=== PATIENT | male | born 1960 | race Caucasian/White ===

== ENCOUNTER 2019-08-21 16:31 | Inpatient (IN) | payer OTHER ==
--- NOTE | 2019-08-21 16:47 | Emergency Department Report ---
Blank Doc - Documentation Documentation: 59-year-old male that presents with abdominal pain with nausea vomiting and left foot swelling and redness. This initial assessment/diagnostic orders/clinical plan/treatment(s) is/are subject to change based on patient's health status, clinical progression and re- assessment by fellow clinical providers in the ED. Further treatment and workup at subsequent clinical providers discretion. Patient/guardians urged not to elope from the ED as their condition may be serious if not clinically assessed and managed. Initial orders include: 1- Patient sent to [facility] for further evaluation and treatment 2- labs 3- UA
[2019-08-21 17:41] LABS: Hematocrit 35.5 % (35.5-45.6); Hemoglobin 12.1 gm/dl (11.8-15.2); Mean Corpuscular HGB Conc 34 % (32-34); Mean Corpuscular Volume 85 fl (84-94); Platelet Count 245 K/mm3 (140-440); Red Blood Count 4.18 M/mm3 (3.65-5.03); Red Cell Distribution Width 14.3 % (13.2-15.2)
--- NOTE | 2019-08-21 17:51 | XRay Report ---
LEFT FOOT 2 VIEWS RIGHT FOOT 2 VIEWS INDICATION / CLINICAL INFORMATION: Pain and swelling along right first toe. Left foot pain. COMPARISON: None available. FINDINGS: BONES and JOINT(S): Suspicious cortical irregularity is noted along the tip of the distal phalanx of the left first toe. No other acute osseous abnormality is seen. Mild arthritis is noted along the rig ht midfoot with bilateral calcaneal enthesopathic change. SOFT TISSUES: There is a suspected wound along the tip of the left first toe measuring 2.4 cm with as sociated edema. Mild to moderate edema is noted throughout the right first toe with a suspected gland measuring approximately 1 cm at the tip of the toe. ADDITIONAL FINDINGS: None. IMPRESSION: 1. Left first toe wound with suspected osteomyelitis as above. 2. Right first toe wound without radiographic evidence of associated osteomyelitis. Signer Name: Justin Camara MD Signed: 08/21/2019 5:46 PM Workstation Name: [id number]
[2019-08-21 18:08] LABS: Albumin 4.2 g/dL (3.9-5); Calcium 8.1 mg/dL (8.4-10.2)
[2019-08-21 18:19] LABS: Anisocytosis Few; Eosinophils % (Manual) 0 % (0.0-4.3); Total Cells Counted 100
[2019-08-21 18:20] LABS: Platelet Estimate Consistent w Auto
[2019-08-21] MEDS ORDERED: SODIUM CHLORIDE 0.9% 1000 ML 1,000 ML IV ONE (20:29)
[2019-08-21] MEDS ORDERED: VANCOMYCIN 1,750 MG in SODIUM CHLORIDE 0.9% 500 ML 500 ML IV ONE (20:45)
[2019-08-21] MEDS ORDERED: DEXTROSE 50% IN WATER (25GM) 50 ML SYRINGE IV ONE ×2 (21:07→22:00)
[2019-08-21] MEDS: DEXTROSE 50% IN WATER (25GM) 50 ML VIAL IV ONE ×2 (21:15→21:58)
--- NOTE | 2019-08-21 21:18 | XRay Report ---
CHEST 1 VIEW INDICATION / CLINICAL INFORMATION: acute renal failure, ams. COMPARISON: None available. FINDINGS: SUPPORT DEVICES: None. HEART / MEDIASTINUM: No significant abnormality. LUNGS / PLEURA: Mild, hazy and reticular interstitial opacities in both lungs. Subtle linear left ret rocardiac opacities are present. No pneumothorax. IMPRESSION: Mild left basilar atelectasis and mild interstitial pulmonary edema. Signer Name: Irineo Callaway MD Signed: 08/21/2019 9:14 PM Workstation Name: [id number]
--- NOTE | 2019-08-21 21:19 | Emergency Department Report ---
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 Even with a managing broker patient is altered and oriented only to self. Initial triage only included that patient had a history of "dementia" and hypertension. Upon calling patient's daughter on the phone patient does not have dementia and has not insulin-dependent diabetes, hy pertension, and chronic renal sufficiency. She provided a list of patient's current medications to the triage providers. I request that these be placed in [employer]. Glucose noted to be 68 on the labs several hours ago. Accu-Chek requested. Upon return from CT patient was having a focal left upper extremity seizure and Accu-Chek was less than 40. IV placed and 2 Amps of D50 provided stat with resolution of seizure activity. As per daughter patient also has had infection to bilateral great toes that started with a blister x1 week. She has been applying topical Neosporin. She did not check his temperature but states he felt hot. He has been too weak to get out of bed for the last 1 week and has had intermittent confusion. His sugar has been running higher than normal. He has chronic renal sufficiency but is not a dialysis patient nor does he have AV access. Depot Manager: Dr. Ferdinand Boone. Patient does not have a PMD. - Related Data Home Medications Medication Instructions Recorded Confirmed Last Taken Loratadine 10 mg PO 08/21/19 Unknown Vitamin D3 08/21/19 Unknown amLODIPine [Norvasc] 10 mg PO DAILY 08/21/19 08/21/19 Unknown glipiZIDE [Glucotrol] 08/21/19 Unknown Allergies Allergy/AdvReac Type Severity Reaction Status Date / Time No Known Allergies Allergy Unverified 08/21/19 16:42 ED Review of Systems ROS: Stated complaint: NAUSEA/ABD PAIN/LOSS OF EYE SIGHT Other details as noted in HPI Comment: Unobtainable due to pts medical conditions ED Past Medical Hx - Past Medical History Previous Medical History?: Yes Hx Hypertension: Yes Hx Diabetes: Yes (non insulin dependent) Hx Renal Disease: Yes - Social History Smoking Status: Never Smoker Substance Use Type: None - Medications Home Medications: Home Medications Medication Instructions Recorded Confirmed Last Taken Type Loratadine 10 mg PO 08/21/19 Unknown History Vitamin D3 08/21/19 Unknown History amLODIPine [Norvasc] 10 mg PO DAILY 08/21/19 08/21/19 Unknown History glipiZIDE [Glucotrol] 08/21/19 Unknown History ED Physical Exam - General Limitations: Language Barrier - Other Other exam information: General: No acute distress Head: Atraumatic Eyes: normal appearance, pupils equal and reactive to light, intermittent left- sided gaze ENT: Moist mucous membranes Neck: Normal appearance, no midline tenderness Chest: Clear to auscultation bilaterally CV: Regular rate and rhythm Abdomen: Soft, normal bowel sounds, nontender, nondistended, no rebound or guarding Back: Normal inspection Extremity: Infection with dark discoloration to the tip of left and right great toe with some mild tenderness to palpation Neuro: Alert but altered. Confused and unable to reliably follow commands oriented x1, no facial asymmetry, equal handgrip of foot dorsiflexion Skin: No rash ED Course Vital Signs 08/21/19 16:33 Temperature 97.6 F Pulse Rate 89 Respiratory 16 Rate Blood Pressure 151/83 O2 Sat by Pulse 100 Oximetry - Reevaluation(s) Reevaluation #1: 08/21/19 21:54 repeat glucose 192, no further sz activity repeat pending. - Consultations Consultation #1: 08/21/19 21:53 case d/w Dr Boone, will consult. ED Medical Decision Making - Lab Data Result diagrams: 08/21/19 17:07 08/21/19 17:07 - Radiology Data Radiology results: report reviewed LEFT FOOT 2 VIEWS RIGHT FOOT 2 VIEWS INDICATION / CLINICAL INFORMATION: Pain and swelling along right first toe. Left foot pain. COMPARISON: None available. FINDINGS: BONES and JOINT(S): Suspicious cortical irregularity is noted along the tip of the distal phalanx of the left first toe. No other acute osseous abnormality is seen. Mild arthritis is noted along the right midfoot with bilateral calcaneal enthesopathic change. SOFT TISSUES: There is a suspected wound along the tip of the left first toe measuring 2.4 cm with associated e vandana. Mild to moderate edema is noted throughout the right first toe with a suspected gland measuring approximately 1 cm at the tip of the toe. ADDITIONAL FINDINGS: None. IMPRESSION: 1. Left first toe wound with suspected osteomyelitis as above. 2. Right first toe wound without radiographic evidence of associated osteomyelitis. CHEST 1 VIEW INDICATION / CLINICAL INFORMATION: acute renal failure, ams. COMPARISON: None available. FINDINGS: SUPPORT DEVICES: None. HEART / MEDIASTINUM: No significant abnormality. LUNGS / PLEURA: Mild, hazy and reticular interstitial opacities in both lungs. Subtle linear left retrocardiac opacities are present. No pneumothorax. IMPRESSION: Mild left basilar atelecta sis and mild interstitial pulmonary edema. CT ABDOMEN AND PELVIS WITHOUT CONTRAST INDICATION / CLINICAL INFORMATION: n,v abd pain, new onset renal failure. TECHNIQUE: Axial CT images were obtained through the abdomen and pelvis without IV contrast. All CT scans at this location are performed using CT dose reduction for ALARA by means of automated exposure control. COMPARISON: None available. FINDINGS: LOWER CHEST: No significant abnormality. LIVER: No significant abnormality. GALLBLADDER: No significant abnormality. BILE DUCTS: No significant abnormality. PANCREAS: No significant abnormality. SPLEEN: No significant abnormality. ADRENALS: No significant abnormality. RIGHT KIDNEY and URETER: No significant abnormality. LEFT KIDNEY and URETER: No significant abnormality. STOMACH and SMALL BOWEL: No significant abnormality. COLON: No significant abnormality. APPENDIX: No significant abnormality. PERITONEUM: No free fluid. No free air. No fluid collection. LYMPH NODES: No adenopathy. AORTA and ARTERIES: No significant abnormality. IVC and VEINS: No significant abnormality. URINARY BLADDER: No significant abnormality. REPRODUCTIVE ORGANS: No significant abnormality. ADDITIONAL FINDINGS: None. SKELETAL SYSTEM: No significant abnormality. IMPRESSION: 1. No acute abnormality. CT BRAIN: WITHOUT CONTRAST INDICATION / CLINICAL INFORMATION: Altered mental status and abdominal pain. COMPARISON: None available. FINDINGS: BRAIN/INTRACRANIAL STRUCTURES: Unenhanced CT images of the brain demonstrate no evidence of acute intracranial abnormality. Ventricles and sulci are prominent in size, consistent with diffuse cerebral atrophy. Chronic white matter hypoatte nuation is present. There is evidence of lacunar changes in the basal ganglia bilaterally, more pronounced on the left. 1 cm area of hypoattenuation is located in the left centrum semiovale, consistent with subcortical ischemic change of indeterminate age. There is no evidence of hemorrhage or mass. There are no abnormal extra-axial fluid collections. EXTRACRANIAL STRUCTURES: Unremarkable. IMPRESSION: No definite evidence of acute abnormality. Chronic and age-related changes. - Medical Decision Making Patient presents to the hospital with nausea and vomiting and worsening chronic renal sufficiency with uremia likely cause of alteration mental status. Mental status deteriorated during ED stay with focal seizure secondary to hypoglycemic episode. After 2 Amp of D50 glucose improved. CT head and CT abdomen pelvis do not show any acute abnormalities. Patient had a urine output after John placement. Normal saline at 250 mL/h initiated. Mild findings of CHF on chest x-ray without hypoxia. Vancomycin initiated fo for x-ray findings of bilateral toe osteomyelitis. Blood cultures pending. Case discussed with nephrology. Hospitalist informed for admission. Critical Care Time: No Critical care attestation.: If time is entered above; I have spent that time in minutes in the direct care of this critically ill patient, excluding procedure time. ED Disposition Clinical Impression: Acute on chronic renal failure, AMS (altered mental status), Uremia, Hypoglycemia, Osteomyelitis, Nausea and vomiting Disposition: 09 OP ADMIT IP TO THIS HOSP Is pt being admited?: Yes Does the pt Need Aspirin: No Condition: Stable Referrals: PRIMARY CARE, [Primary Care Provider] - 3-5 Days Time of Disposition: 21:54 (Dr Watson/[facility])
[2019-08-21] MEDS ORDERED: ONDANSETRON 4 MG/2 ML INJ IV ONE (21:25)
--- NOTE | 2019-08-21 21:30 | Cat Scan Report ---
CT BRAIN: WITHOUT CONTRAST INDICATION / CLINICAL INFORMATION: Altered mental status and abdominal pain. COMPARISON: None available. FINDINGS: BRAIN/INTRACRANIAL STRUCTURES: Unenhanced CT images of the brain demonstrate no evidence of acute int racranial abnormality. Ventricles and sulci are prominent in size, consistent with diffuse cerebral atrophy. Chronic white m atter hypoattenuation is present. There is evidence of lacunar changes in the basal ganglia bilaterally, more pronounced on the left. 1 cm area of hypoattenuation is located in the left centrum semiovale, consistent with subcortical isc hemic change of indeterminate age. There is no evidence of hemorrhage or mass. There are no abnormal extra-axial fluid collections. EXTRACRANIAL STRUCTURES: Unremarkable. IMPRESSION: No definite evidence of acute abnormality. Chronic and age-related changes. All CT scans at this location are performed using dose reduction to ALARA by means of automated expos ure control. Signer Name: Adan Mares MD Signed: 08/21/2019 9:26 PM Workstation Name: [id number]
--- NOTE | 2019-08-21 21:38 | Cat Scan Report ---
CT ABDOMEN AND PELVIS WITHOUT CONTRAST INDICATION / CLINICAL INFORMATION: n,v abd pain, new onset renal failure. TECHNIQUE: Axial CT images were obtained through the abdomen and pelvis without IV contrast. All CT scans at [facility] location are performed using CT dose reduction for ALARA by means of automated exposure control. COMPARISON: None available. FINDINGS: LOWER CHEST: No significant abnormality. LIVER: No significant abnormality. GALLBLADDER: No significant abnormality. BILE DUCTS: No significant abnormality. PANCREAS: No significant abnormality. SPLEEN: No significant abnormality. ADRENALS: No significant abnormality. RIGHT KIDNEY and URETER: No significant abnormality. LEFT KIDNEY and URETER: No significant abnormality. STOMACH and SMALL BOWEL: No significant abnormality. COLON: No significant abnormality. APPENDIX: No significant abnormality. PERITONEUM: No free fluid. No free air. No fluid collection. LYMPH NODES: No adenopathy. AORTA and ARTERIES: No significant abnormality. IVC and VEINS: No significant abnormality. URINARY BLADDER: No significant abnormality. REPRODUCTIVE ORGANS: No significant abnormality. ADDITIONAL FINDINGS: None. SKELETAL SYSTEM: No significant abnormality. IMPRESSION: 1. No acute abnormality. Signer Name: Irineo Callaway MD Signed: 08/21/2019 9:34 PM Workstation Name: [id number]
[2019-08-21 22:01] LABS: Osmolality,Urine 349 Mosm/kg
[2019-08-21 22:02] LABS: Bacteria,Urine 1+ /HPF (Negative); Bilirubin,Urine NEG (Negative); Blood,Urine LG (Negative); Color,Urine Amber (Yellow); Mucus,Urine FEW /HPF; Protein,Urine >500 mg/dL (Negative); Urobilinogen,Urine < 2.0 mg/dL (<2.0)
[2019-08-21 22:11] LABS: Amphetamine Screen,Urine PRESUMPTIVE NEGATIVE; Benzodiazepines Screen,Urine PRESUMPTIVE NEGATIVE; Cannabinoid Screen,Urine PRESUMPTIVE NEGATIVE; Chloride, Urine 10.8 mmolL (110-250); Cocaine Screen,Urine PRESUMPTIVE NEGATIVE; Creatinine,Urine 392.1 mg/dL (0.1-20.0); Methadone Screen,Urine PRESUMPTIVE NEGATIVE; Opiate Screen,Urine PRESUMPTIVE NEGATIVE
[2019-08-21] MEDS ORDERED: ACETAMINOPHEN 325 MG TAB PO PRN (22:16)
[2019-08-21] MEDS ORDERED: MAGNESIUM HYDROXIDE (MOM) ORAL LIQD UDC PO PRN (22:16)
[2019-08-21] MEDS ORDERED: MORPHINE 2 MG/1 ML INJ IV PRN (22:16)
[2019-08-21] MEDS ORDERED: SODIUM CHLORIDE 0.9% 1000 ML 1,000 ML IV SCH (22:30)
--- NOTE | 2019-08-21 22:31 | History and Physical Report ---
History of Present Illness Date of examination: 08/21/19 Date of admission: 08/21/2019 Chief complaint: Nausea and vomiting Abdominal pain History of present illness: 59-year-old male with known history of hypertension, diabetes mellitus and chronic kidney disease presenting to the emergency room today complaining of nausea and vomiting with associated abdominal pain which has been ongoing for about a week. Patient was said to be slightly altered upon arrival in the emergency room today and a CT scan of the head was done without any significant finding. However he was found to have a low blood sugar of less than about 40 patient was given 2 Amps of D50 in the emergency room. Most of the history was said to have been gotten from the daughter over the phone as patient is not a very good historian. Patient has had 2 ulcers over the 2 great toes laterally. Patient's daughter had been applying Neosporin cream to be ulcers over the great toes. Patient is said to have been feeling generally weak and also having intermittent confusion over the past 1 week. Blood glucose has also been said to be abnormally high lately. He has been following up with Dr. Duc Boone for his history of chronic kidney disease. Patient currently not on dialysis. Evaluation in the emergency room today reveals elevated BUN and creatinine, x- ray of the feet reveals bilateral osteomyelitis on the great toes. Past History Past Medical History: diabetes, hypertension, other (Chronic kidney disease) Past Surgical History: No surgical history Social history: no significant social history Medications and Allergies Allergies Allergy/AdvReac Type Severity Reaction Status Date / Time No Known Allergies Allergy Unverified 08/21/19 16:42 Home Medications Medication Instructions Recorded Confirmed Last Taken Type Cholecalciferol (Vitamin D3) unit PO DAILY 08/21/19 Unknown History [Vitamin D3] Loratadine 10 mg PO QDAY 08/21/19 08/21/19 Unknown History amLODIPine [Norvasc] 10 mg PO DAILY 08/21/19 08/21/19 Unknown History glipiZIDE [Glucotrol] 10 mg PO QDAY 08/21/19 08/21/19 Unknown History hydroCHLOROthiazide [HCTZ] 25 mg PO QDAY 08/21/19 08/21/19 Unknown History Active Meds: Active Medications Sodium Chloride (Nacl 0.9% 1000 Ml) 1,000 mls @ 250 mls/hr IV BOLUS ONE Stop: 08/22/19 00:28 Last Admin: 08/21/19 21:12 Dose: 250 mls/hr Documented by: Vancomycin HCl 1,750 mg/ (Sodium Chloride) 535 mls @ 267.5 mls/hr IV ONCE ONE; Protocol Stop: 08/21/19 22:44 Last Admin: 08/21/19 21:43 Dose: 267.5 mls/hr Documented by: Review of Systems Constitutional: no fever, no chills Ears, nose, mouth and throat: no nasal congestion, no sore throat Cardiovascular: no chest pain, no palpitations, no syncope Respiratory: no cough, no shortness of breath Gastrointestinal: abdominal pain, nausea, vomiting, no diarrhea, no hematochezia Genitourinary Male: no dysuria, no hematuria, no flank pain Musculoskeletal: no neck pain, no low back pain Integumentary: no rash, no pruritis Neurological: no headaches, no confusion Psychiatric: no anxiety, no depression Exam - Constitutional Vitals: Temp Pulse Resp BP Pulse Ox 97.6 F 89 16 151/83 100 08/21/19 16:33 08/21/19 16:33 08/21/19 16:33 08/21/19 16:33 08/21/19 16:33 General appearance: Present: no acute distress, well-nourished - EENT Eyes: Present: PERRL, EOM intact ENT: hearing intact, clear oral mucosa, dentition normal - Neck Neck: Present: supple, normal ROM - Respiratory Respiratory effort: normal Respiratory: bilateral: CTA - Cardiovascular Rhythm: regular Heart Sounds: Present: S1 & S2. Absent: gallop, systolic murmur, diastolic murmur, rub - Extremities Extremities: no ischemia, pulses intact, pulses symmetrical, No edema, Full ROM Peripheral Pulses: within normal limits - Abdominal General gastrointestinal: Present: soft, non-tender, non-distended, normal bowel sounds - Integumentary Integumentary: Present: clear, warm, dry - Musculoskeletal Musculoskeletal: strength equal bilaterally - Psychiatric Psychiatric: appropriate mood/affect, intact judgment & insight, memory intact, cooperative - Neurologic Neurologic: CNII-XII intact, moves all extremities Results - Labs CBC & Chem 7: 08/21/19 17:07 08/22/19 02:25 Labs: Abnormal lab results 08/21/19 08/21/19 08/21/19 Range/Units 16:55 17:07 17:07 WBC 12.3 H (4.5-11.0) K/mm3 Seg Neuts % (Manual) 96.0 H (40.0-70.0) % Lymphocytes % (Manual) 2.0 L (13.4-35.0) % Seg Neutrophils # Man 11.8 H (1.8-7.7) K/mm3 Lymphocytes # (Manual) 0.2 L (1.2-5.4) K/mm3 Sodium 136 L (137-145) mmol/L Potassium 5.3 H (3.6-5.0) mmol/L Chloride 90.6 L (98-107) mmol/L Carbon Dioxide 20 L (22-30) mmol/L BUN 162 H (9-20) mg/dL Creatinine 13.3 H (0.8-1.5) mg/dL Glucose 68 L (75-100) mg/dL POC Glucose 67 L (70-105) Calcium 8.1 L (8.4-10.2) mg/dL Lipase 107 H (13-60) units/L Urine WBC (Auto) (0.0-6.0) /HPF Urine Creatinine (0.1-20.0) mg/dL Urine Chloride (110-250) mmolL 08/21/19 08/21/19 08/21/19 Range/Units 21:13 22:02 22:37 WBC (4.5-11.0) K/mm3 Seg Neuts % (Manual) (40.0-70.0) % Lymphocytes % (Manual) (13.4-35.0) % Seg Neutrophils # Man (1.8-7.7) K/mm3 Lymphocytes # (Manual) (1.2-5.4) K/mm3 Sodium (137-145) mmol/L Potassium (3.6-5.0) mmol/L Chloride (98-107) mmol/L Carbon Dioxide (22-30) mmol/L BUN (9-20) mg/dL Creatinine (0.8-1.5) mg/dL Glucose (75-100) mg/dL POC Glucose < 40 L 192 H 138 H (70-105) Calcium (8.4-10.2) mg/dL Lipase (13-60) units/L Urine WBC (Auto) (0.0-6.0) /HPF Urine Creatinine (0.1-20.0) mg/dL Urine Chloride (110-250) mmolL 08/21/19 08/21/19 Range/Units Unknown Unknown WBC (4.5-11.0) K/mm3 Seg Neuts % (Manual) (40.0-70.0) % Lymphocytes % (Manual) (13.4-35.0) % Seg Neutrophils # Man (1.8-7.7) K/mm3 Lymphocytes # (Manual) (1.2-5.4) K/mm3 Sodium (137-145) mmol/L Potassium (3.6-5.0) mmol/L Chloride (98-107) mmol/L Carbon Dioxide (22-30) mmol/L BUN (9-20) mg/dL Creatinine (0.8-1.5) mg/dL Glucose (75-100) mg/dL POC Glucose (70-105) Calcium (8.4-10.2) mg/dL Lipase (13-60) units/L Urine WBC (Auto) 50.0 H (0.0-6.0) /HPF Urine Creatinine 392.1 H (0.1-20.0) mg/dL Urine Chloride 10.8 L (110-250) mmolL Assessment and Plan - Patient Problems (1) AMS (altered mental status) Current Visit: Yes Status: Acute Plan to address problem: Possibly secondary to uremia versus hypoglycemia. We will monitor patient's mental status. (2) Acute on chronic renal failure Current Visit: Yes Status: Acute Plan to address problem: Sports Medicine Specialist has been consulted for further evaluation and recommendation. Patient follows up with Dr. Duc Boone (3) Hypoglycemia Current Visit: Yes Status: Acute Plan to address problem: Patient has had multiple ampules of D50. Will place patient on IV fluid D5 normal saline. (4) Nausea and vomiting Current Visit: Yes Status: Acute Plan to address problem: 10 placed on IV Zofran as needed for nausea and vomiting. (5) Osteomyelitis Current Visit: Yes Status: Acute Plan to address problem: Patient has been placed on empiric IV antibiotics. We will place a consult to wound care for further evaluation of wound on the great toes. (6) DVT prophylaxis Current Visit: Yes Status: Acute Plan to address problem: Patient placed on subcutaneous heparin. (7) Full code status Current Visit: Yes Status: Acute
[2019-08-21] MEDS ORDERED: VANCOMYCIN PHARMACY TO DOSE IV SCH (23:00)
[2019-08-22] MEDS: INSULIN LISPRO 100 UNIT/ML SUB-Q SCH ×4 (00:02→22:20)
[2019-08-22] MEDS: DEXTROSE 50% IN WATER (25GM) 50 ML SYRINGE IV PRN ×4 (00:28→08:12)
[2019-08-22] MEDS ORDERED: D5W/0.9% NACL 1,000 ML IV SCH (04:00)
[2019-08-22] MEDS: hydrALAZINE 20 MG/1 ML INJ IV PRN ×3 (04:03→22:19)
[2019-08-22 04:37] LABS: Basophils % (Auto) 0.3 % (0.0-1.8); Eosinophils % (Auto) 0.1 % (0.0-4.3); Hemoglobin 11.2 gm/dl (11.8-15.2); Lymphocytes # (Auto) 1.4 K/mm3 (1.2-5.4); Lymphocytes % (Auto) 10.2 % (13.4-35.0); Mean Corpuscular HGB Conc 34 % (32-34); Mean Corpuscular Volume 85 fl (84-94); Monocytes # (Auto) 0.7 K/mm3 (0.0-0.8); Monocytes % (Auto) 5.1 % (0.0-7.3); Platelet Count 266 K/mm3 (140-440); Red Blood Count 3.87 M/mm3 (3.65-5.03); Red Cell Distribution Width 14.2 % (13.2-15.2)
[2019-08-22 04:57] LABS: Calcium 7.5 mg/dL (8.4-10.2)
[2019-08-22 05:01] LABS: INR 1.09 (0.87-1.13)
[2019-08-22] MEDS: HEPARIN 5,000 UNIT/1 ML VIAL SUB-Q SCH ×3 (05:07→22:19)
[2019-08-22] MEDS: ONDANSETRON 4 MG/2 ML INJ IV PRN ×2 (08:12→22:19)
--- NOTE | 2019-08-22 11:42 | Progress Note ---
Assessment and Plan Assessment and plan: -- AMS (altered mental status) Current Visit: Yes Status: Acute Possibly secondary to uremia versus hypoglycemia. We will monitor patient's mental status. -- Acute on chronic renal failure Current Visit: Yes Status: Acute Possible ESRD geographic information system surveyor evaluated the patient Possible start hemodialysis --Hypoglycemia Current Visit: Yes Status: Acute Hold diabetic medications patient received multiple D50 pushes Will place patient on IV fluid D10 normal saline. Closely monitor blood sugars -- Nausea and vomiting Current Visit: Yes Status: Acute 10 placed on IV Zofran as needed for nausea and vomiting. -- Osteomyelitis/left great toe Current Visit: Yes Status: Acute Patient has been placed on empiric IV antibiotics. Possible osteomyelitis of left great toe on x-ray Wound care -- DVT prophylaxis Current Visit: Yes Status: Acute Patient placed on subcutaneous heparin. -- Full code status Current Visit: Yes Status: Acute History Interval history: Patient seen and examined at the bedside Patient's chart and medications reviewed Patient is noted to have severe hypoglycemia Received D50 Patient feels slightly better Complains of generalized weakness Vital signs noted Hospitalist Physical - Constitutional Vitals: Temp Pulse Resp BP Pulse Ox 98.3 F 99 H 22 171/90 95 08/22/19 11:19 08/22/19 11:19 08/22/19 11:19 08/22/19 11:19 08/22/19 11:20 General appearance: Present: no acute distress, well-nourished - EENT Eyes: Present: PERRL, EOM intact - Neck Neck: Present: supple, normal ROM - Respiratory Respiratory effort: normal Respiratory: bilateral: diminished, rhonchi, negative: rales, wheezing - Cardiovascular Rhythm: regular Heart Sounds: Present: S1 & S2 - Extremities Extremities: abnormal (Tip of great toe, discoloration,) - Abdominal General gastrointestinal: soft, non-tender, non-distended, normal bowel sounds - Integumentary Integumentary: Present: clear, warm - Psychiatric Psychiatric: appropriate mood/affect, cooperative - Neurologic Neurologic: moves all extremities Results - Labs CBC & Chem 7: 08/22/19 04:04 08/22/19 04:04 Labs: Laboratory Last Values WBC 13.2 K/mm3 (4.5-11.0) H 08/22/19 04:04 RBC 3.87 M/mm3 (3.65-5.03) 08/22/19 04:04 Hgb 11.2 gm/dl (11.8-15.2) L 08/22/19 04:04 Hct 33.0 % (35.5-45.6) L 08/22/19 04:04 MCV 85 fl (84-94) 08/22/19 04:04 MCH 29 pg (28-32) 08/22/19 04:04 MCHC 34 % (32-34) 08/22/19 04:04 RDW 14.2 % (13.2-15.2) 08/22/19 04:04 Plt Count 266 K/mm3 (140-440) 08/22/19 04:04 Lymph % (Auto) 10.2 % (13.4-35.0) L 08/22/19 04:04 [place] % (Auto) 5.1 % (0.0-7.3) 08/22/19 04:04 Eos % (Auto) 0.1 % (0.0-4.3) 08/22/19 04:04 Baso % (Auto) 0.3 % (0.0-1.8) 08/22/19 04:04 Lymph # 1.4 K/mm3 (1.2-5.4) 08/22/19 04:04 [place] # 0.7 K/mm3 (0.0-0.8) 08/22/19 04:04 Eos # 0.0 K/mm3 (0.0-0.4) 08/22/19 04:04 Baso # 0.0 K/mm3 (0.0-0.1) 08/22/19 04:04 Add Manual Diff Complete 08/21/19 17:07 Total Counted 100 08/21/19 17:07 Seg Neutrophils % 84.3 % (40.0-70.0) H 08/22/19 04:04 Seg Neuts % (Manual) 96.0 % (40.0-70.0) H 08/21/19 17:07 Band Neutrophils % 0 % 08/21/19 17:07 Lymphocytes % (Manual) 2.0 % (13.4-35.0) L 08/21/19 17:07 Reactive Lymphs % (Man) 0 % 08/21/19 17:07 Monocytes % (Manual) 1.0 % (0.0-7.3) 08/21/19 17:07 Eosinophils % (Manual) 0 % (0.0-4.3) 08/21/19 17:07 Basophils % (Manual) 1.0 % (0.0-1.8) 08/21/19 17:07 Metamyelocytes % 0 % 08/21/19 17:07 Myelocytes % 0 % 08/21/19 17:07 Promyelocytes % 0 % 08/21/19 17:07 Blast Cells % 0 % 08/21/19 17:07 Nucleated RBC % Not Reportable 08/21/19 17:07 Seg Neutrophils # 11.2 K/mm3 (1.8-7.7) H 08/22/19 04:04 Seg Neutrophils # Man 11.8 K/mm3 (1.8-7.7) H 08/21/19 17:07 Band Neutrophils # 0.0 K/mm3 08/21/19 17:07 Lymphocytes # (Manual) 0.2 K/mm3 (1.2-5.4) L 08/21/19 17:07 Abs React Lymphs (Man) 0.0 K/mm3 08/21/19 17:07 Monocytes # (Manual) 0.1 K/mm3 (0.0-0.8) 08/21/19 17:07 Eosinophils # (Manual) 0.0 K/mm3 (0.0-0.4) 08/21/19 17:07 Basophils # (Manual) 0.1 K/mm3 (0.0-0.1) 08/21/19 17:07 Metamyelocytes # 0.0 K/mm3 08/21/19 17:07 Myelocytes # 0.0 K/mm3 08/21/19 17:07 Promyelocytes # 0.0 K/mm3 08/21/19 17:07 Blast Cells # 0.0 K/mm3 08/21/19 17:07 WBC Morphology Not Reportable 08/21/19 17:07 Hypersegmented Neuts Not Reportable 08/21/19 17:07 Hyposegmented Neuts Not Reportable 08/21/19 17:07 Hypogranular Neuts Not Reportable 08/21/19 17:07 Smudge Cells Not Reportable 08/21/19 17:07 Toxic Granulation Not Reportable 08/21/19 17:07 Toxic Vacuolation Not Reportable 08/21/19 17:07 Dohle Bodies Not Reportable 08/21/19 17:07 Pelger-Huet Anomaly Not Reportable 08/21/19 17:07 Zoran Rods Not Reportable 08/21/19 17:07 Platelet Estimate Consistent w auto 08/21/19 17:07 Clumped Platelets Not Reportable 08/21/19 17:07 Plt Clumps, EDTA Not Reportable 08/21/19 17:07 Large Platelets Not Reportable 08/21/19 17:07 Giant Platelets Not Reportable 08/21/19 17:07 Platelet Satelliting Not Reportable 08/21/19 17:07 Plt Morphology Comment Not Reportable 08/21/19 17:07 RBC Morphology Not Reportable 08/21/19 17:07 Dimorphic RBCs Not Reportable 08/21/19 17:07 Polychromasia Rare 08/21/19 17:07 Hypochromasia Not Reportable 08/21/19 17:07 Poikilocytosis Not Reportable 08/21/19 17:07 Anisocytosis Few 08/21/19 17:07 Microcytosis Not Reportable 08/21/19 17:07 Macrocytosis Not Reportable 08/21/19 17:07 Spherocytes Not Reportable 08/21/19 17:07 Pappenheimer Bodies Not Reportable 08/21/19 17:07 Sickle Cells Not Reportable 08/21/19 17:07 Target Cells Not Reportable 08/21/19 17:07 Tear Drop Cells Not Reportable 08/21/19 17:07 Ovalocytes Not Reportable 08/21/19 17:07 Helmet Cells Not Reportable 08/21/19 17:07 [place] Bodies Not Reportable 08/21/19 17:07 [place] Rings Not Reportable 08/21/19 17:07 [place] Cells Not Reportable 08/21/19 17:07 Bite Cells Not Reportable 08/21/19 17:07 Crenated Cell Not Reportable 08/21/19 17:07 Elliptocytes Not Reportable 08/21/19 17:07 Acanthocytes (Spur) Not Reportable 08/21/19 17:07 Rouleaux Not Reportable 08/21/19 17:07 Hemoglobin C Crystals Not Reportable 08/21/19 17:07 Schistocytes Not Reportable 08/21/19 17:07 Malaria parasites Not Reportable 08/21/19 17:07 ESR 67 mm/Hr (0-20) 08/21/19 20:54 [place] Bodies Not Reportable 08/21/19 17:07 Hem Pathologist Commnt No 08/21/19 17:07 PT 13.9 Sec. (12.2-14.9) 08/22/19 04:04 INR 1.09 (0.87-1.13) 08/22/19 04:04 Sodium 138 mmol/L (137-145) 08/22/19 04:04 Potassium 5.1 mmol/L (3.6-5.0) H 08/22/19 04:04 Chloride 93.9 mmol/L (98-107) L 08/22/19 04:04 Carbon Dioxide 21 mmol/L (22-30) L 08/22/19 04:04 Anion Gap 28 mmol/L 08/22/19 04:04 BUN 166 mg/dL (9-20) H 08/22/19 04:04 Creatinine 13.9 mg/dL (0.8-1.5) H 08/22/19 04:04 Estimated GFR 4 ml/min 08/22/19 04:04 BUN/Creatinine Ratio 12 % 08/22/19 04:04 Glucose 35 mg/dL (75-100) L* 08/22/19 04:04 POC Glucose 120 (70-105) H 08/22/19 10:00 Hemoglobin A1c 7.1 % (4-6) H 08/21/19 20:54 Calcium 7.5 mg/dL (8.4-10.2) L 08/22/19 04:04 Total Bilirubin 0.50 mg/dL (0.1-1.2) 08/21/19 17:07 AST 38 units/L (5-40) 08/21/19 17:07 ALT 38 units/L (7-56) 08/21/19 17:07 Alkaline Phosphatase 98 units/L (35-129) 08/21/19 17:07 Total Protein 7.9 g/dL (6.3-8.2) 08/21/19 17:07 Albumin 4.2 g/dL (3.9-5) 08/21/19 17:07 Albumin/Globulin Ratio 1.1 % 08/21/19 17:07 Lipase 107 units/L (13-60) H 08/21/19 17:07 Urine Color Becky (Yellow) 08/21/19 Unknown Urine Turbidity Cloudy (Clear) 08/21/19 Unknown Urine pH 5.0 (5.0-7.0) 08/21/19 Unknown Ur Specific [place] 1.026 (1.003-1.030) 08/21/19 Unknown Urine Protein >500 mg/dL (Negative) 08/21/19 Unknown Urine Glucose (UA) Neg mg/dL (Negative) 08/21/19 Unknown Urine Ketones Neg mg/dL (Negative) 08/21/19 Unknown Urine Blood Lg (Negative) 08/21/19 Unknown Urine Nitrite Neg (Negative) 08/21/19 Unknown Urine Bilirubin Neg (Negative) 08/21/19 Unknown Urine Urobilinogen < 2.0 mg/dL (<2.0) 08/21/19 Unknown Ur Leukocyte Esterase Tr (Negative) 08/21/19 Unknown Urine WBC (Auto) 50.0 /HPF (0.0-6.0) H 08/21/19 Unknown Urine RBC (Auto) 43.0 /HPF (0.0-6.0) 08/21/19 Unknown U Epithel Cells (Auto) 1.0 /HPF (0-13.0) 08/21/19 Unknown Urine Bacteria (Auto) 1+ /HPF (Negative) 08/21/19 Unknown Urine Mucus Few /HPF 08/21/19 Unknown Urine Osmolality 349 Mosm/kg 08/21/19 Unknown Urine Creatinine 392.1 mg/dL (0.1-20.0) H 08/21/19 Unknown Urine Sodium 10 mmol/L 08/21/19 Unknown Urine Chloride 10.8 mmolL (110-250) L 08/21/19 Unknown Urine Opiates Screen Presumptive negative 08/21/19 Unknown Urine Methadone Screen Presumptive negative 08/21/19 Unknown Ur Barbiturates Screen Presumptive negative 08/21/19 Unknown Ur Phencyclidine Scrn Presumptive negative 08/21/19 Unknown Ur Amphetamines Screen Presumptive negative 08/21/19 Unknown U Benzodiazepines Scrn Presumptive negative 08/21/19 Unknown Urine Cocaine Screen Presumptive negative 08/21/19 Unknown U Marijuana (THC) Screen Presumptive negative 08/21/19 Unknown Drugs of Abuse Note Disclamer 08/21/19 Unknown Microbiology: Microbiology 08/21/19 20:58 Peripheral/Venous Blood Culture - Preliminary Culture in Progress 08/21/19 20:54 Peripheral/Venous Blood Culture - Preliminary Culture in Progress John/IV: IV Catheter Type [Right Hand] Peripheral IV IV Catheter Type [Left Forearm Peripheral IV ] Active Medications - Current Medications Current Medications: Generic Name Dose Route Start Last Admin Trade Name Freq PRN Reason Stop Dose Admin Acetaminophen 650 mg 08/21/19 22:16 Tylenol PO Q4H PRN Pain MILD(1-3)/Fever >100.5/MCKEON Amlodipine Besylate 10 mg 08/23/19 10:00 Amlodipine PO DAILY [facility] Cholecalciferol 5,000 unit 08/23/19 10:00 Vitamin D3 PO DAILY [facility] Dextrose 0 ml 08/21/19 22:16 08/22/19 08:12 D50w (25gm) Syringe IV 50 ml Q30MIN PRN Administration Hypoglycemia Protocol Heparin Sodium (Porcine) 5,000 unit 08/22/19 06:00 08/22/19 05:07 Heparin SUB-Q 5,000 unit Q8HR JEN Administration Hydralazine HCl 10 mg 08/22/19 03:45 08/22/19 10:24 Apresoline IV 10 mg Q6H PRN Administration Blood Pressure Hydrochlorothiazide 25 mg 08/23/19 10:00 Hctz PO QDAY [facility] Dextrose/Sodium Chloride 1,000 mls @ 75 mls/hr 08/22/19 04:00 08/22/19 04:00 D5ns IV 75 mls/hr DIRECT JEN Administration Insulin Human Lispro 0 unit 08/22/19 00:00 08/22/19 05:09 Humalog SUB-Q Not Given Q6HR [facility] Protocol Magnesium Hydroxide 30 ml 08/21/19 22:16 Milk Of Magnesia PO Q4H PRN Constipation Morphine Sulfate 2 mg 08/21/19 22:16 Morphine IV Q4H PRN Pain, Moderate (4-6) Ondansetron HCl 4 mg 08/21/19 22:16 08/22/19 08:12 Zofran IV 4 mg Q8H PRN Administration Nausea And Vomiting Sodium Chloride 10 ml 08/22/19 10:00 08/22/19 10:15 Sodium Chloride Flush Syringe 10 Ml IV 10 ml BID JEN Administration Sodium Chloride 10 ml 08/21/19 22:16 Sodium Chloride Flush Syringe 10 Ml IV PRN PRN LINE FLUSH
[2019-08-22] MEDS ORDERED: DEXTROSE 10% IN WATER 1,000 ML IV SCH (12:00)
--- NOTE | 2019-08-22 12:06 | Consultation ---
History of Present Illness - Reason for Consult Consult date: 08/22/19 acute renal failure, chronic renal failure, hyperkalemia, metabolic acidosis Requesting physician: JIMMIE WAN - History of Present Illness 1-year-old male with a past medical history of diabetes, hypertension, and chronic renal sufficiency presents to the hospital with complaints of nausea, vo miting, and abdominal pain x1 week. Even with a geological manager patient is altered and oriented only to self. Initial triage only included that patient had a history of "dementia" and hypertension. Upon calling patient's daughter on the phone patient does not have dementia and has not insulin-dependent diabetes, hypertension, and chronic renal sufficiency. She provided a list of patient's current medications to the triage providers. I request that these be placed in Jet. Glucose noted to be 68 on the labs several hours ago. Accu-Chek requested. Upon return from CT patient was having a focal left upper extremity seizure and Accu-Chek was less than 40. IV placed and 2 Amps of D50 provided stat with resolution of seizure activity. As per daughter patient also has had infection to bilateral great toes that started with a blister x1 week. She has been applying topical Neosporin. She did not check his temperature but states he felt hot. He has been too weak to get out of bed for the last 1 week and has had intermittent confusion. His sugar has been running higher than normal. He has chronic renal sufficiency but is not a dialysis patient nor does he have AV access. Burglar Alarm Mechanic: Dr. Ferdiannd Boone. Patient does not have a PMD. ROS: Stated complaint: NAUSEA/ABD PAIN/LOSS OF EYE SIGHT Other details as noted in HPI Comment: Unobtainable due to pts medical conditions - Past Medical History Previous Medical History?: Yes Hx Hypertension: Yes Hx Diabetes: Yes (non insulin dependent) Hx Renal Disease: Yes - Social History Smoking Status: Never Smoker Substance Use Type: None Past History Past Medical History: diabetes, hypertension, other (Chronic kidney disease) Past Surgical History: No surgical history Social history: no significant social history Medications and Allergies Allergies Allergy/AdvReac Type Severity Reaction Status Date / Time No Known Allergies Allergy Unverified 08/21/19 16:42 Home Medications Medication Instructions Recorded Confirmed Last Taken Type Cholecalciferol (Vitamin D3) 5,000 unit PO DAILY 08/21/19 08/22/19 Unknown History [Vitamin D3] Loratadine 10 mg PO QDAY 08/21/19 08/21/19 Unknown History amLODIPine [Norvasc] 10 mg PO DAILY 08/21/19 08/21/19 Unknown History glipiZIDE [Glucotrol] 10 mg PO BID 08/21/19 08/22/19 Unknown History hydroCHLOROthiazide [HCTZ] 25 mg PO QDAY 08/21/19 08/21/19 Unknown History Active Meds: Active Medications Acetaminophen (Tylenol) 650 mg PO Q4H PRN PRN Reason: Pain MILD(1-3)/Fever >100.5/MCKEON Amlodipine Besylate (Amlodipine) 10 mg PO DAILY [facility] Cholecalciferol (Vitamin D3) 5,000 unit PO DAILY [facility] Dextrose (D50w (25gm) Syringe) 0 ml IV Q30MIN PRN; Protocol PRN Reason: Hypoglycemia Last Admin: 08/22/19 08:12 Dose: 50 ml Documented by: Heparin Sodium (Porcine) (Heparin) 5,000 unit SUB-Q Q8HR [facility] Last Admin: 08/22/19 05:07 Dose: 5,000 unit Documented by: Hydralazine HCl (Apresoline) 10 mg IV Q6H PRN PRN Reason: Blood Pressure Last Admin: 08/22/19 10:24 Dose: 10 mg Documented by: Hydrochlorothiazide (Hctz) 25 mg PO QDAY [facility] Dextrose (D10w) 1,000 mls @ 75 mls/hr IV DIRECT [facility] Insulin Human Lispro (Humalog) 0 unit SUB-Q ACHS [facility]; Protocol Magnesium Hydroxide (Milk Of Magnesia) 30 ml PO Q4H PRN PRN Reason: Constipation Morphine Sulfate (Morphine) 2 mg IV Q4H PRN PRN Reason: Pain, Moderate (4-6) Ondansetron HCl (Zofran) 4 mg IV Q8H PRN PRN Reason: Nausea And Vomiting Last Admin: 08/22/19 08:12 Dose: 4 mg Documented by: Sodium Chloride (Sodium Chloride Flush Syringe 10 Ml) 10 ml IV BID [facility] Last Admin: 08/22/19 10:15 Dose: 10 ml Documented by: Sodium Chloride (Sodium Chloride Flush Syringe 10 Ml) 10 ml IV PRN PRN PRN Reason: LINE FLUSH Exam - Vital Signs Vital signs: Vital Signs Temp Pulse Resp BP Pulse Ox 97.6 F 89 16 151/83 100 08/21/19 16:33 08/21/19 16:33 08/21/19 16:33 08/21/19 16:33 08/21/19 16:33 - Physical Exam Narrative exam: General: No acute distress Head: Atraumatic Eyes: normal appearance, pupils equal and reactive to light, intermittent left- sided gaze ENT: Moist mucous membranes Neck: Normal appearance, no midline tenderness Chest: Clear to auscultation bilaterally CV: Regular rate and rhythm Abdomen: Soft, normal bowel sounds, nontender, nondistended, no rebound or guarding Back: Normal inspection Extremity: Infection with dark discoloration to the tip of left and right great toe with some mild tenderness to palpation Neuro: Alert but altered. Confused and unable to reliably follow commands oriented x1, no facial asymmetry, equal handgrip of foot dorsiflexion Skin: No rash Results - Lab Results 08/22/19 04:04 08/22/19 04:04 Most recent lab results Calcium 7.5 mg/dL (8.4-10.2) L 08/22/19 04:04 Urine Creatinine 392.1 mg/dL (0.1-20.0) H 08/21/19 Unknown Urine Sodium 10 mmol/L 08/21/19 Unknown Assessment and Plan Impression: * ernie on ckd --likley esrd * metabolic acidosis * hyperkalemia * HTN * hypoglycemia * Type 2 DM * seizure activity * uremia Plan: * intiate hemodialysis for uremia * add iv fluids * strict i/os * iv abx for UTI * ct note, no hydronephrosis * liklely advance ckd with progression to ESRD * daily lytes * consult vascular surgery for access placement
[2019-08-22] MEDS ORDERED: ALBUMIN HUMAN 25% (25 GM/100 ML) INJ IV PRN (12:14)
[2019-08-22] MEDS ORDERED: SODIUM CHLORIDE 0.9% 100 ML IV PRN (12:14)
[2019-08-22] MEDS: cefTRIAXone/NS 1 GM/50 ML 1 GM/50 ML BAG IV SCH (13:25)
[2019-08-22 14:23] LABS: % Iron Saturation 13.06 %
[2019-08-22 15:28] LABS: Hepatitis B Surface Antigen Non-Reactive (Negative); Hepatitis C Virus Antibody Non-Reactive (NonReactive)
[2019-08-22] MEDS ORDERED: HEPARIN/NS 5000 UNIT/500ML 500 ML IR ONE (17:00)
[2019-08-22] MEDS ORDERED: SODIUM CHLORIDE 0.9% 250ML 0 ML ONE (17:01)
[2019-08-22] MEDS ORDERED: LIDOCAINE 1%/EPINEPHRINE 1:100,000 VIAL (20 ML) INFILTRATI ONE (17:01)
[2019-08-22] MEDS ORDERED: MIDAZOLAM 2 MG/2 ML INJ ONE (17:05)
[2019-08-22] MEDS ORDERED: fentaNYL 100 MCG/2 ML INJ ONE (17:05)
[2019-08-22] MEDS ORDERED: DEXTROSE 50% IN WATER (25GM) 50 ML SYRINGE IV ONE (17:16)
--- NOTE | 2019-08-22 17:20 | Consultation ---
History of Present Illness - Reason for Consult Consult date: 08/22/19 Permacath Insertion Requesting physician: PENG ENRIQUEZ - History of Present Illness The patient is a 59-year-old male with history of multiple medical problems including diabetes and chronic kidney disease who presented to the emergency department with complaints of nausea and vomiting with altered mental status. He had a CT scan of his abdomen and pelvis that demonstrated no acute abn ormalities. He was found to have acute on chronic renal insufficiency with severe uremia that was likely the cause of his mental status changes. In addition to his renal insufficiency he had severe hypoglycemia and has required multiple boluses of D50 to maintain his glucose levels. Since admission his renal insufficiency has worsened despite medical management and he is continued to have difficulty maintaining his glucose level. We have been consulted for permacath insertion for initiation of hemodialysis. His history has been gathered from the chart as well as discussion with his daughter secondary to the patient's mental status changes. Past History Past Medical History: diabetes, hypertension, renal failure, other Past Surgical History: No surgical history Social history: no significant social history Medications and Allergies Allergies Allergy/AdvReac Type Severity Reaction Status Date / Time No Known Allergies Allergy Unverified 08/21/19 16:42 Home Medications Medication Instructions Recorded Confirmed Last Taken Type Cholecalciferol (Vitamin D3) 5,000 unit PO DAILY 08/21/19 08/22/19 Unknown Hi story [Vitamin D3] Loratadine 10 mg PO QDAY 08/21/19 08/21/19 Unknown History amLODIPine [Norvasc] 10 mg PO DAILY 08/21/19 08/21/19 Unknown History glipiZIDE [Glucotrol] 10 mg PO BID 08/21/19 08/22/19 Unknown History hydroCHLOROthiazide [HCTZ] 25 mg PO QDAY 08/21/19 08/21/19 Unknown History Active Meds: Active Medications Acetaminophen (Tylenol) 650 mg PO Q4H PRN PRN Reason: Pain MILD(1-3)/Fever >100.5/MCKEON Albumin Human (Alburx 25% (Albumin)) 25 gm IV JEN PRN PRN Reason: Hypotension Amlodipine Besylate (Amlodipine) 10 mg PO DAILY JEN Cholecalciferol (Vitamin D3) 5,000 unit PO DAILY JEN Dextrose (D50w (25gm) Syringe) 0 ml IV Q30MIN PRN; Protocol PRN Reason: Hypoglycemia Last Admin: 08/22/19 08:12 Dose: 50 ml Documented by: Epoetin Doug (Procrit) 10,000 unit IV JEN PRN PRN Reason: hemodialysis Heparin Sodium (Porcine) (Heparin) 5,000 unit SUB-Q Q8HR JEN Last Admin: 08/22/19 13:32 Dose: 5,000 unit Documented by: Hydralazine HCl (Apresoline) 10 mg IV Q6H PRN PRN Reason: Blood Pressure Last Admin: 08/22/19 10:24 Dose: 10 mg Documented by: Hydrochlorothiazide (Hctz) 25 mg PO QDAY JEN Dextrose (D10w) 1,000 mls @ 75 mls/hr IV DIRECT JEN Last Admin: 08/22/19 12:27 Dose: 75 mls/hr Documented by: Ceftriaxone Sodium (Rocephin/Ns 1 Gm/50 Ml) 1 gm in 50 mls @ 100 mls/hr IV Q24HR JEN; Protocol Last Admin: 08/22/19 13:25 Dose: 100 mls/hr Documented by: Sodium Chloride (Nacl 0.9%) 100 mls @ 999 mls/hr IV JEN PRN PRN Reason: Hypotension Dextrose/Sodium Chloride (D5ns) 1,000 mls @ 75 mls/hr IV DIRECT [facility] Insulin Human Lispro (Humalog) 0 unit SUB-Q ACHS [facility]; Protocol Morphine Sulfate (Morphine) 2 mg IV Q4H PRN PRN Reason: Pain, Moderate (4-6) Ondansetron HCl (Zofran) 4 mg IV Q8H PRN PRN Reason: Nausea And Vomiting Last Admin: 08/22/19 08:12 Dose: 4 mg Documented by: Sodium Chloride (Sodium Chloride Flush Syringe 10 Ml) 10 ml IV BID [facility] Last Admin: 08/22/19 10:15 Dose: 10 ml Documented by: Sodium Chloride (Sodium Chloride Flush Syringe 10 Ml) 10 ml IV PRN PRN PRN Reason: LINE FLUSH Review of Systems ROS unobtainable: due to mental status Exam - Constitutional Vitals: Temp Pulse Resp BP Pulse Ox 98.1 F 97 H 20 187/84 96 08/22/19 15:40 08/22/19 15:40 08/22/19 15:40 08/22/19 15:40 08/22/19 15:40 General appearance: Present: no acute distress - Neck Neck: Present: supple - Respiratory Respiratory effort: normal - Cardiovascular Rhythm: regular - Extremities Extremities: pulses intact (Palpable dorsalis pedis arteries bilaterally, palpable right posterior tibial artery with a nonpalpable left posterior tibial artery), normal temperature Extremity abnormal: ulceration (Ulceration of the distal tip of the right and left first toes as well as a small ulceration of the right and left fourth digits) - Abdominal General gastrointestinal: Present: soft, non-tender, distended (Mildly distended). Absent: mass (No palpable pulsatile masses) Male genitourinary: Present: deferred - Rectal Rectal Exam: deferred - Psychiatric Psychiatric: no appropriate mood/affect, no intact judgment & insight Results - Labs CBC & Chem 7: 08/22/19 04:04 08/22/19 04:04 Labs: Abnormal lab results 08/21/19 08/21/19 08/21/19 Range/Units 16:55 17:07 17:07 WBC 12.3 H (4.5-11.0) K/mm3 Hgb (11.8-15.2) gm/dl Hct (35.5-45.6) % Lymph % (Auto) (13.4-35.0) % Seg Neutrophils % (40.0-70.0) % Seg Neuts % (Manual) 96.0 H (40.0-70.0) % Lymphocytes % (Manual) 2.0 L (13.4-35.0) % Seg Neutrophils # (1.8-7.7) K/mm3 Seg Neutrophils # Man 11.8 H (1.8-7.7) K/mm3 Lymphocytes # (Manual) 0.2 L (1.2-5.4) K/mm3 Sodium 136 L (137-145) mmol/L Potassium 5.3 H (3.6-5.0) mmol/L Chloride 90.6 L (98-107) mmol/L Carbon Dioxide 20 L (22-30) mmol/L BUN 162 H (9-20) mg/dL Creatinine 13.3 H (0.8-1.5) mg/dL Glucose 68 L (75-100) mg/dL POC Glucose 67 L (70-105) Hemoglobin A1c (4-6) % Calcium 8.1 L (8.4-10.2) mg/dL Iron (49-181) ug/dL TIBC (250-450) mcg/dL Lipase 107 H (13-60) units/L Urine WBC (Auto) (0.0-6.0) /HPF Urine Creatinine (0.1-20.0) mg/dL Urine Chloride (110-250) mmolL 08/21/19 08/21/19 08/21/19 Range/Units 20:54 21:13 22:02 WBC (4.5-11.0) K/mm3 Hgb (11.8-15.2) gm/dl Hct (35.5-45.6) % Lymph % (Auto) (13.4-35.0) % Seg Neutrophils % (40.0-70.0) % Seg Neuts % (Manual) (40.0-70.0) % Lymphocytes % (Manual) (13.4-35.0) % Seg Neutrophils # (1.8-7.7) K/mm3 Seg Neutrophils # Man (1.8-7.7) K/mm3 Lymphocytes # (Manual) (1.2-5.4) K/mm3 Sodium (137-145) mmol/L Potassium (3.6-5.0) mmol/L Chloride (98-107) mmol/L Carbon Dioxide (22-30) mmol/L BUN (9-20) mg/dL Creatinine (0.8-1.5) mg/dL Glucose (75-100) mg/dL POC Glucose < 40 L 192 H (70-105) Hemoglobin A1c 7.1 H (4-6) % Calcium (8.4-10.2) mg/dL Iron (49-181) ug/dL TIBC (250-450) mcg/dL Lipase (13-60) units/L Urine WBC (Auto) (0.0-6.0) /HPF Urine Creatinine (0.1-20.0) mg/dL Urine Chloride (110-250) mmolL 08/21/19 08/21/19 08/21/19 Range/Units 22:37 Unknown Unknown WBC (4.5-11.0) K/mm3 Hgb (11.8-15.2) gm/dl Hct (35.5-45.6) % Lymph % (Auto) (13.4-35.0) % Seg Neutrophils % (40.0-70.0) % Seg Neuts % (Manual) (40.0-70.0) % Lymphocytes % (Manual) (13.4-35.0) % Seg Neutrophils # (1.8-7.7) K/mm3 Seg Neutrophils # Man (1.8-7.7) K/mm3 Lymphocytes # (Manual) (1.2-5.4) K/mm3 Sodium (137-145) mmol/L Potassium (3.6-5.0) mmol/L Chloride (98-107) mmol/L Carbon Dioxide (22-30) mmol/L BUN (9-20) mg/dL Creatinine (0.8-1.5) mg/dL Glucose (75-100) mg/dL POC Glucose 138 H (70-105) Hemoglobin A1c (4-6) % Calcium (8.4-10.2) mg/dL Iron (49-181) ug/dL TIBC (250-450) mcg/dL Lipase (13-60) units/L Urine WBC (Auto) 50.0 H (0.0-6.0) /HPF Urine Creatinine 392.1 H (0.1-20.0) mg/dL Urine Chloride 10.8 L (110-250) mmolL 08/22/19 08/22/19 08/22/19 Range/Units 00:12 01:45 02:25 WBC (4.5-11.0) K/mm3 Hgb (11.8-15.2) gm/dl Hct (35.5-45.6) % Lymph % (Auto) (13.4-35.0) % Seg Neutrophils % (40.0-70.0) % Seg Neuts % (Manual) (40.0-70.0) % Lymphocytes % (Manual) (13.4-35.0) % Seg Neutrophils # (1.8-7.7) K/mm3 Seg Neutrophils # Man (1.8-7.7) K/mm3 Lymphocytes # (Manual) (1.2-5.4) K/mm3 Sodium (137-145) mmol/L Potassium (3.6-5.0) mmol/L Chloride (98-107) mmol/L Carbon Dioxide (22-30) mmol/L BUN (9-20) mg/dL Creatinine (0.8-1.5) mg/dL Glucose 74 L (75-100) mg/dL POC Glucose 49 L 51 L (70-105) Hemoglobin A1c (4-6) % Calcium (8.4-10.2) mg/dL Iron (49-181) ug/dL TIBC (250-450) mcg/dL Lipase (13-60) units/L Urine WBC (Auto) (0.0-6.0) /HPF Urine Creatinine (0.1-20.0) mg/dL Urine Chloride (110-250) mmolL 08/22/19 08/22/19 08/22/19 Range/Units 04:04 04:04 10:00 WBC 13.2 H (4.5-11.0) K/mm3 Hgb 11.2 L (11.8-15.2) gm/dl Hct 33.0 L (35.5-45.6) % Lymph % (Auto) 10.2 L (13.4-35.0) % Seg Neutrophils % 84.3 H (40.0-70.0) % Seg Neuts % (Manual) (40.0-70.0) % Lymphocytes % (Manual) (13.4-35.0) % Seg Neutrophils # 11.2 H (1.8-7.7) K/mm3 Seg Neutrophils # Man (1.8-7.7) K/mm3 Lymphocytes # (Manual) (1.2-5.4) K/mm3 Sodium (137-145) mmol/L Potassium 5.1 H (3.6-5.0) mmol/L Chloride 93.9 L (98-107) mmol/L Carbon Dioxide 21 L (22-30) mmol/L BUN 166 H (9-20) mg/dL Creatinine 13.9 H (0.8-1.5) mg/dL Glucose 35 L* (75-100) mg/dL POC Glucose 120 H (70-105) Hemoglobin A1c (4-6) % Calcium 7.5 L (8.4-10.2) mg/dL Iron (49-181) ug/dL TIBC (250-450) mcg/dL Lipase (13-60) units/L Urine WBC (Auto) (0.0-6.0) /HPF Urine Creatinine (0.1-20.0) mg/dL Urine Chloride (110-250) mmolL 08/22/19 08/22/19 Range/Units 12:00 13:23 WBC (4.5-11.0) K/mm3 Hgb (11.8-15.2) gm/dl Hct (35.5-45.6) % Lymph % (Auto) (13.4-35.0) % Seg Neutrophils % (40.0-70.0) % Seg Neuts % (Manual) (40.0-70.0) % Lymphocytes % (Manual) (13.4-35.0) % Seg Neutrophils # (1.8-7.7) K/mm3 Seg Neutrophils # Man (1.8-7.7) K/mm3 Lymphocytes # (Manual) (1.2-5.4) K/mm3 Sodium (137-145) mmol/L Potassium (3.6-5.0) mmol/L Chloride (98-107) mmol/L Carbon Dioxide (22-30) mmol/L BUN (9-20) mg/dL Creatinine (0.8-1.5) mg/dL Glucose (75-100) mg/dL POC Glucose 68 L (70-105) Hemoglobin A1c (4-6) % Calcium (8.4-10.2) mg/dL Iron 29 L (49-181) ug/dL TIBC 222 L (250-450) mcg/dL Lipase (13-60) units/L Urine WBC (Auto) (0.0-6.0) /HPF Urine Creatinine (0.1-20.0) mg/dL Urine Chloride (110-250) mmolL - Imaging and Cardiology CT scan - abdomen: image reviewed Assessment and Plan The patient is a 59-year-old male with a history of acute on chronic renal insufficiency who has progressed to end-stage renal disease requiring hemodialysis. He is in need of a permacath for initiation of hemodialysis. I discussed the risk, benefits, and alternative procedures with his daughter who expressed understanding and is consented for the procedure. Additionally the patient has ulcerations of bilateral first and fourth digits of his lower extremity. There appeared to be pressure ulcers that are likely secondary to poorly fitting shoes and diabetic neuropathy. The patient has palpable pulses however I will order arterial duplex studies as well as DEVON's to confirm that he has adequate flow to heal the ulcers. I also recommend that he obtain a busperson to be fitted for appropriate shoes to prevent additional ulcers in the future.
[2019-08-22] MEDS ORDERED: ONDANSETRON 4 MG/2 ML INJ ONE (17:43)
[2019-08-22] MEDS: HEPARIN 10,000 UNITS/10 ML VIAL ONE ×2 (18:00→18:01)
--- NOTE | 2019-08-22 18:13 | Operative Report ---
Operative Report Operative Report: Date of procedure: 08/22/2019 Pre-operative diagnosis: Acute on Chronic Renal Failure Post-operative diagnosis: Same Procedure(s): 1. Ultrasound-Guided Access Right Internal Vein 2. Placement of 23 cm GlidePath Permacath 3. Radiologic Supervision with Interpretation Surgeon: Yobani Casey MD Scientist: None Anesthesia: Local EBL: Minimal Counts: Correct Complications: None Condition: Stable Findings: Successful placement of right IJ permacath. Specimen: None Indication: The patient is a 59-year-old male with a history of chronic renal insufficiency who presented to the emergency department with mental status changes and complaints of abdominal pain and nausea and vomiting. He was found to be in acute on chronic renal failure and requires a permacath for initiation of hemodialysis. Given his mental status changes consent was obtained from his daughter. She was given the risk, benefits, and alternative procedures and consented to the procedure. Description of Procedure: The patient was brought to the equipment operator/laborer/supervisor and laid in supine position and his right neck and chest were prepped and draped in normal sterile fashion. Ultrasound was used to identify the right internal jugular vein and the overlying skin and soft tissue was anesthetized with lidocaine. A small stab incision was made and then the access needle was used ultrasound guidance in the right internal jugular vein. An 035 J-wire was advanced to the central venous system under fluoroscopic guidance. The tract was serially dilated up to a 16 Finnish peel-away safety sheath and the inner cannula and wire removed. An exit site on the chest was then chosen and the presumed tunnel was anesthetized with lidocaine. A small stab incision was made on the chest and then the permacath was connected to the tunneler and pulled antegrade through the tunnel. The catheter was inserted into the safe sheath and safety sheath was pulled away. The catheter was positioned under fluoroscopy with the distal tip in the right atrium. Once in adequate position both ports were aspirated and flushed and then primed with the appropriate amount heparin. The neck incision was then closed with 4-0 Monocryl in interrupted subcuticular fashion and dressed with Surgicel. The catheters was dressed sterilely. Final fluoroscopy demonstrated the catheter was in adequate position without any evidence of pneumothorax. The patient tolerated the procedure well, all sponge needle and instrument counts were correct, the patient was taken to recovery in stable condition.
[2019-08-22] MEDS: D5W/0.9% NACL 1,000 ML IV SCH (22:20)
[2019-08-23 05:11] LABS: Basophils % (Auto) 0.2 % (0.0-1.8); Eosinophils % (Auto) 0.2 % (0.0-4.3); Hematocrit 43.2 % (35.5-45.6); Hemoglobin 14.1 gm/dl (11.8-15.2); Lymphocytes # (Auto) 0.7 K/mm3 (1.2-5.4); Lymphocytes % (Auto) 5.5 % (13.4-35.0); Mean Corpuscular HGB Conc 33 % (32-34); Mean Corpuscular Volume 89 fl (84-94); Monocytes # (Auto) 0.5 K/mm3 (0.0-0.8); Monocytes % (Auto) 4.1 % (0.0-7.3); Platelet Count 191 K/mm3 (140-440); Red Blood Count 4.87 M/mm3 (3.65-5.03); Red Cell Distribution Width 14.3 % (13.2-15.2)
[2019-08-23 05:19] LABS: Albumin 3.3 g/dL (3.9-5); Calcium 7.4 mg/dL (8.4-10.2)
[2019-08-23] MEDS: HEPARIN 5,000 UNIT/1 ML VIAL SUB-Q SCH ×3 (05:28→21:57)
--- NOTE | 2019-08-23 09:48 | Progress Note ---
Assessment and Plan Impression: * ernie on ckd --likley esrd * metabolic acidosis * hyperkalemia * HTN * hypoglycemia * Type 2 DM * seizure activity * uremia Plan: * intiated hemodialysis for uremia, plan for another treatment today * case management for outpatient dialysis * added iv fluids * strict i/os * iv abx for UTI * ct noted, no hydronephrosis * liklely advance ckd with progression to ESRD * daily lytes * will need perm cath at some point Subjective Date of service: 08/23/19 Principal diagnosis: ernie Interval history: resting well in bed today Objective - Exam Narrative Exam: General: No acute distress Head: Atraumatic Eyes: normal appearance, pupils equal and reactive to light, intermittent left-sided gaze ENT: Moist mucous membranes Neck: Normal appearance, no midline tenderness Chest: Clear to auscultation bilaterally CV: Regular rate and rhythm Abdomen: Soft, normal bowel sounds, nontender, nondistended, no rebound or guarding Back: Normal inspection Extremity: Infection with dark discoloration to the tip of left and right great toe with some mild tenderness to palpation Neuro: Alert but altered. Confused and unable to reliably follow commands oriented x1, no facial asymmetry, equal handgrip of foot dorsiflexion Skin: No rash - Vital Signs Vital signs: Vital Signs - 12hr 08/22/19 08/22/19 08/22/19 22:04 22:19 23:00 Temperature 99.2 F Pulse Rate 99 H 100 H 97 H Respiratory 20 Rate Blood Pressure 179/90 179/90 O2 Sat by Pulse 95 Oximetry 08/22/19 08/23/19 23:08 04:30 Temperature 98.3 F 99.8 F H Pulse Rate 96 H 96 H Respiratory 20 20 Rate Blood Pressure 168/88 162/84 O2 Sat by Pulse 91 94 Oximetry - Lab 08/23/19 04:31 08/23/19 04:31 Most recent lab results Calcium 7.4 mg/dL (8.4-10.2) L 08/23/19 04:31 Magnesium 2.50 mg/dL (1.7-2.3) H 08/23/19 04:31 Urine Creatinine 392.1 mg/dL (0.1-20.0) H 08/21/19 Unknown Urine Sodium 10 mmol/L 08/21/19 Unknown Medications & Allergies - Medications Allergies/Adverse Reactions: Allergies No Known Allergies Allergy (Unverified 08/21/19 16:42) Home Medications: Home Medications Medication Instructions Recorded Confirmed Last Taken Type Cholecalciferol (Vitamin D3) 5,000 unit PO DAILY 08/21/19 08/22/19 Unknown History [Vitamin D3] Loratadine 10 mg PO QDAY 08/21/19 08/21/19 Unknown History amLODIPine [Norvasc] 10 mg PO DAILY 08/21/19 08/21/19 Unknown History glipiZIDE [Glucotrol] 10 mg PO BID 08/21/19 08/22/19 Unknown History hydroCHLOROthiazide [HCTZ] 25 mg PO QDAY 08/21/19 08/21/19 Unknown History Active Medications: Generic Name Dose Route Start Last Admin Trade Name Freq PRN Reason Stop Dose Admin Acetaminophen 650 mg 08/21/19 22:16 Tylenol PO Q4H PRN Pain MILD(1-3)/Fever >100.5/MCKEON Albumin Human 25 gm 08/22/19 12:14 Alburx 25% (Albumin) IV JEN PRN Hypotension Amlodipine Besylate 10 mg 08/23/19 10:00 Amlodipine PO DAILY JEN Cholecalciferol 5,000 unit 08/23/19 10:00 Vitamin D3 PO DAILY JEN Dextrose 0 ml 08/21/19 22:16 08/22/19 08:12 D50w (25gm) Syringe IV 50 ml Q30MIN PRN Administration Hypoglycemia Protocol Epoetin Doug 10,000 unit 08/22/19 12:14 Procrit IV JEN PRN hemodialysis Heparin Sodium (Porcine) 5,000 unit 08/22/19 06:00 08/23/19 05:28 Heparin SUB-Q 5,000 unit Q8HR JEN Administration Hydralazine HCl 10 mg 08/22/19 03:45 08/22/19 22:19 Apresoline IV 10 mg Q6H PRN Administration Blood Pressure Hydrochlorothiazide 25 mg 08/23/19 10:00 Hctz PO QDAY JEN Dextrose 1,000 mls @ 75 mls/hr 08/22/19 12:00 08/22/19 12:27 D10w IV 75 mls/hr DIRECT JEN Administration Ceftriaxone Sodium 1 gm in 50 mls @ 100 mls/hr 08/22/19 13:00 08/22/19 13:25 Rocephin/Ns 1 Gm/50 Ml IV 100 mls/hr Q24HR JEN Administration Protocol Sodium Chloride 100 mls @ 999 mls/hr 08/22/19 12:14 Nacl 0.9% IV JEN PRN Hypotension Dextrose/Sodium Chloride 1,000 mls @ 75 mls/hr 08/22/19 13:00 08/22/19 22:20 D5ns IV 75 mls/hr DIRECT JEN Administration Insulin Human Lispro 0 unit 08/22/19 16:30 08/22/19 22:20 Humalog SUB-Q Not Given ACHS JEN Protocol Morphine Sulfate 2 mg 08/21/19 22:16 Morphine IV Q4H PRN Pain, Moderate (4-6) Ondansetron HCl 4 mg 08/21/19 22:16 08/22/19 22:19 Zofran IV 4 mg Q8H PRN Administration Nausea And Vomiting Sodium Chloride 10 ml 08/22/19 10:00 08/22/19 22:20 Sodium Chloride Flush Syringe 10 Ml IV 10 ml BID JEN Administration Sodium Chloride 10 ml 08/21/19 22:16 Sodium Chloride Flush Syringe 10 Ml IV PRN PRN LINE FLUSH
[2019-08-23] MEDS: INSULIN LISPRO 100 UNIT/ML SUB-Q SCH ×4 (10:45→21:36)
[2019-08-23] MEDS: cefTRIAXone/NS 1 GM/50 ML 1 GM/50 ML BAG IV SCH (10:45)
[2019-08-23] MEDS: ONDANSETRON 4 MG/2 ML INJ IV PRN ×2 (10:45→21:56)
[2019-08-23] MEDS: hydrALAZINE 20 MG/1 ML INJ IV PRN ×2 (12:19→18:22)
[2019-08-23] MEDS ORDERED: ONDANSETRON 4 MG/2 ML INJ IV STA (12:32)
[2019-08-23] MEDS: hydroCHLOROthiazide 25 MG TAB PO SCH (12:59)
[2019-08-23] MEDS: amLODIPine 10 MG TAB PO SCH (12:59)
[2019-08-23] MEDS: CHOLECALCIFEROL (VIT D3) 5,000 UNIT TAB PO SCH (12:59)
[2019-08-23] MEDS ORDERED: DICYCLOMINE 20 MG/2 ML INJ IM ONE (13:00)
[2019-08-23] MEDS: EPOETIN ALFA 10,000 UNIT/1 ML INJ IV PRN (16:06)
--- NOTE | 2019-08-23 19:06 | Progress Note ---
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 Osteomyelitis, underlying disease process Closely monitor, treat the underlying cause --Hypoglycemia Current Visit: Yes Status: Acute Hold diabetic medications patient received multiple D50 pushes Will place patient on IV fluid D10 normal saline. Closely monitor blood sugars -- Nausea and vomiting Current Visit: Yes Status: Acute 10 placed on IV Zofran as needed for nausea and vomiting. -- Osteomyelitis/left great toe Current Visit: Yes Status: Acute Patient has been placed on empiric IV antibiotics. Possible osteomyelitis of left great toe on x-ray Wound care -- DVT prophylaxis Current Visit: Yes Status: Acute Patient placed on subcutaneous heparin. -- Full code status Current Visit: Yes Status: Acute History Interval history: Patient seen and examined medical records reviewed Nephrology is planning hemodialysis today Vascular consulted Patient has no new complaints, more alert and awake Vital signs noted Hospitalist Physical - Constitutional Vitals: Temp Pulse Resp BP Pulse Ox 99.1 F 99 H 16 182/91 92 08/23/19 17:22 08/23/19 18:22 08/23/19 17:22 08/23/19 18:22 08/23/19 18:13 General appearance: Present: no acute distress, well-nourished - EENT Eyes: Present: PERRL, EOM intact - Neck Neck: Present: supple, normal ROM - Respiratory Respiratory effort: normal Respiratory: bilateral: diminished, rales, negative: rhonchi, wheezing - Cardiovascular Rhythm: regular Heart Sounds: Present: S1 & S2 - Extremities Extremities: abnormal (Right and left great toe discoloration) Extremity abnormal: other (Left great toe suspected osteomyelitis) Peripheral Pulses: within normal limits - Abdominal General gastrointestinal: soft, non-tender, non-distended, normal bowel sounds - Integumentary Integumentary: Present: clear, warm - Psychiatric Psychiatric: appropriate mood/affect, cooperative - Neurologic Neurologic: moves all extremities Results - Labs CBC & Chem 7: 08/23/19 04:31 08/23/19 04:31 Labs: Laboratory Last Values WBC 12.5 K/mm3 (4.5-11.0) H 08/23/19 04:31 RBC 4.87 M/mm3 (3.65-5.03) 08/23/19 04:31 Hgb 14.1 gm/dl (11.8-15.2) 08/23/19 04:31 Hct 43.2 % (35.5-45.6) D 08/23/19 04:31 MCV 89 fl (84-94) 08/23/19 04:31 MCH 29 pg (28-32) 08/23/19 04:31 MCHC 33 % (32-34) 08/23/19 04:31 RDW 14.3 % (13.2-15.2) 08/23/19 04:31 Plt Count 191 K/mm3 (140-440) 08/23/19 04:31 Lymph % (Auto) 5.5 % (13.4-35.0) L 08/23/19 04:31 [place] % (Auto) 4.1 % (0.0-7.3) 08/23/19 04:31 Eos % (Auto) 0.2 % (0.0-4.3) 08/23/19 04:31 Baso % (Auto) 0.2 % (0.0-1.8) 08/23/19 04:31 Lymph # 0.7 K/mm3 (1.2-5.4) L 08/23/19 04:31 [place] # 0.5 K/mm3 (0.0-0.8) 08/23/19 04:31 Eos # 0.0 K/mm3 (0.0-0.4) 08/23/19 04:31 Baso # 0.0 K/mm3 (0.0-0.1) 08/23/19 04:31 Add Manual Diff Complete 08/21/19 17:07 Total Counted 100 08/21/19 17:07 Seg Neutrophils % 90.0 % (40.0-70.0) H 08/23/19 04:31 Seg Neuts % (Manual) 96.0 % (40.0-70.0) H 08/21/19 17:07 Band Neutrophils % 0 % 08/21/19 17:07 Lymphocytes % (Manual) 2.0 % (13.4-35.0) L 08/21/19 17:07 Reactive Lymphs % (Man) 0 % 08/21/19 17:07 Monocytes % (Manual) 1.0 % (0.0-7.3) 08/21/19 17:07 Eosinophils % (Manual) 0 % (0.0-4.3) 08/21/19 17:07 Basophils % (Manual) 1.0 % (0.0-1.8) 08/21/19 17:07 Metamyelocytes % 0 % 08/21/19 17:07 Myelocytes % 0 % 08/21/19 17:07 Promyelocytes % 0 % 08/21/19 17:07 Blast Cells % 0 % 08/21/19 17:07 Nucleated RBC % Not Reportable 08/21/19 17:07 Seg Neutrophils # 11.2 K/mm3 (1.8-7.7) H 08/23/19 04:31 Seg Neutrophils # Man 11.8 K/mm3 (1.8-7.7) H 08/21/19 17:07 Band Neutrophils # 0.0 K/mm3 08/21/19 17:07 Lymphocytes # (Manual) 0.2 K/mm3 (1.2-5.4) L 08/21/19 17:07 Abs React Lymphs (Man) 0.0 K/mm3 08/21/19 17:07 Monocytes # (Manual) 0.1 K/mm3 (0.0-0.8) 08/21/19 17:07 Eosinophils # (Manual) 0.0 K/mm3 (0.0-0.4) 08/21/19 17:07 Basophils # (Manual) 0.1 K/mm3 (0.0-0.1) 08/21/19 17:07 Metamyelocytes # 0.0 K/mm3 08/21/19 17:07 Myelocytes # 0.0 K/mm3 08/21/19 17:07 Promyelocytes # 0.0 K/mm3 08/21/19 17:07 Blast Cells # 0.0 K/mm3 08/21/19 17:07 WBC Morphology Not Reportable 08/21/19 17:07 Hypersegmented Neuts Not Reportable 08/21/19 17:07 Hyposegmented Neuts Not Reportable 08/21/19 17:07 Hypogranular Neuts Not Reportable 08/21/19 17:07 Smudge Cells Not Reportable 08/21/19 17:07 Toxic Granulation Not Reportable 08/21/19 17:07 Toxic Vacuolation Not Reportable 08/21/19 17:07 Dohle Bodies Not Reportable 08/21/19 17:07 Pelger-Huet Anomaly Not Reportable 08/21/19 17:07 Zoran Rods Not Reportable 08/21/19 17:07 Platelet Estimate Consistent w auto 08/21/19 17:07 Clumped Platelets Not Reportable 08/21/19 17:07 Plt Clumps, EDTA Not Reportable 08/21/19 17:07 Large Platelets Not Reportable 08/21/19 17:07 Giant Platelets Not Reportable 08/21/19 17:07 Platelet Satelliting Not Reportable 08/21/19 17:07 Plt Morphology Comment Not Reportable 08/21/19 17:07 RBC Morphology Not Reportable 08/21/19 17:07 Dimorphic RBCs Not Reportable 08/21/19 17:07 Polychromasia Rare 08/21/19 17:07 Hypochromasia Not Reportable 08/21/19 17:07 Poikilocytosis Not Reportable 08/21/19 17:07 Anisocytosis Few 08/21/19 17:07 Microcytosis Not Reportable 08/21/19 17:07 Macrocytosis Not Reportable 08/21/19 17:07 Spherocytes Not Reportable 08/21/19 17:07 Pappenheimer Bodies Not Reportable 08/21/19 17:07 Sickle Cells Not Reportable 08/21/19 17:07 Target Cells Not Reportable 08/21/19 17:07 Tear Drop Cells Not Reportable 08/21/19 17:07 Ovalocytes Not Reportable 08/21/19 17:07 Helmet Cells Not Reportable 08/21/19 17:07 [place] Bodies Not Reportable 08/21/19 17:07 [place] Rings Not Reportable 08/21/19 17:07 [place] Cells Not Reportable 08/21/19 17:07 Bite Cells Not Reportable 08/21/19 17:07 Crenated Cell Not Reportable 08/21/19 17:07 Elliptocytes Not Reportable 08/21/19 17:07 Acanthocytes (Spur) Not Reportable 08/21/19 17:07 Rouleaux Not Reportable 08/21/19 17:07 Hemoglobin C Crystals Not Reportable 08/21/19 17:07 Schistocytes Not Reportable 08/21/19 17:07 Malaria parasites Not Reportable 08/21/19 17:07 ESR 67 mm/Hr (0-20) 08/21/19 20:54 [place] Bodies Not Reportable 08/21/19 17:07 Hem Pathologist Commnt No 08/21/19 17:07 PT 13.9 Sec. (12.2-14.9) 08/22/19 04:04 INR 1.09 (0.87-1.13) 08/22/19 04:04 Sodium 137 mmol/L (137-145) 08/23/19 04:31 Potassium 5.2 mmol/L (3.6-5.0) H 08/23/19 04:31 Chloride 96.0 mmol/L (98-107) L 08/23/19 04:31 Carbon Dioxide 23 mmol/L (22-30) 08/23/19 04:31 Anion Gap 23 mmol/L 08/23/19 04:31 BUN 95 mg/dL (9-20) H 08/23/19 04:31 Creatinine 10.2 mg/dL (0.8-1.5) H 08/23/19 04:31 Estimated GFR 5 ml/min 08/23/19 04:31 BUN/Creatinine Ratio 9 % 08/23/19 04:31 Glucose 90 mg/dL (75-100) 08/23/19 04:31 POC Glucose 129 (70-105) H 08/23/19 17:40 Hemoglobin A1c 7.1 % (4-6) H 08/21/19 20:54 Calcium 7.4 mg/dL (8.4-10.2) L 08/23/19 04:31 Magnesium 2.50 mg/dL (1.7-2.3) H 08/23/19 04:31 Iron 29 ug/dL (49-181) L 08/22/19 13:23 TIBC 222 mcg/dL (250-450) L 08/22/19 13:23 % Saturation 13.06 % 08/22/19 13:23 Transferrin 192 mg/dl (180-329) 08/22/19 13:23 Ferritin 307.1 ng/mL (13.0-400.0) 08/22/19 13:23 Total Bilirubin 0.50 mg/dL (0.1-1.2) 08/23/19 04:31 AST 41 units/L (5-40) H 08/23/19 04:31 ALT 41 units/L (7-56) 08/23/19 04:31 Alkaline Phosphatase 77 units/L (35-129) 08/23/19 04:31 Total Protein 6.2 g/dL (6.3-8.2) L D 08/23/19 04:31 Albumin 3.3 g/dL (3.9-5) L 08/23/19 04:31 Albumin/Globulin Ratio 1.1 % 08/23/19 04:31 Lipase 107 units/L (13-60) H 08/21/19 17:07 PTH Intact 210.6 pg/mL (15-65) H 08/23/19 04:31 Urine Color Becky (Yellow) 08/21/19 Unknown Urine Turbidity Cloudy (Clear) 08/21/19 Unknown Urine pH 5.0 (5.0-7.0) 08/21/19 Unknown Ur Specific [place] 1.026 (1.003-1.030) 08/21/19 Unknown Urine Protein >500 mg/dL (Negative) 08/21/19 Unknown Urine Glucose (UA) Neg mg/dL (Negative) 08/21/19 Unknown Urine Ketones Neg mg/dL (Negative) 08/21/19 Unknown Urine Blood Lg (Negative) 08/21/19 Unknown Urine Nitrite Neg (Negative) 08/21/19 Unknown Urine Bilirubin Neg (Negative) 08/21/19 Unknown Urine Urobilinogen < 2.0 mg/dL (<2.0) 08/21/19 Unknown Ur Leukocyte Esterase Tr (Negative) 08/21/19 Unknown Urine WBC (Auto) 50.0 /HPF (0.0-6.0) H 08/21/19 Unknown Urine RBC (Auto) 43.0 /HPF (0.0-6.0) 08/21/19 Unknown U Epithel Cells (Auto) 1.0 /HPF (0-13.0) 08/21/19 Unknown Urine Bacteria (Auto) 1+ /HPF (Negative) 08/21/19 Unknown Urine Mucus Few /HPF 08/21/19 Unknown Urine Osmolality 349 Mosm/kg 08/21/19 Unknown Urine Creatinine 392.1 mg/dL (0.1-20.0) H 08/21/19 Unknown Urine Sodium 10 mmol/L 08/21/19 Unknown Urine Chloride 10.8 mmolL (110-250) L 08/21/19 Unknown Random Vancomycin 18.6 ug/mL (0-40.0) 08/23/19 04:31 Urine Opiates Screen Presumptive negative 08/21/19 Unknown Urine Methadone Screen Presumptive negative 08/21/19 Unknown Ur Barbiturates Screen Presumptive negative 08/21/19 Unknown Ur Phencyclidine Scrn Presumptive negative 08/21/19 Unknown Ur Amphetamines Screen Presumptive negative 08/21/19 Unknown U Benzodiazepines Scrn Presumptive negative 08/21/19 Unknown Urine Cocaine Screen Presumptive negative 08/21/19 Unknown U Marijuana (THC) Screen Presumptive negative 08/21/19 Unknown Drugs of Abuse Note Disclamer 08/21/19 Unknown Hepatitis A IgM Ab Non-reactive (NonReactive) 08/22/19 13:23 Hep Bs Antigen Non-reactive (Negative) 08/22/19 13:23 Hep B Core IgM Ab Non-reactive (NonReactive) 08/22/19 13:23 Hepatitis C Antibody Non-reactive (NonReactive) 08/22/19 13:23 Microbiology: Microbiology 08/21/19 Unknown Urine,Clean Catch Urine Culture - Preliminary NO GROWTH AFTER 24 HOURS 08/21/19 20:58 Peripheral/Venous Blood Culture - Preliminary NO GROWTH AFTER 24 HOURS 08/21/19 20:54 Peripheral/Venous Blood Culture - Preliminary NO GROWTH AFTER 24 HOURS John/IV: Voiding Method Indwelling Catheter IV Catheter Type [Left Upper Peripheral IV arm] IV Catheter Type [Right Chest] VAS Cath IV Catheter Type [Right Hand] Peripheral IV IV Catheter Type [Left Forearm Peripheral IV ] Active Medications - Current Medications Current Medications: Generic Name Dose Route Start Last Admin Trade Name Freq PRN Reason Stop Dose Admin Acetaminophen 650 mg 08/21/19 22:16 Tylenol PO Q4H PRN Pain MILD(1-3)/Fever >100.5/MCKEON Albumin Human 25 gm 08/22/19 12:14 Alburx 25% (Albumin) IV JEN PRN Hypotension Amlodipine Besylate 10 mg 08/23/19 10:00 08/23/19 12:59 Amlodipine PO Not Given DAILY JEN Cholecalciferol 5,000 unit 08/23/19 10:00 08/23/19 12:59 Vitamin D3 PO Not Given DAILY JEN Dextrose 0 ml 08/21/19 22:16 08/22/19 08:12 D50w (25gm) Syringe IV 50 ml Q30MIN PRN Administration Hypoglycemia Protocol Epoetin Doug 10,000 unit 08/22/19 12:14 08/23/19 16:06 Procrit IV 10,000 unit JEN PRN Administration hemodialysis Heparin Sodium (Porcine) 5,000 unit 08/22/19 06:00 08/23/19 14:33 Heparin SUB-Q Not Given Q8HR [facility] Hydralazine HCl 10 mg 08/22/19 03:45 08/23/19 18:22 Apresoline IV 10 mg Q6H PRN Administration Blood Pressure Hydrochlorothiazide 25 mg 08/23/19 10:00 08/23/19 12:59 Hctz PO Not Given QDAY [facility] Ceftriaxone Sodium 1 gm in 50 mls @ 100 mls/hr 08/22/19 13:00 08/23/19 10:45 Rocephin/Ns 1 Gm/50 Ml IV 100 mls/hr Q24HR JEN Administration Protocol Sodium Chloride 100 mls @ 999 mls/hr 08/22/19 12:14 Nacl 0.9% IV JEN PRN Hypotension Dextrose/Sodium Chloride 1,000 mls @ 75 mls/hr 08/22/19 13:00 08/22/19 22:20 D5ns IV 75 mls/hr DIRECT JEN Administration Insulin Human Lispro 0 unit 08/22/19 16:30 08/23/19 18:21 Humalog SUB-Q Not Given ACHS [facility] Protocol Morphine Sulfate 2 mg 08/21/19 22:16 Morphine IV Q4H PRN Pain, Moderate (4-6) Ondansetron HCl 4 mg 08/21/19 22:16 08/23/19 10:45 Zofran IV 4 mg Q8H PRN Administration Nausea And Vomiting Sodium Chloride 10 ml 08/22/19 10:00 08/23/19 10:45 Sodium Chloride Flush Syringe 10 Ml IV 10 ml BID JEN Administration Sodium Chloride 10 ml 08/21/19 22:16 Sodium Chloride Flush Syringe 10 Ml IV PRN PRN LINE FLUSH Nutrition/Malnutrition Assess - Dietary Evaluation Nutrition/Malnutrition Findings: Nutrition Notes Start: 08/22/19 13:15 Freq: Status: Active Protocol: Document 08/23/19 13:54 LP (Rec: 08/23/19 13:55 LP [email or web address]) Nutrition Notes Initial or Follow up Brief Note Subjective/Other Information Pt drowsey and needs language line. Nutrition Intervention Follow-Up By: 08/24/19 Additional Comments Follow for diet education/ assessment
[2019-08-24] MEDS: ONDANSETRON 4 MG/2 ML INJ IV PRN ×5 (03:19→21:46)
[2019-08-24] MEDS: D5W/0.9% NACL 1,000 ML IV SCH (03:19)
[2019-08-24 05:12] LABS: Basophils % (Auto) 0.2 % (0.0-1.8); Hematocrit 29.7 % (35.5-45.6); Hemoglobin 10.2 gm/dl (11.8-15.2); Lymphocytes # (Auto) 0.6 K/mm3 (1.2-5.4); Lymphocytes % (Auto) 5.9 % (13.4-35.0); Mean Corpuscular HGB Conc 34 % (32-34); Mean Corpuscular Volume 86 fl (84-94); Monocytes # (Auto) 0.5 K/mm3 (0.0-0.8); Monocytes % (Auto) 4.5 % (0.0-7.3); Platelet Count 184 K/mm3 (140-440); Red Blood Count 3.44 M/mm3 (3.65-5.03); Red Cell Distribution Width 14.3 % (13.2-15.2)
[2019-08-24 05:38] LABS: Albumin 2.8 g/dL (3.9-5); Calcium 7.6 mg/dL (8.4-10.2)
[2019-08-24] MEDS: hydrALAZINE 20 MG/1 ML INJ IV PRN (06:00)
[2019-08-24] MEDS: HEPARIN 5,000 UNIT/1 ML VIAL SUB-Q SCH ×3 (06:01→21:46)
[2019-08-24] MEDS: INSULIN LISPRO 100 UNIT/ML SUB-Q SCH ×4 (08:00→21:47)
[2019-08-24] MEDS ORDERED: hydrALAZINE 20 MG/1 ML INJ IV SCH (09:00)
[2019-08-24] MEDS: CHOLECALCIFEROL (VIT D3) 5,000 UNIT TAB PO SCH (09:42)
[2019-08-24] MEDS: cefTRIAXone/NS 1 GM/50 ML 1 GM/50 ML BAG IV SCH (09:42)
[2019-08-24] MEDS: hydroCHLOROthiazide 25 MG TAB PO SCH (09:42)
[2019-08-24] MEDS: amLODIPine 10 MG TAB PO SCH (09:43)
--- NOTE | 2019-08-24 10:33 | Progress Note ---
Assessment and Plan Impression: * ernie on ckd --likley esrd * metabolic acidosis * hyperkalemia * HTN * hypoglycemia * Type 2 DM * seizure activity * uremia Plan: * intiated hemodialysis for uremia, plan for another treatment today * case management for outpatient dialysis * strict i/os * iv abx for UTI * ct noted, no hydronephrosis * liklely advance ckd with progression to ESRD * daily lytes * will need HD unit placement, may be difficult with immigration status Subjective Date of service: 08/24/19 Principal diagnosis: ernie Interval history: resting well in bed today Objective - Exam Narrative Exam: General: No acute distress Head: Atraumatic Eyes: normal appearance, pupils equal and reactive to light, intermittent left- sided gaze ENT: Moist mucous membranes Neck: Normal appearance, no midline tenderness Chest: Clear to auscultation bilaterally CV: Regular rate and rhythm Abdomen: Soft, normal bowel sounds, nontender, nondistended, no rebound or guarding Back: Normal inspection Extremity: Infection with dark discoloration to the tip of left and right great toe with some mild tenderness to palpation Neuro: Alert but altered. Confused and unable to reliably follow commands oriented x1, no facial asymmetry, equal handgrip of foot dorsiflexion Skin: No rash - Vital Signs Vital signs: Vital Signs - 12hr 08/23/19 08/24/19 08/24/19 23:29 03:59 06:00 Temperature 100.5 F H 98.1 F Pulse Rate 100 H 96 H 94 H Respiratory 20 18 Rate Blood Pressure 164/79 170/81 170/81 Blood Pressure [Left] O2 Sat by Pulse 92 93 Oximetry 08/24/19 08/24/19 08/24/19 08:17 08:20 09:05 Temperature 98.9 F Pulse Rate 99 H 102 H 100 H Respiratory 17 17 Rate Blood Pressure 202/104 198/101 Blood Pressure 202/104 [Left] O2 Sat by Pulse 93 92 Oximetry 08/24/19 09:43 Temperature Pulse Rate 109 H Respiratory Rate Blood Pressure 148/72 Blood Pressure [Left] O2 Sat by Pulse Oximetry - Lab 08/24/19 04:32 08/24/19 04:32 Most recent lab results Calcium 7.6 mg/dL (8.4-10.2) L 08/24/19 04:32 Magnesium 2.20 mg/dL (1.7-2.3) 08/24/19 04:32 Urine Creatinine 392.1 mg/dL (0.1-20.0) H 08/21/19 Unknown Urine Sodium 10 mmol/L 08/21/19 Unknown Medications & Allergies - Medications Allergies/Adverse Reactions: Allergies No Known Allergies Allergy (Unverified 08/21/19 16:42) Home Medications: Home Medications Medication Instructions Recorded Confirmed Last Taken Type Cholecalciferol (Vitamin D3) 5,000 unit PO DAILY 08/21/19 08/22/19 Unknown History [Vitamin D3] Loratadine 10 mg PO QDAY 08/21/19 08/21/19 Unknown History amLODIPine [Norvasc] 10 mg PO DAILY 08/21/19 08/21/19 Unknown History glipiZIDE [Glucotrol] 10 mg PO BID 08/21/19 08/22/19 Unknown History hydroCHLOROthiazide [HCTZ] 25 mg PO QDAY 08/21/19 08/21/19 Unknown History Active Medications: Generic Name Dose Route Start Last Admin Trade Name Gildardoq PRN Reason Stop Dose Admin Acetaminophen 650 mg 08/21/19 22:16 08/23/19 21:55 Tylenol PO 650 mg Q4H PRN Administration Pain MILD(1-3)/Fever >100.5/MCKEON Albumin Human 25 gm 08/22/19 12:14 Alburx 25% (Albumin) IV JEN PRN Hypotension Amlodipine Besylate 10 mg 08/23/19 10:00 08/24/19 09:43 Amlodipine PO 10 mg DAILY JEN Administration Cholecalciferol 5,000 unit 08/23/19 10:00 08/24/19 09:42 Vitamin D3 PO 5,000 unit DAILY JEN Administration Dextrose 0 ml 08/21/19 22:16 08/22/19 08:12 D50w (25gm) Syringe IV 50 ml Q30MIN PRN Administration Hypoglycemia Protocol Epoetin Doug 10,000 unit 08/22/19 12:14 08/23/19 16:06 Procrit IV 10,000 unit JEN PRN Administration hemodialysis Heparin Sodium (Porcine) 5,000 unit 08/22/19 06:00 08/24/19 06:01 Heparin SUB-Q Not Given Q8HR [facility] Hydralazine HCl 10 mg 08/22/19 03:45 08/24/19 06:00 Apresoline IV 10 mg Q6H PRN Administration Blood Pressure Hydralazine HCl 20 mg 08/24/19 09:00 08/24/19 09:05 Apresoline IV 08/24/19 13:00 20 mg ONCE JEN Administration Hydrochlorothiazide 25 mg 08/23/19 10:00 08/24/19 09:42 Hctz PO 25 mg QDAY JEN Administration Ceftriaxone Sodium 1 gm in 50 mls @ 100 mls/hr 08/22/19 13:00 08/24/19 09:42 Rocephin/Ns 1 Gm/50 Ml IV 08/28/19 10:29 100 mls/hr Q24HR JEN Administration Protocol Sodium Chloride 100 mls @ 999 mls/hr 08/22/19 12:14 Nacl 0.9% IV JEN PRN Hypotension Dextrose/Sodium Chloride 1,000 mls @ 75 mls/hr 08/22/19 13:00 08/24/19 03:19 D5ns IV 75 mls/hr DIRECT JEN Administration Insulin Human Lispro 0 unit 08/22/19 16:30 08/24/19 08:00 Humalog SUB-Q 3 unit ACHS JEN Administration Protocol Morphine Sulfate 2 mg 08/21/19 22:16 Morphine IV Q4H PRN Pain, Moderate (4-6) Ondansetron HCl 4 mg 08/21/19 22:16 08/24/19 03:19 Zofran IV 4 mg Q8H PRN Administration Nausea And Vomiting Sodium Chloride 10 ml 08/22/19 10:00 08/24/19 09:43 Sodium Chloride Flush Syringe 10 Ml IV 10 ml BID JEN Administration Sodium Chloride 10 ml 08/21/19 22:16 Sodium Chloride Flush Syringe 10 Ml IV PRN PRN LINE FLUSH
[2019-08-24] MEDS: CALCITRIOL 0.5 MCG CAP PO SCH (10:43)
--- NOTE | 2019-08-24 14:31 | Progress Note ---
Assessment and Plan Assessment and plan: --Hematemesis; Antiemetics, IV Protonix, monitor H&H, n.p.o. 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 Osteomyelitis, underlying disease process Closely monitor, treat the underlying cause --Hypoglycemia Current Visit: Yes Status: Acute Hold diabetic medications patient received multiple D50 pushes Will place patient on IV fluid D10 normal saline. Closely monitor blood sugars -- Osteomyelitis/left great toe Current Visit: Yes Status: Acute Patient has been placed on empiric IV antibiotics. Possible osteomyelitis of left great toe on x-ray Consult wound care surgeon Dr. Rosa -- DVT prophylaxis Current Visit: Yes Status: Acute Patient placed on subcutaneous heparin. -- Full code status Current Visit: Yes Status: Acute Monitor closely and adjust management as needed Plan of care reviewed with the patient and his nurse 08/24/2019; patient developed hematemesis intractable nausea vomiting today Placed n.p.o., IV fluids IV Protonix, GI consult, monitor H&H Initiated hemodialysis yesterday, HD per schedule History Interval history: Patient seen and examined at bedside this afternoon Patient's chart and medications reviewed Patient is having intractable nausea vomiting Hematemesis. In mild distress Nephrology initiated hemodialysis Had his first dialysis yesterday Patient in mild distress Vital signs reviewed Hospitalist Physical - Constitutional Vitals: Temp Pulse Resp BP Pulse Ox 98.2 F 100 H 17 161/87 94 08/24/19 11:49 08/24/19 11:49 08/24/19 11:49 08/24/19 11:49 08/24/19 11:49 General appearance: Present: mild distress, well-nourished - EENT Eyes: Present: PERRL, EOM intact - Neck Neck: Present: supple, normal ROM - Respiratory Respiratory effort: normal Respiratory: bilateral: diminished, negative: rales, rhonchi, wheezing - Cardiovascular Rhythm: regular Heart Sounds: Present: S1 & S2 - Extremities Extremities: no ischemia, No edema - Abdominal General gastrointestinal: soft, non-tender, non-distended, normal bowel sounds - Integumentary Integumentary: Present: clear, warm - Psychiatric Psychiatric: appropriate mood/affect, cooperative - Neurologic Neurologic: moves all extremities Results - Labs CBC & Chem 7: 08/24/19 04:32 08/24/19 04:32 Labs: Laboratory Last Values WBC 10.7 K/mm3 (4.5-11.0) 08/24/19 04:32 RBC 3.44 M/mm3 (3.65-5.03) L 08/24/19 04:32 Hgb 10.2 gm/dl (11.8-15.2) L D 08/24/19 04:32 Hct 29.7 % (35.5-45.6) L D 08/24/19 04:32 MCV 86 fl (84-94) 08/24/19 04:32 MCH 30 pg (28-32) 08/24/19 04:32 MCHC 34 % (32-34) 08/24/19 04:32 RDW 14.3 % (13.2-15.2) 08/24/19 04:32 Plt Count 184 K/mm3 (140-440) 08/24/19 04:32 Lymph % (Auto) 5.9 % (13.4-35.0) L 08/24/19 04:32 [place] % (Auto) 4.5 % (0.0-7.3) 08/24/19 04:32 Eos % (Auto) 0.0 % (0.0-4.3) 08/24/19 04:32 Baso % (Auto) 0.2 % (0.0-1.8) 08/24/19 04:32 Lymph # 0.6 K/mm3 (1.2-5.4) L 08/24/19 04:32 [place] # 0.5 K/mm3 (0.0-0.8) 08/24/19 04:32 Eos # 0.0 K/mm3 (0.0-0.4) 08/24/19 04:32 Baso # 0.0 K/mm3 (0.0-0.1) 08/24/19 04:32 Add Manual Diff Complete 08/21/19 17:07 Total Counted 100 08/21/19 17:07 Seg Neutrophils % 89.4 % (40.0-70.0) H 08/24/19 04:32 Seg Neuts % (Manual) 96.0 % (40.0-70.0) H 08/21/19 17:07 Band Neutrophils % 0 % 08/21/19 17:07 Lymphocytes % (Manual) 2.0 % (13.4-35.0) L 08/21/19 17:07 Reactive Lymphs % (Man) 0 % 08/21/19 17:07 Monocytes % (Manual) 1.0 % (0.0-7.3) 08/21/19 17:07 Eosinophils % (Manual) 0 % (0.0-4.3) 08/21/19 17:07 Basophils % (Manual) 1.0 % (0.0-1.8) 08/21/19 17:07 Metamyelocytes % 0 % 08/21/19 17:07 Myelocytes % 0 % 08/21/19 17:07 Promyelocytes % 0 % 08/21/19 17:07 Blast Cells % 0 % 08/21/19 17:07 Nucleated RBC % Not Reportable 08/21/19 17:07 Seg Neutrophils # 9.5 K/mm3 (1.8-7.7) H 08/24/19 04:32 Seg Neutrophils # Man 11.8 K/mm3 (1.8-7.7) H 08/21/19 17:07 Band Neutrophils # 0.0 K/mm3 08/21/19 17:07 Lymphocytes # (Manual) 0.2 K/mm3 (1.2-5.4) L 08/21/19 17:07 Abs React Lymphs (Man) 0.0 K/mm3 08/21/19 17:07 Monocytes # (Manual) 0.1 K/mm3 (0.0-0.8) 08/21/19 17:07 Eosinophils # (Manual) 0.0 K/mm3 (0.0-0.4) 08/21/19 17:07 Basophils # (Manual) 0.1 K/mm3 (0.0-0.1) 08/21/19 17:07 Metamyelocytes # 0.0 K/mm3 08/21/19 17:07 Myelocytes # 0.0 K/mm3 08/21/19 17:07 Promyelocytes # 0.0 K/mm3 08/21/19 17:07 Blast Cells # 0.0 K/mm3 08/21/19 17:07 WBC Morphology Not Reportable 08/21/19 17:07 Hypersegmented Neuts Not Reportable 08/21/19 17:07 Hyposegmented Neuts Not Reportable 08/21/19 17:07 Hypogranular Neuts Not Reportable 08/21/19 17:07 Smudge Cells Not Reportable 08/21/19 17:07 Toxic Granulation Not Reportable 08/21/19 17:07 Toxic Vacuolation Not Reportable 08/21/19 17:07 Dohle Bodies Not Reportable 08/21/19 17:07 Pelger-Huet Anomaly Not Reportable 08/21/19 17:07 Zoran Rods Not Reportable 08/21/19 17:07 Platelet Estimate Consistent w auto 08/21/19 17:07 Clumped Platelets Not Reportable 08/21/19 17:07 Plt Clumps, EDTA Not Reportable 08/21/19 17:07 Large Platelets Not Reportable 08/21/19 17:07 Giant Platelets Not Reportable 08/21/19 17:07 Platelet Satelliting Not Reportable 08/21/19 17:07 Plt Morphology Comment Not Reportable 08/21/19 17:07 RBC Morphology Not Reportable 08/21/19 17:07 Dimorphic RBCs Not Reportable 08/21/19 17:07 Polychromasia Rare 08/21/19 17:07 Hypochromasia Not Reportable 08/21/19 17:07 Poikilocytosis Not Reportable 08/21/19 17:07 Anisocytosis Few 08/21/19 17:07 Microcytosis Not Reportable 08/21/19 17:07 Macrocytosis Not Reportable 08/21/19 17:07 Spherocytes Not Reportable 08/21/19 17:07 Pappenheimer Bodies Not Reportable 08/21/19 17:07 Sickle Cells Not Reportable 08/21/19 17:07 Target Cells Not Reportable 08/21/19 17:07 Tear Drop Cells Not Reportable 08/21/19 17:07 Ovalocytes Not Reportable 08/21/19 17:07 Helmet Cells Not Reportable 08/21/19 17:07 [place] Bodies Not Reportable 08/21/19 17:07 Reed[place] Rings Not Reportable 08/21/19 17:07 [place] Cells Not Reportable 08/21/19 17:07 Bite Cells Not Reportable 08/21/19 17:07 Crenated Cell Not Reportable 08/21/19 17:07 Elliptocytes Not Reportable 08/21/19 17:07 Acanthocytes (Spur) Not Reportable 08/21/19 17:07 Rouleaux Not Reportable 08/21/19 17:07 Hemoglobin C Crystals Not Reportable 08/21/19 17:07 Schistocytes Not Reportable 08/21/19 17:07 Malaria parasites Not Reportable 08/21/19 17:07 ESR 67 mm/Hr (0-20) 08/21/19 20:54 [place] Bodies Not Reportable 08/21/19 17:07 Hem Pathologist Commnt No 08/21/19 17:07 PT 13.9 Sec. (12.2-14.9) 08/22/19 04:04 INR 1.09 (0.87-1.13) 08/22/19 04:04 Sodium 140 mmol/L (137-145) 08/24/19 04:32 Potassium 4.6 mmol/L (3.6-5.0) 08/24/19 04:32 Chloride 99.8 mmol/L (98-107) 08/24/19 04:32 Carbon Dioxide 24 mmol/L (22-30) 08/24/19 04:32 Anion Gap 21 mmol/L 08/24/19 04:32 BUN 69 mg/dL (9-20) H 08/24/19 04:32 Creatinine 7.9 mg/dL (0.8-1.5) H 08/24/19 04:32 Estimated GFR 7 ml/min 08/24/19 04:32 BUN/Creatinine Ratio 9 % 08/24/19 04:32 Glucose 188 mg/dL (75-100) H 08/24/19 04:32 POC Glucose 231 (70-105) H 08/24/19 08:32 Hemoglobin A1c 7.1 % (4-6) H 08/21/19 20:54 Calcium 7.6 mg/dL (8.4-10.2) L 08/24/19 04:32 Magnesium 2.20 mg/dL (1.7-2.3) 08/24/19 04:32 Iron 29 ug/dL (49-181) L 08/22/19 13:23 TIBC 222 mcg/dL (250-450) L 08/22/19 13:23 % Saturation 13.06 % 08/22/19 13:23 Transferrin 192 mg/dl (180-329) 08/22/19 13:23 Ferritin 307.1 ng/mL (13.0-400.0) 08/22/19 13:23 Total Bilirubin 0.50 mg/dL (0.1-1.2) 08/24/19 04:32 AST 31 units/L (5-40) 08/24/19 04:32 ALT 38 units/L (7-56) 08/24/19 04:32 Alkaline Phosphatase 66 units/L (35-129) 08/24/19 04:32 Total Protein 6.2 g/dL (6.3-8.2) L 08/24/19 04:32 Albumin 2.8 g/dL (3.9-5) L 08/24/19 04:32 Albumin/Globulin Ratio 0.8 % 08/24/19 04:32 Lipase 107 units/L (13-60) H 08/21/19 17:07 PTH Intact 210.6 pg/mL (15-65) H 08/23/19 04:31 Urine Color Becky (Yellow) 08/21/19 Unknown Urine Turbidity Cloudy (Clear) 08/21/19 Unknown Urine pH 5.0 (5.0-7.0) 08/21/19 Unknown Ur Specific [place] 1.026 (1.003-1.030) 08/21/19 Unknown Urine Protein >500 mg/dL (Negative) 08/21/19 Unknown Urine Glucose (UA) Neg mg/dL (Negative) 08/21/19 Unknown Urine Ketones Neg mg/dL (Negative) 08/21/19 Unknown Urine Blood Lg (Negative) 08/21/19 Unknown Urine Nitrite Neg (Negative) 08/21/19 Unknown Urine Bilirubin Neg (Negative) 08/21/19 Unknown Urine Urobilinogen < 2.0 mg/dL (<2.0) 08/21/19 Unknown Ur Leukocyte Esterase Tr (Negative) 08/21/19 Unknown Urine WBC (Auto) 50.0 /HPF (0.0-6.0) H 08/21/19 Unknown Urine RBC (Auto) 43.0 /HPF (0.0-6.0) 08/21/19 Unknown U Epithel Cells (Auto) 1.0 /HPF (0-13.0) 08/21/19 Unknown Urine Bacteria (Auto) 1+ /HPF (Negative) 08/21/19 Unknown Urine Mucus Few /HPF 08/21/19 Unknown Urine Osmolality 349 Mosm/kg 08/21/19 Unknown Urine Creatinine 392.1 mg/dL (0.1-20.0) H 08/21/19 Unknown Urine Sodium 10 mmol/L 08/21/19 Unknown Urine Chloride 10.8 mmolL (110-250) L 08/21/19 Unknown Random Vancomycin 18.6 ug/mL (0-40.0) 08/23/19 04:31 Urine Opiates Screen Presumptive negative 08/21/19 Unknown Urine Methadone Screen Presumptive negative 08/21/19 Unknown Ur Barbiturates Screen Presumptive negative 08/21/19 Unknown Ur Phencyclidine Scrn Presumptive negative 08/21/19 Unknown Ur Amphetamines Screen Presumptive negative 08/21/19 Unknown U Benzodiazepines Scrn Presumptive negative 08/21/19 Unknown Urine Cocaine Screen Presumptive negative 08/21/19 Unknown U Marijuana (THC) Screen Presumptive negative 08/21/19 Unknown Drugs of Abuse Note Disclamer 08/21/19 Unknown Hepatitis A IgM Ab Non-reactive (NonReactive) 08/22/19 13:23 Hep Bs Antigen Non-reactive (Negative) 08/22/19 13:23 Hep B Core IgM Ab Non-reactive (NonReactive) 08/22/19 13:23 Hepatitis C Antibody Non-reactive (NonReactive) 08/22/19 13:23 Microbiology: Microbiology 08/21/19 Unknown Urine,Clean Catch Urine Culture - Final NO GROWTH AFTER 48 HOURS 08/21/19 20:58 Peripheral/Venous Blood Culture - Preliminary NO GROWTH AFTER 48 HOURS 08/21/19 20:54 Peripheral/Venous Blood Culture - Preliminary NO GROWTH AFTER 48 HOURS John/IV: Voiding Method Indwelling Catheter IV Catheter Type [Left Upper Peripheral IV arm] IV Catheter Type [Right Chest] VAS Cath IV Catheter Type [Right Hand] Peripheral IV IV Catheter Type [Left Forearm Peripheral IV ] Active Medications - Current Medications Current Medications: Generic Name Dose Route Start Last Admin Trade Name Freq PRN Reason Stop Dose Admin Acetaminophen 650 mg 08/21/19 22:16 08/23/19 21:55 Tylenol PO 650 mg Q4H PRN Administration Pain MILD(1-3)/Fever >100.5/MCKEON Albumin Human 25 gm 08/22/19 12:14 Alburx 25% (Albumin) IV JEN PRN Hypotension Amlodipine Besylate 10 mg 08/23/19 10:00 08/24/19 09:43 Amlodipine PO 10 mg DAILY JEN Administration Calcitriol 0.5 mcg 08/24/19 11:00 08/24/19 10:43 Rocaltrol PO 0.5 mcg QDAY JEN Administration Cholecalciferol 5,000 unit 08/23/19 10:00 08/24/19 09:42 Vitamin D3 PO 5,000 unit DAILY JEN Administration Dextrose 0 ml 08/21/19 22:16 08/22/19 08:12 D50w (25gm) Syringe IV 50 ml Q30MIN PRN Administration Hypoglycemia Protocol Epoetin Doug 10,000 unit 08/22/19 12:14 08/23/19 16:06 Procrit IV 10,000 unit JEN PRN Administration hemodialysis Heparin Sodium (Porcine) 5,000 unit 08/22/19 06:00 08/24/19 14:22 Heparin SUB-Q 5,000 unit Q8HR JEN Administration Hydralazine HCl 10 mg 08/22/19 03:45 08/24/19 06:00 Apresoline IV 10 mg Q6H PRN Administration Blood Pressure Hydrochlorothiazide 25 mg 08/23/19 10:00 08/24/19 09:42 Hctz PO 25 mg QDAY JEN Administration Ceftriaxone Sodium 1 gm in 50 mls @ 100 mls/hr 08/22/19 13:00 08/24/19 09:42 Rocephin/Ns 1 Gm/50 Ml IV 08/28/19 10:29 100 mls/hr Q24HR JEN Administration Protocol Sodium Chloride 100 mls @ 999 mls/hr 08/22/19 12:14 Nacl 0.9% IV JEN PRN Hypotension Insulin Human Lispro 0 unit 08/22/19 16:30 08/24/19 12:11 Humalog SUB-Q 3 unit ACHS JEN Administration Protocol Morphine Sulfate 2 mg 08/21/19 22:16 Morphine IV Q4H PRN Pain, Moderate (4-6) Ondansetron HCl 4 mg 08/24/19 13:08 Zofran IV Q4H PRN Nausea And Vomiting Pantoprazole Sodium 40 mg 08/24/19 22:00 Protonix IV BID JEN Sodium Chloride 10 ml 08/22/19 10:00 08/24/19 09:43 Sodium Chloride Flush Syringe 10 Ml IV 10 ml BID JEN Administration Sodium Chloride 10 ml 08/21/19 22:16 Sodium Chloride Flush Syringe 10 Ml IV PRN PRN LINE FLUSH Nutrition/Malnutrition Assess - Dietary Evaluation Nutrition/Malnutrition Findings: Nutrition Notes Start: 08/22/19 13:15 Freq: Status: Active Protocol: Document 08/24/19 13:15 LM (Rec: 08/24/19 13:17 LM [id number]) Nutrition Notes Initial or Follow up Brief Note Current Diagnosis CKD(stage I-IV),Diabetes, Hypertension Other Pertinent Diagnosis Abdominal pain, N/V, AMS, toe wound Current Diet Renal Labs/Tests POC glu 231 Pertinent Medications Humalog Zofran Height 5 ft 5 in Weight 83.915 kg [place] Body Weight (kg) 61.81 BMI 30.7 Weight Status Obese Subjective/Other Information Pt nauseous and vomiting this AM and getting HD. GI Symptoms Nausea,Vomiting Nutrition Intervention Follow-Up By: 08/27/19 Additional Comments F/U for diet ed/assessment
--- NOTE | 2019-08-24 15:25 | Consultation ---
History of Present Illness - Reason for Consult Consult date: 08/24/19 coffee ground emesis Requesting physician: CHOLO PINEDA - History of Present Illness Mr. Henley is a 59-year-old man who presented to the emergency room with a 1 to 2-week history of nausea and vomiting with crampy abdominal pain. Here he was found to be uremic, and had access placed and has started hemodialysis, having had 2 sessions thus far. He continues to have nausea and vomiting and is noted to have coffee-ground emesis. His stool has been brown. Currently, history is obtained using translation software. Patient denies abdominal pain. He denies history of aspirin or nonsteroidal usage. He denies alcohol. He denies prior history of peptic ulcer disease. He denies history of reflux disease. No melena is noted. Meds reviewed. Past History Past Medical History: diabetes, hypertension, renal failure, other Past Surgical History: No surgical history Social history: no significant social history. denies: alcohol abuse Medications and Allergies Allergies Allergy/AdvReac Type Severity Reaction Status Date / Time No Known Allergies Allergy Unverified 08/21/19 16:42 Home Medications Medication Instructions Recorded Confirmed Last Taken Type Cholecalciferol (Vitamin D3) 5,000 unit PO DAILY 08/21/19 08/22/19 Unknown History [Vitamin D3] Loratadine 10 mg PO QDAY 08/21/19 08/21/19 Unknown History amLODIPine [Norvasc] 10 mg PO DAILY 08/21/19 08/21/19 Unknown History glipiZIDE [Glucotrol] 10 mg PO BID 08/21/19 08/22/19 Unknown History hydroCHLOROthiazide [HCTZ] 25 mg PO QDAY 08/21/19 08/21/19 Unknown History Active Meds: Active Medications Acetaminophen (Tylenol) 650 mg PO Q4H PRN PRN Reason: Pain MILD(1-3)/Fever >100.5/MCKEON Last Admin: 08/23/19 21:55 Dose: 650 mg Documented by: Albumin Human (Alburx 25% (Albumin)) 25 gm IV JEN PRN PRN Reason: Hypotension Amlodipine Besylate (Amlodipine) 10 mg PO DAILY [facility] Last Admin: 08/24/19 09:43 Dose: 10 mg Documented by: Calcitriol (Rocaltrol) 0.5 mcg PO QDAY [facility] Last Admin: 08/24/19 10:43 Dose: 0.5 mcg Documented by: Cholecalciferol (Vitamin D3) 5,000 unit PO DAILY [facility] Last Admin: 08/24/19 09:42 Dose: 5,000 unit Documented by: Dextrose (D50w (25gm) Syringe) 0 ml IV Q30MIN PRN; Protocol PRN Reason: Hypoglycemia Last Admin: 08/22/19 08:12 Dose: 50 ml Documented by: Epoetin Doug (Procrit) 10,000 unit IV JEN PRN PRN Reason: hemodialysis Last Admin: 08/23/19 16:06 Dose: 10,000 unit Documented by: Heparin Sodium (Porcine) (Heparin) 5,000 unit SUB-Q Q8HR [facility] Last Admin: 08/24/19 14:22 Dose: 5,000 unit Documented by: Hydralazine HCl (Apresoline) 10 mg IV Q6H PRN PRN Reason: Blood Pressure Last Admin: 08/24/19 06:00 Dose: 10 mg Documented by: Hydrochlorothiazide (Hctz) 25 mg PO QDAY [facility] Last Admin: 08/24/19 09:42 Dose: 25 mg Documented by: Ceftriaxone Sodium (Rocephin/Ns 1 Gm/50 Ml) 1 gm in 50 mls @ 100 mls/hr IV Q24HR [facility]; Protocol Stop: 08/28/19 10:29 Last Admin: 08/24/19 09:42 Dose: 100 mls/hr Documented by: Sodium Chloride (Nacl 0.9%) 100 mls @ 999 mls/hr IV JEN PRN PRN Reason: Hypotension Insulin Human Lispro (Humalog) 0 unit SUB-Q ACHS [facility]; Protocol Last Admin: 08/24/19 12:11 Dose: 3 unit Documented by: Morphine Sulfate (Morphine) 2 mg IV Q4H PRN PRN Reason: Pain, Moderate (4-6) Ondansetron HCl (Zofran) 4 mg IV Q4H PRN PRN Reason: Nausea And Vomiting Pantoprazole Sodium (Protonix) 40 mg IV BID [facility] Sodium Chloride (Sodium Chloride Flush Syringe 10 Ml) 10 ml IV BID [facility] Last Admin: 08/24/19 09:43 Dose: 10 ml Documented by: Sodium Chloride (Sodium Chloride Flush Syringe 10 Ml) 10 ml IV PRN PRN PRN Reason: LINE FLUSH Review of Systems All systems: negative (as noted. Limited by language.) Exam - Constitutional Vitals: Temp Pulse Resp BP Pulse Ox 98.2 F 100 H 17 161/87 94 08/24/19 11:49 08/24/19 11:49 08/24/19 11:49 08/24/19 11:49 08/24/19 11:49 General appearance: Present: mild distress (Retching periodically with minimal output) - EENT Eyes: Present: PERRL, EOM intact ENT: hearing intact - Neck Neck: Present: supple - Respiratory Respiratory effort: normal Respiratory: bilateral: CTA - Cardiovascular Rhythm: regular Heart Sounds: Present: S1 & S2 - Extremities Extremities: No edema - Abdominal General gastrointestinal: Present: soft, non-tender - Rectal Rectal Exam: other (No masses, liquid greenish-brown stool) Results - Labs CBC & Chem 7: 08/24/19 04:32 08/24/19 04:32 Labs: Abnormal lab results 08/23/19 08/23/19 08/24/19 Range/Units 17:40 21:22 04:32 RBC 3.44 L (3.65-5.03) M/mm3 Hgb 10.2 L D (11.8-15.2) gm/dl Hct 29.7 L D (35.5-45.6) % Lymph % (Auto) 5.9 L (13.4-35.0) % Lymph # 0.6 L (1.2-5.4) K/mm3 Seg Neutrophils % 89.4 H (40.0-70.0) % Seg Neutrophils # 9.5 H (1.8-7.7) K/mm3 BUN (9-20) mg/dL Creatinine (0.8-1.5) mg/dL Glucose (75-100) mg/dL POC Glucose 129 H 119 H (70-105) Calcium (8.4-10.2) mg/dL Total Protein (6.3-8.2) g/dL Albumin (3.9-5) g/dL 08/24/19 08/24/19 Range/Units 04:32 08:32 RBC (3.65-5.03) M/mm3 Hgb (11.8-15.2) gm/dl Hct (35.5-45.6) % Lymph % (Auto) (13.4-35.0) % Lymph # (1.2-5.4) K/mm3 Seg Neutrophils % (40.0-70.0) % Seg Neutrophils # (1.8-7.7) K/mm3 BUN 69 H (9-20) mg/dL Creatinine 7.9 H (0.8-1.5) mg/dL Glucose 188 H (75-100) mg/dL POC Glucose 231 H (70-105) Calcium 7.6 L (8.4-10.2) mg/dL Total Protein 6.2 L (6.3-8.2) g/dL Albumin 2.8 L (3.9-5) g/dL - Imaging and Cardiology CT scan - abdomen: report reviewed (Normal) Assessment and Plan 1. N/V - with coffee ground emesis. Likely related to uremia with recurrent vomiting leading to esophagitis and possible Emili-Lerma tear. No melena, and doubt significant bleed. Doubt biliary colic or PUD. - PPI daily - monitor H/H and transfuse as needed - will give Ativan at low dose to help with N/V - if persists, will do EGD
--- NOTE | 2019-08-24 18:44 | Vascular Lab Report ---
DUPLEX DOPPLER LOWER EXTREMITY ARTERIAL, BILATERAL INDICATION: Bilateral lower extremity ulcers. TECHNIQUE: Arterial duplex examination of both lower extremities performed using B-mode, color flow and spectral Doppler assessment. FINDINGS: RIGHT: Common Femoral Artery: PSV 100 cm/sec. Triphasic waveform. Proximal SFA: PSV 102 cm/sec. Triphasic waveform. Mid SFA: PSV 147 cm/sec. Triphasic waveform. Distal SFA: PSV 118 cm/sec. Triphasic waveform. Popliteal artery: PSV 109 cm/sec. Triphasic waveform. Posterior tibial artery: PSV 95 cm/sec. Monophasic waveform. Dorsalis Pedis Artery: PSV 75 cm/sec. Monophasic waveform. LEFT: Common Femoral Artery: PSV 109 cm/sec. Triphasic waveform. Proximal SFA: PSV 103 cm/sec. Triphasic waveform. Mid SFA: PSV 118 cm/sec. Triphasic waveform. Distal SFA: PSV 126 cm/sec. Triphasic waveform. Popliteal artery: PSV 123 cm/sec. Triphasic waveform. Posterior tibial artery: PSV 18 cm/sec. Monophasic waveform. Dorsalis Pedis Artery: PSV 100 cm/sec. Monophasic waveform. IMPRESSION: 1. Bilateral infrapopliteal arterial stenosis, most pronounced at the level of the left posterior tib ial artery. Ankle-Brachial Index (DEVON): * Calcified arteries > 1.4 * Normal = 0.9-1.4 * Mild PAD = 0.7-0.89 * Moderate PAD = 0.51-0.69 * Severe PAD < 0.5 Doppler Waveform: * Triphasic is normal. * Biphasic is abnormal if clear transition from triphasic signal along vascular tree. * Monophasic is abnormal. Signer Name: Vernon Singleton MD Signed: 08/24/2019 6:39 PM Workstation Name: [id number]
[2019-08-24] MEDS: PANTOPRAZOLE 40 MG INJ IV SCH (21:46)
[2019-08-25] MEDS: LORazepam 2 MG/ML VIAL IV PRN ×2 (00:28→22:09)
[2019-08-25] MEDS: hydrALAZINE 20 MG/1 ML INJ IV PRN (00:28)
[2019-08-25] MEDS: ONDANSETRON 4 MG/2 ML INJ IV PRN ×3 (06:14→22:09)
[2019-08-25] MEDS: HEPARIN 5,000 UNIT/1 ML VIAL SUB-Q SCH ×3 (06:14→21:54)
[2019-08-25 07:29] LABS: Hematocrit 27.8 % (35.5-45.6); Hemoglobin 9.6 gm/dl (11.8-15.2); Mean Corpuscular HGB Conc 35 % (32-34); Mean Corpuscular Volume 87 fl (84-94); Platelet Count 222 K/mm3 (140-440); Red Blood Count 3.21 M/mm3 (3.65-5.03); Red Cell Distribution Width 14.5 % (13.2-15.2)
[2019-08-25 07:34] LABS: Albumin 2.9 g/dL (3.9-5); Calcium 7.9 mg/dL (8.4-10.2)
--- NOTE | 2019-08-25 08:04 | Progress Note ---
Assessment and Plan Impression: * esrd * metabolic acidosis * hyperkalemia * HTN * hypoglycemia * Type 2 DM * seizure activity * uremia Plan: * intiated hemodialysis for uremia, plan for another treatment today * case management for outpatient dialysis * strict i/os * iv abx for UTI * ct noted, no hydronephrosis * liklely advance ckd with progression to ESRD * daily lytes * will need HD unit placement, may be difficult with immigration status Subjective Date of service: 08/25/19 Principal diagnosis: ernie Interval history: resting well in bed today Objective - Exam Narrative Exam: General: No acute distress Head: Atraumatic Eyes: normal appearance, pupils equal and reactive to light, intermittent left-sided gaze ENT: Moist mucous membranes Neck: Normal appearance, no midline tenderness Chest: Clear to auscultation bilaterally CV: Regular rate and rhythm Abdomen: Soft, normal bowel sounds, nontender, nondistended, no rebound or guarding Back: Normal inspection Extremity: Infection with dark discoloration to the tip of left and right great toe with some mild tenderness to palpation Neuro: Alert but altered. Confused and unable to reliably follow commands oriented x1, no facial asymmetry, equal handgrip of foot dorsiflexion Skin: No rash - Vital Signs Vital signs: Vital Signs - 12hr 08/24/19 08/25/19 08/25/19 23:28 00:28 01:00 Temperature 98.4 F Pulse Rate 100 H 98 H 95 H Respiratory 20 Rate Blood Pressure 170/91 170/91 O2 Sat by Pulse 93 Oximetry 08/25/19 05:36 Temperature 99.2 F Pulse Rate 98 H Respiratory 22 Rate Blood Pressure 169/94 O2 Sat by Pulse 92 Oximetry - Lab 08/25/19 06:47 08/25/19 06:47 Most recent lab results Calcium 7.9 mg/dL (8.4-10.2) L 08/25/19 06:47 Magnesium 2.20 mg/dL (1.7-2.3) 08/24/19 04:32 Urine Creatinine 392.1 mg/dL (0.1-20.0) H 08/21/19 Unknown Urine Sodium 10 mmol/L 08/21/19 Unknown Medications & Allergies - Medications Allergies/Adverse Reactions: Allergies No Known Allergies Allergy (Unverified 08/21/19 16:42) Home Medications: Home Medications Medication Instructions Recorded Confirmed Last Taken Type Cholecalciferol (Vitamin D3) 5,000 unit PO DAILY 08/21/19 08/22/19 Unknown History [Vitamin D3] Loratadine 10 mg PO QDAY 08/21/19 08/21/19 Unknown History amLODIPine [Norvasc] 10 mg PO DAILY 08/21/19 08/21/19 Unknown History glipiZIDE [Glucotrol] 10 mg PO BID 08/21/19 08/22/19 Unknown History hydroCHLOROthiazide [HCTZ] 25 mg PO QDAY 08/21/19 08/21/19 Unknown History Active Medications: Generic Name Dose Route Start Last Admin Trade Name Freq PRN Reason Stop Dose Admin Acetaminophen 650 mg 08/21/19 22:16 08/23/19 21:55 Tylenol PO 650 mg Q4H PRN Administration Pain MILD(1-3)/Fever >100.5/MCKEON Albumin Human 25 gm 08/22/19 12:14 Alburx 25% (Albumin) IV JEN PRN Hypotension Amlodipine Besylate 10 mg 08/23/19 10:00 08/24/19 09:43 Amlodipine PO 10 mg DAILY JEN Administration Calcitriol 0.5 mcg 08/24/19 11:00 08/24/19 10:43 Rocaltrol PO 0.5 mcg QDAY JEN Administration Cholecalciferol 5,000 unit 08/23/19 10:00 08/24/19 09:42 Vitamin D3 PO 5,000 unit DAILY JEN Administration Dextrose 0 ml 08/21/19 22:16 08/22/19 08:12 D50w (25gm) Syringe IV 50 ml Q30MIN PRN Administration Hypoglycemia Protocol Epoetin Doug 10,000 unit 08/22/19 12:14 08/23/19 16:06 Procrit IV 10,000 unit JEN PRN Administration hemodialysis Heparin Sodium (Porcine) 5,000 unit 08/22/19 06:00 08/25/19 06:14 Heparin SUB-Q 5,000 unit Q8HR JEN Administration Hydralazine HCl 10 mg 08/22/19 03:45 08/25/19 00:28 Apresoline IV 10 mg Q6H PRN Administration Blood Pressure Hydrochlorothiazide 25 mg 08/23/19 10:00 08/24/19 09:42 Hctz PO 25 mg QDAY JEN Administration Ceftriaxone Sodium 1 gm in 50 mls @ 100 mls/hr 08/22/19 13:00 08/24/19 09:42 Rocephin/Ns 1 Gm/50 Ml IV 08/28/19 10:29 100 mls/hr Q24HR JEN Administration Protocol Sodium Chloride 100 mls @ 999 mls/hr 08/22/19 12:14 Nacl 0.9% IV JEN PRN Hypotension Insulin Human Lispro 0 unit 08/22/19 16:30 08/24/19 21:47 Humalog SUB-Q Not Given ACHS JEN Protocol Lorazepam 0.5 mg 08/24/19 15:29 08/25/19 00:28 Ativan IV 0.5 mg Q8HR PRN Administration Nausea Ondansetron HCl 4 mg 08/24/19 13:08 08/25/19 06:14 Zofran IV 4 mg Q4H PRN Administration Nausea And Vomiting Pantoprazole Sodium 40 mg 08/24/19 22:00 08/24/19 21:46 Protonix IV 40 mg BID JEN Administration Sodium Chloride 10 ml 08/22/19 10:00 08/24/19 21:47 Sodium Chloride Flush Syringe 10 Ml IV 10 ml BID JEN Administration Sodium Chloride 10 ml 08/21/19 22:16 Sodium Chloride Flush Syringe 10 Ml IV PRN PRN LINE FLUSH
[2019-08-25] MEDS: INSULIN LISPRO 100 UNIT/ML SUB-Q SCH ×4 (08:46→21:54)
[2019-08-25] MEDS: PANTOPRAZOLE 40 MG INJ IV SCH ×2 (09:06→21:54)
[2019-08-25] MEDS: cefTRIAXone/NS 1 GM/50 ML 1 GM/50 ML BAG IV SCH (09:08)
[2019-08-25 09:37] LABS: Basophils % (Manual) 0 % (0.0-1.8); Total Cells Counted 100
[2019-08-25 09:38] LABS: Anisocytosis Few; Macrocytosis Rare; Platelet Estimate Consistent w Auto
[2019-08-25] MEDS ORDERED: ONDANSETRON 4 MG/2 ML INJ ONE (09:52)
[2019-08-25] MEDS ORDERED: EPOETIN ALFA 10,000 UNIT/1 ML INJ ONE (09:53)
[2019-08-25] MEDS ORDERED: SODIUM CHLORIDE*PRIMING MACHINE ONLY FOR DIALYSIS MC ONE (11:00)
[2019-08-25] MEDS: CALCITRIOL 0.5 MCG CAP PO SCH (14:47)
[2019-08-25] MEDS: amLODIPine 10 MG TAB PO SCH (14:47)
[2019-08-25] MEDS: hydroCHLOROthiazide 25 MG TAB PO SCH (14:47)
[2019-08-25] MEDS: CHOLECALCIFEROL (VIT D3) 5,000 UNIT TAB PO SCH (14:57)
[2019-08-25] MEDS ORDERED: VANCOMYCIN 1,250 MG in SODIUM CHLORIDE 0.9% 250ML 250 ML IV ONE (16:00)
--- NOTE | 2019-08-25 18:43 | Gastroenterology Progress Note ---
Assessment and Plan - Patient Problems (1) Nausea and vomiting Current Visit: Yes Status: Acute Plan to address problem: - Likely due to severe, and new, uremia now on HD for probable ESRD. - Patient slowly tolerating advancement of diet. - May also have a component of diabetic gastroparesis, given duration of DM, but would not start reglan scheduled with his tenuous renal status. - Will advance to full liquids and observe. Subjective Date of service: 08/25/19 Principal diagnosis: N/V Interval history: The patient is sleeping but arousable. He is now tolerating sips of liquids and PO meds, though there is still nausea. Objective - Constitutional Vitals: Temp Pulse Resp BP Pulse Ox 98.3 F 95 H 20 172/79 92 08/25/19 15:55 08/25/19 15:55 08/25/19 15:55 08/25/19 15:55 08/25/19 15:55 General appearance: no acute distress - Respiratory Respiratory effort: normal Respiratory: bilateral: CTA - Cardiovascular Rhythm: regular Heart Sounds: Present: S1 & S2 - Gastrointestinal General gastrointestinal: Present: soft, non-tender, non-distended - Labs CBC & Chem 7: 08/25/19 06:47 08/25/19 06:47 Labs: Laboratory Results - last 24 hr 08/24/19 08/25/19 08/25/19 21:57 06:47 06:47 WBC 14.5 H RBC 3.21 L Hgb 9.6 L Hct 27.8 L MCV 87 MCH 30 MCHC 35 H RDW 14.5 Plt Count 222 Add Manual Diff Complete Total Counted 100 Seg Neuts % (Manual) 91.0 H Band Neutrophils % 0 Lymphocytes % (Manual) 6.0 L Reactive Lymphs % (Man) 0 Monocytes % (Manual) 2.0 Eosinophils % (Manual) 1.0 Basophils % (Manual) 0 Metamyelocytes % 0 Myelocytes % 0 Promyelocytes % 0 Blast Cells % 0 Nucleated RBC % Not Reportable Seg Neutrophils # Man 13.2 H Band Neutrophils # 0.0 Lymphocytes # (Manual) 0.9 L Abs React Lymphs (Man) 0.0 Monocytes # (Manual) 0.3 Eosinophils # (Manual) 0.1 Basophils # (Manual) 0.0 Metamyelocytes # 0.0 Myelocytes # 0.0 Promyelocytes # 0.0 Blast Cells # 0.0 WBC Morphology Not Reportable Hypersegmented Neuts Not Reportable Hyposegmented Neuts Not Reportable Hypogranular Neuts Not Reportable Smudge Cells Not Reportable Toxic Granulation Not Reportable Toxic Vacuolation Not Reportable Dohle Bodies Not Reportable Pelger-Huet Anomaly Not Reportable Zoran Rods Not Reportable Platelet Estimate Consistent w auto Clumped Platelets Not Reportable Plt Clumps, EDTA Not Reportable Large Platelets Not Reportable Giant Platelets Not Reportable Platelet Satelliting Not Reportable Plt Morphology Comment Not Reportable RBC Morphology Not Reportable Dimorphic RBCs Not Reportable Polychromasia Not Reportable Hypochromasia Not Reportable Poikilocytosis Not Reportable Anisocytosis Few Microcytosis Not Reportable Macrocytosis Rare Spherocytes Not Reportable Pappenheimer Bodies Not Reportable Sickle Cells Not Reportable Target Cells Not Reportable Tear Drop Cells Not Reportable Ovalocytes Not Reportable Helmet Cells Not Reportable [place] Bodies Not Reportable [place] Rings Not Reportable [place] Cells Not Reportable Bite Cells Not Reportable Crenated Cell Not Reportable Elliptocytes Not Reportable Acanthocytes (Spur) Not Reportable Rouleaux Not Reportable Hemoglobin C Crystals Not Reportable Schistocytes Not Reportable Malaria parasites Not Reportable [place] Bodies Not Reportable Hem Pathologist Commnt No Sodium 141 Potassium 4.3 Chloride 98.8 Carbon Dioxide 25 Anion Gap 22 BUN 58 H Creatinine 6.7 H Estimated GFR 8 BUN/Creatinine Ratio 9 Glucose 155 H POC Glucose 164 H Calcium 7.9 L Total Bilirubin 0.40 AST 21 ALT 29 Alkaline Phosphatase 65 Total Protein 6.1 L Albumin 2.9 L Albumin/Globulin Ratio 0.9 Random Vancomycin 08/25/19 08/25/19 08/25/19 06:47 07:38 16:58 WBC RBC Hgb Hct MCV MCH MCHC RDW Plt Count Add Manual Diff Total Counted Seg Neuts % (Manual) Band Neutrophils % Lymphocytes % (Manual) Reactive Lymphs % (Man) Monocytes % (Manual) Eosinophils % (Manual) Basophils % (Manual) Metamyelocytes % Myelocytes % Promyelocytes % Blast Cells % Nucleated RBC % Seg Neutrophils # Man Band Neutrophils # Lymphocytes # (Manual) Abs React Lymphs (Man) Monocytes # (Manual) Eosinophils # (Manual) Basophils # (Manual) Metamyelocytes # Myelocytes # Promyelocytes # Blast Cells # WBC Morphology Hypersegmented Neuts Hyposegmented Neuts Hypogranular Neuts Smudge Cells Toxic Granulation Toxic Vacuolation Dohle Bodies Pelger-Huet Anomaly Zoran Rods Platelet Estimate Clumped Platelets Plt Clumps, EDTA Large Platelets Giant Platelets Platelet Satelliting Plt Morphology Comment RBC Morphology Dimorphic RBCs Polychromasia Hypochromasia Poikilocytosis Anisocytosis Microcytosis Macrocytosis Spherocytes Pappenheimer Bodies Sickle Cells Target Cells Tear Drop Cells Ovalocytes Helmet Cells [place] Bodies [place] Rings [place] Cells Bite Cells Crenated Cell Elliptocytes Acanthocytes (Spur) Rouleaux Hemoglobin C Crystals Schistocytes Malaria parasites [place] Bodies Hem Pathologist Commnt Sodium Potassium Chloride Carbon Dioxide Anion Gap BUN Creatinine Estimated GFR BUN/Creatinine Ratio Glucose POC Glucose 160 H 128 H Calcium Total Bilirubin AST ALT Alkaline Phosphatase Total Protein Albumin Albumin/Globulin Ratio Random Vancomycin 7.3
--- NOTE | 2019-08-25 19:45 | Progress Note ---
Assessment and Plan Assessment and plan: --Heme positive stool/hematemesis: Current Visit: Yes Status: Acute GI evaluated the patient, closely monitor H&H Clear liquids and supportive care --Intractable nausea and vomiting Current Visit: Yes Status: Acute Antiemetics , IV Protonix GI consult , check CT abdomen if no improvement . 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 Osteomyelitis, underlying disease process Closely monitor, treat the underlying cause --Hypoglycemia Current Visit: Yes Status: Acute Hold diabetic medications patient received multiple D50 pushes Will place patient on IV fluid D10 normal saline. Closely monitor blood sugars -- Osteomyelitis/left great toe Current Visit: Yes Status: Acute Patient has been placed on empiric IV antibiotics. Possible osteomyelitis of left great toe on x-ray Consult wound care surgeon Dr. Rosa -- DVT prophylaxis Current Visit: Yes Status: Acute Patient placed on subcutaneous heparin. -- Full code status Current Visit: Yes Status: Acute Monitor closely and adjust management as needed Plan of care reviewed with the patient and his nurse 08/24/2019; patient developed hematemesis intractable nausea vomiting today Placed n.p.o., IV fluids IV Protonix, GI consult, monitor H&H Initiated hemodialysis yesterday, HD per schedule 08/25/19; patient has heme positive stool, GI evaluation noted Continues to have intractable nausea vomiting, supportive care History Interval history: Have seen and examined the patient in dialysis unit, receiving dialysis Patient did not have any new episodes of hematemesis However patient has heme positive stool Complains of generalized weakness Mild nausea vomiting Patient is in mild distress Vital signs noted Hospitalist Physical - Constitutional Vitals: Temp Pulse Resp BP Pulse Ox 98.3 F 95 H 20 172/79 92 08/25/19 15:55 08/25/19 15:55 08/25/19 15:55 08/25/19 15:55 08/25/19 15:55 General appearance: Present: mild distress (Retching periodically with minimal output), well-nourished - EENT Eyes: Present: PERRL, EOM intact - Neck Neck: Present: supple, normal ROM - Respiratory Respiratory effort: normal Respiratory: bilateral: diminished, rales, negative: rhonchi, wheezing - Cardiovascular Rhythm: regular Heart Sounds: Present: S1 & S2 - Extremities Extremities: no ischemia, No edema, abnormal (Discoloration of tips of bilateral great toe) - Abdominal General gastrointestinal: soft, non-tender, non-distended, normal bowel sounds - Integumentary Integumentary: Present: clear, warm - Psychiatric Psychiatric: appropriate mood/affect, cooperative - Neurologic Neurologic: moves all extremities Results - Labs CBC & Chem 7: 08/25/19 06:47 08/25/19 06:47 Labs: Laboratory Last Values WBC 14.5 K/mm3 (4.5-11.0) H 08/25/19 06:47 RBC 3.21 M/mm3 (3.65-5.03) L 08/25/19 06:47 Hgb 9.6 gm/dl (11.8-15.2) L 08/25/19 06:47 Hct 27.8 % (35.5-45.6) L 08/25/19 06:47 MCV 87 fl (84-94) 08/25/19 06:47 MCH 30 pg (28-32) 08/25/19 06:47 MCHC 35 % (32-34) H 08/25/19 06:47 RDW 14.5 % (13.2-15.2) 08/25/19 06:47 Plt Count 222 K/mm3 (140-440) 08/25/19 06:47 Lymph % (Auto) 5.9 % (13.4-35.0) L 08/24/19 04:32 [place] % (Auto) 4.5 % (0.0-7.3) 08/24/19 04:32 Eos % (Auto) 0.0 % (0.0-4.3) 08/24/19 04:32 Baso % (Auto) 0.2 % (0.0-1.8) 08/24/19 04:32 Lymph # 0.6 K/mm3 (1.2-5.4) L 08/24/19 04:32 [place] # 0.5 K/mm3 (0.0-0.8) 08/24/19 04:32 Eos # 0.0 K/mm3 (0.0-0.4) 08/24/19 04:32 Baso # 0.0 K/mm3 (0.0-0.1) 08/24/19 04:32 Add Manual Diff Complete 08/25/19 06:47 Total Counted 100 08/25/19 06:47 Seg Neutrophils % 89.4 % (40.0-70.0) H 08/24/19 04:32 Seg Neuts % (Manual) 91.0 % (40.0-70.0) H 08/25/19 06:47 Band Neutrophils % 0 % 08/25/19 06:47 Lymphocytes % (Manual) 6.0 % (13.4-35.0) L 08/25/19 06:47 Reactive Lymphs % (Man) 0 % 08/25/19 06:47 Monocytes % (Manual) 2.0 % (0.0-7.3) 08/25/19 06:47 Eosinophils % (Manual) 1.0 % (0.0-4.3) 08/25/19 06:47 Basophils % (Manual) 0 % (0.0-1.8) 08/25/19 06:47 Metamyelocytes % 0 % 08/25/19 06:47 Myelocytes % 0 % 08/25/19 06:47 Promyelocytes % 0 % 08/25/19 06:47 Blast Cells % 0 % 08/25/19 06:47 Nucleated RBC % Not Reportable 08/25/19 06:47 Seg Neutrophils # 9.5 K/mm3 (1.8-7.7) H 08/24/19 04:32 Seg Neutrophils # Man 13.2 K/mm3 (1.8-7.7) H 08/25/19 06:47 Band Neutrophils # 0.0 K/mm3 08/25/19 06:47 Lymphocytes # (Manual) 0.9 K/mm3 (1.2-5.4) L 08/25/19 06:47 Abs React Lymphs (Man) 0.0 K/mm3 08/25/19 06:47 Monocytes # (Manual) 0.3 K/mm3 (0.0-0.8) 08/25/19 06:47 Eosinophils # (Manual) 0.1 K/mm3 (0.0-0.4) 08/25/19 06:47 Basophils # (Manual) 0.0 K/mm3 (0.0-0.1) 08/25/19 06:47 Metamyelocytes # 0.0 K/mm3 08/25/19 06:47 Myelocytes # 0.0 K/mm3 08/25/19 06:47 Promyelocytes # 0.0 K/mm3 08/25/19 06:47 Blast Cells # 0.0 K/mm3 08/25/19 06:47 WBC Morphology Not Reportable 08/25/19 06:47 Hypersegmented Neuts Not Reportable 08/25/19 06:47 Hyposegmented Neuts Not Reportable 08/25/19 06:47 Hypogranular Neuts Not Reportable 08/25/19 06:47 Smudge Cells Not Reportable 08/25/19 06:47 Toxic Granulation Not Reportable 08/25/19 06:47 Toxic Vacuolation Not Reportable 08/25/19 06:47 Dohle Bodies Not Reportable 08/25/19 06:47 Pelger-Huet Anomaly Not Reportable 08/25/19 06:47 Zoran Rods Not Reportable 08/25/19 06:47 Platelet Estimate Consistent w auto 08/25/19 06:47 Clumped Platelets Not Reportable 08/25/19 06:47 Plt Clumps, EDTA Not Reportable 08/25/19 06:47 Large Platelets Not Reportable 08/25/19 06:47 Giant Platelets Not Reportable 08/25/19 06:47 Platelet Satelliting Not Reportable 08/25/19 06:47 Plt Morphology Comment Not Reportable 08/25/19 06:47 RBC Morphology Not Reportable 08/25/19 06:47 Dimorphic RBCs Not Reportable 08/25/19 06:47 Polychromasia Not Reportable 08/25/19 06:47 Hypochromasia Not Reportable 08/25/19 06:47 Poikilocytosis Not Reportable 08/25/19 06:47 Anisocytosis Few 08/25/19 06:47 Microcytosis Not Reportable 08/25/19 06:47 Macrocytosis Rare 08/25/19 06:47 Spherocytes Not Reportable 08/25/19 06:47 Pappenheimer Bodies Not Reportable 08/25/19 06:47 Sickle Cells Not Reportable 08/25/19 06:47 Target Cells Not Reportable 08/25/19 06:47 Tear Drop Cells Not Reportable 08/25/19 06:47 Ovalocytes Not Reportable 08/25/19 06:47 Helmet Cells Not Reportable 08/25/19 06:47 [place] Bodies Not Reportable 08/25/19 06:47 [place] Rings Not Reportable 08/25/19 06:47 [place] Cells Not Reportable 08/25/19 06:47 Bite Cells Not Reportable 08/25/19 06:47 Crenated Cell Not Reportable 08/25/19 06:47 Elliptocytes Not Reportable 08/25/19 06:47 Acanthocytes (Spur) Not Reportable 08/25/19 06:47 Rouleaux Not Reportable 08/25/19 06:47 Hemoglobin C Crystals Not Reportable 08/25/19 06:47 Schistocytes Not Reportable 08/25/19 06:47 Malaria parasites Not Reportable 08/25/19 06:47 ESR 67 mm/Hr (0-20) 08/21/19 20:54 [place] Bodies Not Reportable 08/25/19 06:47 Hem Pathologist Commnt No 08/25/19 06:47 PT 13.9 Sec. (12.2-14.9) 08/22/19 04:04 INR 1.09 (0.87-1.13) 08/22/19 04:04 Sodium 141 mmol/L (137-145) 08/25/19 06:47 Potassium 4.3 mmol/L (3.6-5.0) 08/25/19 06:47 Chloride 98.8 mmol/L (98-107) 08/25/19 06:47 Carbon Dioxide 25 mmol/L (22-30) 08/25/19 06:47 Anion Gap 22 mmol/L 08/25/19 06:47 BUN 58 mg/dL (9-20) H 08/25/19 06:47 Creatinine 6.7 mg/dL (0.8-1.5) H 08/25/19 06:47 Estimated GFR 8 ml/min 08/25/19 06:47 BUN/Creatinine Ratio 9 % 08/25/19 06:47 Glucose 155 mg/dL (75-100) H 08/25/19 06:47 POC Glucose 128 (70-105) H 08/25/19 16:58 Hemoglobin A1c 7.1 % (4-6) H 08/21/19 20:54 Calcium 7.9 mg/dL (8.4-10.2) L 08/25/19 06:47 Magnesium 2.20 mg/dL (1.7-2.3) 08/24/19 04:32 Iron 29 ug/dL (49-181) L 08/22/19 13:23 TIBC 222 mcg/dL (250-450) L 08/22/19 13:23 % Saturation 13.06 % 08/22/19 13:23 Transferrin 192 mg/dl (180-329) 08/22/19 13:23 Ferritin 307.1 ng/mL (13.0-400.0) 08/22/19 13:23 Total Bilirubin 0.40 mg/dL (0.1-1.2) 08/25/19 06:47 AST 21 units/L (5-40) 08/25/19 06:47 ALT 29 units/L (7-56) 08/25/19 06:47 Alkaline Phosphatase 65 units/L (35-129) 08/25/19 06:47 Total Protein 6.1 g/dL (6.3-8.2) L 08/25/19 06:47 Albumin 2.9 g/dL (3.9-5) L 08/25/19 06:47 Albumin/Globulin Ratio 0.9 % 08/25/19 06:47 Lipase 107 units/L (13-60) H 08/21/19 17:07 PTH Intact 210.6 pg/mL (15-65) H 08/23/19 04:31 Urine Color Becky (Yellow) 08/21/19 Unknown Urine Turbidity Cloudy (Clear) 08/21/19 Unknown Urine pH 5.0 (5.0-7.0) 08/21/19 Unknown Ur Specific [place] 1.026 (1.003-1.030) 08/21/19 Unknown Urine Protein >500 mg/dL (Negative) 08/21/19 Unknown Urine Glucose (UA) Neg mg/dL (Negative) 08/21/19 Unknown Urine Ketones Neg mg/dL (Negative) 08/21/19 Unknown Urine Blood Lg (Negative) 08/21/19 Unknown Urine Nitrite Neg (Negative) 08/21/19 Unknown Urine Bilirubin Neg (Negative) 08/21/19 Unknown Urine Urobilinogen < 2.0 mg/dL (<2.0) 08/21/19 Unknown Ur Leukocyte Esterase Tr (Negative) 08/21/19 Unknown Urine WBC (Auto) 50.0 /HPF (0.0-6.0) H 08/21/19 Unknown Urine RBC (Auto) 43.0 /HPF (0.0-6.0) 08/21/19 Unknown U Epithel Cells (Auto) 1.0 /HPF (0-13.0) 08/21/19 Unknown Urine Bacteria (Auto) 1+ /HPF (Negative) 08/21/19 Unknown Urine Mucus Few /HPF 08/21/19 Unknown Urine Osmolality 349 Mosm/kg 08/21/19 Unknown Urine Creatinine 392.1 mg/dL (0.1-20.0) H 08/21/19 Unknown Urine Sodium 10 mmol/L 08/21/19 Unknown Urine Chloride 10.8 mmolL (110-250) L 08/21/19 Unknown Random Vancomycin 7.3 ug/mL (0-40.0) 08/25/19 06:47 Urine Opiates Screen Presumptive negative 08/21/19 Unknown Urine Methadone Screen Presumptive negative 08/21/19 Unknown Ur Barbiturates Screen Presumptive negative 08/21/19 Unknown Ur Phencyclidine Scrn Presumptive negative 08/21/19 Unknown Ur Amphetamines Screen Presumptive negative 08/21/19 Unknown U Benzodiazepines Scrn Presumptive negative 08/21/19 Unknown Urine Cocaine Screen Presumptive negative 08/21/19 Unknown U Marijuana (THC) Screen Presumptive negative 08/21/19 Unknown Drugs of Abuse Note Disclamer 08/21/19 Unknown Hepatitis A IgM Ab Non-reactive (NonReactive) 08/22/19 13:23 Hep Bs Antigen Non-reactive (Negative) 08/22/19 13:23 Hep B Core IgM Ab Non-reactive (NonReactive) 08/22/19 13:23 Hepatitis C Antibody Non-reactive (NonReactive) 08/22/19 13:23 Microbiology: Microbiology 08/21/19 20:58 Peripheral/Venous Blood Culture - Preliminary NO GROWTH AFTER 72 HOURS 08/21/19 20:54 Peripheral/Venous Blood Culture - Preliminary NO GROWTH AFTER 72 HOURS 08/24/19 15:08 Stool Stool Occult Blood (SHALINI) - Final John/IV: Voiding Method Indwelling Catheter IV Catheter Type [Right INT / Saline Lock Forearm] IV Catheter Type [Left Upper Peripheral IV arm] IV Catheter Type [Right Chest] VAS Cath IV Catheter Type [Right Hand] Peripheral IV IV Catheter Type [Left Forearm Peripheral IV ] Active Medications - Current Medications Current Medications: Generic Name Dose Route Start Last Admin Trade Name Freq PRN Reason Stop Dose Admin Acetaminophen 650 mg 08/21/19 22:16 08/23/19 21:55 Tylenol PO 650 mg Q4H PRN Administration Pain MILD(1-3)/Fever >100.5/MCKEON Albumin Human 25 gm 08/22/19 12:14 Alburx 25% (Albumin) IV JEN PRN Hypotension Amlodipine Besylate 10 mg 08/23/19 10:00 08/25/19 14:47 Amlodipine PO 10 mg DAILY JEN Administration Calcitriol 0.5 mcg 08/24/19 11:00 08/25/19 14:47 Rocaltrol PO 0.5 mcg QDAY JEN Administration Cholecalciferol 5,000 unit 08/23/19 10:00 08/25/19 14:57 Vitamin D3 PO 5,000 unit DAILY JEN Administration Dextrose 0 ml 08/21/19 22:16 08/22/19 08:12 D50w (25gm) Syringe IV 50 ml Q30MIN PRN Administration Hypoglycemia Protocol Epoetin Doug 10,000 unit 08/22/19 12:14 08/23/19 16:06 Procrit IV 10,000 unit JEN PRN Administration hemodialysis Heparin Sodium (Porcine) 5,000 unit 08/22/19 06:00 08/25/19 14:57 Heparin SUB-Q 5,000 unit Q8HR JEN Administration Hydralazine HCl 10 mg 08/22/19 03:45 08/25/19 00:28 Apresoline IV 10 mg Q6H PRN Administration Blood Pressure Hydrochlorothiazide 25 mg 08/23/19 10:00 08/25/19 14:47 Hctz PO 25 mg QDAY JEN Administration Ceftriaxone Sodium 1 gm in 50 mls @ 100 mls/hr 08/22/19 13:00 08/25/19 09:08 Rocephin/Ns 1 Gm/50 Ml IV 08/28/19 10:29 100 mls/hr Q24HR JEN Administration Protocol Sodium Chloride 100 mls @ 999 mls/hr 08/22/19 12:14 Nacl 0.9% IV JEN PRN Hypotension Insulin Human Lispro 0 unit 08/22/19 16:30 08/25/19 18:08 Humalog SUB-Q Not Given ACHS JEN Protocol Lorazepam 0.5 mg 08/24/19 15:29 08/25/19 00:28 Ativan IV 0.5 mg Q8HR PRN Administration Nausea Ondansetron HCl 4 mg 08/24/19 13:08 08/25/19 10:00 Zofran IV 4 mg Q4H PRN Administration Nausea And Vomiting Pantoprazole Sodium 40 mg 08/24/19 22:00 08/25/19 09:06 Protonix IV 40 mg BID JEN Administration Sodium Chloride 10 ml 08/22/19 10:00 08/25/19 18:08 Sodium Chloride Flush Syringe 10 Ml IV 10 ml BID JEN Administration Sodium Chloride 10 ml 08/21/19 22:16 Sodium Chloride Flush Syringe 10 Ml IV PRN PRN LINE FLUSH Nutrition/Malnutrition Assess - Dietary Evaluation Nutrition/Malnutrition Findings: Nutrition Notes Start: 08/22/19 13:15 Freq: Status: Active Protocol: Document 08/24/19 13:15 LM (Rec: 08/24/19 13:17 LM [id number]) Nutrition Notes Initial or Follow up Brief Note Current Diagnosis CKD(stage I-IV),Diabetes, Hypertension Other Pertinent Diagnosis Abdominal pain, N/V, AMS, toe wound Current Diet Renal Labs/Tests POC glu 231 Pertinent Medications Humalog Zofran Height 5 ft 5 in Weight 83.915 kg [place] Body Weight (kg) 61.81 BMI 30.7 Weight Status Obese Subjective/Other Information Pt nauseous and vomiting this AM and getting HD. GI Symptoms Nausea,Vomiting Nutrition Intervention Follow-Up By: 08/27/19 Additional Comments F/U for diet ed/assessment
[2019-08-26] MEDS: HEPARIN 5,000 UNIT/1 ML VIAL SUB-Q SCH ×3 (05:02→21:58)
[2019-08-26] MEDS: LORazepam 2 MG/ML VIAL IV PRN ×3 (06:05→19:53)
[2019-08-26 06:31] LABS: Basophils % (Auto) 0.3 % (0.0-1.8); Eosinophils # (Auto) 0.1 K/mm3 (0.0-0.4); Eosinophils % (Auto) 1.2 % (0.0-4.3); Hematocrit 26.8 % (35.5-45.6); Hemoglobin 9.1 gm/dl (11.8-15.2); Lymphocytes # (Auto) 0.8 K/mm3 (1.2-5.4); Lymphocytes % (Auto) 8.1 % (13.4-35.0); Mean Corpuscular HGB Conc 34 % (32-34); Mean Corpuscular Volume 87 fl (84-94); Monocytes # (Auto) 0.7 K/mm3 (0.0-0.8); Monocytes % (Auto) 7.3 % (0.0-7.3); Platelet Count 216 K/mm3 (140-440); Red Blood Count 3.09 M/mm3 (3.65-5.03); Red Cell Distribution Width 14.2 % (13.2-15.2)
[2019-08-26 06:51] LABS: Albumin 2.8 g/dL (3.9-5); Calcium 8.2 mg/dL (8.4-10.2)
[2019-08-26] MEDS ORDERED: HALOPERIDOL LACTATE 5 MG/1 ML INJ IM NR (07:24)
--- NOTE | 2019-08-26 08:12 | Gastroenterology Progress Note ---
Assessment and Plan - Patient Problems (1) Nausea and vomiting Current Visit: Yes Status: Acute Plan to address problem: - Likely due to severe, and new, uremia now on HD for probable ESRD. - Patient slowly tolerating advancement of diet but suffering from confusion (?EtOH w/d vs uremia). - May also have a component of diabetic gastroparesis, given duration of DM, but would not start reglan scheduled with his tenuous renal status. - Will continue full liquids and observe. Subjective Date of service: 08/26/19 Principal diagnosis: N/V Interval history: The patient was agitated this AM (getting out of bed, pulling out IVs). He has rec'd haldol. No emesis reported. Objective - Constitutional Vitals: Temp Pulse Resp BP Pulse Ox 98.6 F 94 H 22 159/83 91 08/26/19 04:42 08/26/19 04:42 08/26/19 04:42 08/26/19 04:42 08/25/19 23:46 General appearance: no acute distress - Respiratory Respiratory effort: normal Respiratory: bilateral: CTA - Cardiovascular Rhythm: regular Heart Sounds: Present: S1 & S2 - Gastrointestinal General gastrointestinal: Present: soft, non-tender, non-distended - Labs CBC & Chem 7: 08/26/19 05:32 08/26/19 05:32 Labs: Laboratory Results - last 24 hr 08/25/19 08/25/19 08/25/19 06:47 16:58 21:33 WBC RBC Hgb Hct MCV MCH MCHC RDW Plt Count Lymph % (Auto) [place] % (Auto) Eos % (Auto) Baso % (Auto) Lymph # [place] # Eos # Baso # Add Manual Diff Complete Total Counted 100 Seg Neutrophils % Seg Neuts % (Manual) 91.0 H Band Neutrophils % 0 Lymphocytes % (Manual) 6.0 L Reactive Lymphs % (Man) 0 Monocytes % (Manual) 2.0 Eosinophils % (Manual) 1.0 Basophils % (Manual) 0 Metamyelocytes % 0 Myelocytes % 0 Promyelocytes % 0 Blast Cells % 0 Nucleated RBC % Not Reportable Seg Neutrophils # Seg Neutrophils # Man 13.2 H Band Neutrophils # 0.0 Lymphocytes # (Manual) 0.9 L Abs React Lymphs (Man) 0.0 Monocytes # (Manual) 0.3 Eosinophils # (Manual) 0.1 Basophils # (Manual) 0.0 Metamyelocytes # 0.0 Myelocytes # 0.0 Promyelocytes # 0.0 Blast Cells # 0.0 WBC Morphology Not Reportable Hypersegmented Neuts Not Reportable Hyposegmented Neuts Not Reportable Hypogranular Neuts Not Reportable Smudge Cells Not Reportable Toxic Granulation Not Reportable Toxic Vacuolation Not Reportable Dohle Bodies Not Reportable Pelger-Huet Anomaly Not Reportable Zoran Rods Not Reportable Platelet Estimate Consistent w auto Clumped Platelets Not Reportable Plt Clumps, EDTA Not Reportable Large Platelets Not Reportable Giant Platelets Not Reportable Platelet Satelliting Not Reportable Plt Morphology Comment Not Reportable RBC Morphology Not Reportable Dimorphic RBCs Not Reportable Polychromasia Not Reportable Hypochromasia Not Reportable Poikilocytosis Not Reportable Anisocytosis Few Microcytosis Not Reportable Macrocytosis Rare Spherocytes Not Reportable Pappenheimer Bodies Not Reportable Sickle Cells Not Reportable Target Cells Not Reportable Tear Drop Cells Not Reportable Ovalocytes Not Reportable Helmet Cells Not Reportable [place] Bodies Not Reportable [place] Rings Not Reportable [place] Cells Not Reportable Bite Cells Not Reportable Crenated Cell Not Reportable Elliptocytes Not Reportable Acanthocytes (Spur) Not Reportable Rouleaux Not Reportable Hemoglobin C Crystals Not Reportable Schistocytes Not Reportable Malaria parasites Not Reportable [place] Bodies Not Reportable Hem Pathologist Commnt No Sodium Potassium Chloride Carbon Dioxide Anion Gap BUN Creatinine Estimated GFR BUN/Creatinine Ratio Glucose POC Glucose 128 H 154 H Calcium Total Bilirubin AST ALT Alkaline Phosphatase Total Protein Albumin Albumin/Globulin Ratio 08/26/19 08/26/19 08/26/19 05:32 05:32 07:43 WBC 10.3 RBC 3.09 L Hgb 9.1 L Hct 26.8 L MCV 87 MCH 29 MCHC 34 RDW 14.2 Plt Count 216 Lymph % (Auto) 8.1 L [place] % (Auto) 7.3 Eos % (Auto) 1.2 Baso % (Auto) 0.3 Lymph # 0.8 L [place] # 0.7 Eos # 0.1 Baso # 0.0 Add Manual Diff Total Counted Seg Neutrophils % 83.1 H Seg Neuts % (Manual) Band Neutrophils % Lymphocytes % (Manual) Reactive Lymphs % (Man) Monocytes % (Manual) Eosinophils % (Manual) Basophils % (Manual) Metamyelocytes % Myelocytes % Promyelocytes % Blast Cells % Nucleated RBC % Seg Neutrophils # 8.5 H Seg Neutrophils # Man Band Neutrophils # Lymphocytes # (Manual) Abs React Lymphs (Man) Monocytes # (Manual) Eosinophils # (Manual) Basophils # (Manual) Metamyelocytes # Myelocytes # Promyelocytes # Blast Cells # WBC Morphology Hypersegmented Neuts Hyposegmented Neuts Hypogranular Neuts Smudge Cells Toxic Granulation Toxic Vacuolation Dohle Bodies Pelger-Huet Anomaly Zoran Rods Platelet Estimate Clumped Platelets Plt Clumps, EDTA Large Platelets Giant Platelets Platelet Satelliting Plt Morphology Comment RBC Morphology Dimorphic RBCs Polychromasia Hypochromasia Poikilocytosis Anisocytosis Microcytosis Macrocytosis Spherocytes Pappenheimer Bodies Sickle Cells Target Cells Tear Drop Cells Ovalocytes Helmet Cells [place] Bodies [place] Rings [place] Cells Bite Cells Crenated Cell Elliptocytes Acanthocytes (Spur) Rouleaux Hemoglobin C Crystals Schistocytes Malaria parasites [place] Bodies Hem Pathologist Commnt Sodium 140 Potassium 3.9 Chloride 99.0 Carbon Dioxide 26 Anion Gap 19 BUN 43 H Creatinine 6.0 H Estimated GFR 10 BUN/Creatinine Ratio 7 Glucose 160 H POC Glucose 174 H Calcium 8.2 L Total Bilirubin 0.40 AST 19 ALT 22 Alkaline Phosphatase 60 Total Protein 6.0 L Albumin 2.8 L Albumin/Globulin Ratio 0.9
--- NOTE | 2019-08-26 09:58 | Progress Note ---
Assessment and Plan Impression: * esrd * metabolic acidosis * hyperkalemia * HTN * hypoglycemia * Type 2 DM * seizure activity * uremia Plan: * intiated hemodialysis for uremia, continue HD q MWF * case management for outpatient dialysis placement * strict i/os * iv abx for UTI * ct noted, no hydronephrosis * liklely advance ckd with progression to ESRD * daily lytes * dose meds per renal function * will need HD unit placement, may be difficult with immigration status Subjective Date of service: 08/26/19 Principal diagnosis: N/V Interval history: resting well in bed today Objective - Exam Narrative Exam: General: No acute distress Head: Atraumatic Eyes: normal appearance, pupils equal and reactive to light, intermittent left- sided gaze ENT: Moist mucous membranes Neck: Normal appearance, no midline tenderness Chest: Clear to auscultation bilaterally CV: Regular rate and rhythm Abdomen: Soft, normal bowel sounds, nontender, nondistended, no rebound or guarding Back: Normal inspection Extremity: Infection with dark discoloration to the tip of left and right great toe with some mild tenderness to palpation Neuro: Alert but altered. Confused and unable to reliably follow commands oriented x1, no facial asymmetry, equal handgrip of foot dorsiflexion Skin: No rash - Vital Signs Vital signs: Vital Signs - 12hr 08/25/19 08/26/19 08/26/19 23:46 00:00 04:42 Temperature 97.7 F 98.6 F Pulse Rate 95 H 97 H 94 H Respiratory 20 22 Rate Blood Pressure 153/83 Blood Pressure 159/83 [Left] O2 Sat by Pulse 91 Oximetry - Lab 08/26/19 05:32 08/26/19 05:32 Most recent lab results Calcium 8.2 mg/dL (8.4-10.2) L 08/26/19 05:32 Magnesium 2.20 mg/dL (1.7-2.3) 08/24/19 04:32 Urine Creatinine 392.1 mg/dL (0.1-20.0) H 08/21/19 Unknown Urine Sodium 10 mmol/L 08/21/19 Unknown Medications & Allergies - Medications Allergies/Adverse Reactions: Allergies No Known Allergies Allergy (Unverified 08/21/19 16:42) Home Medications: Home Medications Medication Instructions Recorded Confirmed Last Taken Type Cholecalciferol (Vitamin D3) 5,000 unit PO DAILY 08/21/19 08/22/19 Unknown History [Vitamin D3] Loratadine 10 mg PO QDAY 08/21/19 08/21/19 Unknown History amLODIPine [Norvasc] 10 mg PO DAILY 08/21/19 08/21/19 Unknown History glipiZIDE [Glucotrol] 10 mg PO BID 08/21/19 08/22/19 Unknown History hydroCHLOROthiazide [HCTZ] 25 mg PO QDAY 08/21/19 08/21/19 Unknown History Active Medications: Generic Name Dose Route Start Last Admin Trade Name Freq PRN Reason Stop Dose Admin Acetaminophen 650 mg 08/21/19 22:16 08/23/19 21:55 Tylenol PO 650 mg Q4H PRN Administration Pain MILD(1-3)/Fever >100.5/MCKEON Albumin Human 25 gm 08/22/19 12:14 Alburx 25% (Albumin) IV JEN PRN Hypotension Amlodipine Besylate 10 mg 08/23/19 10:00 08/25/19 14:47 Amlodipine PO 10 mg DAILY JEN Administration Calcitriol 0.5 mcg 08/24/19 11:00 08/25/19 14:47 Rocaltrol PO 0.5 mcg QDAY JEN Administration Cholecalciferol 5,000 unit 08/23/19 10:00 08/25/19 14:57 Vitamin D3 PO 5,000 unit DAILY JEN Administration Dextrose 0 ml 08/21/19 22:16 08/22/19 08:12 D50w (25gm) Syringe IV 50 ml Q30MIN PRN Administration Hypoglycemia Protocol Epoetin Doug 10,000 unit 08/22/19 12:14 08/23/19 16:06 Procrit IV 10,000 unit JEN PRN Administration hemodialysis Haloperidol Lactate 2 mg 08/26/19 07:24 08/26/19 07:40 Haldol IM 08/26/19 10:00 2 mg ONCE NR Administration Heparin Sodium (Porcine) 5,000 unit 08/22/19 06:00 08/26/19 05:02 Heparin SUB-Q 5,000 unit Q8HR JEN Administration Hydralazine HCl 10 mg 08/22/19 03:45 08/25/19 00:28 Apresoline IV 10 mg Q6H PRN Administration Blood Pressure Ceftriaxone Sodium 1 gm in 50 mls @ 100 mls/hr 08/22/19 13:00 08/25/19 09:08 Rocephin/Ns 1 Gm/50 Ml IV 08/28/19 10:29 100 mls/hr Q24HR JEN Administration Protocol Sodium Chloride 100 mls @ 999 mls/hr 08/22/19 12:14 Nacl 0.9% IV JEN PRN Hypotension Insulin Human Lispro 0 unit 08/22/19 16:30 08/25/19 21:54 Humalog SUB-Q Not Given ACHS JEN Protocol Lorazepam 0.5 mg 08/24/19 15:29 08/26/19 06:05 Ativan IV 0.5 mg Q8HR PRN Administration Nausea Ondansetron HCl 4 mg 08/24/19 13:08 08/25/19 22:09 Zofran IV 4 mg Q4H PRN Administration Nausea And Vomiting Pantoprazole Sodium 40 mg 08/26/19 10:00 Protonix IV QDAY JEN Sodium Chloride 10 ml 08/22/19 10:00 08/25/19 21:54 Sodium Chloride Flush Syringe 10 Ml IV 10 ml BID JEN Administration Sodium Chloride 10 ml 08/21/19 22:16 Sodium Chloride Flush Syringe 10 Ml IV PRN PRN LINE FLUSH
[2019-08-26] MEDS: PANTOPRAZOLE 40 MG INJ IV SCH (10:14)
[2019-08-26] MEDS: cefTRIAXone/NS 1 GM/50 ML 1 GM/50 ML BAG IV SCH (10:14)
[2019-08-26] MEDS: amLODIPine 10 MG TAB PO SCH (10:14)
[2019-08-26] MEDS: CHOLECALCIFEROL (VIT D3) 5,000 UNIT TAB PO SCH (10:14)
[2019-08-26] MEDS: CALCITRIOL 0.5 MCG CAP PO SCH (10:14)
[2019-08-26] MEDS: INSULIN LISPRO 100 UNIT/ML SUB-Q SCH ×4 (10:15→22:45)
--- NOTE | 2019-08-26 12:31 | Progress Note ---
Assessment and Plan Assessment and plan: --Toxic metabolic encephalopathy Current Visit: Yes Status: Acute Secondary to uremia ,hypoglycemia. Osteomyelitis, underlying disease process Closely monitor, treat the underlying cause Haldol as needed. Restraints for safety --Heme positive stool/hematemesis: Current Visit: Yes Status: Acute GI evaluated the patient, closely monitor H&H Clear liquids and supportive care --Intractable nausea and vomiting Current Visit: Yes Status: Acute Antiemetics , IV Protonix GI consult , check CT abdomen if no improvement . 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 Closely monitor blood sugars -- Osteomyelitis/left great toe Current Visit: Yes Status: Acute Patient has been placed on empiric IV antibiotics. Possible osteomyelitis of left great toe on x-ray Consult wound care surgeon Dr. Rosa -- DVT prophylaxis Current Visit: Yes Status: Acute Patient placed on subcutaneous heparin. -- Full code status Current Visit: Yes Status: Acute Monitor closely and adjust management as needed Plan of care reviewed with the patient and his nurse 08/24/2019; patient developed hematemesis intractable nausea vomiting today Placed n.p.o., IV fluids IV Protonix, GI consult, monitor H&H Initiated hemodialysis yesterday, HD per schedule 08/25/19; patient has heme positive stool, GI evaluation noted Continues to have intractable nausea vomiting, supportive care 08/26/19; patient is agitated and restless requiring restraints Continues to have nausea vomiting, GI following Brief history; 59-year-old male patient [place] issues, with history of hypertension, diabetes mellitus, chronic kidney disease was admitted through emergency room, With intractable nausea vomiting and abdominal pain of one-week duration.Patient's work-up is consistent with chronic kidney disease/ESRD. Nephrology evaluated initiated hemodialysis. Patient is agitated a nd restless sometimes requiring restraints . Patient also had hematemesis and heme positive stool, evaluated by GI, conservative management recommended Disposition; patient needs outpatient HD chair scheduling, follow GI recommendations, DC when stable History Interval history: Patient seen and examined at the bedside Patient's chart and medications reviewed Patient is severely agitated since yesterday night Requiring Haldol, Ativan and restraints Patient is more alert and awake Confused and agitated, mild distress Vital signs noted Hospitalist Physical - Constitutional Vitals: Temp Pulse Resp BP Pulse Ox 98.6 F 94 H 22 159/83 91 08/26/19 04:42 08/26/19 04:42 08/26/19 04:42 08/26/19 04:42 08/25/19 23:46 General appearance: Present: mild distress (Retching periodically with minimal output), well-nourished, other (Agitated and confused) - EENT Eyes: Present: PERRL, EOM intact - Neck Neck: Present: supple, normal ROM - Respiratory Respiratory effort: normal Respiratory: bilateral: diminished, negative: rales, rhonchi - Extremities Extremities: no ischemia, abnormal (Tip of the toes black discoloration) - Abdominal General gastrointestinal: soft, non-tender, non-distended, normal bowel sounds - Integumentary Integumentary: Present: clear, warm - Psychiatric Psychiatric: agitated, other (Trying to get off the bed, restrained) - Neurologic Neurologic: moves all extremities Results - Labs CBC & Chem 7: 08/26/19 05:32 08/26/19 05:32 Labs: Laboratory Last Values WBC 10.3 K/mm3 (4.5-11.0) 08/26/19 05:32 RBC 3.09 M/mm3 (3.65-5.03) L 08/26/19 05:32 Hgb 9.1 gm/dl (11.8-15.2) L 08/26/19 05:32 Hct 26.8 % (35.5-45.6) L 08/26/19 05:32 MCV 87 fl (84-94) 08/26/19 05:32 MCH 29 pg (28-32) 08/26/19 05:32 MCHC 34 % (32-34) 08/26/19 05:32 RDW 14.2 % (13.2-15.2) 08/26/19 05:32 Plt Count 216 K/mm3 (140-440) 08/26/19 05:32 Lymph % (Auto) 8.1 % (13.4-35.0) L 08/26/19 05:32 Angelina % (Auto) 7.3 % (0.0-7.3) 08/26/19 05:32 Eos % (Auto) 1.2 % (0.0-4.3) 08/26/19 05:32 Baso % (Auto) 0.3 % (0.0-1.8) 08/26/19 05:32 Lymph # 0.8 K/mm3 (1.2-5.4) L 08/26/19 05:32 Angelina # 0.7 K/mm3 (0.0-0.8) 08/26/19 05:32 Eos # 0.1 K/mm3 (0.0-0.4) 08/26/19 05:32 Baso # 0.0 K/mm3 (0.0-0.1) 08/26/19 05:32 Add Manual Diff Complete 08/25/19 06:47 Total Counted 100 08/25/19 06:47 Seg Neutrophils % 83.1 % (40.0-70.0) H 08/26/19 05:32 Seg Neuts % (Manual) 91.0 % (40.0-70.0) H 08/25/19 06:47 Band Neutrophils % 0 % 08/25/19 06:47 Lymphocytes % (Manual) 6.0 % (13.4-35.0) L 08/25/19 06:47 Reactive Lymphs % (Man) 0 % 08/25/19 06:47 Monocytes % (Manual) 2.0 % (0.0-7.3) 08/25/19 06:47 Eosinophils % (Manual) 1.0 % (0.0-4.3) 08/25/19 06:47 Basophils % (Manual) 0 % (0.0-1.8) 08/25/19 06:47 Metamyelocytes % 0 % 08/25/19 06:47 Myelocytes % 0 % 08/25/19 06:47 Promyelocytes % 0 % 08/25/19 06:47 Blast Cells % 0 % 08/25/19 06:47 Nucleated RBC % Not Reportable 08/25/19 06:47 Seg Neutrophils # 8.5 K/mm3 (1.8-7.7) H 08/26/19 05:32 Seg Neutrophils # Man 13.2 K/mm3 (1.8-7.7) H 08/25/19 06:47 Band Neutrophils # 0.0 K/mm3 08/25/19 06:47 Lymphocytes # (Manual) 0.9 K/mm3 (1.2-5.4) L 08/25/19 06:47 Abs React Lymphs (Man) 0.0 K/mm3 08/25/19 06:47 Monocytes # (Manual) 0.3 K/mm3 (0.0-0.8) 08/25/19 06:47 Eosinophils # (Manual) 0.1 K/mm3 (0.0-0.4) 08/25/19 06:47 Basophils # (Manual) 0.0 K/mm3 (0.0-0.1) 08/25/19 06:47 Metamyelocytes # 0.0 K/mm3 08/25/19 06:47 Myelocytes # 0.0 K/mm3 08/25/19 06:47 Promyelocytes # 0.0 K/mm3 08/25/19 06:47 Blast Cells # 0.0 K/mm3 08/25/19 06:47 WBC Morphology Not Reportable 08/25/19 06:47 Hypersegmented Neuts Not Reportable 08/25/19 06:47 Hyposegmented Neuts Not Reportable 08/25/19 06:47 Hypogranular Neuts Not Reportable 08/25/19 06:47 Smudge Cells Not Reportable 08/25/19 06:47 Toxic Granulation Not Reportable 08/25/19 06:47 Toxic Vacuolation Not Reportable 08/25/19 06:47 Dohle Bodies Not Reportable 08/25/19 06:47 Pelger-Huet Anomaly Not Reportable 08/25/19 06:47 Zoran Rods Not Reportable 08/25/19 06:47 Platelet Estimate Consistent w auto 08/25/19 06:47 Clumped Platelets Not Reportable 08/25/19 06:47 Plt Clumps, EDTA Not Reportable 08/25/19 06:47 Large Platelets Not Reportable 08/25/19 06:47 Giant Platelets Not Reportable 08/25/19 06:47 Platelet Satelliting Not Reportable 08/25/19 06:47 Plt Morphology Comment Not Reportable 08/25/19 06:47 RBC Morphology Not Reportable 08/25/19 06:47 Dimorphic RBCs Not Reportable 08/25/19 06:47 Polychromasia Not Reportable 08/25/19 06:47 Hypochromasia Not Reportable 08/25/19 06:47 Poikilocytosis Not Reportable 08/25/19 06:47 Anisocytosis Few 08/25/19 06:47 Microcytosis Not Reportable 08/25/19 06:47 Macrocytosis Rare 08/25/19 06:47 Spherocytes Not Reportable 08/25/19 06:47 Pappenheimer Bodies Not Reportable 08/25/19 06:47 Sickle Cells Not Reportable 08/25/19 06:47 Target Cells Not Reportable 08/25/19 06:47 Tear Drop Cells Not Reportable 08/25/19 06:47 Ovalocytes Not Reportable 08/25/19 06:47 Helmet Cells Not Reportable 08/25/19 06:47 [place] Bodies Not Reportable 08/25/19 06:47 [place] Rings Not Reportable 08/25/19 06:47 [place] Cells Not Reportable 08/25/19 06:47 Bite Cells Not Reportable 08/25/19 06:47 Crenated Cell Not Reportable 08/25/19 06:47 Elliptocytes Not Reportable 08/25/19 06:47 Acanthocytes (Spur) Not Reportable 08/25/19 06:47 Rouleaux Not Reportable 08/25/19 06:47 Hemoglobin C Crystals Not Reportable 08/25/19 06:47 Schistocytes Not Reportable 08/25/19 06:47 Malaria parasites Not Reportable 08/25/19 06:47 ESR 67 mm/Hr (0-20) 08/21/19 20:54 [place] Bodies Not Reportable 08/25/19 06:47 Hem Pathologist Commnt No 08/25/19 06:47 PT 13.9 Sec. (12.2-14.9) 08/22/19 04:04 INR 1.09 (0.87-1.13) 08/22/19 04:04 Sodium 140 mmol/L (137-145) 08/26/19 05:32 Potassium 3.9 mmol/L (3.6-5.0) 08/26/19 05:32 Chloride 99.0 mmol/L (98-107) 08/26/19 05:32 Carbon Dioxide 26 mmol/L (22-30) 08/26/19 05:32 Anion Gap 19 mmol/L 08/26/19 05:32 BUN 43 mg/dL (9-20) H 08/26/19 05:32 Creatinine 6.0 mg/dL (0.8-1.5) H 08/26/19 05:32 Estimated GFR 10 ml/min 08/26/19 05:32 BUN/Creatinine Ratio 7 % 08/26/19 05:32 Glucose 160 mg/dL (75-100) H 08/26/19 05:32 POC Glucose 170 (70-105) H 08/26/19 12:00 Hemoglobin A1c 7.1 % (4-6) H 08/21/19 20:54 Calcium 8.2 mg/dL (8.4-10.2) L 08/26/19 05:32 Magnesium 2.20 mg/dL (1.7-2.3) 08/24/19 04:32 Iron 29 ug/dL (49-181) L 08/22/19 13:23 TIBC 222 mcg/dL (250-450) L 08/22/19 13:23 % Saturation 13.06 % 08/22/19 13:23 Transferrin 192 mg/dl (180-329) 08/22/19 13:23 Ferritin 307.1 ng/mL (13.0-400.0) 08/22/19 13:23 Total Bilirubin 0.40 mg/dL (0.1-1.2) 08/26/19 05:32 AST 19 units/L (5-40) 08/26/19 05:32 ALT 22 units/L (7-56) 08/26/19 05:32 Alkaline Phosphatase 60 units/L (35-129) 08/26/19 05:32 Total Protein 6.0 g/dL (6.3-8.2) L 08/26/19 05:32 Albumin 2.8 g/dL (3.9-5) L 08/26/19 05:32 Albumin/Globulin Ratio 0.9 % 08/26/19 05:32 Lipase 107 units/L (13-60) H 08/21/19 17:07 PTH Intact 210.6 pg/mL (15-65) H 08/23/19 04:31 Urine Color Becky (Yellow) 08/21/19 Unknown Urine Turbidity Cloudy (Clear) 08/21/19 Unknown Urine pH 5.0 (5.0-7.0) 08/21/19 Unknown Ur Specific [place] 1.026 (1.003-1.030) 08/21/19 Unknown Urine Protein >500 mg/dL (Negative) 08/21/19 Unknown Urine Glucose (UA) Neg mg/dL (Negative) 08/21/19 Unknown Urine Ketones Neg mg/dL (Negative) 08/21/19 Unknown Urine Blood Lg (Negative) 08/21/19 Unknown Urine Nitrite Neg (Negative) 08/21/19 Unknown Urine Bilirubin Neg (Negative) 08/21/19 Unknown Urine Urobilinogen < 2.0 mg/dL (<2.0) 08/21/19 Unknown Ur Leukocyte Esterase Tr (Negative) 08/21/19 Unknown Urine WBC (Auto) 50.0 /HPF (0.0-6.0) H 08/21/19 Unknown Urine RBC (Auto) 43.0 /HPF (0.0-6.0) 08/21/19 Unknown U Epithel Cells (Auto) 1.0 /HPF (0-13.0) 08/21/19 Unknown Urine Bacteria (Auto) 1+ /HPF (Negative) 08/21/19 Unknown Urine Mucus Few /HPF 08/21/19 Unknown Urine Osmolality 349 Mosm/kg 08/21/19 Unknown Urine Creatinine 392.1 mg/dL (0.1-20.0) H 08/21/19 Unknown Urine Sodium 10 mmol/L 08/21/19 Unknown Urine Chloride 10.8 mmolL (110-250) L 08/21/19 Unknown Random Vancomycin 7.3 ug/mL (0-40.0) 08/25/19 06:47 Urine Opiates Screen Presumptive negative 08/21/19 Unknown Urine Methadone Screen Presumptive negative 08/21/19 Unknown Ur Barbiturates Screen Presumptive negative 08/21/19 Unknown Ur Phencyclidine Scrn Presumptive negative 08/21/19 Unknown Ur Amphetamines Screen Presumptive negative 08/21/19 Unknown U Benzodiazepines Scrn Presumptive negative 08/21/19 Unknown Urine Cocaine Screen Presumptive negative 08/21/19 Unknown U Marijuana (THC) Screen Presumptive negative 08/21/19 Unknown Drugs of Abuse Note Disclamer 08/21/19 Unknown Hepatitis A IgM Ab Non-reactive (NonReactive) 08/22/19 13:23 Hep Bs Antigen Non-reactive (Negative) 08/22/19 13:23 Hep B Core IgM Ab Non-reactive (NonReactive) 08/22/19 13:23 Hepatitis C Antibody Non-reactive (NonReactive) 08/22/19 13:23 Microbiology: Microbiology 08/21/19 20:58 Peripheral/Venous Blood Culture - Preliminary NO GROWTH AFTER 4 DAYS 08/21/19 20:54 Peripheral/Venous Blood Culture - Preliminary NO GROWTH AFTER 4 DAYS John/IV: Voiding Method Indwelling Catheter IV Catheter Type [Right INT / Saline Lock Forearm] IV Catheter Type [Left Upper Peripheral IV arm] IV Catheter Type [Right Chest] VAS Cath IV Catheter Type [Right Hand] Peripheral IV IV Catheter Type [Left Forearm Peripheral IV ] Active Medications - Current Medications Current Medications: Generic Name Dose Route Start Last Admin Trade Name Freq PRN Reason Stop Dose Admin Acetaminophen 650 mg 08/21/19 22:16 08/23/19 21:55 Tylenol PO 650 mg Q4H PRN Administration Pain MILD(1-3)/Fever >100.5/MCKEON Albumin Human 25 gm 08/22/19 12:14 Alburx 25% (Albumin) IV JEN PRN Hypotension Amlodipine Besylate 10 mg 08/23/19 10:00 08/26/19 10:14 Amlodipine PO 10 mg DAILY JEN Administration Calcitriol 0.5 mcg 08/24/19 11:00 08/26/19 10:14 Rocaltrol PO 0.5 mcg QDAY JEN Administration Cholecalciferol 5,000 unit 08/23/19 10:00 08/26/19 10:14 Vitamin D3 PO 5,000 unit DAILY JEN Administration Dextrose 0 ml 08/21/19 22:16 08/22/19 08:12 D50w (25gm) Syringe IV 50 ml Q30MIN PRN Administration Hypoglycemia Protocol Epoetin Doug 10,000 unit 08/22/19 12:14 08/23/19 16:06 Procrit IV 10,000 unit JEN PRN Administration hemodialysis Heparin Sodium (Porcine) 5,000 unit 08/22/19 06:00 08/26/19 05:02 Heparin SUB-Q 5,000 unit Q8HR JEN Administration Hydralazine HCl 10 mg 08/22/19 03:45 08/25/19 00:28 Apresoline IV 10 mg Q6H PRN Administration Blood Pressure Ceftriaxone Sodium 1 gm in 50 mls @ 100 mls/hr 08/22/19 13:00 08/26/19 10:14 Rocephin/Ns 1 Gm/50 Ml IV 08/28/19 10:29 100 mls/hr Q24HR JEN Administration Protocol Sodium Chloride 100 mls @ 999 mls/hr 08/22/19 12:14 Nacl 0.9% IV JEN PRN Hypotension Insulin Human Lispro 0 unit 08/22/19 16:30 08/26/19 10:15 Humalog SUB-Q Not Given ACHS JEN Protocol Lorazepam 0.5 mg 08/24/19 15:29 08/26/19 06:05 Ativan IV 0.5 mg Q8HR PRN Administration Nausea Ondansetron HCl 4 mg 08/24/19 13:08 08/25/19 22:09 Zofran IV 4 mg Q4H PRN Administration Nausea And Vomiting Pantoprazole Sodium 40 mg 08/26/19 10:00 08/26/19 10:14 Protonix IV 40 mg QDAY JEN Administration Sodium Chloride 10 ml 08/22/19 10:00 08/26/19 10:15 Sodium Chloride Flush Syringe 10 Ml IV 10 ml BID JEN Administration Sodium Chloride 10 ml 08/21/19 22:16 Sodium Chloride Flush Syringe 10 Ml IV PRN PRN LINE FLUSH Nutrition/Malnutrition Assess - Dietary Evaluation Nutrition/Malnutrition Findings: Nutrition Notes Start: 08/22/19 13:15 Freq: Status: Active Protocol: Document 08/24/19 13:15 LM (Rec: 08/24/19 13:17 LM [id number]) Nutrition Notes Initial or Follow up Brief Note Current Diagnosis CKD(stage I-IV),Diabetes, Hypertension Other Pertinent Diagnosis Abdominal pain, N/V, AMS, toe wound Current Diet Renal Labs/Tests POC glu 231 Pertinent Medications Humalog Zofran Height 5 ft 5 in Weight 83.915 kg [place] Body Weight (kg) 61.81 BMI 30.7 Weight Status Obese Subjective/Other Information Pt nauseous and vomiting this AM and getting HD. GI Symptoms Nausea,Vomiting Nutrition Intervention Follow-Up By: 08/27/19 Additional Comments F/U for diet ed/assessment
--- NOTE | 2019-08-26 18:46 | Event Note ---
Date: 08/26/19 I called patient's son Franko Henley at [phone] and discussed about his father Mr. Henley's condition, treatment plan, consultants recommendations Test reports, hemodialysis and discharge planning. The son had numerous questions about hemodialysis, patient's agitation and confusion, GI recommendations and discharge planning, I answered all his questions and encouraged him to call back if he had any other concerns. I also asked him to discuss with case management regarding hemodialysis and discharge planning tomorrow. I informed patient's nurse Ms. Mccloud.
[2019-08-26] MEDS: diphenhydrAMINE 50 MG/ML VIAL IV PRN (21:57)
[2019-08-27] MEDS: LORazepam 2 MG/ML VIAL IV PRN (03:23)
[2019-08-27 05:02] LABS: Hematocrit 25.5 % (35.5-45.6); Hemoglobin 8.5 gm/dl (11.8-15.2); Mean Corpuscular HGB Conc 33 % (32-34); Mean Corpuscular Volume 87 fl (84-94); Platelet Count 240 K/mm3 (140-440); Red Blood Count 2.92 M/mm3 (3.65-5.03); Red Cell Distribution Width 14.3 % (13.2-15.2)
[2019-08-27 05:28] LABS: Albumin 2.9 g/dL (3.9-5); Calcium 8.2 mg/dL (8.4-10.2)
[2019-08-27 05:58] LABS: Basophils % (Manual) 0 % (0.0-1.8); Total Cells Counted 100
[2019-08-27 05:59] LABS: Hypochromasia 1+; Platelet Estimate Consistent w Auto
[2019-08-27] MEDS: HEPARIN 5,000 UNIT/1 ML VIAL SUB-Q SCH ×3 (06:48→21:21)
[2019-08-27] MEDS: INSULIN LISPRO 100 UNIT/ML SUB-Q SCH ×4 (08:28→22:25)
[2019-08-27 09:23] LABS: ABG Base Excess 0.3 mmol/L (-2.0-3.0); ABG HCO3 24.4 mmol/L (20.0-26.0); ABG Methemoglobin 0.6 % (0.0-1.5); ABG Oxygen Saturation 97.1 % (95.0-99.0); ABG PCO2 36.6 mm Hg; ABG PH 7.441 pH Units (7.350-7.450); ABG PO2 83.6 mm Hg (80.0-90.0)
--- NOTE | 2019-08-27 09:24 | Progress Note ---
Assessment and Plan Impression: * TASHA on CKD with progression to ESRD suspected * metabolic acidosis * hyperkalemia * HTN * Hypoglycemia * Type 2 DM * Seizure activity * Uremia * Hypocalcemia * Hypoalbuminia * Secondary Hyperparathyroidism * Anemia in CKD Plan: * Initiated hemodialysis for uremia, electrolyte abnormalities, likely progression to ESRD; continue HD q MWF at this time unless otherwise indicated, due for HD today * case management for outpatient dialysis placement, may be difficult with immigration status * strict i/os * IV abx for UTI per primary * Reviewed CT, no hydronephrosis or evidence of acute obstruction * Daily renal lytes * dose meds per renal function * Renal diet as able * Continue calcitriol with HD * Start ESAs prn TIW with HD * UF as tolerated with HD Subjective Date of service: 08/27/19 Principal diagnosis: N/V Interval history: Remains on facemask; restrained and agitated this AM. Discussed with bedside nurse, no acute changes. Objective - Exam Narrative Exam: General: No acute distress, agitated Head: Atraumatic Eyes: pupils equal and reactive to light, intermittent left-sided gaze ENT: Moist mucous membranes Neck: Normal appearance Chest: Clear to auscultation bilaterally, on NC CV: Regular rate and rhythm Abdomen: Soft, normal bowel sounds, nontender, nondistended Extremity: Infection with dark discoloration to the tip of left and right great toe Neuro: Alert but altered. Confused and unable to reliably follow commands, no facial asymmetry, moves extremities spontaneously Skin: No rash - Vital Signs Vital signs: Vital Signs - 12hr 08/26/19 08/27/19 08/27/19 23:50 02:00 04:57 Temperature 99.5 F 98.3 F Pulse Rate 105 H 105 H 101 H Respiratory 20 20 Rate Blood Pressure 177/79 Blood Pressure 177/99 [Left] O2 Sat by Pulse 93 94 Oximetry 08/27/19 08/27/19 07:00 07:30 Temperature 98.4 F 97.9 F Pulse Rate 102 H 102 H Respiratory 22 25 H Rate Blood Pressure Blood Pressure 169/84 169/84 [Left] O2 Sat by Pulse 96 Oximetry - Lab 08/27/19 04:42 08/27/19 04:42 Most recent lab results ABG pH 7.441 pH Units (7.350-7.450) 08/27/19 09:08 ABG pCO2 36.6 mm Hg 08/27/19 09:08 ABG pO2 83.6 mm Hg (80.0-90.0) 08/27/19 09:08 ABG HCO3 24.4 mmol/L (20.0-26.0) 08/27/19 09:08 ABG O2 Saturation 97.1 % (95.0-99.0) 08/27/19 09:08 Calcium 8.2 mg/dL (8.4-10.2) L 08/27/19 04:42 Magnesium 2.20 mg/dL (1.7-2.3) 08/24/19 04:32 Urine Creatinine 392.1 mg/dL (0.1-20.0) H 08/21/19 Unknown Urine Sodium 10 mmol/L 08/21/19 Unknown Medications & Allergies - Medications Allergies/Adverse Reactions: Allergies No Known Allergies Allergy (Unverified 08/21/19 16:42) Home Medications: Home Medications Medication Instructions Recorded Confirmed Last Taken Type Cholecalciferol (Vitamin D3) 5,000 unit PO DAILY 08/21/19 08/22/19 Unknown History [Vitamin D3] Loratadine 10 mg PO QDAY 08/21/19 08/21/19 Unknown History amLODIPine [Norvasc] 10 mg PO DAILY 08/21/19 08/21/19 Unknown History glipiZIDE [Glucotrol] 10 mg PO BID 08/21/19 08/22/19 Unknown History hydroCHLOROthiazide [HCTZ] 25 mg PO QDAY 08/21/19 08/21/19 Unknown History Active Medications: Generic Name Dose Route Start Last Admin Trade Name Gildardoq PRN Reason Stop Dose Admin Acetaminophen 650 mg 08/21/19 22:16 08/23/19 21:55 Tylenol PO 650 mg Q4H PRN Administration Pain MILD(1-3)/Fever >100.5/MCKEON Albumin Human 25 gm 08/22/19 12:14 Alburx 25% (Albumin) IV JEN PRN Hypotension Amlodipine Besylate 10 mg 08/23/19 10:00 08/26/19 10:14 Amlodipine PO 10 mg DAILY JEN Administration Calcitriol 0.5 mcg 08/24/19 11:00 08/26/19 10:14 Rocaltrol PO 0.5 mcg QDAY JEN Administration Cholecalciferol 5,000 unit 08/23/19 10:00 08/26/19 10:14 Vitamin D3 PO 5,000 unit DAILY JEN Administration Dextrose 0 ml 08/21/19 22:16 08/22/19 08:12 D50w (25gm) Syringe IV 50 ml Q30MIN PRN Administration Hypoglycemia Protocol Diphenhydramine HCl 25 mg 08/26/19 19:48 08/26/19 21:57 Benadryl IV 25 mg Q3H PRN Administration Itching Epoetin Doug 10,000 unit 08/22/19 12:14 08/23/19 16:06 Procrit IV 10,000 unit JEN PRN Administration hemodialysis Heparin Sodium (Porcine) 5,000 unit 08/22/19 06:00 08/27/19 06:48 Heparin SUB-Q 5,000 unit Q8HR JEN Administration Hydralazine HCl 10 mg 08/22/19 03:45 08/25/19 00:28 Apresoline IV 10 mg Q6H PRN Administration Blood Pressure Ceftriaxone Sodium 1 gm in 50 mls @ 100 mls/hr 08/22/19 13:00 08/26/19 10:14 Rocephin/Ns 1 Gm/50 Ml IV 08/28/19 10:29 100 mls/hr Q24HR JEN Administration Protocol Sodium Chloride 100 mls @ 999 mls/hr 08/22/19 12:14 Nacl 0.9% IV JEN PRN Hypotension Insulin Human Lispro 0 unit 08/22/19 16:30 08/27/19 08:28 Humalog SUB-Q Not Given ACHS JEN Protocol Lorazepam 0.5 mg 08/24/19 15:29 08/27/19 03:23 Ativan IV 0.5 mg Q8HR PRN Administration Nausea Ondansetron HCl 4 mg 08/24/19 13:08 08/25/19 22:09 Zofran IV 4 mg Q4H PRN Administration Nausea And Vomiting Pantoprazole Sodium 40 mg 08/26/19 10:00 08/26/19 10:14 Protonix IV 40 mg QDAY JEN Administration Sodium Chloride 10 ml 08/22/19 10:00 08/26/19 21:58 Sodium Chloride Flush Syringe 10 Ml IV 10 ml BID JEN Administration Sodium Chloride 10 ml 08/21/19 22:16 08/27/19 03:36 Sodium Chloride Flush Syringe 10 Ml IV 10 ml PRN PRN Administration LINE FLUSH
[2019-08-27] MEDS ORDERED: SODIUM CHLORIDE*PRIMING MACHINE ONLY FOR DIALYSIS MC ONE (09:55)
[2019-08-27] MEDS: EPOETIN ALFA 10,000 UNIT/1 ML INJ IV PRN (09:56)
[2019-08-27] MEDS: amLODIPine 10 MG TAB PO SCH (14:33)
[2019-08-27] MEDS: PANTOPRAZOLE 40 MG INJ IV SCH (14:33)
[2019-08-27] MEDS: CALCITRIOL 0.5 MCG CAP PO SCH (14:34)
[2019-08-27] MEDS: CHOLECALCIFEROL (VIT D3) 5,000 UNIT TAB PO SCH (14:34)
[2019-08-27] MEDS: cefTRIAXone/NS 1 GM/50 ML 1 GM/50 ML BAG IV SCH (14:35)
[2019-08-27] MEDS: hydrALAZINE 20 MG/1 ML INJ IV PRN (14:49)
--- NOTE | 2019-08-27 15:52 | XRay Report ---
CHEST 1 VIEW INDICATION: Shortness of Breath. COMPARISON: 08/21/2019. FINDINGS: Support devices: None. Heart: Normal. Lungs/Pleura: New since the prior, rather extensive predominantly perihilar bilateral pulmonary opaci ties have developed. No significant effusion, no pneumothorax. IMPRESSION: 1. New predominantly perihilar bilateral airspace disease. Pulmonary edema could have this appearance . However, this could also be infectious in etiology. Signer Name: Rylan Valero MD Signed: 08/27/2019 3:48 PM Workstation Name: [id number]
--- NOTE | 2019-08-27 16:48 | Gastroenterology Progress Note ---
Assessment and Plan GI: pt with uremia now with nausea, vomiting - suspect n/v more related to uremia - overall improved with decrease n/v - PPI qd - clear liquid diet, advance as tolerated - no plans to scope at this time - uremia and dialysis per renal - will follow Subjective Date of service: 08/27/19 Principal diagnosis: N/V Interval history: - decrease nausea overnight Objective - Constitutional Vitals: Temp Pulse Resp BP Pulse Ox 98.3 F 90 24 185/96 100 08/27/19 13:51 08/27/19 14:55 08/27/19 14:55 08/27/19 14:55 08/27/19 14:55 General appearance: no acute distress - EENT Eyes: PERRL - Respiratory Respiratory: bilateral: CTA - Cardiovascular Rhythm: regular Heart Sounds: Present: S1 & S2 - Gastrointestinal General gastrointestinal: Present: soft, non-tender, non-distended - Labs CBC & Chem 7: 08/27/19 04:42 08/27/19 04:42 Labs: Laboratory Results - last 24 hr 08/26/19 08/27/19 08/27/19 21:34 04:42 04:42 WBC 13.1 H RBC 2.92 L Hgb 8.5 L Hct 25.5 L MCV 87 MCH 29 MCHC 33 RDW 14.3 Plt Count 240 Add Manual Diff Complete Total Counted 100 Seg Neuts % (Manual) 87.0 H Band Neutrophils % 0 Lymphocytes % (Manual) 5.0 L Reactive Lymphs % (Man) 0 Monocytes % (Manual) 7.0 Eosinophils % (Manual) 1.0 Basophils % (Manual) 0 Metamyelocytes % 0 Myelocytes % 0 Promyelocytes % 0 Blast Cells % 0 Nucleated RBC % Not Reportable Seg Neutrophils # Man 11.4 H Band Neutrophils # 0.0 Lymphocytes # (Manual) 0.7 L Abs React Lymphs (Man) 0.0 Monocytes # (Manual) 0.9 H Eosinophils # (Manual) 0.1 Basophils # (Manual) 0.0 Metamyelocytes # 0.0 Myelocytes # 0.0 Promyelocytes # 0.0 Blast Cells # 0.0 WBC Morphology Not Reportable Hypersegmented Neuts Not Reportable Hyposegmented Neuts Not Reportable Hypogranular Neuts Not Reportable Smudge Cells Not Reportable Toxic Granulation Not Reportable Toxic Vacuolation Not Reportable Dohle Bodies Not Reportable Pelger-Huet Anomaly Not Reportable Zoran Rods Not Reportable Platelet Estimate Consistent w auto Clumped Platelets Not Reportable Plt Clumps, EDTA Not Reportable Large Platelets Not Reportable Giant Platelets Not Reportable Platelet Satelliting Not Reportable Plt Morphology Comment Not Reportable RBC Morphology Not Reportable Dimorphic RBCs Not Reportable Polychromasia Not Reportable Hypochromasia 1+ Poikilocytosis Not Reportable Anisocytosis Not Reportable Microcytosis Not Reportable Macrocytosis Not Reportable Spherocytes Not Reportable Pappenheimer Bodies Not Reportable Sickle Cells Not Reportable Target Cells Not Reportable Tear Drop Cells Not Reportable Ovalocytes Not Reportable Helmet Cells Not Reportable [place] Bodies Not Reportable [place] Rings Not Reportable [place] Cells Not Reportable Bite Cells Not Reportable Crenated Cell Not Reportable Elliptocytes Not Reportable Acanthocytes (Spur) Not Reportable Rouleaux Not Reportable Hemoglobin C Crystals Not Reportable Schistocytes Not Reportable Malaria parasites Not Reportable [place] Bodies Not Reportable Hem Pathologist Commnt No ABG pH ABG pCO2 ABG pO2 ABG HCO3 ABG O2 Saturation ABG O2 Content ABG Base Excess ABG Hemoglobin ABG Carboxyhemoglobin ABG Methemoglobin Oxyhemoglobin FiO2 Sodium 142 Potassium 4.2 Chloride 99.0 Carbon Dioxide 24 Anion Gap 23 BUN 62 H Creatinine 8.5 H Estimated GFR 6 BUN/Creatinine Ratio 7 Glucose 158 H POC Glucose 187 H Calcium 8.2 L Total Bilirubin 0.40 AST 25 ALT 22 Alkaline Phosphatase 62 Total Protein 6.0 L Albumin 2.9 L Albumin/Globulin Ratio 0.9 08/27/19 08/27/19 08/27/19 07:55 09:08 15:25 WBC RBC Hgb Hct MCV MCH MCHC RDW Plt Count Add Manual Diff Total Counted Seg Neuts % (Manual) Band Neutrophils % Lymphocytes % (Manual) Reactive Lymphs % (Man) Monocytes % (Manual) Eosinophils % (Manual) Basophils % (Manual) Metamyelocytes % Myelocytes % Promyelocytes % Blast Cells % Nucleated RBC % Seg Neutrophils # Man Band Neutrophils # Lymphocytes # (Manual) Abs React Lymphs (Man) Monocytes # (Manual) Eosinophils # (Manual) Basophils # (Manual) Metamyelocytes # Myelocytes # Promyelocytes # Blast Cells # WBC Morphology Hypersegmented Neuts Hyposegmented Neuts Hypogranular Neuts Smudge Cells Toxic Granulation Toxic Vacuolation Dohle Bodies Pelger-Huet Anomaly Zoran Rods Platelet Estimate Clumped Platelets Plt Clumps, EDTA Large Platelets Giant Platelets Platelet Satelliting Plt Morphology Comment RBC Morphology Dimorphic RBCs Polychromasia Hypochromasia Poikilocytosis Anisocytosis Microcytosis Macrocytosis Spherocytes Pappenheimer Bodies Sickle Cells Target Cells Tear Drop Cells Ovalocytes Helmet Cells [place] Bodies [place] Rings [place] Cells Bite Cells Crenated Cell Elliptocytes Acanthocytes (Spur) Rouleaux Hemoglobin C Crystals Schistocytes Malaria parasites [place] Bodies Hem Pathologist Commnt ABG pH 7.441 ABG pCO2 36.6 ABG pO2 83.6 ABG HCO3 24.4 ABG O2 Saturation 97.1 ABG O2 Content 11.3 ABG Base Excess 0.3 ABG Hemoglobin 8.4 L ABG Carboxyhemoglobin 2.0 ABG Methemoglobin 0.6 Oxyhemoglobin 94.6 L FiO2 100 Sodium Potassium Chloride Carbon Dioxide Anion Gap BUN Creatinine Estimated GFR BUN/Creatinine Ratio Glucose POC Glucose 143 H 130 H Calcium Total Bilirubin AST ALT Alkaline Phosphatase Total Protein Albumin Albumin/Globulin Ratio
--- NOTE | 2019-08-27 22:23 | Progress Note ---
Assessment and Plan Assessment and plan: --Brief episode of hypoxic respiratory failure; Current Visit: Yes Status: Acute Code met was called , symptoms secondary to fluid overload, patient is due for hemodialysis Respiratory therapy managed with noninvasive ventilation Patient's blood pressures blood sugars O2 sats within normal range Patient went for hemodialysis, and symptoms significantly improved --Toxic metabolic encephalopathy Current Visit: Yes Status: Acute Secondary to uremia ,hypoglycemia. Osteomyelitis, underlying disease process. Closely monitor, treat the underlying cause Haldol as needed. Restraints for safety --Heme positive stool/hematemesis: Current Visit: Yes Status: Acute GI evaluated the patient, closely monitor H&H Clear liquids and supportive care --Intractable nausea and vomiting Current Visit: Yes Status: Acute Antiemetics , IV Protonix GI consult , check CT abdomen if no improvement . -- Acute on chronic renal failure Current Visit: Yes Status: Acute Possible ESRD saw repairer initiated hemodialysis,HD per schedule outpatient HD scheduling at [place] per --Hypoglycemia Current Visit: Yes Status: Acute Hold diabetic medications patient received multiple D50 pushes Will place patient on IV fluid D10 normal saline. Closely monitor blood sugars -- Osteomyelitis/left great toe Current Visit: Yes Status: Acute Patient has been placed on empiric IV antibiotics. Possible osteomyelitis of left great toe on x-ray Consult wound care surgeon Dr. Rosa -- DVT prophylaxis Current Visit: Yes Status: Acute Patient placed on subcutaneous heparin. -- Full code status Current Visit: Yes Status: Acute Monitor closely and adjust management as needed Plan of care reviewed with the patient and his nurse 08/24/2019; patient developed hematemesis intractable nausea vomiting today Placed n.p.o., IV fluids IV Protonix, GI consult, monitor H&H Initiated hemodialysis yesterday, HD per schedule 08/25/19; patient has heme positive stool, GI evaluation noted Continues to have intractable nausea vomiting, supportive care 08/26/19; patient is agitated and restless requiring restraints Continues to have nausea vomiting, GI following 08/27/19; brief episode of hypoxic respiratory failure, resolved after hemodialysis Outpatient HD chair scheduling, follow MRI of left great toe/rule out osteomyelitis Disposition; follow clinically, follow nephrology, GI, wound surgeon recommendations Social issues, patient illegal, will be very difficult to set up outpatient HD CM assisting with DC planning. Discharge when stable Brief history; 59-year-old male patient [place] with [place] status issues, with history of hypertension, diabetes mellitus, chronic kidney disease was admitted through emergency room, With intractable nausea vomiting and abdominal pain of one-week duration.Patient's work-up is consistent with chronic kidney disease/ESRD. Nephrology evaluated initiated hemodialysis. Patient is agitated and restless sometimes requiring restraints . Patient also had hematemesis and heme positive stool, evaluated by GI, conservative management recommended Disposition; patient needs outpatient HD chair scheduling, follow GI recommendations, DC when stable History Interval history: Reported to code met call; code team was around the bed Nurse noted that patient was in respiratory distress with tachypnea Respiratory therapist treated with Ventimask/BiPAP Patient's O2 sats, vital signs within normal range Hemodialysis nurse at the bedside, patient is scheduled for HD today Chest x-ray ordered Vital signs are stable Hospitalist Physical - Constitutional Vitals: Temp Pulse Resp BP Pulse Ox 98.3 F 95 H 20 159/80 98 08/27/19 21:27 08/27/19 21:27 08/27/19 20:58 08/27/19 21:27 08/27/19 21:27 General appearance: Present: mild distress (Retching periodically with minimal output), well-nourished, other (Agitated and confused) - EENT Eyes: Present: PERRL, EOM intact - Neck Neck: Present: supple, normal ROM - Respiratory Respiratory effort: normal Respiratory: bilateral: diminished, rales, negative: rhonchi, wheezing - Cardiovascular Rhythm: regular Heart Sounds: Present: S1 & S2 - Extremities Extremities: no ischemia, No edema - Abdominal General gastrointestinal: soft, non-tender, non-distended, normal bowel sounds - Integumentary Integumentary: Present: clear, warm - Psychiatric Psychiatric: agitated (Requiring restraints), other (Confused) - Neurologic Neurologic: moves all extremities, other (Noncommunicative) Results - Labs CBC & Chem 7: 08/27/19 04:42 08/27/19 04:42 Labs: Laboratory Last Values WBC 13.1 K/mm3 (4.5-11.0) H 08/27/19 04:42 RBC 2.92 M/mm3 (3.65-5.03) L 08/27/19 04:42 Hgb 8.5 gm/dl (11.8-15.2) L 08/27/19 04:42 Hct 25.5 % (35.5-45.6) L 08/27/19 04:42 MCV 87 fl (84-94) 08/27/19 04:42 MCH 29 pg (28-32) 08/27/19 04:42 MCHC 33 % (32-34) 08/27/19 04:42 RDW 14.3 % (13.2-15.2) 08/27/19 04:42 Plt Count 240 K/mm3 (140-440) 08/27/19 04:42 Lymph % (Auto) 8.1 % (13.4-35.0) L 08/26/19 05:32 [place] % (Auto) 7.3 % (0.0-7.3) 08/26/19 05:32 Eos % (Auto) 1.2 % (0.0-4.3) 08/26/19 05:32 Baso % (Auto) 0.3 % (0.0-1.8) 08/26/19 05:32 Lymph # 0.8 K/mm3 (1.2-5.4) L 08/26/19 05:32 [place] # 0.7 K/mm3 (0.0-0.8) 08/26/19 05:32 Eos # 0.1 K/mm3 (0.0-0.4) 08/26/19 05:32 Baso # 0.0 K/mm3 (0.0-0.1) 08/26/19 05:32 Add Manual Diff Complete 08/27/19 04:42 Total Counted 100 08/27/19 04:42 Seg Neutrophils % 83.1 % (40.0-70.0) H 08/26/19 05:32 Seg Neuts % (Manual) 87.0 % (40.0-70.0) H 08/27/19 04:42 Band Neutrophils % 0 % 08/27/19 04:42 Lymphocytes % (Manual) 5.0 % (13.4-35.0) L 08/27/19 04:42 Reactive Lymphs % (Man) 0 % 08/27/19 04:42 Monocytes % (Manual) 7.0 % (0.0-7.3) 08/27/19 04:42 Eosinophils % (Manual) 1.0 % (0.0-4.3) 08/27/19 04:42 Basophils % (Manual) 0 % (0.0-1.8) 08/27/19 04:42 Metamyelocytes % 0 % 08/27/19 04:42 Myelocytes % 0 % 08/27/19 04:42 Promyelocytes % 0 % 08/27/19 04:42 Blast Cells % 0 % 08/27/19 04:42 Nucleated RBC % Not Reportable 08/27/19 04:42 Seg Neutrophils # 8.5 K/mm3 (1.8-7.7) H 08/26/19 05:32 Seg Neutrophils # Man 11.4 K/mm3 (1.8-7.7) H 08/27/19 04:42 Band Neutrophils # 0.0 K/mm3 08/27/19 04:42 Lymphocytes # (Manual) 0.7 K/mm3 (1.2-5.4) L 08/27/19 04:42 Abs React Lymphs (Man) 0.0 K/mm3 08/27/19 04:42 Monocytes # (Manual) 0.9 K/mm3 (0.0-0.8) H 08/27/19 04:42 Eosinophils # (Manual) 0.1 K/mm3 (0.0-0.4) 08/27/19 04:42 Basophils # (Manual) 0.0 K/mm3 (0.0-0.1) 08/27/19 04:42 Metamyelocytes # 0.0 K/mm3 08/27/19 04:42 Myelocytes # 0.0 K/mm3 08/27/19 04:42 Promyelocytes # 0.0 K/mm3 08/27/19 04:42 Blast Cells # 0.0 K/mm3 08/27/19 04:42 WBC Morphology Not Reportable 08/27/19 04:42 Hypersegmented Neuts Not Reportable 08/27/19 04:42 Hyposegmented Neuts Not Reportable 08/27/19 04:42 Hypogranular Neuts Not Reportable 08/27/19 04:42 Smudge Cells Not Reportable 08/27/19 04:42 Toxic Granulation Not Reportable 08/27/19 04:42 Toxic Vacuolation Not Reportable 08/27/19 04:42 Dohle Bodies Not Reportable 08/27/19 04:42 Pelger-Huet Anomaly Not Reportable 08/27/19 04:42 Zoran Rods Not Reportable 08/27/19 04:42 Platelet Estimate Consistent w auto 08/27/19 04:42 Clumped Platelets Not Reportable 08/27/19 04:42 Plt Clumps, EDTA Not Reportable 08/27/19 04:42 Large Platelets Not Reportable 08/27/19 04:42 Giant Platelets Not Reportable 08/27/19 04:42 Platelet Satelliting Not Reportable 08/27/19 04:42 Plt Morphology Comment Not Reportable 08/27/19 04:42 RBC Morphology Not Reportable 08/27/19 04:42 Dimorphic RBCs Not Reportable 08/27/19 04:42 Polychromasia Not Reportable 08/27/19 04:42 Hypochromasia 1+ 08/27/19 04:42 Poikilocytosis Not Reportable 08/27/19 04:42 Anisocytosis Not Reportable 08/27/19 04:42 Microcytosis Not Reportable 08/27/19 04:42 Macrocytosis Not Reportable 08/27/19 04:42 Spherocytes Not Reportable 08/27/19 04:42 Pappenheimer Bodies Not Reportable 08/27/19 04:42 Sickle Cells Not Reportable 08/27/19 04:42 Target Cells Not Reportable 08/27/19 04:42 Tear Drop Cells Not Reportable 08/27/19 04:42 Ovalocytes Not Reportable 08/27/19 04:42 Helmet Cells Not Reportable 08/27/19 04:42 [place] Bodies Not Reportable 08/27/19 04:42 [place] Rings Not Reportable 08/27/19 04:42 [place] Cells Not Reportable 08/27/19 04:42 Bite Cells Not Reportable 08/27/19 04:42 Crenated Cell Not Reportable 08/27/19 04:42 Elliptocytes Not Reportable 08/27/19 04:42 Acanthocytes (Spur) Not Reportable 08/27/19 04:42 Rouleaux Not Reportable 08/27/19 04:42 Hemoglobin C Crystals Not Reportable 08/27/19 04:42 Schistocytes Not Reportable 08/27/19 04:42 Malaria parasites Not Reportable 08/27/19 04:42 ESR 67 mm/Hr (0-20) 08/21/19 20:54 [place] Bodies Not Reportable 08/27/19 04:42 Hem Pathologist Commnt No 08/27/19 04:42 PT 13.9 Sec. (12.2-14.9) 08/22/19 04:04 INR 1.09 (0.87-1.13) 08/22/19 04:04 ABG pH 7.441 pH Units (7.350-7.450) 08/27/19 09:08 ABG pCO2 36.6 mm Hg 08/27/19 09:08 ABG pO2 83.6 mm Hg (80.0-90.0) 08/27/19 09:08 ABG HCO3 24.4 mmol/L (20.0-26.0) 08/27/19 09:08 ABG O2 Saturation 97.1 % (95.0-99.0) 08/27/19 09:08 ABG O2 Content 11.3 (0.0-44) 08/27/19 09:08 ABG Base Excess 0.3 mmol/L (-2.0-3.0) 08/27/19 09:08 ABG Hemoglobin 8.4 gm/dl (14.0-18.0) L 08/27/19 09:08 ABG Carboxyhemoglobin 2.0 % (0.0-5.0) 08/27/19 09:08 ABG Methemoglobin 0.6 % (0.0-1.5) 08/27/19 09:08 Oxyhemoglobin 94.6 % (95.0-99.0) L 08/27/19 09:08 FiO2 100 % 08/27/19 09:08 Sodium 142 mmol/L (137-145) 08/27/19 04:42 Potassium 4.2 mmol/L (3.6-5.0) 08/27/19 04:42 Chloride 99.0 mmol/L (98-107) 08/27/19 04:42 Carbon Dioxide 24 mmol/L (22-30) 08/27/19 04:42 Anion Gap 23 mmol/L 08/27/19 04:42 BUN 62 mg/dL (9-20) H 08/27/19 04:42 Creatinine 8.5 mg/dL (0.8-1.5) H 08/27/19 04:42 Estimated GFR 6 ml/min 08/27/19 04:42 BUN/Creatinine Ratio 7 % 08/27/19 04:42 Glucose 158 mg/dL (75-100) H 08/27/19 04:42 POC Glucose 136 (70-105) H 08/27/19 20:29 Hemoglobin A1c 7.1 % (4-6) H 08/21/19 20:54 Calcium 8.2 mg/dL (8.4-10.2) L 08/27/19 04:42 Magnesium 2.20 mg/dL (1.7-2.3) 08/24/19 04:32 Iron 29 ug/dL (49-181) L 08/22/19 13:23 TIBC 222 mcg/dL (250-450) L 08/22/19 13:23 % Saturation 13.06 % 08/22/19 13:23 Transferrin 192 mg/dl (180-329) 08/22/19 13:23 Ferritin 307.1 ng/mL (13.0-400.0) 08/22/19 13:23 Total Bilirubin 0.40 mg/dL (0.1-1.2) 08/27/19 04:42 AST 25 units/L (5-40) 08/27/19 04:42 ALT 22 units/L (7-56) 08/27/19 04:42 Alkaline Phosphatase 62 units/L (35-129) 08/27/19 04:42 Total Protein 6.0 g/dL (6.3-8.2) L 08/27/19 04:42 Albumin 2.9 g/dL (3.9-5) L 08/27/19 04:42 Albumin/Globulin Ratio 0.9 % 08/27/19 04:42 Lipase 107 units/L (13-60) H 08/21/19 17:07 PTH Intact 210.6 pg/mL (15-65) H 08/23/19 04:31 Urine Color Becky (Yellow) 08/21/19 Unknown Urine Turbidity Cloudy (Clear) 08/21/19 Unknown Urine pH 5.0 (5.0-7.0) 08/21/19 Unknown Ur Specific [place] 1.026 (1.003-1.030) 08/21/19 Unknown Urine Protein >500 mg/dL (Negative) 08/21/19 Unknown Urine Glucose (UA) Neg mg/dL (Negative) 08/21/19 Unknown Urine Ketones Neg mg/dL (Negative) 08/21/19 Unknown Urine Blood Lg (Negative) 08/21/19 Unknown Urine Nitrite Neg (Negative) 08/21/19 Unknown Urine Bilirubin Neg (Negative) 08/21/19 Unknown Urine Urobilinogen < 2.0 mg/dL (<2.0) 08/21/19 Unknown Ur Leukocyte Esterase Tr (Negative) 08/21/19 Unknown Urine WBC (Auto) 50.0 /HPF (0.0-6.0) H 08/21/19 Unknown Urine RBC (Auto) 43.0 /HPF (0.0-6.0) 08/21/19 Unknown U Epithel Cells (Auto) 1.0 /HPF (0-13.0) 08/21/19 Unknown Urine Bacteria (Auto) 1+ /HPF (Negative) 08/21/19 Unknown Urine Mucus Few /HPF 08/21/19 Unknown Urine Osmolality 349 Mosm/kg 08/21/19 Unknown Urine Creatinine 392.1 mg/dL (0.1-20.0) H 08/21/19 Unknown Urine Sodium 10 mmol/L 08/21/19 Unknown Urine Chloride 10.8 mmolL (110-250) L 08/21/19 Unknown Random Vancomycin 7.3 ug/mL (0-40.0) 08/25/19 06:47 Urine Opiates Screen Presumptive negative 08/21/19 Unknown Urine Methadone Screen Presumptive negative 08/21/19 Unknown Ur Barbiturates Screen Presumptive negative 08/21/19 Unknown Ur Phencyclidine Scrn Presumptive negative 08/21/19 Unknown Ur Amphetamines Screen Presumptive negative 08/21/19 Unknown U Benzodiazepines Scrn Presumptive negative 08/21/19 Unknown Urine Cocaine Screen Presumptive negative 08/21/19 Unknown U Marijuana (THC) Screen Presumptive negative 08/21/19 Unknown Drugs of Abuse Note Disclamer 08/21/19 Unknown Hepatitis A IgM Ab Non-reactive (NonReactive) 08/22/19 13:23 Hep Bs Antigen Non-reactive (Negative) 08/22/19 13:23 Hep B Core IgM Ab Non-reactive (NonReactive) 08/22/19 13:23 Hepatitis C Antibody Non-reactive (NonReactive) 08/22/19 13:23 Microbiology: Microbiology 08/21/19 20:58 Peripheral/Venous Blood Culture - Final NO GROWTH AFTER 5 DAYS 08/21/19 20:54 Peripheral/Venous Blood Culture - Final NO GROWTH AFTER 5 DAYS John/IV: Voiding Method Indwelling Catheter IV Catheter Type [Right INT / Saline Lock Forearm] IV Catheter Type [Left Upper Peripheral IV arm] IV Catheter Type [Right Chest] VAS Cath IV Catheter Type [Right Hand] Peripheral IV IV Catheter Type [Left Forearm Peripheral IV ] Active Medications - Current Medications Current Medications: Generic Name Dose Route Start Last Admin Trade Name Freq PRN Reason Stop Dose Admin Acetaminophen 650 mg 08/21/19 22:16 08/23/19 21:55 Tylenol PO 650 mg Q4H PRN Administration Pain MILD(1-3)/Fever >100.5/MCKEON Albumin Human 25 gm 08/22/19 12:14 Alburx 25% (Albumin) IV JEN PRN Hypotension Amlodipine Besylate 10 mg 08/23/19 10:00 08/27/19 14:33 Amlodipine PO 10 mg DAILY JEN Administration Calcitriol 0.5 mcg 08/24/19 11:00 08/27/19 14:34 Rocaltrol PO 0.5 mcg QDAY JEN Administration Cholecalciferol 5,000 unit 08/23/19 10:00 08/27/19 14:34 Vitamin D3 PO 5,000 unit DAILY JEN Administration Dextrose 0 ml 08/21/19 22:16 08/22/19 08:12 D50w (25gm) Syringe IV 50 ml Q30MIN PRN Administration Hypoglycemia Protocol Diphenhydramine HCl 25 mg 08/26/19 19:48 08/26/19 21:57 Benadryl IV 25 mg Q3H PRN Administration Itching Epoetin Doug 10,000 unit 08/22/19 12:14 08/27/19 09:56 Procrit IV 10,000 unit JEN PRN Administration hemodialysis Heparin Sodium (Porcine) 5,000 unit 08/22/19 06:00 08/27/19 21:21 Heparin SUB-Q 5,000 unit Q8HR JEN Administration Hydralazine HCl 10 mg 08/22/19 03:45 08/27/19 14:49 Apresoline IV 10 mg Q6H PRN Administration Blood Pressure Ceftriaxone Sodium 1 gm in 50 mls @ 100 mls/hr 08/22/19 13:00 08/27/19 14:35 Rocephin/Ns 1 Gm/50 Ml IV 08/28/19 10:29 100 mls/hr Q24HR JEN Administration Protocol Sodium Chloride 100 mls @ 999 mls/hr 08/22/19 12:14 Nacl 0.9% IV JEN PRN Hypotension Insulin Human Lispro 0 unit 08/22/19 16:30 08/27/19 17:31 Humalog SUB-Q Not Given ACHS JEN Protocol Lorazepam 0.5 mg 08/24/19 15:29 08/27/19 03:23 Ativan IV 0.5 mg Q8HR PRN Administration Nausea Ondansetron HCl 4 mg 08/24/19 13:08 08/25/19 22:09 Zofran IV 4 mg Q4H PRN Administration Nausea And Vomiting Pantoprazole Sodium 40 mg 08/26/19 10:00 08/27/19 14:33 Protonix IV 40 mg QDAY JEN Administration Sodium Chloride 10 ml 08/22/19 10:00 08/27/19 14:35 Sodium Chloride Flush Syringe 10 Ml IV 10 ml BID JEN Administration Sodium Chloride 10 ml 08/21/19 22:16 08/27/19 03:36 Sodium Chloride Flush Syringe 10 Ml IV 10 ml PRN PRN Administration LINE FLUSH Nutrition/Malnutrition Assess - Dietary Evaluation Nutrition/Malnutrition Findings: Nutrition Notes Start: 08/22/19 13:15 Freq: Status: Active Protocol: Document 08/27/19 14:56 LM (Rec: 08/27/19 15:01 LM [id number]) Nutrition Notes Initial or Follow up Brief Note Current Diagnosis CKD(stage I-IV),Diabetes, Hypertension Other Pertinent Diagnosis Abdominal pain, N/V, AMS, toe wound Current Diet full liquid Weight Status Obese Subjective/Other Information Pt in HD at time of visit. Per RN notes pt is confused, nonverbal, and in restraints. Pt not appropriate for education at this time. Diet downgraded to full liquid. Will Order ONS. Nutrition Intervention Add Supplement/Snack (indicate name/kcal Nepro daily /protein ) Provides kCal: 425 Provides Protein (gm) 19 Follow-Up By: 08/29/19 Additional Comments F/U for diet tolerance, intakes
[2019-08-28 04:47] LABS: Hematocrit 24.9 % (35.5-45.6); Hemoglobin 8.3 gm/dl (11.8-15.2); Mean Corpuscular HGB Conc 33 % (32-34); Mean Corpuscular Volume 88 fl (84-94); Platelet Count 228 K/mm3 (140-440); Red Blood Count 2.85 M/mm3 (3.65-5.03); Red Cell Distribution Width 14.4 % (13.2-15.2)
[2019-08-28 05:09] LABS: Albumin 2.7 g/dL (3.9-5); Calcium 8.2 mg/dL (8.4-10.2)
[2019-08-28 05:47] LABS: Basophils % (Manual) 0 % (0.0-1.8); Total Cells Counted 100
[2019-08-28 05:48] LABS: Giant Platelets Rare; Large Platelets Few; Platelet Estimate Consistent w Auto; RBC Morphology Normal
[2019-08-28] MEDS: HEPARIN 5,000 UNIT/1 ML VIAL SUB-Q SCH ×3 (06:35→21:30)
[2019-08-28] MEDS ORDERED: LOPERAMIDE 2 MG CAP PO PRN (09:07)
--- NOTE | 2019-08-28 09:10 | Progress Note ---
Assessment and Plan Impression: * TASHA on CKD with progression to ESRD suspected * metabolic acidosis * hyperkalemia * HTN * Hypoglycemia * Type 2 DM * Seizure activity * Uremia * Hypocalcemia * Hypoalbuminia * Secondary Hyperparathyroidism * Anemia in CKD Plan: * Initiated hemodialysis for uremia, electrolyte abnormalities, likely progression to ESRD; continue HD q MWF at this time unless otherwise indicated, due for HD tomorrow * No specific need for extra HD today, continue UF with HD as tolerated * case management for outpatient dialysis placement, may be difficult with immigration status * strict i/os * IV abx for UTI per primary * Reviewed CT, no hydronephrosis or evidence of acute obstruction * Daily renal lytes * dose meds per renal function * Renal diet as able * Continue calcitriol with HD; will use 3meq Ca bath * Continue ESAs prn TIW with HD Subjective Date of service: 08/28/19 Principal diagnosis: N/V Interval history: Less agitated this AM. Had HD yesterday, tolerated 3L UF per dialysis nurse. Patient asking for "agua" this AM Objective - Exam Narrative Exam: General: No acute distress, cooperative Head: Atraumatic Eyes: pupils equal and reactive to light, intermittent left-sided gaze ENT: Moist mucous membranes Neck: Normal appearance Chest: Clear to auscultation bilaterally, on NC CV: Regular rate and rhythm Abdomen: Soft, normal bowel sounds, nontender, nondistended Extremity: Infection with dark discoloration to the tip of left and right great toe Neuro: Alert, moves extremities spontaneously Skin: No rash - Vital Signs Vital signs: Vital Signs - 12hr 08/27/19 08/27/19 08/28/19 21:27 22:00 04:00 Temperature 98.3 F Pulse Rate 95 H 86 Pulse Rate [ 111 H Apical] Pulse Rate [ 111 H Radial] Respiratory 26 H 19 Rate Blood Pressure Blood Pressure 159/80 [Left] O2 Sat by Pulse 98 98 Oximetry 08/28/19 08/28/19 08:00 08:19 Temperature 99.4 F Pulse Rate 91 H Pulse Rate [ Apical] Pulse Rate [ Radial] Respiratory 24 Rate Blood Pressure 148/58 Blood Pressure [Left] O2 Sat by Pulse 87 98 Oximetry - Lab 08/28/19 04:11 08/28/19 04:11 Most recent lab results ABG pH 7.441 pH Units (7.350-7.450) 08/27/19 09:08 ABG pCO2 36.6 mm Hg 08/27/19 09:08 ABG pO2 83.6 mm Hg (80.0-90.0) 08/27/19 09:08 ABG HCO3 24.4 mmol/L (20.0-26.0) 08/27/19 09:08 ABG O2 Saturation 97.1 % (95.0-99.0) 08/27/19 09:08 Calcium 8.2 mg/dL (8.4-10.2) L 08/28/19 04:11 Magnesium 2.20 mg/dL (1.7-2.3) 08/24/19 04:32 Urine Creatinine 392.1 mg/dL (0.1-20.0) H 08/21/19 Unknown Urine Sodium 10 mmol/L 08/21/19 Unknown Medications & Allergies - Medications Allergies/Adverse Reactions: Allergies No Known Allergies Allergy (Unverified 08/21/19 16:42) Home Medications: Home Medications Medication Instructions Recorded Confirmed Last Taken Type Cholecalciferol (Vitamin D3) 5,000 unit PO DAILY 08/21/19 08/22/19 Unknown History [Vitamin D3] Loratadine 10 mg PO QDAY 08/21/19 08/21/19 Unknown History amLODIPine [Norvasc] 10 mg PO DAILY 08/21/19 08/21/19 Unknown History glipiZIDE [Glucotrol] 10 mg PO BID 08/21/19 08/22/19 Unknown History hydroCHLOROthiazide [HCTZ] 25 mg PO QDAY 08/21/19 08/21/19 Unknown History Active Medications: Generic Name Dose Route Start Last Admin Trade Name Freq PRN Reason Stop Dose Admin Acetaminophen 650 mg 08/21/19 22:16 08/23/19 21:55 Tylenol PO 650 mg Q4H PRN Administration Pain MILD(1-3)/Fever >100.5/MCKEON Albumin Human 25 gm 08/22/19 12:14 Alburx 25% (Albumin) IV JEN PRN Hypotension Amlodipine Besylate 10 mg 08/23/19 10:00 08/27/19 14:33 Amlodipine PO 10 mg DAILY JEN Administration Calcitriol 0.5 mcg 08/24/19 11:00 08/27/19 14:34 Rocaltrol PO 0.5 mcg QDAY JEN Administration Cholecalciferol 5,000 unit 08/23/19 10:00 08/27/19 14:34 Vitamin D3 PO 5,000 unit DAILY JEN Administration Dextrose 0 ml 08/21/19 22:16 08/22/19 08:12 D50w (25gm) Syringe IV 50 ml Q30MIN PRN Administration Hypoglycemia Protocol Diphenhydramine HCl 25 mg 08/26/19 19:48 08/26/19 21:57 Benadryl IV 25 mg Q3H PRN Administration Itching Epoetin Doug 10,000 unit 08/22/19 12:14 08/27/19 09:56 Procrit IV 10,000 unit JEN PRN Administration hemodialysis Heparin Sodium (Porcine) 5,000 unit 08/22/19 06:00 08/28/19 06:35 Heparin SUB-Q 5,000 unit Q8HR JEN Administration Hydralazine HCl 10 mg 08/22/19 03:45 08/27/19 14:49 Apresoline IV 10 mg Q6H PRN Administration Blood Pressure Ceftriaxone Sodium 1 gm in 50 mls @ 100 mls/hr 08/22/19 13:00 08/27/19 14:35 Rocephin/Ns 1 Gm/50 Ml IV 08/28/19 10:29 100 mls/hr Q24HR JEN Administration Protocol Sodium Chloride 100 mls @ 999 mls/hr 08/22/19 12:14 Nacl 0.9% IV JEN PRN Hypotension Insulin Human Lispro 0 unit 08/22/19 16:30 08/27/19 22:25 Humalog SUB-Q Not Given ACHS [facility] Protocol Loperamide HCl 2 mg 08/28/19 09:07 Imodium PO Q2H PRN Diarrhea Lorazepam 0.5 mg 08/24/19 15:29 08/27/19 03:23 Ativan IV 0.5 mg Q8HR PRN Administration Nausea Ondansetron HCl 4 mg 08/24/19 13:08 08/25/19 22:09 Zofran IV 4 mg Q4H PRN Administration Nausea And Vomiting Pantoprazole Sodium 40 mg 08/26/19 10:00 08/27/19 14:33 Protonix IV 40 mg QDAY JEN Administration Sodium Chloride 10 ml 08/22/19 10:00 08/28/19 03:26 Sodium Chloride Flush Syringe 10 Ml IV Not Given BID JEN Sodium Chloride 10 ml 08/21/19 22:16 08/27/19 03:36 Sodium Chloride Flush Syringe 10 Ml IV 10 ml PRN PRN Administration LINE FLUSH
[2019-08-28] MEDS: INSULIN LISPRO 100 UNIT/ML SUB-Q SCH ×4 (09:56→21:32)
[2019-08-28] MEDS: PANTOPRAZOLE 40 MG INJ IV SCH (09:59)
[2019-08-28] MEDS: amLODIPine 10 MG TAB PO SCH (09:59)
[2019-08-28] MEDS: cefTRIAXone/NS 1 GM/50 ML 1 GM/50 ML BAG IV SCH (10:00)
[2019-08-28] MEDS: CALCITRIOL 0.5 MCG CAP PO SCH (10:00)
[2019-08-28] MEDS: CHOLECALCIFEROL (VIT D3) 5,000 UNIT TAB PO SCH (10:00)
[2019-08-28] MEDS: LORazepam 2 MG/ML VIAL IV PRN (11:01)
--- NOTE | 2019-08-28 11:57 | Consultation ---
History of Present Illness - Reason for Consult Consult date: 08/28/19 osteomyelitis Requesting physician: YESICA DURBIN - History of Present Illness 59 years old male with history of hypertension, diabetes, chronic kidney disease, admitted on secondary to a week history of nausea, vomiting and abdominal pain. Patient is still confused, was able to provide any detailed history. Patient has bilateral great toe ulcers for 7 weeks on has been applying no sporting cream. X-ray of the feet reveals bilateral great toe osteomyelitis. On arrival, temperature 97.6, HR 89, RR 16, O2 sat 100%, BP 151/83. Initial WBC 13.3. Creatinine 13.3. A1c 7.1. Urinalysis with 50 WBCs and trace leukocyte esterase. Blood culture 08/21/2019 no growth. Urine culture 08/21/2019 no growth. Initial chest x-ray negative. Arterial Dopplers showing bilateral stenotic lesions. In the ED, his sugar was found at 48 and was given lots of D50. Patient was initiated on hemodialysis. Review of Systems: Limited given confusion Past History Past Medical History: diabetes, hypertension, renal failure, other Past Surgical History: No surgical history Social history: no significant social history. denies: alcohol abuse Medications and Allergies Allergies Allergy/AdvReac Type Severity Reaction Status Date / Time No Known Allergies Allergy Unverified 08/21/19 16:42 Home Medications Medication Instructions Recorded Confirmed Last Taken Type Cholecalciferol (Vitamin D3) 5,000 unit PO DAILY 08/21/19 08/22/19 Unknown History [Vitamin D3] Loratadine 10 mg PO QDAY 08/21/19 08/21/19 Unknown History amLODIPine [Norvasc] 10 mg PO DAILY 08/21/19 08/21/19 Unknown History glipiZIDE [Glucotrol] 10 mg PO BID 08/21/19 08/22/19 Unknown History hydroCHLOROthiazide [HCTZ] 25 mg PO QDAY 08/21/19 08/21/19 Unknown History Active Meds: Active Medications Acetaminophen (Tylenol) 650 mg PO Q4H PRN PRN Reason: Pain MILD(1-3)/Fever >100.5/[facility]KEON Last Admin: 08/23/19 21:55 Dose: 650 mg Documented by: Albumin Human (Alburx 25% (Albumin)) 25 gm IV JEN PRN PRN Reason: Hypotension Amlodipine Besylate (Amlodipine) 10 mg PO DAILY [facility] Last Admin: 08/28/19 09:59 Dose: 10 mg Documented by: Calcitriol (Rocaltrol) 0.5 mcg PO QDAY [facility] Last Admin: 08/28/19 10:00 Dose: 0.5 mcg Documented by: Cholecalciferol (Vitamin D3) 5,000 unit PO DAILY [facility] Last Admin: 08/28/19 10:00 Dose: 5,000 unit Documented by: Dextrose (D50w (25gm) Syringe) 0 ml IV Q30MIN PRN; Protocol PRN Reason: Hypoglycemia Last Admin: 08/22/19 08:12 Dose: 50 ml Documented by: Diphenhydramine HCl (Benadryl) 25 mg IV Q3H PRN PRN Reason: Itching Last Admin: 08/26/19 21:57 Dose: 25 mg Documented by: Epoetin Doug (Procrit) 10,000 unit IV JEN PRN PRN Reason: hemodialysis Last Admin: 08/27/19 09:56 Dose: 10,000 unit Documented by: Heparin Sodium (Porcine) (Heparin) 5,000 unit SUB-Q Q8HR [facility] Last Admin: 08/28/19 06:35 Dose: 5,000 unit Documented by: Hydralazine HCl (Apresoline) 10 mg IV Q6H PRN PRN Reason: Blood Pressure Last Admin: 08/27/19 14:49 Dose: 10 mg Documented by: Sodium Chloride (Nacl 0.9%) 100 mls @ 999 mls/hr IV JEN PRN PRN Reason: Hypotension Insulin Human Lispro (Humalog) 0 unit SUB-Q ACHS [facility]; Protocol Last Admin: 08/28/19 09:56 Dose: Not Given Documented by: Loperamide HCl (Imodium) 2 mg PO Q2H PRN PRN Reason: Diarrhea Lorazepam (Ativan) 0.5 mg IV Q8HR PRN PRN Reason: Nausea Last Admin: 08/28/19 11:01 Dose: 0.5 mg Documented by: Ondansetron HCl (Zofran) 4 mg IV Q4H PRN PRN Reason: Nausea And Vomiting Last Admin: 08/25/19 22:09 Dose: 4 mg Documented by: Pantoprazole Sodium (Protonix) 40 mg PO DAILY [facility] Sodium Chloride (Sodium Chloride Flush Syringe 10 Ml) 10 ml IV BID [facility] Last Admin: 08/28/19 10:00 Dose: 10 ml Documented by: Sodium Chloride (Sodium Chloride Flush Syringe 10 Ml) 10 ml IV PRN PRN PRN Reason: LINE FLUSH Last Admin: 08/27/19 03:36 Dose: 10 ml Documented by: Physical Examination - Physical Exam Narrative exam: General appearance: Confused, confused in mild respiratory distress Eyes: anicteric sclerae, moist conjunctivae; no lid-lag; PERRLA HENT: Atraumatic; oropharynx clear with moist mucous membranes and no oral thrush; normal hard and soft palate. Lungs: Right basilar rhonchi CV: RRR no murmur Abdomen: Soft, non-tender; no masses or hepatosplenomegaly Extremities: right great toe on right fourth toe with small dry eschar, left great toe with ulcer with eschar. Skin: No rash. Psych: Somnolent Neuro: Somnolent - Constitutional Vitals: Vital Signs Temp Pulse Resp BP Pulse Ox 99.4 F 95 H 26 H 148/76 98 08/28/19 08:00 08/28/19 10:00 08/28/19 10:00 08/28/19 09:59 08/28/19 08:19 Temperature -Last 24 Hours Temperature 99.4 F Temperature 98.3 F Temperature 98.6 F Temperature 98.3 F Results - Labs CBC & Chem 7: 08/28/19 04:11 08/28/19 04:11 Labs: Abnormal lab results 08/27/19 08/27/19 08/28/19 Range/Units 15:25 20:29 04:11 WBC 11.5 H (4.5-11.0) K/mm3 RBC 2.85 L (3.65-5.03) M/mm3 Hgb 8.3 L (11.8-15.2) gm/dl Hct 24.9 L (35.5-45.6) % Seg Neuts % (Manual) 90.0 H (40.0-70.0) % Lymphocytes % (Manual) 5.0 L (13.4-35.0) % Seg Neutrophils # Man 10.4 H (1.8-7.7) K/mm3 Lymphocytes # (Manual) 0.6 L (1.2-5.4) K/mm3 Chloride (98-107) mmol/L BUN (9-20) mg/dL Creatinine (0.8-1.5) mg/dL Glucose (75-100) mg/dL POC Glucose 130 H 136 H (70-105) Calcium (8.4-10.2) mg/dL Total Protein (6.3-8.2) g/dL Albumin (3.9-5) g/dL 08/28/19 08/28/19 Range/Units 04:11 08:18 WBC (4.5-11.0) K/mm3 RBC (3.65-5.03) M/mm3 Hgb (11.8-15.2) gm/dl Hct (35.5-45.6) % Seg Neuts % (Manual) (40.0-70.0) % Lymphocytes % (Manual) (13.4-35.0) % Seg Neutrophils # Man (1.8-7.7) K/mm3 Lymphocytes # (Manual) (1.2-5.4) K/mm3 Chloride 97.8 L (98-107) mmol/L BUN 50 H (9-20) mg/dL Creatinine 7.6 H (0.8-1.5) mg/dL Glucose 139 H (75-100) mg/dL POC Glucose 135 H (70-105) Calcium 8.2 L (8.4-10.2) mg/dL Total Protein 5.9 L (6.3-8.2) g/dL Albumin 2.7 L (3.9-5) g/dL Assessment and Plan Cultures: Blood culture 08/21/2019 no growth Culture 08/21/2019 no growth Assessment: 59 years old male with history of hypertension, diabetes, chronic kidney disease, admitted on secondary to a week history of nausea, vomiting and abdominal pain: #SIRS: Elevated leukocytosis, elevated creatinine, likely secondary to severe uremia and UTI. #UTI: Urine culture did not grow. #Bilateral great toes ulcers/?dry gangrene with cosmo great toe osteomyelitis: Likely ischemic ulcers given abnormal arterial Doppler. #Uncontrolled diabetes mellitus. Straight denies any control. #Acute encephalopathy: Likely due to uremia, sepsis #Nausea and vomiting: Likely due to uncontrolled diabetes and anemia. #Peripheral vascular disease: Abnormal arterial Dopplers with stenotic lesions. #Acute on chronic kidney failure: Now on hemodialysis Recommendations: Start ceftriaxone 2 g IV once a day Start vancomycin with PK consult Vascular consult Follow-up surgical recommendation Unable to obtain wound culture seems wounds are dry Will follow. Mayi Galicia MD Infectious Diseases [employer] [facility], [place] [facility] M [phone] O [phone]
--- NOTE | 2019-08-28 12:42 | Consultation ---
History of Present Illness Consult date: 08/28/19 - History of present illness History of present illness: 59 yo diabetic male with ESRD and left great toe ulcer. Past History Past Medical History: diabetes, hypertension, renal failure, other Past Surgical History: No surgical history Social history: no significant social history. denies: alcohol abuse Medications and Allergies Allergies Allergy/AdvReac Type Severity Reaction Status Date / Time No Known Allergies Allergy Unverified 08/21/19 16:42 Home Medications Medication Instructions Recorded Confirmed Last Taken Type Cholecalciferol (Vitamin D3) 5,000 unit PO DAILY 08/21/19 08/22/19 Unknown History [Vitamin D3] Loratadine 10 mg PO QDAY 08/21/19 08/21/19 Unknown History amLODIPine [Norvasc] 10 mg PO DAILY 08/21/19 08/21/19 Unknown History glipiZIDE [Glucotrol] 10 mg PO BID 08/21/19 08/22/19 Unknown History hydroCHLOROthiazide [HCTZ] 25 mg PO QDAY 08/21/19 08/21/19 Unknown History Active Meds: Active Medications Acetaminophen (Tylenol) 650 mg PO Q4H PRN PRN Reason: Pain MILD(1-3)/Fever >100.5/[facility] Last Admin: 08/23/19 21:55 Dose: 650 mg Documented by: Albumin Human (Alburx 25% (Albumin)) 25 gm IV JEN PRN PRN Reason: Hypotension Amlodipine Besylate (Amlodipine) 10 mg PO DAILY [facility] Last Admin: 08/28/19 09:59 Dose: 10 mg Documented by: Calcitriol (Rocaltrol) 0.5 mcg PO QDAY [facility] Last Admin: 08/28/19 10:00 Dose: 0.5 mcg Documented by: Cholecalciferol (Vitamin D3) 5,000 unit PO DAILY [facility] Last Admin: 08/28/19 10:00 Dose: 5,000 unit Documented by: Dextrose (D50w (25gm) Syringe) 0 ml IV Q30MIN PRN; Protocol PRN Reason: Hypoglycemia Last Admin: 08/22/19 08:12 Dose: 50 ml Documented by: Diphenhydramine HCl (Benadryl) 25 mg IV Q3H PRN PRN Reason: Itching Last Admin: 08/26/19 21:57 Dose: 25 mg Documented by: Epoetin Doug (Procrit) 10,000 unit IV JEN PRN PRN Reason: hemodialysis Last Admin: 08/27/19 09:56 Dose: 10,000 unit Documented by: Heparin Sodium (Porcine) (Heparin) 5,000 unit SUB-Q Q8HR [facility] Last Admin: 08/28/19 06:35 Dose: 5,000 unit Documented by: Hydralazine HCl (Apresoline) 10 mg IV Q6H PRN PRN Reason: Blood Pressure Last Admin: 08/27/19 14:49 Dose: 10 mg Documented by: Sodium Chloride (Nacl 0.9%) 100 mls @ 999 mls/hr IV JEN PRN PRN Reason: Hypotension Insulin Human Lispro (Humalog) 0 unit SUB-Q ACHS [facility]; Protocol Last Admin: 08/28/19 09:56 Dose: Not Given Documented by: Loperamide HCl (Imodium) 2 mg PO Q2H PRN PRN Reason: Diarrhea Lorazepam (Ativan) 0.5 mg IV Q8HR PRN PRN Reason: Nausea Last Admin: 08/28/19 11:01 Dose: 0.5 mg Documented by: Ondansetron HCl (Zofran) 4 mg IV Q4H PRN PRN Reason: Nausea And Vomiting Last Admin: 08/25/19 22:09 Dose: 4 mg Documented by: Pantoprazole Sodium (Protonix) 40 mg PO DAILY [facility] Sodium Chloride (Sodium Chloride Flush Syringe 10 Ml) 10 ml IV BID [facility] Last Admin: 08/28/19 10:00 Dose: 10 ml Documented by: Sodium Chloride (Sodium Chloride Flush Syringe 10 Ml) 10 ml IV PRN PRN PRN Reason: LINE FLUSH Last Admin: 08/27/19 03:36 Dose: 10 ml Documented by: Review of Systems All systems: negative (none.) Exam Vital Signs Temp Pulse Resp BP Pulse Ox 97.6 F 89 16 151/83 100 08/21/19 16:33 08/21/19 16:33 08/21/19 16:33 08/21/19 16:33 08/21/19 16:33 - General physical appearance Positive: well developed, well nourished, no distress - Eyes Positive: PERRL, normal occular movement - ENT Positive: normal pinna, normal nares, normal mucosa, no hearing loss, no congestion - Neck Positive: no masses, no bruits, trachea midline, no venous distension - Respiratory Positive: normal expansion, normal respiratory effort, clear to auscultation - Cardiovascular Rhythm: regular Heart Sounds: Present: S1 & S2. Absent: rub, click - Extremities Extremities: no ischemia, pulses symmetrical, No edema Peripheral Pulses: within normal limits - Breasts Breasts: deferred - Abdomen Abdomen: Present: soft, bowel sounds normal. Absent: tender, distended Hernia: none - Genitourinary Male Genitourinary: deferred - Integumentary other (There is a small ulceration with exposed fat at the tip of his left great toe. There are no signs of infection.) - Neurologic Neurologic: alert and oriented to time, place and person, motor strength and sensation are grossly intact - Musculoskeletal normal gait, normal posture - Psychiatric Psychiatric: appropriate mood/affect, intact judgment & insight Results - Labs 08/28/19 04:11 08/28/19 04:11 Abnormal lab results 08/27/19 08/27/19 08/28/19 Range/Units 15:25 20:29 04:11 WBC 11.5 H (4.5-11.0) K/mm3 RBC 2.85 L (3.65-5.03) M/mm3 Hgb 8.3 L (11.8-15.2) gm/dl Hct 24.9 L (35.5-45.6) % Seg Neuts % (Manual) 90.0 H (40.0-70.0) % Lymphocytes % (Manual) 5.0 L (13.4-35.0) % Seg Neutrophils # Man 10.4 H (1.8-7.7) K/mm3 Lymphocytes # (Manual) 0.6 L (1.2-5.4) K/mm3 Chloride (98-107) mmol/L BUN (9-20) mg/dL Creatinine (0.8-1.5) mg/dL Glucose (75-100) mg/dL POC Glucose 130 H 136 H (70-105) Calcium (8.4-10.2) mg/dL Total Protein (6.3-8.2) g/dL Albumin (3.9-5) g/dL 08/28/19 08/28/19 Range/Units 04:11 08:18 WBC (4.5-11.0) K/mm3 RBC (3.65-5.03) M/mm3 Hgb (11.8-15.2) gm/dl Hct (35.5-45.6) % Seg Neuts % (Manual) (40.0-70.0) % Lymphocytes % (Manual) (13.4-35.0) % Seg Neutrophils # Man (1.8-7.7) K/mm3 Lymphocytes # (Manual) (1.2-5.4) K/mm3 Chloride 97.8 L (98-107) mmol/L BUN 50 H (9-20) mg/dL Creatinine 7.6 H (0.8-1.5) mg/dL Glucose 139 H (75-100) mg/dL POC Glucose 135 H (70-105) Calcium 8.2 L (8.4-10.2) mg/dL Total Protein 5.9 L (6.3-8.2) g/dL Albumin 2.7 L (3.9-5) g/dL Diabetes panel 08/28/19 Range/Units 04:11 Sodium 141 (137-145) mmol/L Potassium 4.2 (3.6-5.0) mmol/L Chloride 97.8 L (98-107) mmol/L Carbon Dioxide 25 (22-30) mmol/L BUN 50 H (9-20) mg/dL Creatinine 7.6 H (0.8-1.5) mg/dL Glucose 139 H (75-100) mg/dL Calcium 8.2 L (8.4-10.2) mg/dL AST 20 (5-40) units/L ALT 17 (7-56) units/L Alkaline Phosphatase 60 (35-129) units/L Total Protein 5.9 L (6.3-8.2) g/dL Albumin 2.7 L (3.9-5) g/dL Calcium panel 08/28/19 Range/Units 04:11 Calcium 8.2 L (8.4-10.2) mg/dL Albumin 2.7 L (3.9-5) g/dL Pituitary panel 08/28/19 Range/Units 04:11 Sodium 141 (137-145) mmol/L Potassium 4.2 (3.6-5.0) mmol/L Chloride 97.8 L (98-107) mmol/L Carbon Dioxide 25 (22-30) mmol/L BUN 50 H (9-20) mg/dL Creatinine 7.6 H (0.8-1.5) mg/dL Glucose 139 H (75-100) mg/dL Calcium 8.2 L (8.4-10.2) mg/dL Adrenal panel 08/28/19 Range/Units 04:11 Sodium 141 (137-145) mmol/L Potassium 4.2 (3.6-5.0) mmol/L Chloride 97.8 L (98-107) mmol/L Carbon Dioxide 25 (22-30) mmol/L BUN 50 H (9-20) mg/dL Creatinine 7.6 H (0.8-1.5) mg/dL Glucose 139 H (75-100) mg/dL Calcium 8.2 L (8.4-10.2) mg/dL Total Bilirubin 0.50 (0.1-1.2) mg/dL AST 20 (5-40) units/L ALT 17 (7-56) units/L Alkaline Phosphatase 60 (35-129) units/L Total Protein 5.9 L (6.3-8.2) g/dL Albumin 2.7 L (3.9-5) g/dL - Imaging Additional studies: See arterial doppler report. Assessment and Plan - Patient Problems (1) Non-pressure chronic ulcer of other part of left foot with fat layer exposed Current Visit: Yes Status: Acute Plan to address problem: 1) Would reconsult vascular re abnormal BLE doppler results. 2) MRI of left foot without contrast ordered. 3) Strict DM control
--- NOTE | 2019-08-28 16:15 | Gastroenterology Progress Note ---
Assessment and Plan GI: pt presented w/ renal failure w/ noted nausea, vomiting in setting of h/o dm - per staff more alert and oriented and tolerating po - will try to advance diet - continue PPI qd - no plans for EGD at this time but consider based on progress - surgery/renal input noted - will follow Subjective Date of service: 08/28/19 Principal diagnosis: N/V Interval history: - tolerating current diet per staff. Less agitated Objective - Constitutional Vitals: Temp Pulse Resp BP Pulse Ox 98.5 F 95 H 26 H 148/75 96 08/28/19 13:40 08/28/19 12:00 08/28/19 13:40 08/28/19 13:40 08/28/19 12:00 General appearance: no acute distress - EENT Eyes: PERRL - Respiratory Respiratory: bilateral: CTA - Cardiovascular Rhythm: regular Heart Sounds: Present: S1 & S2 - Gastrointestinal General gastrointestinal: Present: soft, non-tender, non-distended - Labs CBC & Chem 7: 08/28/19 04:11 08/28/19 04:11 Labs: Laboratory Results - last 24 hr 08/27/19 08/28/19 08/28/19 20:29 04:11 04:11 WBC 11.5 H RBC 2.85 L Hgb 8.3 L Hct 24.9 L MCV 88 MCH 29 MCHC 33 RDW 14.4 Plt Count 228 Add Manual Diff Complete Total Counted 100 Seg Neuts % (Manual) 90.0 H Band Neutrophils % 0 Lymphocytes % (Manual) 5.0 L Reactive Lymphs % (Man) 0 Monocytes % (Manual) 3.0 Eosinophils % (Manual) 2.0 Basophils % (Manual) 0 Metamyelocytes % 0 Myelocytes % 0 Promyelocytes % 0 Blast Cells % 0 Nucleated RBC % Not Reportable Seg Neutrophils # Man 10.4 H Band Neutrophils # 0.0 Lymphocytes # (Manual) 0.6 L Abs React Lymphs (Man) 0.0 Monocytes # (Manual) 0.3 Eosinophils # (Manual) 0.2 Basophils # (Manual) 0.0 Metamyelocytes # 0.0 Myelocytes # 0.0 Promyelocytes # 0.0 Blast Cells # 0.0 WBC Morphology Not Reportable Hypersegmented Neuts Not Reportable Hyposegmented Neuts Not Reportable Hypogranular Neuts Not Reportable Smudge Cells Not Reportable Toxic Granulation Not Reportable Toxic Vacuolation Not Reportable Dohle Bodies Not Reportable Pelger-Huet Anomaly Not Reportable Zoran Rods Not Reportable Platelet Estimate Consistent w auto Clumped Platelets Not Reportable Plt Clumps, EDTA Not Reportable Large Platelets Few Giant Platelets Rare Platelet Satelliting Not Reportable Plt Morphology Comment Not Reportable RBC Morphology Normal Dimorphic RBCs Not Reportable Polychromasia Not Reportable Hypochromasia Not Reportable Poikilocytosis Not Reportable Anisocytosis Not Reportable Microcytosis Not Reportable Macrocytosis Not Reportable Spherocytes Not Reportable Pappenheimer Bodies Not Reportable Sickle Cells Not Reportable Target Cells Not Reportable Tear Drop Cells Not Reportable Ovalocytes Not Reportable Helmet Cells Not Reportable [place] Bodies Not Reportable [place] Rings Not Reportable [place] Cells Not Reportable Bite Cells Not Reportable Crenated Cell Not Reportable Elliptocytes Not Reportable Acanthocytes (Spur) Not Reportable Rouleaux Not Reportable Hemoglobin C Crystals Not Reportable Schistocytes Not Reportable Malaria parasites Not Reportable [place] Bodies Not Reportable Hem Pathologist Commnt No Sodium 141 Potassium 4.2 Chloride 97.8 L Carbon Dioxide 25 Anion Gap 22 BUN 50 H Creatinine 7.6 H Estimated GFR 7 BUN/Creatinine Ratio 7 Glucose 139 H POC Glucose 136 H Calcium 8.2 L Total Bilirubin 0.50 AST 20 ALT 17 Alkaline Phosphatase 60 Total Protein 5.9 L Albumin 2.7 L Albumin/Globulin Ratio 0.8 08/28/19 08/28/19 08:18 12:04 WBC RBC Hgb Hct MCV MCH MCHC RDW Plt Count Add Manual Diff Total Counted Seg Neuts % (Manual) Band Neutrophils % Lymphocytes % (Manual) Reactive Lymphs % (Man) Monocytes % (Manual) Eosinophils % (Manual) Basophils % (Manual) Metamyelocytes % Myelocytes % Promyelocytes % Blast Cells % Nucleated RBC % Seg Neutrophils # Man Band Neutrophils # Lymphocytes # (Manual) Abs React Lymphs (Man) Monocytes # (Manual) Eosinophils # (Manual) Basophils # (Manual) Metamyelocytes # Myelocytes # Promyelocytes # Blast Cells # WBC Morphology Hypersegmented Neuts Hyposegmented Neuts Hypogranular Neuts Smudge Cells Toxic Granulation Toxic Vacuolation Dohle Bodies Pelger-Huet Anomaly Zoran Rods Platelet Estimate Clumped Platelets Plt Clumps, EDTA Large Platelets Giant Platelets Platelet Satelliting Plt Morphology Comment RBC Morphology Dimorphic RBCs Polychromasia Hypochromasia Poikilocytosis Anisocytosis Microcytosis Macrocytosis Spherocytes Pappenheimer Bodies Sickle Cells Target Cells Tear Drop Cells Ovalocytes Helmet Cells [place] Bodies [place] Rings [place] Cells Bite Cells Crenated Cell Elliptocytes Acanthocytes (Spur) Rouleaux Hemoglobin C Crystals Schistocytes Malaria parasites [place] Bodies Hem Pathologist Commnt Sodium Potassium Chloride Carbon Dioxide Anion Gap BUN Creatinine Estimated GFR BUN/Creatinine Ratio Glucose POC Glucose 135 H 169 H Calcium Total Bilirubin AST ALT Alkaline Phosphatase Total Protein Albumin Albumin/Globulin Ratio
[2019-08-28] MEDS ORDERED: VANCOMYCIN/NS 1 GM/250 ML 1 GM/250 ML BAG IV SCH (19:00)
[2019-08-28] MEDS ORDERED: cefTRIAXone/NS 2 GM/100 ML 2 GM/100 ML BAG IV SCH (19:00)
[2019-08-28] MEDS: cefTRIAXone/NS 2 GM/100 ML 2 GM/100 ML BAG IV SCH (23:04)
[2019-08-29] MEDS: LORazepam 2 MG/ML VIAL IV PRN (01:01)
[2019-08-29] MEDS: diphenhydrAMINE 50 MG/ML VIAL IV PRN (02:54)
[2019-08-29 05:08] LABS: Basophils % (Auto) 0.3 % (0.0-1.8); Eosinophils # (Auto) 0.1 K/mm3 (0.0-0.4); Eosinophils % (Auto) 0.9 % (0.0-4.3); Hematocrit 24.6 % (35.5-45.6); Hemoglobin 8.2 gm/dl (11.8-15.2); Lymphocytes # (Auto) 0.6 K/mm3 (1.2-5.4); Lymphocytes % (Auto) 5.9 % (13.4-35.0); Mean Corpuscular HGB Conc 34 % (32-34); Mean Corpuscular Volume 87 fl (84-94); Monocytes # (Auto) 0.7 K/mm3 (0.0-0.8); Monocytes % (Auto) 7.2 % (0.0-7.3); Platelet Count 184 K/mm3 (140-440); Red Blood Count 2.83 M/mm3 (3.65-5.03)
[2019-08-29 05:26] LABS: Albumin 2.4 g/dL (3.9-5); Calcium 8.2 mg/dL (8.4-10.2)
[2019-08-29] MEDS: HEPARIN 5,000 UNIT/1 ML VIAL SUB-Q SCH ×3 (06:24→21:22)
[2019-08-29] MEDS: INSULIN LISPRO 100 UNIT/ML SUB-Q SCH ×4 (08:00→21:22)
[2019-08-29] MEDS ORDERED: SODIUM CHLORIDE*PRIMING MACHINE ONLY FOR DIALYSIS MC ONE (09:09)
[2019-08-29] MEDS: EPOETIN ALFA 10,000 UNIT/1 ML INJ IV PRN (09:10)
--- NOTE | 2019-08-29 09:35 | Progress Note ---
Assessment and Plan Impression: * TASHA on CKD with progression to ESRD suspected * metabolic acidosis * hyperkalemia * HTN * Hypoglycemia * Type 2 DM * Seizure activity * Uremia * Hypocalcemia * Hypoalbuminia * Secondary Hyperparathyroidism * Anemia in CKD Plan: * Initiated hemodialysis for uremia, electrolyte abnormalities, likely progression to ESRD; continue HD q MWF at this time unless otherwise indicated, due for HD today * Seen on HD, tolerating well * Continue UF with HD as tolerated * case management for outpatient dialysis placement, may be difficult with im migration status * strict i/os * IV abx for UTI per primary * Reviewed CT, no hydronephrosis or evidence of acute obstruction * Daily renal lytes * dose meds per renal function * Renal diet as able * Continue calcitriol with HD; use 3meq Ca bath * Continue ESAs prn TIW with HD Subjective Date of service: 08/29/19 Principal diagnosis: N/V Interval history: Seen on HD, no acute issues noted. Not agitated, remains drowsy. Objective - Exam Narrative Exam: General: No acute distress, cooperative Head: Atraumatic Eyes: pupils equal and reactive to light, intermittent left-sided gaze ENT: Moist mucous membranes Neck: Normal appearance Chest: Clear to auscultation bilaterally, on NC CV: Regular rate and rhythm Abdomen: Soft, normal bowel sounds, nontender, nondistended Extremity: Infection with dark discoloration to the tip of left and right great toe Neuro: Alert, moves extremities spontaneously Skin: No rash - Vital Signs Vital signs: Vital Signs - 12hr 08/28/19 08/28/19 08/29/19 22:10 22:52 03:18 Temperature 98.8 F 97.7 F Pulse Rate 89 83 84 Respiratory 20 20 20 Rate Blood Pressure 160/80 160/83 O2 Sat by Pulse 98 96 98 Oximetry 08/29/19 08/29/19 08/29/19 03:37 08:55 09:00 Temperature Pulse Rate 93 H 95 H 81 Respiratory 20 Rate Blood Pressure 161/87 159/85 O2 Sat by Pulse 97 Oximetry 08/29/19 08/29/19 09:15 09:30 Temperature Pulse Rate 92 H 87 Respiratory Rate Blood Pressure 140/70 141/69 O2 Sat by Pulse Oximetry Seen on HD: Qb 350ml/min via CVC, UF goal 3L - Lab 08/29/19 04:35 08/29/19 04:35 Most recent lab results ABG pH 7.441 pH Units (7.350-7.450) 08/27/19 09:08 ABG pCO2 36.6 mm Hg 08/27/19 09:08 ABG pO2 83.6 mm Hg (80.0-90.0) 08/27/19 09:08 ABG HCO3 24.4 mmol/L (20.0-26.0) 08/27/19 09:08 ABG O2 Saturation 97.1 % (95.0-99.0) 08/27/19 09:08 Calcium 8.2 mg/dL (8.4-10.2) L 08/29/19 04:35 Magnesium 2.20 mg/dL (1.7-2.3) 08/24/19 04:32 Urine Creatinine 392.1 mg/dL (0.1-20.0) H 08/21/19 Unknown Urine Sodium 10 mmol/L 08/21/19 Unknown Medications & Allergies - Medications Allergies/Adverse Reactions: Allergies No Known Allergies Allergy (Unverified 08/21/19 16:42) Home Medications: Home Medications Medication Instructions Recorded Confirmed Last Taken Type Cholecalciferol (Vitamin D3) 5,000 unit PO DAILY 08/21/19 08/22/19 Unknown History [Vitamin D3] Loratadine 10 mg PO QDAY 08/21/19 08/21/19 Unknown History amLODIPine [Norvasc] 10 mg PO DAILY 08/21/19 08/21/19 Unknown History glipiZIDE [Glucotrol] 10 mg PO BID 08/21/19 08/22/19 Unknown History hydroCHLOROthiazide [HCTZ] 25 mg PO QDAY 08/21/19 08/21/19 Unknown History Active Medications: Generic Name Dose Route Start Last Admin Trade Name Freq PRN Reason Stop Dose Admin Acetaminophen 650 mg 08/21/19 22:16 08/23/19 21:55 Tylenol PO 650 mg Q4H PRN Administration Pain MILD(1-3)/Fever >100.5/MCKEON Albumin Human 25 gm 08/22/19 12:14 Alburx 25% (Albumin) IV JEN PRN Hypotension Amlodipine Besylate 10 mg 08/23/19 10:00 08/28/19 09:59 Amlodipine PO 10 mg DAILY JEN Administration Calcitriol 0.5 mcg 08/24/19 11:00 08/28/19 10:00 Rocaltrol PO 0.5 mcg QDAY JEN Administration Cholecalciferol 5,000 unit 08/23/19 10:00 08/28/19 10:00 Vitamin D3 PO 5,000 unit DAILY JEN Administration Dextrose 0 ml 08/21/19 22:16 08/22/19 08:12 D50w (25gm) Syringe IV 50 ml Q30MIN PRN Administration Hypoglycemia Protocol Diphenhydramine HCl 25 mg 08/26/19 19:48 08/29/19 02:54 Benadryl IV 25 mg Q3H PRN Administration Itching Epoetin Doug 10,000 unit 08/22/19 12:14 08/29/19 09:10 Procrit IV 10,000 unit JEN PRN Administration hemodialysis Heparin Sodium (Porcine) 5,000 unit 08/22/19 06:00 08/29/19 06:24 Heparin SUB-Q Not Given Q8HR [facility] Hydralazine HCl 10 mg 08/22/19 03:45 08/27/19 14:49 Apresoline IV 10 mg Q6H PRN Administration Blood Pressure Sodium Chloride 100 mls @ 999 mls/hr 08/22/19 12:14 Nacl 0.9% IV JEN PRN Hypotension Ceftriaxone Sodium 2 gm in 100 mls @ 200 mls/hr 08/28/19 20:00 08/28/19 23:04 Rocephin/Ns 2 Gm/100 Ml IV 200 mls/hr Q24HR JEN Administration Protocol Vancomycin HCl 1 gm in 250 mls @ 167.007 mls/hr 08/31/19 20:00 Vancomycin/Ns 1 Gm/250 Ml IV MoWeFr [facility] Insulin Human Lispro 0 unit 08/22/19 16:30 08/28/19 21:32 Humalog SUB-Q 6 unit ACHS [facility] Administration Protocol Loperamide HCl 2 mg 08/28/19 09:07 Imodium PO Q2H PRN Diarrhea Lorazepam 0.5 mg 08/24/19 15:29 08/29/19 01:01 Ativan IV 0.5 mg Q8HR PRN Administration Nausea Ondansetron HCl 4 mg 08/24/19 13:08 08/25/19 22:09 Zofran IV 4 mg Q4H PRN Administration Nausea And Vomiting Pantoprazole Sodium 40 mg 08/29/19 10:00 Protonix PO DAILY JEN Sodium Chloride 10 ml 08/22/19 10:00 08/28/19 21:30 Sodium Chloride Flush Syringe 10 Ml IV 10 ml BID JEN Administration Sodium Chloride 10 ml 08/21/19 22:16 08/29/19 01:01 Sodium Chloride Flush Syringe 10 Ml IV 10 ml PRN PRN Administration LINE FLUSH
--- NOTE | 2019-08-29 09:43 | Progress Note ---
Assessment and Plan /Acute hypoxic respiratory failure; Current Visit: Yes Status: Acute Code met was called on 08/26, symptoms secondary to fluid overload, improved after hemodialysis - now on N/C Respiratory therapy managed with noninvasive ventilation Patient's blood pressures blood sugars O2 sats within normal range /Toxic metabolic encephalopathy Secondary to uremia ,hypoglycemia. Osteomyelitis, underlying disease process. Closely monitor, treat the underlying cause Haldol as needed. sitter at bedside for safety /Heme positive stool/hematemesis: GI evaluated the patient, closely monitor H&H Clear liquids and supportive care /Intractable nausea and vomiting likely from gastroparesis Antiemetics , IV Protonix GI consult , check CT abdomen if no improvement . 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 Closely monitor blood sugars /Osteomyelitis/left great toe Patient has been placed on empiric IV antibiotics. Possible osteomyelitis of left great toe on x-ray Consult wound care surgeon Dr. Rosa -- DVT prophylaxis Patient placed on subcutaneous heparin. -- Full code status Monitor closely and adjust management as needed Plan of care reviewed with the patient and his nurse 08/24/2019; patient developed hematemesis intractable nausea vomiting Placed n.p.o., IV fluids IV Protonix, GI consult, monitor H&H Initiated hemodialysis 08/22, HD per schedule 08/25/19; patient has heme positive stool, GI evaluation noted Continues to have intractable nausea vomiting, supportive care 08/26/19; patient is agitated and restless requiring restraints Continues to have nausea vomiting, GI following 08/27/19; brief episode of hypoxic respiratory failure, resolved after hemodialysis Outpatient HD chair scheduling, follow MRI of left great toe/rule out osteomyelitis 08/27" resumed care. MRI pending. off biPAP. developed diarrhea o/n. Discussed with Dr Rosa Disposition; follow clinically, follow nephrology, GI, wound surgeon recommendations Social issues, patient illegal, will be very difficult to set up outpatient HD CM assisting with DC planning. Discharge when stable Brief history; 59-year-old male patient [place] with [place] status issues, with history of hypertension, diabetes mellitus, chronic kidney disease was admitted through emergency room, With intractable nausea vomiting and abdominal pain of one-week duration.Patient's work-up is consistent with chronic kidney disease/ESRD. Nephrology evaluated initiated hemodialysis. Patient is agitated and restless sometimes requiring restraints . Patient also had hematemesis and heme positive stool, evaluated by GI, conservative management recommended Disposition; patient needs outpatient HD chair scheduling, follow GI recommendations, DC when stable Hospitalist Physical General appearance: Present: mild distress (Retching periodically with minimal o utput), well-nourished, other (confused) - EENT Eyes: Present: PERRL, EOM intact - Neck Neck: Present: supple, normal ROM - Respiratory Respiratory effort: normal Respiratory: bilateral: diminished, rales, negative: rhonchi, wheezing - Cardiovascular Rhythm: regular Heart Sounds: Present: S1 & S2 - Extremities Extremities: no ischemia, No edema - Abdominal General gastrointestinal: soft, non-tender, non-distended, normal bowel sounds - Integumentary Integumentary: Present: clear, warm - Psychiatric Psychiatric: sitter at place, other (Confused) - Neurologic Neurologic: moves all extremities, other (Noncommunicative) Subjective Date of service: 08/28/19 Principal diagnosis: N/V Objective - Constitutional Vitals: Vital Signs - 12hr 08/28/19 08/28/19 08/29/19 22:10 22:52 03:18 Temperature 98.8 F 97.7 F Pulse Rate 89 83 84 Respiratory 20 20 20 Rate Blood Pressure 160/80 160/83 O2 Sat by Pulse 98 96 98 Oximetry 08/29/19 08/29/19 08/29/19 03:37 08:55 09:00 Temperature Pulse Rate 93 H 95 H 81 Respiratory 20 Rate Blood Pressure 161/87 159/85 O2 Sat by Pulse 97 Oximetry 08/29/19 08/29/19 09:15 09:30 Temperature Pulse Rate 92 H 87 Respiratory Rate Blood Pressure 140/70 141/69 O2 Sat by Pulse Oximetry - Labs CBC & Chem 7: 08/29/19 04:35 08/29/19 04:35 Labs: Abnormal lab results 08/28/19 08/28/19 08/29/19 Range/Units 12:04 19:17 04:35 RBC 2.83 L (3.65-5.03) M/mm3 Hgb 8.2 L (11.8-15.2) gm/dl Hct 24.6 L (35.5-45.6) % Lymph % (Auto) 5.9 L (13.4-35.0) % Lymph # 0.6 L (1.2-5.4) K/mm3 Seg Neutrophils % 85.7 H (40.0-70.0) % Seg Neutrophils # 8.3 H (1.8-7.7) K/mm3 BUN (9-20) mg/dL Creatinine (0.8-1.5) mg/dL Glucose (75-100) mg/dL POC Glucose 169 H (70-105) Calcium (8.4-10.2) mg/dL C-Reactive Protein 36.80 H (0.00-1.30) mg/dL Total Protein (6.3-8.2) g/dL Albumin (3.9-5) g/dL 08/28/08/29/19 Range/Units 04:35 08:39 RBC (3.65-5.03) M/mm3 Hgb (11.8-15.2) gm/dl Hct (35.5-45.6) % Lymph % (Auto) (13.4-35.0) % Lymph # (1.2-5.4) K/mm3 Seg Neutrophils % (40.0-70.0) % Seg Neutrophils # (1.8-7.7) K/mm3 BUN 79 H (9-20) mg/dL Creatinine 9.7 H (0.8-1.5) mg/dL Glucose 114 H (75-100) mg/dL POC Glucose 128 H (70-105) Calcium 8.2 L (8.4-10.2) mg/dL C-Reactive Protein (0.00-1.30) mg/dL Total Protein 6.1 L (6.3-8.2) g/dL Albumin 2.4 L (3.9-5) g/dL
[2019-08-29] MEDS: cefTRIAXone/NS 2 GM/100 ML 2 GM/100 ML BAG IV SCH (10:00)
--- NOTE | 2019-08-29 11:34 | Progress Note ---
Assessment and Plan Cultures: Blood culture 08/21/2019 no growth Culture 08/21/2019 no growth Assessment: 59 years old male with history of hypertension, diabetes, chronic kidney disease, admitted on secondary to a week history of nausea, vomiting and abdominal pain: #SIRS: Elevated leukocytosis, elevated creatinine, likely secondary to severe uremia and UTI. #UTI: Urine culture did not grow. #Bilateral great toes ulcers/?dry gangrene with cosmo great toe osteomyelitis: Likely ischemic ulcers given abnormal arterial Doppler. #Uncontrolled diabetes mellitus. Straight denies any control. #Acute encephalopathy: Likely due to uremia, sepsis #Nausea and vomiting: Likely due to uncontrolled diabetes and anemia. #Peripheral vascular disease: Abnormal arterial Dopplers with stenotic lesions. #Acute on chronic kidney failure: Now on hemodialysis Recommendations: continue ceftriaxone 2 g IV once a day day 2 continue vancomycin with PK consult day2 Vascular consult - pending Follow-up surgical recommendation Unable to obtain wound culture since wounds are small and dry Will follow. Mayi Galicia MD Infectious Diseases [employer] [facility] ([facility]) M [phone] O [phone] Subjective Date of service: 08/29/19 Principal diagnosis: N/V Interval history: Patient feels much better, alert, no complaints. No fever/ Objective - Exam Narrative Exam: General appearance: Confused, confused in mild respiratory distress Eyes: anicteric sclerae, moist conjunctivae; no lid-lag; PERRLA HENT: Atraumatic; oropharynx clear with moist mucous membranes and no oral thrush; normal hard and soft palate. Lungs: Right basilar rhonchi CV: RRR no murmur Abdomen: Soft, non-tender; no masses or hepatosplenomegaly Extremities: right great toe on right fourth toe with small dry eschar, left great toe with ulcer with eschar. Skin: No rash. Psych: Somnolent Neuro: Somnolent - Constitutional Vitals: Vital Signs Temp Pulse Resp BP Pulse Ox 97.9 F 68 18 127/69 95 08/29/19 08:45 08/29/19 11:15 08/29/19 08:45 08/29/19 11:15 08/29/19 10:00 Temperature -Last 24 Hours Temperature 97.9 F Temperature 97.7 F Temperature 98.8 F Temperature 97.8 F Temperature 99.2 F Temperature 98.5 F - Labs CBC & Chem 7: 08/29/19 04:35 08/29/19 04:35 Labs: Abnormal lab results 08/28/19 08/28/19 08/29/19 Range/Units 12:04 19:17 04:35 RBC 2.83 L (3.65-5.03) M/mm3 Hgb 8.2 L (11.8-15.2) gm/dl Hct 24.6 L (35.5-45.6) % Lymph % (Auto) 5.9 L (13.4-35.0) % Lymph # 0.6 L (1.2-5.4) K/mm3 Seg Neutrophils % 85.7 H (40.0-70.0) % Seg Neutrophils # 8.3 H (1.8-7.7) K/mm3 BUN (9-20) mg/dL Creatinine (0.8-1.5) mg/dL Glucose (75-100) mg/dL POC Glucose 169 H (70-105) Calcium (8.4-10.2) mg/dL C-Reactive Protein 36.80 H (0.00-1.30) mg/dL Total Protein (6.3-8.2) g/dL Albumin (3.9-5) g/dL 08/29/19 08/29/19 Range/Units 04:35 08:39 RBC (3.65-5.03) M/mm3 Hgb (11.8-15.2) gm/dl Hct (35.5-45.6) % Lymph % (Auto) (13.4-35.0) % Lymph # (1.2-5.4) K/mm3 Seg Neutrophils % (40.0-70.0) % Seg Neutrophils # (1.8-7.7) K/mm3 BUN 79 H (9-20) mg/dL Creatinine 9.7 H (0.8-1.5) mg/dL Glucose 114 H (75-100) mg/dL POC Glucose 128 H (70-105) Calcium 8.2 L (8.4-10.2) mg/dL C-Reactive Protein (0.00-1.30) mg/dL Total Protein 6.1 L (6.3-8.2) g/dL Albumin 2.4 L (3.9-5) g/dL
--- NOTE | 2019-08-29 12:33 | Gastroenterology Progress Note ---
Assessment and Plan 1. GI: pt h/o dm now with uremia and sepsis and presented w/ nausea, vomiting - pt symptoms may be gastroparesis vs uremia vs sepsis vs other - pt per staff overall improved and tolerating po - continue current diet, PPI qd - will follow 2. Anemia: pt w/ anemia and heme + stool and slowly decreasing h/h - reportedly had some hematemesis w/ initial nausea, vomiting - pt w/ multiple other on-going issues - given the above, anemia, heme + EGD reasonable if cleared and medically stable - follow h/h, transfuse as needed - will follow Subjective Date of service: 08/29/19 Principal diagnosis: N/V Interval history: - reportedly tolerating po. Denies signs bleeding Objective - Constitutional Vitals: Temp Pulse Resp BP Pulse Ox 97.9 F 80 18 127/58 95 08/29/19 08:45 08/29/19 12:15 08/29/19 08:45 08/29/19 12:15 08/29/19 10:00 General appearance: no acute distress - EENT Eyes: PERRL - Respiratory Respiratory: bilateral: CTA - Cardiovascular Rhythm: regular Heart Sounds: Present: S1 & S2 - Gastrointestinal General gastrointestinal: Present: soft, non-tender, non-distended - Labs CBC & Chem 7: 08/29/19 04:35 08/29/19 04:35 Labs: Laboratory Results - last 24 hr 08/28/19 08/28/19 08/29/19 12:04 19:17 04:35 WBC 9.7 RBC 2.83 L Hgb 8.2 L Hct 24.6 L MCV 87 MCH 29 MCHC 34 RDW 14.0 Plt Count 184 Lymph % (Auto) 5.9 L [place] % (Auto) 7.2 Eos % (Auto) 0.9 Baso % (Auto) 0.3 Lymph # 0.6 L [place] # 0.7 Eos # 0.1 Baso # 0.0 Seg Neutrophils % 85.7 H Seg Neutrophils # 8.3 H Sodium Potassium Chloride Carbon Dioxide Anion Gap BUN Creatinine Estimated GFR BUN/Creatinine Ratio Glucose POC Glucose 169 H Calcium Total Bilirubin AST ALT Alkaline Phosphatase C-Reactive Protein 36.80 H Total Protein Albumin Albumin/Globulin Ratio Random Vancomycin 08/29/19 08/29/19 08/29/19 04:35 04:35 08:39 WBC RBC Hgb Hct MCV MCH MCHC RDW Plt Count Lymph % (Auto) [place] % (Auto) Eos % (Auto) Baso % (Auto) Lymph # [place] # Eos # Baso # Seg Neutrophils % Seg Neutrophils # Sodium 141 Potassium 4.3 Chloride 98.2 Carbon Dioxide 23 Anion Gap 24 BUN 79 H Creatinine 9.7 H Estimated GFR 6 BUN/Creatinine Ratio 8 Glucose 114 H POC Glucose 128 H Calcium 8.2 L Total Bilirubin 0.30 AST 23 ALT 20 Alkaline Phosphatase 66 C-Reactive Protein Total Protein 6.1 L Albumin 2.4 L Albumin/Globulin Ratio 0.6 Random Vancomycin 26
[2019-08-29] MEDS: amLODIPine 10 MG TAB PO SCH (14:52)
[2019-08-29] MEDS: CHOLECALCIFEROL (VIT D3) 5,000 UNIT TAB PO SCH (14:52)
[2019-08-29] MEDS: CALCITRIOL 0.5 MCG CAP PO SCH (14:52)
[2019-08-29] MEDS: PANTOPRAZOLE 40 MG TAB PO SCH (14:52)
--- NOTE | 2019-08-29 15:13 | Magnetic Resonance Report ---
MRI left forefoot without contrast INDICATION: MAIN. Concern for osteomyelitis involving the great toe COMPARISON: None FINDINGS: There is poor fat suppression involving the tip of the great toe. If this is the area of c oncern, this exam is inadequate. Otherwise, there is mild generalized soft tissue swelling in the for efoot with no organized collection to suggest abscess formation. No appreciable soft tissue wound batool ntified. No erma bone destruction. There are degenerative changes greatest at the great toe MTP join t. IMPRESSION: Limited examination as outlined above with soft tissue swelling but no obvious abscess o r osteomyelitis. Please note that the tip of the great toe is poorly evaluated given lack of fat supp ression if this is an area of specific concern. If this is an area of concern, a simple radiograph wo uld be useful for further evaluation. Signer Name: Singh Sheehan MD Signed: 08/29/2019 3:09 PM Workstation Name: [id number]
--- NOTE | 2019-08-29 16:44 | Progress Note ---
Assessment and Plan /Acute hypoxic respiratory failure; Current Visit: Yes Status: Acute Code met was called on 08/26, symptoms secondary to fluid overload, improved after hemodialysis - now on N/C Respiratory therapy managed with noninvasive ventilation Patient's blood pressures blood sugars O2 sats within normal range /Toxic metabolic encephalopathy Secondary to uremia ,hypoglycemia. Osteomyelitis, underlying disease process. Closely monitor, treat the underlying cause Haldol as needed. sitter at bedside for safety /Heme positive stool/hematemesis: GI evaluated the patient, closely monitor H&H Clear liquids and supportive care /Intractable nausea and vomiting likely from gastroparesis Antiemetics , IV Protonix GI consult , check CT abdomen if no improvement . 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 Closely monitor blood sugars /Osteomyelitis/left great toe/ischemic ulcer Patient has been placed on empiric IV antibiotics. Possible osteomyelitis of left great toe on x-ray Consult wound care surgeon Dr. Rosa -- DVT prophylaxis Patient placed on subcutaneous heparin. -- Full code status Monitor closely and adjust management as needed Plan of care reviewed with the patient and his nurse 08/24/2019; patient developed hematemesis intractable nausea vomiting Placed n.p.o., IV fluids IV Protonix, GI consult, monitor H&H Initiated hemodialysis 08/22, HD per schedule 08/25/19; patient has heme positive stool, GI evaluation noted Continues to have intractable nausea vomiting, supportive care 08/26/19; patient is agitated and restless requiring restraints Continues to have nausea vomiting, GI following 08/27/19; brief episode of hypoxic respiratory failure, resolved after hemodialysis Outpatient HD chair scheduling, follow MRI of left great toe/rule out osteomyelitis 08/27" resumed care. MRI LE pending. off biPAP. developed diarrhea o/n. Discussed with Dr Rosa 08/28: MRI LE/left great toe showed no possible osteomylitis, will wait for vascular recommendation. Disposition; follow clinically, follow nephrology, GI, wound surgeon recommendations Social issues, patient illegal, will be very difficult to set up outpatient HD CM assisting with DC planning. Discharge when stable Brief history; 59-year-old male patient [place] with [place] status issues, with history of hypertension, diabetes mellitus, chronic kidney disease was admitted through emergency room, With intractable nausea vomiting and abdominal pain of one-week duration.Patient's work-up is consistent with chronic kidney disease/ESRD. Nephrology evaluated initiated hemodialysis. Patient is agitated and restless sometimes requiring restraints . Patient also had hematemesis and heme positive stool, evaluated by GI, conservative management recommended Disposition; patient needs outpatient HD chair scheduling, follow GI recommendations, DC when stable Hospitalist Physical General appearance: Present: mild distress (Retching periodically with minimal output), well-nourished, other (confused) - EENT Eyes: Present: PERRL, EOM intact - Neck Neck: Present: supple, normal ROM - Respiratory Respiratory effort: normal Respiratory: bilateral: diminished, rales, negative: rhonchi, wheezing - Cardiovascular Rhythm: regular Heart Sounds: Present: S1 & S2 - Extremities Extremities: no ischemia, No edema - Abdominal General gastrointestinal: soft, non-tender, non-distended, normal bowel sounds - Integumentary Integumentary: Present: clear, warm - Psychiatric Psychiatric: sitter at place, other (Confused) - Neurologic Neurologic: moves all extremities, other (Noncommunicative) Subjective Date of service: 08/29/19 Principal diagnosis: N/V Objective - Constitutional Vitals: Vital Signs - 12hr 08/29/19 08/29/19 08/29/19 08:00 08:45 08:55 Temperature 97.9 F Pulse Rate 88 95 H 95 H Respiratory 18 18 Rate Blood Pressure 161/87 161/87 Blood Pressure [Left] O2 Sat by Pulse 96 Oximetry 08/29/19 08/29/19 08/29/19 09:00 09:15 09:20 Temperature 97.9 F Pulse Rate 81 92 H 90 Respiratory 20 Rate Blood Pressure 159/85 140/70 Blood Pressure 136/50 [Left] O2 Sat by Pulse 93 Oximetry 08/29/19 08/29/19 08/29/19 09:30 09:45 10:00 Temperature Pulse Rate 87 85 83 Respiratory Rate Blood Pressure 141/69 140/68 130/61 Blood Pressure [Left] O2 Sat by Pulse 95 Oximetry 08/29/19 08/29/19 08/29/19 10:15 10:30 10:45 Temperature Pulse Rate 90 82 81 Respiratory Rate Blood Pressure 147/72 134/66 132/67 Blood Pressure [Left] O2 Sat by Pulse Oximetry 08/29/19 08/29/19 08/29/19 11:00 11:15 11:30 Temperature Pulse Rate 83 68 80 Respiratory Rate Blood Pressure 138/66 127/69 108/53 Blood Pressure [Left] O2 Sat by Pulse Oximetry 08/29/19 08/29/19 08/29/19 11:45 12:00 12:15 Temperature Pulse Rate 80 81 80 Respiratory Rate Blood Pressure 130/60 122/62 127/58 Blood Pressure [Left] O2 Sat by Pulse Oximetry 08/29/19 08/29/19 08/29/19 12:27 12:30 12:45 Temperature Pulse Rate 78 89 Respiratory 18 Rate Blood Pressure 114/58 103/66 Blood Pressure [Left] O2 Sat by Pulse 96 Oximetry 08/29/19 08/29/19 12:47 16:25 Temperature 97.9 F 98.1 F Pulse Rate 88 93 H Respiratory 18 20 Rate Blood Pressure 137/63 Blood Pressure 164/82 [Left] O2 Sat by Pulse Oximetry - Labs CBC & Chem 7: 08/30/19 04:21 08/30/19 04:21 Labs: Abnormal lab results 08/28/19 08/29/19 08/29/19 Range/Units 19:17 04:35 04:35 RBC 2.83 L (3.65-5.03) M/mm3 Hgb 8.2 L (11.8-15.2) gm/dl Hct 24.6 L (35.5-45.6) % Lymph % (Auto) 5.9 L (13.4-35.0) % Lymph # 0.6 L (1.2-5.4) K/mm3 Seg Neutrophils % 85.7 H (40.0-70.0) % Seg Neutrophils # 8.3 H (1.8-7.7) K/mm3 BUN 79 H (9-20) mg/dL Creatinine 9.7 H (0.8-1.5) mg/dL Glucose 114 H (75-100) mg/dL POC Glucose (70-105) Calcium 8.2 L (8.4-10.2) mg/dL C-Reactive Protein 36.80 H (0.00-1.30) mg/dL Total Protein 6.1 L (6.3-8.2) g/dL Albumin 2.4 L (3.9-5) g/dL 08/29/19 Range/Units 08:39 RBC (3.65-5.03) M/mm3 Hgb (11.8-15.2) gm/dl Hct (35.5-45.6) % Lymph % (Auto) (13.4-35.0) % Lymph # (1.2-5.4) K/mm3 Seg Neutrophils % (40.0-70.0) % Seg Neutrophils # (1.8-7.7) K/mm3 BUN (9-20) mg/dL Creatinine (0.8-1.5) mg/dL Glucose (75-100) mg/dL POC Glucose 128 H (70-105) Calcium (8.4-10.2) mg/dL C-Reactive Protein (0.00-1.30) mg/dL Total Protein (6.3-8.2) g/dL Albumin (3.9-5) g/dL
[2019-08-30] MEDS: diphenhydrAMINE 50 MG/ML VIAL IV PRN (00:12)
[2019-08-30 04:52] LABS: Basophils % (Auto) 0.4 % (0.0-1.8); Eosinophils # (Auto) 0.1 K/mm3 (0.0-0.4); Eosinophils % (Auto) 1.4 % (0.0-4.3); Hematocrit 23.7 % (35.5-45.6); Hemoglobin 8.1 gm/dl (11.8-15.2); Lymphocytes # (Auto) 0.7 K/mm3 (1.2-5.4); Lymphocytes % (Auto) 7.1 % (13.4-35.0); Mean Corpuscular HGB Conc 34 % (32-34); Mean Corpuscular Volume 85 fl (84-94); Monocytes # (Auto) 0.7 K/mm3 (0.0-0.8); Monocytes % (Auto) 7.8 % (0.0-7.3); Platelet Count 214 K/mm3 (140-440); Red Blood Count 2.77 M/mm3 (3.65-5.03); Red Cell Distribution Width 14.1 % (13.2-15.2)
[2019-08-30 05:01] LABS: Albumin 2.4 g/dL (3.9-5); Calcium 8.1 mg/dL (8.4-10.2)
[2019-08-30] MEDS: HEPARIN 5,000 UNIT/1 ML VIAL SUB-Q SCH ×3 (05:30→21:43)
[2019-08-30] MEDS: INSULIN LISPRO 100 UNIT/ML SUB-Q SCH ×4 (08:30→21:44)
--- NOTE | 2019-08-30 10:05 | Progress Note ---
Assessment and Plan Cultures: Blood culture 08/21/2019 no growth Culture 08/21/2019 no growth Assessment: 59 years old male with history of hypertension, diabetes, chronic kidney disease, admitted on secondary to a week history of nausea, vomiting and abdominal pain: #SIRS: Elevated leukocytosis, elevated creatinine, likely secondary to severe uremia and UTI. #UTI: Urine culture did not grow. #Bilateral great toes ulcers/?dry gangrene: Likely ischemic ulcers given abnormal arterial Doppler. MRI shows no osteo or abscess. #Uncontrolled diabetes mellitus. Straight denies any control. #Acute encephalopathy: Likely due to uremia, sepsis #Nausea and vomiting: Likely due to uncontrolled diabetes and anemia. #Peripheral vascular disease: Abnormal arterial Dopplers with stenotic lesions. #Acute on chronic kidney failure: Now on hemodialysis Recommendations: stop ceftriaxone and vancomycin Vascular consult - pending Follow-up surgical recommendation No need for further abx Will sign off Mayi Galicia MD [facility] ([facility]) M [phone] O [phone] Subjective Date of service: 08/30/19 Principal diagnosis: N/V Interval history: Patient feels much better, alert, no complaints. No fever/ Objective - Exam Narrative Exam: General appearance: alert in NAD Eyes: anicteric sclerae, moist conjunctivae; no lid-lag; PERRLA HENT: Atraumatic; oropharynx clear with moist mucous membranes and no oral thrush; normal hard and soft palate. Lungs: CTA cosmo CV: RRR no murmur Abdomen: Soft, non-tender; no masses or hepatosplenomegaly Extremities: right great toe on right fourth toe with small dry eschar, left great toe with ulcer with eschar. Skin: No rash. Psych: no agitated Neuro:alert following commands - Constitutional Vitals: Vital Signs Temp Pulse Resp BP Pulse Ox 99.5 F 84 20 139/63 94 08/30/19 04:07 08/30/19 04:07 08/30/19 04:07 08/30/19 04:07 08/30/19 08:07 Temperature -Last 24 Hours Temperature 99.5 F Temperature 98.6 F Temperature 100.2 F Temperature 98.1 F Temperature 98.1 F Temperature 97.9 F - Labs CBC & Chem 7: 08/30/19 04:21 08/30/19 04:21 Labs: Abnormal lab results 08/29/19 08/30/19 08/30/19 Range/Units 17:17 04:21 04:21 RBC 2.77 L (3.65-5.03) M/mm3 Hgb 8.1 L (11.8-15.2) gm/dl Hct 23.7 L (35.5-45.6) % Lymph % (Auto) 7.1 L (13.4-35.0) % [place] % (Auto) 7.8 H (0.0-7.3) % Lymph # 0.7 L (1.2-5.4) K/mm3 Seg Neutrophils % 83.3 H (40.0-70.0) % Seg Neutrophils # 8.1 H (1.8-7.7) K/mm3 Chloride 96.1 L (98-107) mmol/L BUN 47 H (9-20) mg/dL Creatinine 6.4 H (0.8-1.5) mg/dL Glucose 168 H (75-100) mg/dL POC Glucose 146 H (70-105) Calcium 8.1 L (8.4-10.2) mg/dL Total Protein 6.2 L (6.3-8.2) g/dL Albumin 2.4 L (3.9-5) g/dL
[2019-08-30] MEDS: ONDANSETRON 4 MG/2 ML INJ IV PRN ×2 (10:59→20:21)
[2019-08-30] MEDS: PANTOPRAZOLE 40 MG TAB PO SCH (10:59)
[2019-08-30] MEDS: CALCITRIOL 0.5 MCG CAP PO SCH (10:59)
[2019-08-30] MEDS: amLODIPine 10 MG TAB PO SCH (11:00)
--- NOTE | 2019-08-30 11:11 | Progress Note ---
Assessment and Plan - Patient Problems (1) Non-pressure chronic ulcer of other part of left foot with fat layer exposed Current Visit: Yes Status: Acute Plan to address problem: 1) Reconsult vascular surgery b/o abnormal arterial dopplers. Subjective Date of service: 08/30/19 Patient Reports: Positive: no new complaints Objective Vital Signs - 12hr 08/30/19 08/30/19 08/30/19 00:00 04:07 08:07 Temperature 98.6 F 99.5 F Pulse Rate 89 84 Respiratory 20 20 Rate Blood Pressure 139/63 Blood Pressure 147/75 [Left] O2 Sat by Pulse 93 94 94 Oximetry 08/30/19 11:00 Temperature Pulse Rate 85 Respiratory Rate Blood Pressure 132/64 Blood Pressure [Left] O2 Sat by Pulse Oximetry - Labs 08/30/19 04:21 08/30/19 04:21 Diabetes panel 08/30/19 Range/Units 04:21 Sodium 138 (137-145) mmol/L Potassium 3.9 (3.6-5.0) mmol/L Chloride 96.1 L (98-107) mmol/L Carbon Dioxide 25 (22-30) mmol/L BUN 47 H (9-20) mg/dL Creatinine 6.4 H (0.8-1.5) mg/dL Glucose 168 H (75-100) mg/dL Calcium 8.1 L (8.4-10.2) mg/dL AST 23 (5-40) units/L ALT 19 (7-56) units/L Alkaline Phosphatase 70 (35-129) units/L Total Protein 6.2 L (6.3-8.2) g/dL Albumin 2.4 L (3.9-5) g/dL Calcium panel 08/30/19 Range/Units 04:21 Calcium 8.1 L (8.4-10.2) mg/dL Albumin 2.4 L (3.9-5) g/dL Pituitary panel 08/30/19 Range/Units 04:21 Sodium 138 (137-145) mmol/L Potassium 3.9 (3.6-5.0) mmol/L Chloride 96.1 L (98-107) mmol/L Carbon Dioxide 25 (22-30) mmol/L BUN 47 H (9-20) mg/dL Creatinine 6.4 H (0.8-1.5) mg/dL Glucose 168 H (75-100) mg/dL Calcium 8.1 L (8.4-10.2) mg/dL Adrenal panel 08/30/19 Range/Units 04:21 Sodium 138 (137-145) mmol/L Potassium 3.9 (3.6-5.0) mmol/L Chloride 96.1 L (98-107) mmol/L Carbon Dioxide 25 (22-30) mmol/L BUN 47 H (9-20) mg/dL Creatinine 6.4 H (0.8-1.5) mg/dL Glucose 168 H (75-100) mg/dL Calcium 8.1 L (8.4-10.2) mg/dL Total Bilirubin 0.50 (0.1-1.2) mg/dL AST 23 (5-40) units/L ALT 19 (7-56) units/L Alkaline Phosphatase 70 (35-129) units/L Total Protein 6.2 L (6.3-8.2) g/dL Albumin 2.4 L (3.9-5) g/dL - Imaging Additional Studies: MRI noted. No obvious osteomyelitis.
--- NOTE | 2019-08-30 11:43 | Progress Note ---
Assessment and Plan Impression: * TASHA on CKD with progression to ESRD suspected * metabolic acidosis * hyperkalemia * HTN * Hypoglycemia * Type 2 DM * Seizure activity * Uremia * Hypocalcemia * Hypoalbuminia * Secondary Hyperparathyroidism * Anemia in CKD Plan: * Initiated hemodialysis for uremia, electrolyte abnormalities, likely progression to ESRD; continue HD q MWF at this time unless otherwise indicated, due for HD tomorrow, no indication for HD today given stable lytes, volume * Continue UF with HD as tolerated * case management for outpatient dialysis placement, may be difficult with immigration status * strict i/os * appreciate ID, surgery input * Reviewed CT, no hydronephrosis or evidence of acute obstruction * Daily renal lytes * dose meds per renal function * Renal diet as able * Continue calcitriol with HD; use 3meq Ca bath * Continue ESAs prn TIW with HD Subjective Date of service: 08/30/19 Principal diagnosis: N/V Interval history: Doing well today, no acute issues. much more awake and alert Objective - Exam Narrative Exam: General: No acute distress, cooperative Head: Atraumatic Eyes: pupils equal and reactive to light, intermittent left-sided gaze ENT: Moist mucous membranes Neck: Normal appearance Chest: Clear to auscultation bilaterally, on NC CV: Regular rate and rhythm Abdomen: Soft, normal bowel sounds, nontender, nondistended Extremity: Infection with dark discoloration to the tip of left and right great toe Neuro: Alert, moves extremities spontaneously, awake and communicating Skin: No rash - Vital Signs Vital signs: Vital Signs - 12hr 08/30/19 08/30/19 08/30/19 00:00 04:07 08:07 Temperature 98.6 F 99.5 F Pulse Rate 89 84 Respiratory 20 20 Rate Blood Pressure 139/63 Blood Pressure 147/75 [Left] O2 Sat by Pulse 93 94 94 Oximetry 08/30/19 11:00 Temperature 99.2 F Pulse Rate 84 Respiratory 20 Rate Blood Pressure 132/64 Blood Pressure [Left] O2 Sat by Pulse 95 Oximetry - Lab 08/30/19 04:21 08/30/19 04:21 Most recent lab results ABG pH 7.441 pH Units (7.350-7.450) 08/27/19 09:08 ABG pCO2 36.6 mm Hg 08/27/19 09:08 ABG pO2 83.6 mm Hg (80.0-90.0) 08/27/19 09:08 ABG HCO3 24.4 mmol/L (20.0-26.0) 08/27/19 09:08 ABG O2 Saturation 97.1 % (95.0-99.0) 08/27/19 09:08 Calcium 8.1 mg/dL (8.4-10.2) L 08/30/19 04:21 Magnesium 2.20 mg/dL (1.7-2.3) 08/24/19 04:32 Urine Creatinine 392.1 mg/dL (0.1-20.0) H 08/21/19 Unknown Urine Sodium 10 mmol/L 08/21/19 Unknown Medications & Allergies - Medications Allergies/Adverse Reactions: Allergies No Known Allergies Allergy (Unverified 08/21/19 16:42) Home Medications: Home Medications Medication Instructions Recorded Confirmed Last Taken Type Cholecalciferol (Vitamin D3) 5,000 unit PO DAILY 08/21/19 08/22/19 Unknown History [Vitamin D3] Loratadine 10 mg PO QDAY 08/21/19 08/21/19 Unknown History amLODIPine [Norvasc] 10 mg PO DAILY 08/21/19 08/21/19 Unknown History glipiZIDE [Glucotrol] 10 mg PO BID 08/21/19 08/22/19 Unknown History hydroCHLOROthiazide [HCTZ] 25 mg PO QDAY 08/21/19 08/21/19 Unknown History Active Medications: Generic Name Dose Route Start Last Admin Trade Name Freq PRN Reason Stop Dose Admin Acetaminophen 650 mg 08/21/19 22:16 08/23/19 21:55 Tylenol PO 650 mg Q4H PRN Administration Pain MILD(1-3)/Fever >100.5/MCKEON Albumin Human 25 gm 08/22/19 12:14 Alburx 25% (Albumin) IV JEN PRN Hypotension Amlodipine Besylate 10 mg 08/23/19 10:00 08/30/19 11:00 Amlodipine PO 10 mg DAILY JEN Administration Calcitriol 0.5 mcg 08/24/19 11:00 08/30/19 10:59 Rocaltrol PO 0.5 mcg QDAY JEN Administration Cholecalciferol 5,000 unit 08/23/19 10:00 08/29/19 14:52 Vitamin D3 PO 5,000 unit DAILY JEN Administration Dextrose 0 ml 08/21/19 22:16 08/22/19 08:12 D50w (25gm) Syringe IV 50 ml Q30MIN PRN Administration Hypoglycemia Protocol Diphenhydramine HCl 25 mg 08/26/19 19:48 08/30/19 00:12 Benadryl IV 25 mg Q3H PRN Administration Itching Epoetin Doug 10,000 unit 08/22/19 12:14 08/29/19 09:10 Procrit IV 10,000 unit JEN PRN Administration hemodialysis Heparin Sodium (Porcine) 5,000 unit 08/22/19 06:00 08/30/19 05:30 Heparin SUB-Q Not Given Q8HR [facility] Hydralazine HCl 10 mg 08/22/19 03:45 08/27/19 14:49 Apresoline IV 10 mg Q6H PRN Administration Blood Pressure Sodium Chloride 100 mls @ 999 mls/hr 08/22/19 12:14 Nacl 0.9% IV JEN PRN Hypotension Insulin Human Lispro 0 unit 08/22/19 16:30 08/30/19 08:30 Humalog SUB-Q Not Given ACHS JEN Protocol Loperamide HCl 2 mg 08/28/19 09:07 Imodium PO Q2H PRN Diarrhea Lorazepam 0.5 mg 08/24/19 15:29 08/29/19 01:01 Ativan IV 0.5 mg Q8HR PRN Administration Nausea Ondansetron HCl 4 mg 08/24/19 13:08 08/30/19 10:59 Zofran IV 4 mg Q4H PRN Administration Nausea And Vomiting Pantoprazole Sodium 40 mg 08/29/19 10:00 08/30/19 10:59 Protonix PO 40 mg DAILY JEN Administration Sodium Chloride 10 ml 08/22/19 10:00 08/30/19 10:59 Sodium Chloride Flush Syringe 10 Ml IV 10 ml BID JEN Administration Sodium Chloride 10 ml 08/21/19 22:16 08/30/19 00:12 Sodium Chloride Flush Syringe 10 Ml IV 10 ml PRN PRN Administration LINE FLUSH
--- NOTE | 2019-08-30 15:12 | Gastroenterology Progress Note ---
Assessment and Plan 1. GI: nausea, vomiting probable uremia vs gastropareisis - overall improved, some nausea today - continue current diet, anti-emtics prn - no EGD at this time 2. Diarrhea: stool cx's negative - probably multi-facotrial - start Questran bid, continue Loperamide prn - no plans colonoscopy at this time 3. Anemia: stable - follow h/h - will follow for now Subjective Date of service: 08/30/19 Principal diagnosis: N/V Interval history: - reported tolerated po this am, some nausea this afternoon Objective - Constitutional Vitals: Temp Pulse Resp BP Pulse Ox 99.2 F 84 20 132/64 95 08/30/19 11:00 08/30/19 11:00 08/30/19 11:00 08/30/19 11:00 08/30/19 11:00 General appearance: no acute distress - EENT Eyes: PERRL - Respiratory Respiratory: bilateral: CTA - Cardiovascular Rhythm: regular Heart Sounds: Present: S1 & S2 - Gastrointestinal General gastrointestinal: Present: soft, non-tender, non-distended - Labs CBC & Chem 7: 08/30/19 04:21 08/30/19 04:21 Labs: Laboratory Results - last 24 hr 08/29/19 08/29/19 08/30/19 17:17 20:51 04:21 WBC 9.7 RBC 2.77 L Hgb 8.1 L Hct 23.7 L MCV 85 MCH 29 MCHC 34 RDW 14.1 Plt Count 214 Lymph % (Auto) 7.1 L [place] % (Auto) 7.8 H Eos % (Auto) 1.4 Baso % (Auto) 0.4 Lymph # 0.7 L [place] # 0.7 Eos # 0.1 Baso # 0.0 Seg Neutrophils % 83.3 H Seg Neutrophils # 8.1 H Sodium Potassium Chloride Carbon Dioxide Anion Gap BUN Creatinine Estimated GFR BUN/Creatinine Ratio Glucose POC Glucose 146 H 140 H Calcium Total Bilirubin AST ALT Alkaline Phosphatase Total Protein Albumin Albumin/Globulin Ratio 08/30/19 08/30/19 04:21 11:11 WBC RBC Hgb Hct MCV MCH MCHC RDW Plt Count Lymph % (Auto) [place] % (Auto) Eos % (Auto) Baso % (Auto) Lymph # [place] # Eos # Baso # Seg Neutrophils % Seg Neutrophils # Sodium 138 Potassium 3.9 Chloride 96.1 L Carbon Dioxide 25 Anion Gap 21 BUN 47 H Creatinine 6.4 H Estimated GFR 9 BUN/Creatinine Ratio 7 Glucose 168 H POC Glucose 191 H Calcium 8.1 L Total Bilirubin 0.50 AST 23 ALT 19 Alkaline Phosphatase 70 Total Protein 6.2 L Albumin 2.4 L Albumin/Globulin Ratio 0.6
[2019-08-30] MEDS: CHOLECALCIFEROL (VIT D3) 5,000 UNIT TAB PO SCH (15:32)
--- NOTE | 2019-08-30 15:34 | Progress Note ---
Assessment and Plan /Acute hypoxic respiratory failure; Current Visit: Yes Status: Acute Code met was called on 08/26, symptoms secondary to fluid overload, improved after hemodialysis - now on N/C Respiratory therapy managed with noninvasive ventilation Patient's blood pressures blood sugars O2 sats within normal range /Toxic metabolic encephalopathy Secondary to uremia ,hypoglycemia. Osteomyelitis, underlying disease process. Closely monitor, treat the underlying cause Haldol as needed. sitter at bedside for safety /Heme positive stool/hematemesis: GI evaluated the patient, closely monitor H&H Clear liquids and supportive care /Intractable nausea and vomiting likely from gastroparesis Antiemetics , IV Protonix GI consult , check CT abdomen if no improvement . /Acute diarrhea - sent stool for Cx and WBc count - loperamide as needed /Acute on chronic renal failure Possible ESRD, manager sustainability initiated hemodialysis, HD per schedule outpatient HD scheduling at [place] per /Hypoglycemia Hold diabetic medications patient received multiple D50 pushes Will place patient on IV fluid D10 normal saline. Closely monitor blood sugars /Left great toe ischemic ulcer Patient has been placed on empiric IV antibiotics. Possible osteomyelitis of left great toe on x-ray, but MRI r/o osteo Consulted wound care, surgeon Dr. Rosa and vascular Stopped abx today, follow vascular recommendation /Acute Diarrhea: started from 08/27 Stool study negative. started Questran bid, continue Loperamide prn GI following -- DVT prophylaxis Patient placed on subcutaneous heparin. -- Full code status Monitor closely and adjust management as needed Plan of care reviewed with the patient and his nurse 08/24/2019; patient developed hematemesis intractable nausea vomiting Placed n.p.o., IV fluids IV Protonix, GI consult, monitor H&H Initiated hemodialysis 08/22, HD per schedule 08/25/19; patient has heme positive stool, GI evaluation noted Continues to have intractable nausea vomiting, supportive care 08/26/19; patient is agitated and restless requiring restraints Continues to have nausea vomiting, GI following 08/27/19; brief episode of hypoxic respiratory failure, resolved after hemodialysis Outpatient HD chair scheduling, follow MRI of left great toe/rule out osteomyelitis 08/27" resumed care. MRI LE pending. off biPAP. developed diarrhea o/n. Discussed with Dr Rosa 08/28: MRI LE/left great toe showed no possible osteomylitis, will wait for vascular recommendation. 08/29: Reconsulted vascular surgeon for abnormal arterial Doppler study, wait for further recommendation. Stool study negative. started Questran bid, continue Loperamide prn and rectal tube for diarrhea. Stopped abx per ID Disposition; follow clinically, follow nephrology, GI, wound surgeon recommendations Social issues, patient illegal, will be very difficult to set up outpatient HD CM assisting with DC planning. Discharge when stable Brief history; 59-year-old male patient [place] status issues, with history of hypertension, diabetes mellitus, chronic kidney disease was admitted through emergency room, With intractable nausea vomiting and abdominal pain of one-week duration.Patient's work-up is consistent with chronic kidney disease/ESRD. Nephrology evaluated initiated hemodialysis. Patient is agitated and restless sometimes requiring restraints . Patient also had hematemesis and heme positive stool, evaluated by GI, conservative management recommended Disposition; patient needs outpatient HD chair scheduling, follow GI recommendations, DC when stable Hospitalist Physical General appearance: Present: mild distress (Retching periodically with minimal output), well-nourished, other (confused) - EENT Eyes: Present: PERRL, EOM intact - Neck Neck: Present: supple, normal ROM - Respiratory Respiratory effort: normal Respiratory: bilateral: diminished, rales, negative: rhonchi, wheezing - Cardiovascular Rhythm: regular Heart Sounds: Present: S1 & S2 - Extremities Extremities: no ischemia, No edema - Abdominal General gastrointestinal: soft, non-tender, non-distended, normal bowel sounds - Integumentary Integumentary: Present: clear, warm - Psychiatric Psychiatric: sitter at place, other (Confused) - Neurologic Neurologic: moves all extremities, other (Noncommunicative) Subjective Date of service: 08/30/19 Principal diagnosis: N/V Objective - Constitutional Vitals: Vital Signs - 12hr 08/30/19 08/30/19 08/30/19 04:07 08:07 11:00 Temperature 99.5 F 99.2 F Pulse Rate 84 84 Respiratory 20 20 Rate Blood Pressure 139/63 132/64 O2 Sat by Pulse 94 94 95 Oximetry - Labs CBC & Chem 7: 08/30/19 04:21 08/30/19 04:21 Labs: Abnormal lab results 08/29/19 08/29/19 08/30/19 Range/Units 17:17 20:51 04:21 RBC 2.77 L (3.65-5.03) M/mm3 Hgb 8.1 L (11.8-15.2) gm/dl Hct 23.7 L (35.5-45.6) % Lymph % (Auto) 7.1 L (13.4-35.0) % Adams % (Auto) 7.8 H (0.0-7.3) % Lymph # 0.7 L (1.2-5.4) K/mm3 Seg Neutrophils % 83.3 H (40.0-70.0) % Seg Neutrophils # 8.1 H (1.8-7.7) K/mm3 Chloride (98-107) mmol/L BUN (9-20) mg/dL Creatinine (0.8-1.5) mg/dL Glucose (75-100) mg/dL POC Glucose 146 H 140 H (70-105) Calcium (8.4-10.2) mg/dL Total Protein (6.3-8.2) g/dL Albumin (3.9-5) g/dL 08/30/19 08/30/19 Range/Units 04:21 11:11 RBC (3.65-5.03) M/mm3 Hgb (11.8-15.2) gm/dl Hct (35.5-45.6) % Lymph % (Auto) (13.4-35.0) % Adams % (Auto) (0.0-7.3) % Lymph # (1.2-5.4) K/mm3 Seg Neutrophils % (40.0-70.0) % Seg Neutrophils # (1.8-7.7) K/mm3 Chloride 96.1 L (98-107) mmol/L BUN 47 H (9-20) mg/dL Creatinine 6.4 H (0.8-1.5) mg/dL Glucose 168 H (75-100) mg/dL POC Glucose 191 H (70-105) Calcium 8.1 L (8.4-10.2) mg/dL Total Protein 6.2 L (6.3-8.2) g/dL Albumin 2.4 L (3.9-5) g/dL
--- NOTE | 2019-08-30 17:31 | XRay Report ---
ABDOMEN 3 VIEWS INDICATION: n/v. COMPARISON: No relevant prior imaging study available. FINDINGS: No free air is identified. The bowel gas pattern is within normal limits. No abnormal calcifications are seen aside from a presumed phlebolith in the left hemipelvis. IMPRESSION: 1. No acute findings. Signer Name: Rylan Valero MD Signed: 08/30/2019 5:27 PM Workstation Name: [id number]
[2019-08-30] MEDS: cefTRIAXone/NS 2 GM/100 ML 2 GM/100 ML BAG IV SCH (19:47)
[2019-08-30] MEDS: PANTOPRAZOLE 40 MG INJ IV SCH (21:43)
[2019-08-30 23:05] LABS: Albumin 2.5 g/dL (3.8-4.8); Gamma Globulin 0.8 g/dL (0.8-1.7)
[2019-08-31] MEDS: ONDANSETRON 4 MG/2 ML INJ IV PRN ×3 (02:52→17:05)
[2019-08-31] MEDS: HEPARIN 5,000 UNIT/1 ML VIAL SUB-Q SCH ×3 (05:44→22:06)
[2019-08-31] MEDS: INSULIN LISPRO 100 UNIT/ML SUB-Q SCH ×4 (08:06→22:06)
[2019-08-31] MEDS: CALCITRIOL 0.5 MCG CAP PO SCH (09:04)
[2019-08-31] MEDS: CHOLECALCIFEROL (VIT D3) 5,000 UNIT TAB PO SCH (09:04)
[2019-08-31] MEDS: PANTOPRAZOLE 40 MG INJ IV SCH (09:05)
[2019-08-31] MEDS: amLODIPine 10 MG TAB PO SCH (09:05)
[2019-08-31] MEDS: EPOETIN ALFA 10,000 UNIT/1 ML INJ IV PRN (13:11)
--- NOTE | 2019-08-31 14:50 | Progress Note ---
Assessment and Plan Impression: * TASHA on CKD with progression to ESRD suspected * metabolic acidosis * hyperkalemia * HTN * Hypoglycemia * Type 2 DM * Seizure activity * Uremia * Hypocalcemia * Hypoalbuminia * Secondary Hyperparathyroidism * Anemia in CKD Plan: * Initiated hemodialysis for uremia, electrolyte abnormalities, likely progression to ESRD; continue HD q MWF at this time unless otherwise indicated, due for HD today * Potentially with ongoing uremic symptoms with nausea, vomiting as he appeared much better yesterday clinically. May need to run HD longer if this is the case * Continue UF with HD as tolerated * case management for outpatient dialysis placement, may be difficult with immigration status * strict i/os * appreciate ID, surgery input * Reviewed CT, no hydronephrosis or evidence of acute obstruction * Daily renal lytes * dose meds per renal function * Renal diet as able * Continue calcitriol with HD; use 3meq Ca bath * Continue ESAs prn TIW with HD * Anti-emetics prn Subjective Date of service: 08/31/19 Principal diagnosis: N/V Interval history: Having nausea and vomiting this AM, appears in more distress and less alert than yesterday Objective - Exam Narrative Exam: General: Mild acute distress due to nausea, cooperative Head: Atraumatic Eyes: pupils equal and reactive to light, intermittent left-sided gaze ENT: Moist mucous membranes Neck: Normal appearance Chest: Clear to auscultation bilaterally, on NC CV: Regular rate and rhythm Abdomen: Soft, normal bowel sounds, nontender, nondistended Extremity: Infection with dark discoloration to the tip of left and right great toe Neuro: Alert, moves extremities spontaneously Skin: No rash - Vital Signs Vital signs: Vital Signs - 12hr 08/31/19 08/31/19 08/31/19 05:35 08:03 09:05 Temperature 97.6 F 98.3 F Pulse Rate 85 87 87 Pulse Rate [ Apical] Respiratory 16 20 Rate Blood Pressure 133/64 164/81 164/81 O2 Sat by Pulse 95 97 Oximetry 08/31/19 08/31/19 08/31/19 09:27 11:46 12:15 Temperature 98.4 F Pulse Rate 90 89 Pulse Rate [ 88 Apical] Respiratory 18 20 Rate Blood Pressure 168/85 O2 Sat by Pulse 95 Oximetry 08/31/19 08/31/19 08/31/19 12:20 12:30 12:45 Temperature 98.3 F Pulse Rate 88 87 97 H Pulse Rate [ Apical] Respiratory 18 Rate Blood Pressure 143/71 168/84 147/63 O2 Sat by Pulse Oximetry 08/31/19 08/31/19 08/31/19 13:00 13:15 13:30 Temperature Pulse Rate 83 81 81 Pulse Rate [ Apical] Respiratory Rate Blood Pressure 143/72 137/72 150/81 O2 Sat by Pulse Oximetry 08/31/19 08/31/19 08/31/19 13:45 14:00 14:15 Temperature Pulse Rate 82 95 H 91 H Pulse Rate [ Apical] Respiratory Rate Blood Pressure 146/77 164/87 140/82 O2 Sat by Pulse Oximetry 08/31/19 14:30 Temperature Pulse Rate 85 Pulse Rate [ Apical] Respiratory Rate Blood Pressure 119/62 O2 Sat by Pulse Oximetry - Lab 08/30/19 04:21 08/30/19 04:21 Most recent lab results ABG pH 7.441 pH Units (7.350-7.450) 08/27/19 09:08 ABG pCO2 36.6 mm Hg 08/27/19 09:08 ABG pO2 83.6 mm Hg (80.0-90.0) 08/27/19 09:08 ABG HCO3 24.4 mmol/L (20.0-26.0) 08/27/19 09:08 ABG O2 Saturation 97.1 % (95.0-99.0) 08/27/19 09:08 Calcium 8.1 mg/dL (8.4-10.2) L 08/30/19 04:21 Magnesium 2.20 mg/dL (1.7-2.3) 08/24/19 04:32 Urine Creatinine 392.1 mg/dL (0.1-20.0) H 08/21/19 Unknown Urine Sodium 10 mmol/L 08/21/19 Unknown Medications & Allergies - Medications Allergies/Adverse Reactions: Allergies No Known Allergies Allergy (Unverified 08/21/19 16:42) Home Medications: Home Medications Medication Instructions Recorded Confirmed Last Taken Type Cholecalciferol (Vitamin D3) 5,000 unit PO DAILY 08/21/19 08/22/19 Unknown History [Vitamin D3] Loratadine 10 mg PO QDAY 08/21/19 08/21/19 Unknown History amLODIPine [Norvasc] 10 mg PO DAILY 08/21/19 08/21/19 Unknown History glipiZIDE [Glucotrol] 10 mg PO BID 08/21/19 08/22/19 Unknown History hydroCHLOROthiazide [HCTZ] 25 mg PO QDAY 08/21/19 08/21/19 Unknown History Active Medications: Generic Name Dose Route Start Last Admin Trade Name Freq PRN Reason Stop Dose Admin Acetaminophen 650 mg 08/21/19 22:16 08/23/19 21:55 Tylenol PO 650 mg Q4H PRN Administration Pain MILD(1-3)/Fever >100.5/MCKEON Albumin Human 25 gm 08/22/19 12:14 Alburx 25% (Albumin) IV JEN PRN Hypotension Amlodipine Besylate 10 mg 08/23/19 10:00 08/31/19 09:05 Amlodipine PO 10 mg DAILY [facility] Administration Calcitriol 0.5 mcg 08/24/19 11:00 08/31/19 09:04 Rocaltrol PO 0.5 mcg QDAY JEN Administration Cholecalciferol 5,000 unit 08/23/19 10:00 08/31/19 09:04 Vitamin D3 PO 5,000 unit DAILY JEN Administration Dextrose 0 ml 08/21/19 22:16 08/22/19 08:12 D50w (25gm) Syringe IV 50 ml Q30MIN PRN Administration Hypoglycemia Protocol Diphenhydramine HCl 25 mg 08/26/19 19:48 08/30/19 00:12 Benadryl IV 25 mg Q3H PRN Administration Itching Epoetin Doug 10,000 unit 08/22/19 12:14 08/31/19 13:11 Procrit IV 10,000 unit JEN PRN Administration hemodialysis Heparin Sodium (Porcine) 5,000 unit 08/22/19 06:00 08/31/19 05:44 Heparin SUB-Q 5,000 unit Q8HR JEN Administration Hydralazine HCl 10 mg 08/22/19 03:45 08/27/19 14:49 Apresoline IV 10 mg Q6H PRN Administration Blood Pressure Sodium Chloride 100 mls @ 999 mls/hr 08/22/19 12:14 Nacl 0.9% IV JEN PRN Hypotension Insulin Human Lispro 0 unit 08/22/19 16:30 08/31/19 12:12 Humalog SUB-Q Not Given ACHS JEN Protocol Loperamide HCl 2 mg 08/28/19 09:07 Imodium PO Q2H PRN Diarrhea Lorazepam 0.5 mg 08/24/19 15:29 08/29/19 01:01 Ativan IV 0.5 mg Q8HR PRN Administration Nausea Ondansetron HCl 4 mg 08/24/19 13:08 08/31/19 12:50 Zofran IV 4 mg Q4H PRN Administration Nausea And Vomiting Pantoprazole Sodium 40 mg 08/31/19 22:00 Protonix PO BID JEN Sodium Chloride 10 ml 08/22/19 10:00 08/31/19 09:05 Sodium Chloride Flush Syringe 10 Ml IV 10 ml BID JEN Administration Sodium Chloride 10 ml 08/21/19 22:16 08/30/19 00:12 Sodium Chloride Flush Syringe 10 Ml IV 10 ml PRN PRN Administration LINE FLUSH
--- NOTE | 2019-08-31 15:54 | Progress Note ---
Assessment and Plan /Acute hypoxic respiratory failure; Current Visit: Yes Status: Acute Code met was called on 08/26, symptoms secondary to fluid overload, improved after hemodialysis - now on N/C Respiratory therapy managed with noninvasive ventilation Patient's blood pressures blood sugars O2 sats within normal range /Toxic metabolic encephalopathy Secondary to uremia ,hypoglycemia. Osteomyelitis, underlying disease process. Closely monitor, treat the underlying cause Haldol as needed. sitter at bedside for safety /Heme positive stool/hematemesis: GI evaluated the patient, closely monitor H&H Clear liquids and supportive care /Intractable nausea and vomiting likely from gastroparesis Antiemetics , IV Protonix GI consult , check CT abdomen if no improvement . /Acute diarrhea - sent stool for Cx and WBc count - loperamide as needed /Acute on chronic renal failure Possible ESRD, cloth stretcher initiated hemodialysis, HD per schedule outpatient HD scheduling at [place] per /Hypoglycemia Hold diabetic medications patient received multiple D50 pushes Will place patient on IV fluid D10 normal saline. Closely monitor blood sugars /Left great toe ischemic ulcer Patient has been placed on empiric IV antibiotics. Possible osteomyelitis of left great toe on x-ray, but MRI r/o osteo Consulted wound care, surgeon Dr. Rosa and vascular Stopped abx today, follow vascular recommendation /Acute Diarrhea: started from 08/27 Stool study negative. started Questran bid, continue Loperamide prn GI following -- DVT prophylaxis Patient placed on subcutaneous heparin. -- Full code status Monitor closely and adjust management as needed Plan of care reviewed with the patient and his nurse 08/24/2019; patient developed hematemesis intractable nausea vomiting Placed n.p.o., IV fluids IV Protonix, GI consult, monitor H&H Initiated hemodialysis 08/22, HD per schedule 08/25/19; patient has heme positive stool, GI evaluation noted Continues to have intractable nausea vomiting, supportive care 08/26/19; patient is agitated and restless requiring restraints Continues to have nausea vomiting, GI following 08/27/19; brief episode of hypoxic respiratory failure, resolved after hemodialysis Outpatient HD chair scheduling, follow MRI of left great toe/rule out osteomyelitis 08/27" resumed care. MRI LE pending. off biPAP. developed diarrhea o/n. Discussed with Dr Rosa 08/28: MRI LE/left great toe showed no possible osteomylitis, will wait for vascular recommendation. 08/29: Reconsulted vascular surgeon for abnormal arterial Doppler study, wait for further recommendation. Stool study negative. started Questran bid, continue Loperamide prn and rectal tube for diarrhea. Stopped abx per ID 08/30: pending vascular recommendation. DC planning when clinically stable and diarrhea resolves. Patient still on rectal tube Disposition; follow clinically, follow nephrology, GI, wound surgeon recommendations Social issues, patient illegal, will be very difficult to set up outpatient HD CM assisting with DC planning. Discharge when stable Brief history; 59-year-old male [place] issues, with history of hypertension, diabetes mellitus, chronic kidney disease was admitted through emergency room, With intractable nausea vomiting and abdominal pain of one-week duration.Patient's work-up is consistent with chronic kidney disease/ESRD. Nephrology evaluated initiated hemodialysis. Patient is agitated and restless sometimes requiring restraints . Patient also had hematemesis and heme positive stool, evaluated by GI, conservative management recommended Disposition; patient needs outpatient HD chair scheduling, follow GI recommendations, DC when stable Hospitalist Physical General appearance: Present: mild distress (Retching periodically with minimal output), well-nourished, other (confused) - EENT Eyes: Present: PERRL, EOM intact - Neck Neck: Present: supple, normal ROM - Respiratory Respiratory effort: normal Respiratory: bilateral: diminished, rales, negative: rhonchi, wheezing - Cardiovascular Rhythm: regular Heart Sounds: Present: S1 & S2 - Extremities Extremities: no ischemia, No edema - Abdominal General gastrointestinal: soft, non-tender, non-distended, normal bowel sounds - Integumentary Integumentary: Present: clear, warm - Psychiatric Psychiatric: sitter at place, other (Confused) - Neurologic Neurologic: moves all extremities, other (Noncommunicative) Subjective Date of service: 08/31/19 Principal diagnosis: N/V Objective - Constitutional Vitals: Vital Signs - 12hr 08/31/19 08/31/19 08/31/19 05:35 08:03 09:05 Temperature 97.6 F 98.3 F Pulse Rate 85 87 87 Pulse Rate [ Apical] Respiratory 16 20 Rate Blood Pressure 133/64 164/81 164/81 O2 Sat by Pulse 95 97 Oximetry 08/31/19 08/31/19 08/31/19 09:27 11:46 12:15 Temperature 98.4 F Pulse Rate 90 89 Pulse Rate [ 88 Apical] Respiratory 18 20 Rate Blood Pressure 168/85 O2 Sat by Pulse 95 Oximetry 08/31/19 08/31/19 08/31/19 12:20 12:30 12:45 Temperature 98.3 F Pulse Rate 88 87 97 H Pulse Rate [ Apical] Respiratory 18 Rate Blood Pressure 143/71 168/84 147/63 O2 Sat by Pulse Oximetry 08/31/19 08/31/19 08/31/19 13:00 13:15 13:30 Temperature Pulse Rate 83 81 81 Pulse Rate [ Apical] Respiratory Rate Blood Pressure 143/72 137/72 150/81 O2 Sat by Pulse Oximetry 08/31/19 08/31/19 08/31/19 13:45 14:00 14:15 Temperature Pulse Rate 82 95 H 91 H Pulse Rate [ Apical] Respiratory Rate Blood Pressure 146/77 164/87 140/82 O2 Sat by Pulse Oximetry 08/31/19 14:30 Temperature Pulse Rate 85 Pulse Rate [ Apical] Respiratory Rate Blood Pressure 119/62 O2 Sat by Pulse Oximetry - Labs CBC & Chem 7: 08/30/19 04:21 08/30/19 04:21 Labs: Abnormal lab results 08/27/19 08/30/19 08/30/19 Range/Units 04:42 19:01 22:21 POC Glucose 159 H 173 H (70-105) Serum Total Protein 5.2 L (6.1-8.1) g/dL Albumin 2.5 L (3.8-4.8) g/dL Tycjh-4-Amaewhiqp 0.6 H (0.2-0.3) g/dL PEP Interpretation see below H 08/31/19 08/31/19 Range/Units 08:31 12:09 POC Glucose 169 H 217 H (70-105) Serum Total Protein (6.1-8.1) g/dL Albumin (3.8-4.8) g/dL Ymvsi-8-Gceaudrln (0.2-0.3) g/dL PEP Interpretation
--- NOTE | 2019-08-31 16:09 | Gastroenterology Progress Note ---
Assessment and Plan 1. GI: nausea, vomiting probable uremia (most likely) vs gastroparesis - overall improved, some nausea today - continue current diet, anti-emtics prn - no EGD at this time 2. Diarrhea: stool cx's negative - probably multi-facotrial - start Questran bid, continue Loperamide prn - no plans colonoscopy at this time 3. Anemia: stable - follow h/h - no need further GI input at this time, call if situation changes Subjective Date of service: 08/31/19 Principal diagnosis: N/V Interval history: - tolerated breakfast today Objective - Constitutional Vitals: Temp Pulse Resp BP Pulse Ox 98.3 F 83 18 111/69 95 08/31/19 12:20 08/31/19 15:45 08/31/19 12:20 08/31/19 15:45 08/31/19 11:46 General appearance: no acute distress - EENT Eyes: PERRL - Respiratory Respiratory: bilateral: CTA - Cardiovascular Rhythm: regular Heart Sounds: Present: S1 & S2 - Gastrointestinal General gastrointestinal: Present: soft, non-tender, non-distended - Labs CBC & Chem 7: 08/30/19 04:21 08/30/19 04:21 Labs: Laboratory Results - last 24 hr 08/27/19 08/30/19 08/30/19 04:42 19:01 22:21 POC Glucose 159 H 173 H Serum Total Protein 5.2 L Albumin 2.5 L Trnyf-9-Mavpetqaq 0.6 H Urllj-9-Ltgqgiwcs 0.7 Beta Globulins 0.3 Gamma Globulins 0.8 Abnorm Protein Band 1 see below PEP Interpretation see below H 08/31/19 08/31/19 08:31 12:09 POC Glucose 169 H 217 H Serum Total Protein Albumin Lnykg-2-Rtgqyhyre Utxql-1-Utrhjgtuq Beta Globulins Gamma Globulins Abnorm Protein Band 1 PEP Interpretation
[2019-08-31] MEDS ORDERED: VANCOMYCIN/NS 1 GM/250 ML 1 GM/250 ML BAG IV SCH (20:00)
[2019-08-31] MEDS: PANTOPRAZOLE 40 MG TAB PO SCH (22:06)
[2019-09-01] MEDS: HEPARIN 5,000 UNIT/1 ML VIAL SUB-Q SCH ×3 (06:29→21:57)
[2019-09-01] MEDS: ONDANSETRON 4 MG/2 ML INJ IV PRN (08:06)
[2019-09-01] MEDS: INSULIN LISPRO 100 UNIT/ML SUB-Q SCH ×4 (08:09→21:57)
[2019-09-01] MEDS: CHOLECALCIFEROL (VIT D3) 5,000 UNIT TAB PO SCH (09:19)
[2019-09-01] MEDS: CALCITRIOL 0.5 MCG CAP PO SCH (09:20)
[2019-09-01] MEDS: amLODIPine 10 MG TAB PO SCH (09:20)
[2019-09-01] MEDS: PANTOPRAZOLE 40 MG TAB PO SCH (09:20)
--- NOTE | 2019-09-01 12:48 | Consultation ---
History of Present Illness - Reason for Consult Consult date: 09/01/19 - History of Present Illness HPI: 59-year-old gentleman with a history significant for diabetes mellitus, hypertension and CKD that which has now progressed to end-stage renal disease on hemodialysis who was hospitalized for intractable nausea and vomiting. Patient was also noted to have nonhealing great toe tip ulcers bilaterally and noninvasive imaging was concerning for significant arterial insufficiency. Therefore, vascular consultation was obtained. 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 The patient denies any issues with lower extremity claudication. The patient denies any issues prior dealing with non-healing foot wounds. The patient states he used to smoke intermittently as a teenager but soon thereafter quit. PE: NAD, alert and oriented x3 Regular rate and rhythm Non-labored respirations Palpable dorsalis pedis pulses bilaterally 2+ 1+ posterior tibial pulses bilateral 1 cm tip ulcers noted on the great toes bilaterally Motor and sensory intact grossly Arterial studies reviewed Plan: 59-year-old gentleman with multiple medical problems with bilateral great toe foot ulcers Arterial studies reviewed which do not demonstrate any area of specific stenosis Patient with palpable pedal pulses on physical exam Patient likely with adequate perfusion to heal both ulcers Would continue with aggressive wound care No intervention warranted at this time If there is concern for healing potential in the future, patient may benefit from diagnostic angiogram but do not feel this is necessary at this time Patient should have follow-up with wound care and/or vascular surgery at the time of discharge Please call for any questions or concerns Past History Past Medical History: diabetes, hypertension, renal failure, other Past Surgical History: No surgical history Social history: no significant social history. denies: alcohol abuse Medications and Allergies Allergies Allergy/AdvReac Type Severity Reaction Status Date / Time No Known Allergies Allergy Unverified 08/21/19 16:42 Home Medications Medication Instructions Recorded Confirmed Last Taken Type Cholecalciferol (Vitamin D3) 5,000 unit PO DAILY 08/21/19 08/22/19 Unknown History [Vitamin D3] Loratadine 10 mg PO QDAY 08/21/19 08/21/19 Unknown History amLODIPine [Norvasc] 10 mg PO DAILY 08/21/19 08/21/19 Unknown History glipiZIDE [Glucotrol] 10 mg PO BID 08/21/19 08/22/19 Unknown History hydroCHLOROthiazide [HCTZ] 25 mg PO QDAY 08/21/19 08/21/19 Unknown History Active Meds: Active Medications Acetaminophen (Tylenol) 650 mg PO Q4H PRN PRN Reason: Pain MILD(1-3)/Fever >100.5/MCKEON Last Admin: 08/23/19 21:55 Dose: 650 mg Documented by: Albumin Human (Alburx 25% (Albumin)) 25 gm IV JEN PRN PRN Reason: Hypotension Amlodipine Besylate (Amlodipine) 10 mg PO DAILY [facility] Last Admin: 09/01/19 09:20 Dose: 10 mg Documented by: Calcitriol (Rocaltrol) 0.5 mcg PO QDAY [facility] Last Admin: 09/01/19 09:20 Dose: 0.5 mcg Documented by: Cholecalciferol (Vitamin D3) 5,000 unit PO DAILY [facility] Last Admin: 09/01/19 09:19 Dose: 5,000 unit Documented by: Dextrose (D50w (25gm) Syringe) 0 ml IV Q30MIN PRN; Protocol PRN Reason: Hypoglycemia Last Admin: 08/22/19 08:12 Dose: 50 ml Documented by: Diphenhydramine HCl (Benadryl) 25 mg IV Q3H PRN PRN Reason: Itching Last Admin: 08/30/19 00:12 Dose: 25 mg Documented by: Epoetin Doug (Procrit) 10,000 unit IV JEN PRN PRN Reason: hemodialysis Last Admin: 08/31/19 13:11 Dose: 10,000 unit Documented by: Heparin Sodium (Porcine) (Heparin) 5,000 unit SUB-Q Q8HR [facility] Last Admin: 09/01/19 06:29 Dose: 5,000 unit Documented by: Hydralazine HCl (Apresoline) 10 mg IV Q6H PRN PRN Reason: Blood Pressure Last Admin: 08/27/19 14:49 Dose: 10 mg Documented by: Sodium Chloride (Nacl 0.9%) 100 mls @ 999 mls/hr IV JEN PRN PRN Reason: Hypotension Insulin Human Lispro (Humalog) 0 unit SUB-Q ACHS [facility]; Protocol Last Admin: 09/01/19 12:25 Dose: Not Given Documented by: Loperamide HCl (Imodium) 2 mg PO Q2H PRN PRN Reason: Diarrhea Lorazepam (Ativan) 0.5 mg IV Q8HR PRN PRN Reason: Nausea Last Admin: 08/29/19 01:01 Dose: 0.5 mg Documented by: Metoclopramide HCl (Reglan) 10 mg IV Q6H PRN PRN Reason: Nausea And Vomiting Ondansetron HCl (Zofran) 4 mg IV Q4H PRN PRN Reason: Nausea And Vomiting Last Admin: 09/01/19 08:06 Dose: 4 mg Documented by: Pantoprazole Sodium (Protonix) 40 mg IV BID JEN Sodium Chloride (Sodium Chloride Flush Syringe 10 Ml) 10 ml IV BID JEN Last Admin: 09/01/19 09:20 Dose: 10 ml Documented by: Sodium Chloride (Sodium Chloride Flush Syringe 10 Ml) 10 ml IV PRN PRN PRN Reason: LINE FLUSH Last Admin: 08/30/19 00:12 Dose: 10 ml Documented by: Exam - Constitutional Vitals: Temp Pulse Resp BP Pulse Ox 98.3 F 86 17 150/79 94 09/01/19 11:36 09/01/19 11:36 09/01/19 11:36 09/01/19 11:36 09/01/19 11:36 Results - Labs CBC & Chem 7: 08/30/19 04:21 08/30/19 04:21 Labs: Abnormal lab results 08/28/19 08/28/19 08/31/19 Range/Units 17:12 21:04 17:13 POC Glucose 152 H 302 H 196 H (70-105) 08/31/19 09/01/19 09/01/19 Range/Units 21:29 07:45 11:44 POC Glucose 172 H 161 H 240 H (70-105)
--- NOTE | 2019-09-01 12:59 | Progress Note ---
Assessment and Plan Impression: * TASHA on CKD with progression to ESRD suspected * metabolic acidosis * hyperkalemia * HTN * Hypoglycemia * Type 2 DM * Seizure activity * Uremia * Hypocalcemia * Hypoalbuminia * Secondary Hyperparathyroidism * Anemia in CKD Plan: * Initiated hemodialysis for uremia, electrolyte abnormalities, likely progression to ESRD; continue HD q MWF at this time unless otherwise indicated, due for HD today * Patient continues to have nausea and vomiting. Unclear if it is related to uremia. Shall arrange for an additional dialysis treatment today. * Recheck his chemistries again tomorrow * Continue UF with HD as tolerated * case management for outpatient dialysis placement, may be difficult with immigration status * strict i/os * appreciate ID, surgery input * Reviewed CT, no hydronephrosis or evidence of acute obstruction * Daily renal lytes * dose meds per renal function * Renal diet as able * Continue calcitriol with HD; use 3meq Ca bath * Continue ESAs prn TIW with HD * Anti-emetics prn Subjective Date of service: 09/01/19 Principal diagnosis: N/V Interval history: Patient continues to have some nausea and vomiting. Denies any shortness of br eath. Appears comfortable. Objective - Vital Signs Vital signs: Vital Signs - 12hr 09/01/19 09/01/19 09/01/19 05:15 07:35 08:23 Temperature 97.4 F L 98.3 F Pulse Rate 82 85 Pulse Rate [ 85 Apical] Respiratory 20 17 18 Rate Blood Pressure 143/74 141/75 O2 Sat by Pulse 94 99 Oximetry 09/01/19 09/01/19 09/01/19 09:13 09:20 10:45 Temperature Pulse Rate 85 78 Pulse Rate [ Apical] Respiratory Rate Blood Pressure 141/75 O2 Sat by Pulse 95 Oximetry 09/01/19 11:36 Temperature 98.3 F Pulse Rate 86 Pulse Rate [ Apical] Respiratory 17 Rate Blood Pressure 150/79 O2 Sat by Pulse 94 Oximetry - General Appearance General appearance: well-developed, well-nourished, appears stated age EENT: PERRL, mucous membranes moist Neck: no JVD, no thyromegaly, no carotid bruit, supple, other (Right IJ PermCath in place) Respiratory: Present: Clear to Ascultation Cardiology: regular Gastrointestinal: normal, normoactive bowel sounds Integumentary: no rash, other (No edema. Dark discoloration noted in the tip of his toes) - Lab 08/30/19 04:21 08/30/19 04:21 Most recent lab results ABG pH 7.441 pH Units (7.350-7.450) 08/27/19 09:08 ABG pCO2 36.6 mm Hg 08/27/19 09:08 ABG pO2 83.6 mm Hg (80.0-90.0) 08/27/19 09:08 ABG HCO3 24.4 mmol/L (20.0-26.0) 08/27/19 09:08 ABG O2 Saturation 97.1 % (95.0-99.0) 08/27/19 09:08 Calcium 8.1 mg/dL (8.4-10.2) L 08/30/19 04:21 Magnesium 2.20 mg/dL (1.7-2.3) 08/24/19 04:32 Urine Creatinine 392.1 mg/dL (0.1-20.0) H 08/21/19 Unknown Urine Sodium 10 mmol/L 08/21/19 Unknown Medications & Allergies - Medications Allergies/Adverse Reactions: Allergies No Known Allergies Allergy (Unverified 08/21/19 16:42) Home Medications: Home Medications Medication Instructions Recorded Confirmed Last Taken Type Cholecalciferol (Vitamin D3) 5,000 unit PO DAILY 08/21/19 08/22/19 Unknown History [Vitamin D3] Loratadine 10 mg PO QDAY 08/21/19 08/21/19 Unknown History amLODIPine [Norvasc] 10 mg PO DAILY 08/21/19 08/21/19 Unknown History glipiZIDE [Glucotrol] 10 mg PO BID 08/21/19 08/22/19 Unknown History hydroCHLOROthiazide [HCTZ] 25 mg PO QDAY 08/21/19 08/21/19 Unknown History Active Medications: Generic Name Dose Route Start Last Admin Trade Name Freq PRN Reason Stop Dose Admin Acetaminophen 650 mg 08/21/19 22:16 08/23/19 21:55 Tylenol PO 650 mg Q4H PRN Administration Pain MILD(1-3)/Fever >100.5/MCKEON Albumin Human 25 gm 08/22/19 12:14 Alburx 25% (Albumin) IV JEN PRN Hypotension Amlodipine Besylate 10 mg 08/23/19 10:00 09/01/19 09:20 Amlodipine PO 10 mg DAILY JEN Administration Calcitriol 0.5 mcg 08/24/19 11:00 09/01/19 09:20 Rocaltrol PO 0.5 mcg QDAY JEN Administration Cholecalciferol 5,000 unit 08/23/19 10:00 09/01/19 09:19 Vitamin D3 PO 5,000 unit DAILY JEN Administration Dextrose 0 ml 08/21/19 22:16 08/22/19 08:12 D50w (25gm) Syringe IV 50 ml Q30MIN PRN Administration Hypoglycemia Protocol Diphenhydramine HCl 25 mg 08/26/19 19:48 08/30/19 00:12 Benadryl IV 25 mg Q3H PRN Administration Itching Epoetin Doug 10,000 unit 08/22/19 12:14 08/31/19 13:11 Procrit IV 10,000 unit JEN PRN Administration hemodialysis Heparin Sodium (Porcine) 5,000 unit 08/22/19 06:00 09/01/19 06:29 Heparin SUB-Q 5,000 unit Q8HR JEN Administration Hydralazine HCl 10 mg 08/22/19 03:45 08/27/19 14:49 Apresoline IV 10 mg Q6H PRN Administration Blood Pressure Sodium Chloride 100 mls @ 999 mls/hr 08/22/19 12:14 Nacl 0.9% IV JEN PRN Hypotension Insulin Human Lispro 0 unit 08/22/19 16:30 09/01/19 12:25 Humalog SUB-Q Not Given ACHS [facility] Protocol Loperamide HCl 2 mg 08/28/19 09:07 Imodium PO Q2H PRN Diarrhea Lorazepam 0.5 mg 08/24/19 15:29 08/29/19 01:01 Ativan IV 0.5 mg Q8HR PRN Administration Nausea Metoclopramide HCl 10 mg 09/01/19 12:34 Reglan IV Q6H PRN Nausea And Vomiting Ondansetron HCl 4 mg 08/24/19 13:08 09/01/19 08:06 Zofran IV 4 mg Q4H PRN Administration Nausea And Vomiting Pantoprazole Sodium 40 mg 09/01/19 22:00 Protonix IV BID JEN Sodium Chloride 10 ml 08/22/19 10:00 09/01/19 09:20 Sodium Chloride Flush Syringe 10 Ml IV 10 ml BID JEN Administration Sodium Chloride 10 ml 08/21/19 22:16 08/30/19 00:12 Sodium Chloride Flush Syringe 10 Ml IV 10 ml PRN PRN Administration LINE FLUSH
[2019-09-01] MEDS ORDERED: SODIUM CHLORIDE 0.9% 100 ML IV PRN (13:04)
[2019-09-01] MEDS: METOCLOPRAMIDE 10 MG/2 ML INJ IV PRN (13:21)
--- NOTE | 2019-09-01 17:45 | XRay Report ---
ABDOMEN, SINGLE VIEW INDICATION / CLINICAL INFORMATION: abdominal pain. COMPARISON: 08/30/2019 FINDINGS: Bowel gas pattern is normal. No suggestion of mass or free fluid. No abnormal calcifications. IMPRESSION: No acute finding within the abdomen/pelvis. Signer Name: Jade Alicia MD Signed: 09/01/2019 5:41 PM Workstation Name: [id number]
[2019-09-01] MEDS: PANTOPRAZOLE 40 MG INJ IV SCH (21:57)
[2019-09-02] MEDS: HEPARIN 5,000 UNIT/1 ML VIAL SUB-Q SCH ×3 (05:41→21:12)
[2019-09-02] MEDS: LORazepam 2 MG/ML VIAL IV PRN (05:42)
[2019-09-02 06:10] LABS: Hematocrit 29.7 % (35.5-45.6); Hemoglobin 9.6 gm/dl (11.8-15.2); Mean Corpuscular HGB Conc 32 % (32-34); Mean Corpuscular Volume 86 fl (84-94); Platelet Count 251 K/mm3 (140-440); Red Blood Count 3.46 M/mm3 (3.65-5.03); Red Cell Distribution Width 14.4 % (13.2-15.2)
[2019-09-02 06:29] LABS: Calcium 9.8 mg/dL (8.4-10.2)
[2019-09-02 07:23] LABS: Anisocytosis 1+; Basophils % (Manual) 0 % (0.0-1.8); Eosinophils % (Manual) 0 % (0.0-4.3); Total Cells Counted 100
[2019-09-02 07:24] LABS: Platelet Estimate Consistent w Auto
[2019-09-02] MEDS: INSULIN LISPRO 100 UNIT/ML SUB-Q SCH ×4 (07:30→21:12)
[2019-09-02] MEDS: amLODIPine 10 MG TAB PO SCH (09:19)
[2019-09-02] MEDS: METOCLOPRAMIDE 10 MG/2 ML INJ IV PRN (09:19)
[2019-09-02] MEDS: CALCITRIOL 0.5 MCG CAP PO SCH (09:19)
[2019-09-02] MEDS: PANTOPRAZOLE 40 MG INJ IV SCH ×2 (09:19→21:12)
[2019-09-02] MEDS: CHOLECALCIFEROL (VIT D3) 5,000 UNIT TAB PO SCH (09:20)
--- NOTE | 2019-09-02 09:59 | Progress Note ---
Assessment and Plan /Acute hypoxic respiratory failure; not POA Code met was called on 08/26, symptoms secondary to fluid overload, improved after hemodialysis - now on N/C Respiratory therapy managed with noninvasive ventilation Patient's blood pressures blood sugars O2 sats within normal range /Toxic metabolic encephalopathy Secondary to uremia ,hypoglycemia. Osteomyelitis, underlying disease process. Closely monitor, treat the underlying cause Haldol as needed. sitter at bedside for safety /Heme positive stool/hematemesis: GI evaluated the patient, closely monitor H&H Clear liquids and supportive care /Intractable nausea and vomiting likely from gastroparesis Antiemetics , IV Protonix GI consult , check CT abdomen if no improvement . 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 Closely monitor blood sugars /Left great toe ischemic ulcer Patient has been placed on empiric IV antibiotics. Possible osteomyelitis of left great toe on x-ray, but MRI r/o osteo Consulted wound care, surgeon Dr. Rosa and vascular Stopped abx today, follow vascular recommendation /Acute Diarrhea: started from 08/27 Stool study negative. started Questran bid, continue Loperamide prn GI following -- DVT prophylaxis Patient placed on subcutaneous heparin. -- Full code status Monitor closely and adjust management as needed Plan of care reviewed with the patient and his nurse 08/24/2019; patient developed hematemesis intractable nausea vomiting Placed n.p.o., IV fluids IV Protonix, GI consult, monitor H&H Initiated hemodialysis 08/22, HD per schedule 08/25/19; patient has heme positive stool, GI evaluation noted Continues to have intractable nausea vomiting, supportive care 08/26/19; patient is agitated and restless requiring restraints Continues to have nausea vomiting, GI following 08/27/19; brief episode of hypoxic respiratory failure, resolved after hemodialysis Outpatient HD chair scheduling, follow MRI of left great toe/rule out osteomyelitis 08/27" resumed care. MRI LE pending. off biPAP. developed diarrhea o/n. Discusse d with Dr Rosa 08/28: MRI LE/left great toe showed no possible osteomylitis, will wait for vascular recommendation. 06/25: Reconsulted vascular surgeon for abnormal arterial Doppler study, wait for further recommendation. Stool study negative. started Questran bid, continue Loperamide prn and rectal tube for diarrhea. Stopped abx per ID 08/30: pending vascular recommendation. DC planning when clinically stable and diarrhea resolves. Patient still on rectal tube 08/31: c/o nausea and abdominal pain. will change Protonix to IV and also start on Reglan. We will also get a plain abdominal x-ray to rule out ileus. Per vascular no need for any further intervention, continue medical management for lower extremity ulcers. Disposition; follow clinically, patient illegal, will be very difficult to set up outpatient HD. CM assisting with DC planning. Discharge when stable Brief history; 59-year-old male patient [place] issues, with history of hypertension, diabetes mellitus, chronic kidney disease was admitted through emergency room, With intractable nausea vomiting and abdominal pain of one-week duration.Patient's work-up is consistent with chronic kidney disease/ESRD. Nephrology evaluated initiated hemodialysis. Patient is agitated and restless sometimes requiring restraints . Patient also had hematemesis and heme positive stool, evaluated by GI, conservative management recommended Disposition; patient needs outpatient HD chair scheduling, follow GI recommendations, DC when stable Hospitalist Physical General appearance: Present: no distress, well-nourished, - EENT Eyes: Present: PERRL, EOM intact - Neck Neck: Present: supple, normal ROM - Respiratory Respiratory effort: normal Respiratory: bilateral: diminished, rales, negative: rhonchi, wheezing - Cardiovascular Rhythm: regular Heart Sounds: Present: S1 & S2 - Extremities Extremities: no ischemia, No edema - Abdominal General gastrointestinal: soft, non-tender, non-distended, normal bowel sounds - Integumentary Integumentary: Present: clear, warm - Psychiatric Psychiatric: sitter at place, other (more oriented now, cooperative) - Neurologic Neurologic: moves all extremities, other (communicative) Subjective Date of service: 09/01/19 Principal diagnosis: N/V Objective - Constitutional Vitals: Vital Signs - 12hr 09/01/19 09/02/19 09/02/19 23:21 04:55 07:28 Temperature 98.6 F 97.3 F L 98.2 F Pulse Rate 89 86 88 Respiratory 17 17 17 Rate Blood Pressure 113/78 164/86 159/82 O2 Sat by Pulse 97 97 97 Oximetry 09/02/19 09/02/19 09:12 09:19 Temperature Pulse Rate 86 Respiratory Rate Blood Pressure 158/76 O2 Sat by Pulse 94 Oximetry - Labs CBC & Chem 7: 09/02/19 05:40 09/02/19 05:40 Labs: Abnormal lab results 09/01/19 09/01/19 09/01/19 Range/Units 11:44 16:41 21:33 WBC (4.5-11.0) K/mm3 RBC (3.65-5.03) M/mm3 Hgb (11.8-15.2) gm/dl Hct (35.5-45.6) % Seg Neuts % (Manual) (40.0-70.0) % Lymphocytes % (Manual) (13.4-35.0) % Nucleated RBC % (0.0-0.9) % Seg Neutrophils # Man (1.8-7.7) K/mm3 Lymphocytes # (Manual) (1.2-5.4) K/mm3 Chloride (98-107) mmol/L BUN (9-20) mg/dL Creatinine (0.8-1.5) mg/dL Glucose (75-100) mg/dL POC Glucose 240 H 211 H 219 H (70-105) 09/02/19 09/02/19 09/02/19 Range/Units 05:40 05:40 07:36 WBC 12.4 H (4.5-11.0) K/mm3 RBC 3.46 L (3.65-5.03) M/mm3 Hgb 9.6 L (11.8-15.2) gm/dl Hct 29.7 L (35.5-45.6) % Seg Neuts % (Manual) 84.0 H (40.0-70.0) % Lymphocytes % (Manual) 8.0 L (13.4-35.0) % Nucleated RBC % 1.0 H (0.0-0.9) % Seg Neutrophils # Man 10.4 H (1.8-7.7) K/mm3 Lymphocytes # (Manual) 1.0 L (1.2-5.4) K/mm3 Chloride 97.7 L (98-107) mmol/L BUN 49 H (9-20) mg/dL Creatinine 7.6 H (0.8-1.5) mg/dL Glucose 236 H (75-100) mg/dL POC Glucose 235 H (70-105)
--- NOTE | 2019-09-02 11:58 | Progress Note ---
Assessment and Plan Impression: * TASHA on CKD with progression to ESRD suspected * metabolic acidosis * hyperkalemia * HTN * Hypoglycemia * Type 2 DM * Seizure activity * Uremia * Hypocalcemia * Hypoalbuminia * Secondary Hyperparathyroidism * Anemia in CKD Plan: * Initiated hemodialysis for uremia, electrolyte abnormalities, likely progression to ESRD; continue HD q MWF at this time unless otherwise indicated, due for HD today * His nausea and vomiting seems to be better this morning. It may have been partly due to uremia. Patient did have extra dialysis treatment yesterday * Continue dialysis on MWF schedule for now. Increase treatment time to 4 hours. * Chemistries from this morning reviewed * Continue UF with HD as tolerated * case management for outpatient dialysis placement, may be difficult with immigration status * strict i/os * appreciate ID, surgery input * Reviewed CT, no hydronephrosis or evidence of acute obstruction * Daily renal lytes * dose meds per renal function * Renal diet as able * Continue calcitriol with HD; change his calcium bath to 2.5 meq * Continue ESAs prn TIW with HD * Anti-emetics prn Subjective Date of service: 09/02/19 Principal diagnosis: N/V Interval history: Patient is comfortable this morning. He had an extra dialysis treatment yesterday. No complaints of nausea or vomiting this morning. No shortness of breath. Objective - Vital Signs Vital signs: Vital Signs - 12hr 09/02/19 09/02/19 09/02/19 04:55 07:28 09:12 Temperature 97.3 F L 98.2 F Pulse Rate 86 88 Pulse Rate [ Apical] Pulse Rate [ Radial] Pulse Rate [ Right Radial] Respiratory 17 17 Rate Blood Pressure 164/86 159/82 O2 Sat by Pulse 97 97 94 Oximetry 09/02/19 09/02/19 09/02/19 09:19 10:00 11:38 Temperature 98.4 F Pulse Rate 86 87 89 Pulse Rate [ 88 Apical] Pulse Rate [ 88 Radial] Pulse Rate [ 88 Right Radial] Respiratory 19 17 Rate Blood Pressure 158/76 133/72 O2 Sat by Pulse 92 Oximetry - General Appearance General appearance: well-developed, well-nourished, appears stated age EENT: PERRL, mucous membranes moist Neck: no JVD, no thyromegaly, no carotid bruit, supple, other (Right IJ PermCath in place) Respiratory: Present: Clear to Ascultation Cardiology: regular, normal heart rate, S1S2, no murmurs Gastrointestinal: normal, normoactive bowel sounds Integumentary: no rash, other (No edema) - Lab 09/02/19 05:40 09/02/19 05:40 Most recent lab results ABG pH 7.441 pH Units (7.350-7.450) 08/27/19 09:08 ABG pCO2 36.6 mm Hg 08/27/19 09:08 ABG pO2 83.6 mm Hg (80.0-90.0) 08/27/19 09:08 ABG HCO3 24.4 mmol/L (20.0-26.0) 08/27/19 09:08 ABG O2 Saturation 97.1 % (95.0-99.0) 08/27/19 09:08 Calcium 9.8 mg/dL (8.4-10.2) D 09/02/19 05:40 Magnesium 2.20 mg/dL (1.7-2.3) 08/24/19 04:32 Urine Creatinine 392.1 mg/dL (0.1-20.0) H 08/21/19 Unknown Urine Sodium 10 mmol/L 08/21/19 Unknown Medications & Allergies - Medications Allergies/Adverse Reactions: Allergies No Known Allergies Allergy (Unverified 08/21/19 16:42) Home Medications: Home Medications Medication Instructions Recorded Confirmed Last Taken Type Cholecalciferol (Vitamin D3) 5,000 unit PO DAILY 08/21/19 08/22/19 Unknown History [Vitamin D3] Loratadine 10 mg PO QDAY 08/21/19 08/21/19 Unknown History amLODIPine [Norvasc] 10 mg PO DAILY 08/21/19 08/21/19 Unknown History glipiZIDE [Glucotrol] 10 mg PO BID 08/21/19 08/22/19 Unknown History hydroCHLOROthiazide [HCTZ] 25 mg PO QDAY 08/21/19 08/21/19 Unknown History Active Medications: Generic Name Dose Route Start Last Admin Trade Name Freq PRN Reason Stop Dose Admin Acetaminophen 650 mg 08/21/19 22:16 08/23/19 21:55 Tylenol PO 650 mg Q4H PRN Administration Pain MILD(1-3)/Fever >100.5/MCKEON Albumin Human 25 gm 08/22/19 12:14 Alburx 25% (Albumin) IV JEN PRN Hypotension Amlodipine Besylate 10 mg 08/23/19 10:00 09/02/19 09:19 Amlodipine PO 10 mg DAILY JEN Administration Calcitriol 0.5 mcg 08/24/19 11:00 09/02/19 09:19 Rocaltrol PO 0.5 mcg QDAY JEN Administration Cholecalciferol 5,000 unit 08/23/19 10:00 09/02/19 09:20 Vitamin D3 PO 5,000 unit DAILY JEN Administration Dextrose 0 ml 08/21/19 22:16 08/22/19 08:12 D50w (25gm) Syringe IV 50 ml Q30MIN PRN Administration Hypoglycemia Protocol Diphenhydramine HCl 25 mg 08/26/19 19:48 08/30/19 00:12 Benadryl IV 25 mg Q3H PRN Administration Itching Epoetin Doug 10,000 unit 08/22/19 12:14 08/31/19 13:11 Procrit IV 10,000 unit JEN PRN Administration hemodialysis Heparin Sodium (Porcine) 5,000 unit 08/22/19 06:00 09/02/19 05:41 Heparin SUB-Q 5,000 unit Q8HR JEN Administration Hydralazine HCl 10 mg 08/22/19 03:45 08/27/19 14:49 Apresoline IV 10 mg Q6H PRN Administration Blood Pressure Sodium Chloride 100 mls @ 999 mls/hr 09/01/19 13:04 Nacl 0.9% IV JEN PRN Hypotension Insulin Human Lispro 0 unit 08/22/19 16:30 09/02/19 07:30 Humalog SUB-Q 3 unit ACHS JEN Administration Protocol Loperamide HCl 2 mg 08/28/19 09:07 Imodium PO Q2H PRN Diarrhea Lorazepam 0.5 mg 08/24/19 15:29 09/02/19 05:42 Ativan IV 0.5 mg Q8HR PRN Administration Nausea Metoclopramide HCl 10 mg 09/01/19 12:34 09/02/19 09:19 Reglan IV 10 mg Q6H PRN Administration Nausea And Vomiting Ondansetron HCl 4 mg 08/24/19 13:08 09/01/19 08:06 Zofran IV 4 mg Q4H PRN Administration Nausea And Vomiting Pantoprazole Sodium 40 mg 09/01/19 22:00 09/02/19 09:19 Protonix IV 40 mg BID JEN Administration Sodium Chloride 10 ml 08/22/19 10:00 09/02/19 09:20 Sodium Chloride Flush Syringe 10 Ml IV 10 ml BID JEN Administration Sodium Chloride 10 ml 08/21/19 22:16 08/30/19 00:12 Sodium Chloride Flush Syringe 10 Ml IV 10 ml PRN PRN Administration LINE FLUSH
--- NOTE | 2019-09-02 12:39 | Progress Note ---
Assessment and Plan /Acute hypoxic respiratory failure; not POA Code met was called on 08/26, symptoms secondary to fluid overload, improved after hemodialysis - now on N/C Respiratory therapy managed with noninvasive ventilation Patient's blood pressures blood sugars O2 sats within normal range /Toxic metabolic encephalopathy Secondary to uremia ,hypoglycemia. Osteomyelitis, underlying disease process. Closely monitor, treat the underlying cause Haldol as needed. sitter at bedside for safety /Heme positive stool/hematemesis: GI evaluated the patient, closely monitor H&H Clear liquids and supportive care /Intractable nausea and vomiting likely from gastroparesis Antiemetics , IV Protonix GI consult , check CT abdomen if no improvement . 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 Closely monitor blood sugars /Left great toe ischemic ulcer Patient has been placed on empiric IV antibiotics. Possible osteomyelitis of left great toe on x-ray, but MRI r/o osteo Consulted wound care, surgeon Dr. Rosa and vascular Stopped abx today, follow vascular recommendation /Acute Diarrhea: started from 08/27 Stool study negative. started Questran bid, continue Loperamide prn GI following -- DVT prophylaxis Patient placed on subcutaneous heparin. -- Full code status Monitor closely and adjust management as needed Plan of care reviewed with the patient and his nurse 08/24/2019; patient developed hematemesis intractable nausea vomiting Placed n.p.o., IV fluids IV Protonix, GI consult, monitor H&H Initiated hemodialysis 08/22, HD per schedule 08/25/19; patient has heme positive stool, GI evaluation noted Continues to have intractable nausea vomiting, supportive care 08/26/19; patient is agitated and restless requiring restraints Continues to have nausea vomiting, GI following 08/27/19; brief episode of hypoxic respiratory failure, resolved after hemodialysis Outpatient HD chair scheduling, follow MRI of left great toe/rule out osteomyelitis 08/27" resumed care. MRI LE pending. off biPAP. developed diarrhea o/n. Discusse d with Dr Rosa 08/28: MRI LE/left great toe showed no possible osteomylitis, will wait for vascular recommendation. 08/29: Reconsulted vascular surgeon for abnormal arterial Doppler study, wait for further recommendation. Stool study negative. started Questran bid, continue Loperamide prn and rectal tube for diarrhea. Stopped abx per ID 08/30: pending vascular recommendation. DC planning when clinically stable and diarrhea resolves. Patient still on rectal tube 08/31: c/o nausea and abdominal pain. will change Protonix to IV and also start on Reglan. We will also get a plain abdominal x-ray to rule out ileus. Per vascular no need for any further intervention, continue medical management for lower extremity ulcers. 09/01; d/c tobin, nausea improved. ambulate, assess for home O2. discussed with daughter, if clinically stable posible d/c home in the am Disposition; follow clinically, patient illegal, will be very difficult to set up outpatient HD. CM assisting with DC planning. Discharge when stable Brief history; 59-year-old male patient [place] status issues, with history of hypertension, diabetes mellitus, chronic kidney disease was admitted through emergency room, With intractable nausea vomiting and abdominal pain of one-week duration.Patient's work-up is consistent with chronic kidney disease/ESRD. Nephrology evaluated initiated hemodialysis. Patient is agitated and restless sometimes requiring restraints . Patient also had hematemesis and heme positive stool, evaluated by GI, conservative management recommended Disposition; patient needs outpatient HD chair scheduling, follow GI recommendations, DC when stable Hospitalist Physical General appearance: Present: no distress, well-nourished, - EENT Eyes: Present: PERRL, EOM intact - Neck Neck: Present: supple, normal ROM - Respiratory Respiratory effort: normal Respiratory: bilateral: diminished, rales, negative: rhonchi, wheezing - Cardiovascular Rhythm: regular Heart Sounds: Present: S1 & S2 - Extremities Extremities: no ischemia, No edema - Abdominal General gastrointestinal: soft, non-tender, non-distended, normal bowel sounds - Integumentary Integumentary: Present: clear, warm - Psychiatric Psychiatric: sitter at place, other (more oriented now, cooperative) - Neurologic Neurologic: moves all extremities, other (communicative) Subjective Date of service: 09/02/19 Principal diagnosis: N/V Objective - Constitutional Vitals: Vital Signs - 12hr 09/02/19 09/02/19 09/02/19 04:55 07:28 09:12 Temperature 97.3 F L 98.2 F Pulse Rate 86 88 Pulse Rate [ Apical] Pulse Rate [ Radial] Pulse Rate [ Right Radial] Respiratory 17 17 Rate Blood Pressure 164/86 159/82 O2 Sat by Pulse 97 97 94 Oximetry 09/02/19 09/02/19 09/02/19 09:19 10:00 11:38 Temperature 98.4 F Pulse Rate 86 87 89 Pulse Rate [ 88 Apical] Pulse Rate [ 88 Radial] Pulse Rate [ 88 Right Radial] Respiratory 19 17 Rate Blood Pressure 158/76 133/72 O2 Sat by Pulse 92 Oximetry - Labs CBC & Chem 7: 09/02/19 05:40 09/02/19 05:40 Labs: Abnormal lab results 09/01/19 09/01/19 09/02/19 Range/Units 16:41 21:33 05:40 WBC 12.4 H (4.5-11.0) K/mm3 RBC 3.46 L (3.65-5.03) M/mm3 Hgb 9.6 L (11.8-15.2) gm/dl Hct 29.7 L (35.5-45.6) % Seg Neuts % (Manual) 84.0 H (40.0-70.0) % Lymphocytes % (Manual) 8.0 L (13.4-35.0) % Nucleated RBC % 1.0 H (0.0-0.9) % Seg Neutrophils # Man 10.4 H (1.8-7.7) K/mm3 Lymphocytes # (Manual) 1.0 L (1.2-5.4) K/mm3 Chloride (98-107) mmol/L BUN (9-20) mg/dL Creatinine (0.8-1.5) mg/dL Glucose (75-100) mg/dL POC Glucose 211 H 219 H (70-105) 09/02/19 09/02/19 09/02/19 Range/Units 05:40 07:36 11:50 WBC (4.5-11.0) K/mm3 RBC (3.65-5.03) M/mm3 Hgb (11.8-15.2) gm/dl Hct (35.5-45.6) % Seg Neuts % (Manual) (40.0-70.0) % Lymphocytes % (Manual) (13.4-35.0) % Nucleated RBC % (0.0-0.9) % Seg Neutrophils # Man (1.8-7.7) K/mm3 Lymphocytes # (Manual) (1.2-5.4) K/mm3 Chloride 97.7 L (98-107) mmol/L BUN 49 H (9-20) mg/dL Creatinine 7.6 H (0.8-1.5) mg/dL Glucose 236 H (75-100) mg/dL POC Glucose 235 H 219 H (70-105)
[2019-09-03] MEDS: HEPARIN 5,000 UNIT/1 ML VIAL SUB-Q SCH ×2 (05:39→14:20)
--- NOTE | 2019-09-03 09:23 | Progress Note ---
Assessment and Plan Impression: * TASHA on CKD with progression to ESRD suspected * metabolic acidosis * hyperkalemia * HTN * Hypoglycemia * Type 2 DM * Seizure activity * Uremia * Hypocalcemia * Hypoalbuminia * Secondary Hyperparathyroidism * Anemia in CKD Plan: * Initiated hemodialysis for uremia, electrolyte abnormalities, likely progression to ESRD; continue HD q MWF at this time unless otherwise indicated, due for HD today * Potentially with ongoing uremic symptoms with nausea, vomiting, altered mentation with improvement with extra HD on 08/31. Will run HD for 4 hours at this time * Continue UF with HD as tolerated * case management for outpatient dialysis placement, may be difficult with immigration status * strict i/os * appreciate ID, vascular surgery input * Reviewed CT, no hydronephrosis or evidence of acute obstruction * Daily renal lytes * dose meds per renal function * Renal diet as able * Continue calcitriol with HD; use 2.5 meq Ca bath given improved Ca * Continue ESAs prn TIW with HD * Anti-emetics prn Subjective Date of service: 09/03/19 Principal diagnosis: N/V Interval history: No acute issues noted, no more vomiting noted this AM Objective - Exam Narrative Exam: General: no acute distress, cooperative Head: Atraumatic Eyes: pupils equal and reactive to light, intermittent left-sided gaze ENT: Moist mucous membranes Neck: Normal appearance Chest: Clear to auscultation bilaterally, on NC CV: Regular rate and rhythm Abdomen: Soft, normal bowel sounds, nontender, nondistended Extremity: Infection with dark discoloration to the tip of left and right great toe Neuro: Alert, moves extremities spontaneously Skin: No rash - Vital Signs Vital signs: Vital Signs - 12hr 09/02/19 09/02/19 09/03/19 21:38 22:59 04:35 Temperature 97.5 F L 97.7 F Pulse Rate 86 89 Respiratory 18 18 Rate Blood Pressure 150/78 153/86 O2 Sat by Pulse 98 96 96 Oximetry - Lab 09/02/19 05:40 09/02/19 05:40 Most recent lab results ABG pH 7.441 pH Units (7.350-7.450) 08/27/19 09:08 ABG pCO2 36.6 mm Hg 08/27/19 09:08 ABG pO2 83.6 mm Hg (80.0-90.0) 08/27/19 09:08 ABG HCO3 24.4 mmol/L (20.0-26.0) 08/27/19 09:08 ABG O2 Saturation 97.1 % (95.0-99.0) 08/27/19 09:08 Calcium 9.8 mg/dL (8.4-10.2) D 09/02/19 05:40 Magnesium 2.20 mg/dL (1.7-2.3) 08/24/19 04:32 Urine Creatinine 392.1 mg/dL (0.1-20.0) H 08/21/19 Unknown Urine Sodium 10 mmol/L 08/21/19 Unknown Medications & Allergies - Medications Allergies/Adverse Reactions: Allergies No Known Allergies Allergy (Unverified 08/21/19 16:42) Home Medications: Home Medications Medication Instructions Recorded Confirmed Last Taken Type Cholecalciferol (Vitamin D3) 5,000 unit PO DAILY 08/21/19 08/22/19 Unknown History [Vitamin D3] Loratadine 10 mg PO QDAY 08/21/19 08/21/19 Unknown History amLODIPine [Norvasc] 10 mg PO DAILY 08/21/19 08/21/19 Unknown History glipiZIDE [Glucotrol] 10 mg PO BID 08/21/19 08/22/19 Unknown History hydroCHLOROthiazide [HCTZ] 25 mg PO QDAY 08/21/19 08/21/19 Unknown History Active Medications: Generic Name Dose Route Start Last Admin Trade Name Freq PRN Reason Stop Dose Admin Acetaminophen 650 mg 08/21/19 22:16 08/23/19 21:55 Tylenol PO 650 mg Q4H PRN Administration Pain MILD(1-3)/Fever >100.5/MCKEON Albumin Human 25 gm 08/22/19 12:14 Alburx 25% (Albumin) IV JEN PRN Hypotension Amlodipine Besylate 10 mg 08/23/19 10:00 09/02/19 09:19 Amlodipine PO 10 mg DAILY JEN Administration Calcitriol 0.5 mcg 08/24/19 11:00 09/02/19 09:19 Rocaltrol PO 0.5 mcg QDAY JEN Administration Cholecalciferol 5,000 unit 08/23/19 10:00 09/02/19 09:20 Vitamin D3 PO 5,000 unit DAILY JEN Administration Dextrose 0 ml 08/21/19 22:16 08/22/19 08:12 D50w (25gm) Syringe IV 50 ml Q30MIN PRN Administration Hypoglycemia Protocol Diphenhydramine HCl 25 mg 08/26/19 19:48 08/30/19 00:12 Benadryl IV 25 mg Q3H PRN Administration Itching Epoetin Doug 10,000 unit 08/22/19 12:14 08/31/19 13:11 Procrit IV 10,000 unit JEN PRN Administration hemodialysis Heparin Sodium (Porcine) 5,000 unit 08/22/19 06:00 09/03/19 05:39 Heparin SUB-Q 5,000 unit Q8HR JEN Administration Hydralazine HCl 10 mg 08/22/19 03:45 08/27/19 14:49 Apresoline IV 10 mg Q6H PRN Administration Blood Pressure Sodium Chloride 100 mls @ 999 mls/hr 09/01/19 13:04 Nacl 0.9% IV JEN PRN Hypotension Insulin Human Lispro 0 unit 08/22/19 16:30 09/02/19 21:12 Humalog SUB-Q 6 unit ACHS JEN Administration Protocol Loperamide HCl 2 mg 08/28/19 09:07 Imodium PO Q2H PRN Diarrhea Lorazepam 0.5 mg 08/24/19 15:29 09/02/19 05:42 Ativan IV 0.5 mg Q8HR PRN Administration Nausea Metoclopramide HCl 10 mg 09/01/19 12:34 09/02/19 09:19 Reglan IV 10 mg Q6H PRN Administration Nausea And Vomiting Ondansetron HCl 4 mg 08/24/19 13:08 09/01/19 08:06 Zofran IV 4 mg Q4H PRN Administration Nausea And Vomiting Pantoprazole Sodium 40 mg 09/01/19 22:00 09/02/19 21:12 Protonix IV 40 mg BID JEN Administration Sodium Chloride 10 ml 08/22/19 10:00 09/02/19 21:13 Sodium Chloride Flush Syringe 10 Ml IV 10 ml BID JEN Administration Sodium Chloride 10 ml 08/21/19 22:16 08/30/19 00:12 Sodium Chloride Flush Syringe 10 Ml IV 10 ml PRN PRN Administration LINE FLUSH
[2019-09-03] MEDS: ONDANSETRON 4 MG/2 ML INJ IV PRN (09:30)
[2019-09-03] MEDS: INSULIN LISPRO 100 UNIT/ML SUB-Q SCH ×4 (10:05→18:17)
[2019-09-03] MEDS: PANTOPRAZOLE 40 MG INJ IV SCH (10:24)
[2019-09-03] MEDS: CHOLECALCIFEROL (VIT D3) 5,000 UNIT TAB PO SCH (10:24)
[2019-09-03] MEDS: CALCITRIOL 0.5 MCG CAP PO SCH (10:24)
[2019-09-03] MEDS: amLODIPine 10 MG TAB PO SCH (10:28)
--- NOTE | 2019-09-03 14:47 | Discharge Summary ---
Providers - Providers Date of Admission: 08/21/19 22:05 Date of discharge: 09/03/19 Attending physician: YESICA DURBIN 08/21/19 21:42 Consult to Physician [CONS] Urgent Comment: Consulting Provider: DIONISIO FAULKNER Physician Instructions: Reason For Exam: acute on chronic renal failure 08/21/19 22:16 Consult to Dietitian/Nutrition [CONS] Routine Physician Instructions: Reason For Exam: Reason for Consult: Diet education 08/22/19 08:00 Consult to Wound/ET Nurse [CONS] Routine Reason For Exam: wound eval 08/22/19 12:13 Consult to Physician [CONS] Routine Comment: Consulting Provider: KAITY FERNANDEZ Physician Instructions: Reason For Exam: vasc cath placement 08/24/19 12:54 Consult to Physician [CONS] Routine Comment: Consulting Provider: BAY ROSA Physician Instructions: Reason For Exam: lt great toe susp.osteomyelitis 08/24/19 12:56 Consult to Physician [CONS] Routine Comment: Consulting Provider: JADE GUPTA Physician Instructions: Reason For Exam: hematemesis 08/28/19 09:12 Consult to Physician [CONS] Routine Comment: Consulting Provider: RENEE VEGA Physician Instructions: Reason For Exam: osteomylitis 08/29/19 10:42 Speech Therapy Evaluation and Treat [CONS] Routine Reason For Exam: coughing with po intake 08/30/19 15:33 Consult to Physician [CONS] Routine Comment: Consulting Provider: JUANA FLORES Physician Instructions: Reason For Exam: Abnormal arterial Doppler study Primary care physician: SMART ENERGY SPECIALIST Hospitalization Condition: Stable Pertinent studies: Foot x-ray, abdomen pelvis CT, chest x-ray, head CT, lower extremity arterial Doppler, lower extremity MRI, abdomen x-rays Procedures: PermCath placement Hospital course: 59-year-old male patient [place] issues, with history of hypertension, diabetes mellitus, chronic kidney disease was admitted through emergency room on 08/21/19, With intractable nausea vomiting and abdominal pain of one-week duration. Patient's work-up was consistent with chronic kidney disease/ESRD. Nephrology evaluated initiated hemodialysis. Patient was intermittent agitated and restless sometimes required restraints. Patient also had hematemesis and heme positive stool, evaluated by GI, conservative management recommended. On 08/27/2019 patient developed acute respiratory failure required BiPAP, and eventually weaned off to nasal cannula after few rounds of hemodialysis. Patient now saturating greater than 94% in room air, no need for home O2. Mental status significantly improved and a at her baseline per family report, following commands. Physical therapy recommended subacute rehab, but patient is unfunded. His dialysis was also not able to set up as outpatient as patient is undocumented illegal alien. Family and patient was instructed to come back to hospital for his dialysis needs. Patient also noted chronic bilateral lower extremity wound, suspected osteomyelitis, MRI of the lower extremity showed no sign of osteomyelitis, suspected chronic wound due to chronic arterial ischemia. Vascular was consulted but recommended medical management and outpatient follow-up. Patient was then discharged home with family care in stable condition. Daily course: 08/21: Placed on PermCath by vascular and initiated hemodialysis per nephrology, continue to monitor renal function and mental status 08/22: Plan for hemodialysis again today, patient complains of nausea and vomiting -ordered for IV antiemetics. Continue to follow clinically 08/24/2019; patient developed hematemesis intractable nausea vomiting. Placed n.p.o., IV fluids IV Protonix, GI consult, monitor H&H, HD per schedule 08/25/19; patient has heme positive stool, GI evaluation noted Continues to have intractable nausea vomiting, supportive care 08/26/19; patient is agitated and restless requiring restraints Continues to have nausea vomiting, GI following 08/27/19; brief episode of hypoxic respiratory failure, resolved after hemodialysis Outpatient HD chair scheduling, follow MRI of left great toe/rule out os teomyelitis 08/27" resumed care. MRI LE pending. off biPAP. developed diarrhea o/n. Discussed with Dr Rosa 08/28: MRI LE/left great toe showed no possible osteomylitis, will wait for vascular recommendation. 08/29: Reconsulted vascular surgeon for abnormal arterial Doppler study, wait for further recommendation. Stool study negative. started Questran bid, continue Loperamide prn and rectal tube for diarrhea. Stopped abx per ID 08/30: pending vascular recommendation. DC planning when clinically stable and diarrhea resolves. Patient still on rectal tube 08/31: c/o nausea and abdominal pain. will change Protonix to IV and also start on Reglan. We will also get a plain abdominal x-ray to rule out ileus. Per vascular no need for any further intervention, continue medical management for lower extremity ulcers. 09/01; d/c tobin, nausea improved. ambulate, assess for home O2. discussed with daughter, if clinically stable posible d/c home in the am 09/02: Tolerated diet, no nausea vomiting or diarrhea. Able to ambulate from bed to chair. Discontinued Tobin. Discussed plan of care with family member and lead case manager. Discharged home in stable condition with family supervision. Family and patient instructed to come back to the hospital for his dialysis need. Home health order for wound care. Discharge diagnosis and management: /Acute hypoxic respiratory failure; not POA Code met was called on 08/26, symptoms secondary to fluid overload, improved after hemodialysis - now on N/C Respiratory therapy managed with noninvasive ventilation Patient's blood pressures blood sugars O2 sats within normal range /Toxic metabolic encephalopathy Secondary to uremia ,hypoglycemia. Osteomyelitis, underlying disease process. Closely monitor, treat the underlying cause Haldol as needed. sitter at bedside for safety /Heme positive stool/hematemesis: GI evaluated the patient, closely monitor H&H Clear liquids and supportive care /Intractable nausea and vomiting likely from gastroparesis Antiemetics , IV Protonix GI consult , check CT abdomen if no improvement . 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 Closely monitor blood sugars /DM type 2 -Recommended low-carb diet, A1c 7.1 -Started back on glipizide 5 mg daily on discharge -Recommended blood glucose check in the a.m. and at bedtime /Left great toe ischemic ulcer Patient has been placed on empiric IV antibiotics. Possible osteomyelitis of left great toe on x-ray, but MRI r/o osteo Consulted wound care, surgeon Dr. Rosa and vascular Stopped abx today, follow vascular recommendation /Acute Diarrhea: started from 08/27 Stool study negative. started Questran bid, continue Loperamide prn GI following -- DVT prophylaxis Patient placed on subcutaneous heparin. -- Full code status Disposition; d/c home with family support. patient illegal, could not set up outpatient HD. Patient will return back to the hospital for his dialysis need, home health is set up for his wound care. Hospitalist Physical General appearance: Present: no distress, well-nourished, - EENT Eyes: Present: PERRL, EOM intact - Neck Neck: Present: supple, normal ROM - Respiratory Respiratory effort: normal Respiratory: bilateral: diminished, rales, negative: rhonchi, wheezing - Cardiovascular Rhythm: regular Heart Sounds: Present: S1 & S2 - Extremities Extremities: no ischemia, No edema - Abdominal General gastrointestinal: soft, non-tender, non-distended, normal bowel sounds - Integumentary Integumentary: Present: clear, warm - Psychiatric Psychiatric: sitter at place, other (more oriented now, cooperative) - Neurologic Neurologic: moves all extremities, other (communicative) Disposition: DC/[place]-06 HOME UNDER HOME [facility] Time spent for discharge: 34 minutes Core Measure Documentation - Palliative Care Palliative Care/ Comfort Measures: Not Applicable Exam - Constitutional Vitals: Temp Pulse Resp BP Pulse Ox 98.7 F 86 18 144/81 97 09/03/19 07:18 09/03/19 11:10 09/03/19 07:18 09/03/19 11:10 09/03/19 07:18 Plan Activity: fall precautions Weight Bearing Status: Non-Weight Bearing Diet: diabetic, renal, low carbohydrate Special Instructions: restrict fluid intake to (1.2L daily), record daily weights, record blood sugar diary Follow up with: PRIMARY CARE, [Primary Care Provider] - 3-5 Days GUANACO SCHNEIDER MD [Staff Physician] - 7 Days Prescriptions: amLODIPine 10 mg PO DAILY #30 glipiZIDE [Glucotrol] 5 mg PO QDAY #30 tablet Aspirin EC [Halfprin EC] 81 mg PO QDAY #30 tablet. Pantoprazole [Protonix] 40 mg PO QDAY #30 tablet Metoclopramide HCl [Reglan TAB] 5 mg PO TIDAC #60 tablet calcitrioL [Rocaltrol] 0.5 mcg PO QDAY #30 capsule Cholecalciferol (Vitamin D3) [Vitamin D3] 5,000 unit PO DAILY #30 Other Discharge Orders: Glucometer (Amb) Location: None Selected Glucometer supplies[Amb] Location: None Selected
[2019-09-03] MEDS: EPOETIN ALFA 10,000 UNIT/1 ML INJ IV PRN (15:30)
[2019-09-03 16:52] VITALS: BP 116/60
== END 2019-09-03 18:40 | disposition home health service (06) | DRG 673 ==
LOC: ED 16:31 → 4A 22:05
PROVIDERS: ADMIT Internal Medicine Geriatric Medicine; ATTEND Internal Medicine
PROC: 0JH63XZ Insertion of Tunneled Vascular Access Device into Chest Subcutaneous Tissue and Fascia, Percutaneous Approach (ICD-10-PCS; 2019-08-22)
PROC: 5A1D70Z Performance of Urinary Filtration, Intermittent, Less than 6 Hours Per Day (ICD-10-PCS; 2019-08-22)
PROC: 02H633Z Insertion of Infusion Device into Right Atrium, Percutaneous Approach (ICD-10-PCS; 2019-08-22)
PROC: B5181ZA Fluoroscopy of Superior Vena Cava using Low Osmolar Contrast, Guidance (ICD-10-PCS; 2019-08-22)
PROC: 5A1D70Z Performance of Urinary Filtration, Intermittent, Less than 6 Hours Per Day (ICD-10-PCS; 2019-08-23)
PROC: 5A1D70Z Performance of Urinary Filtration, Intermittent, Less than 6 Hours Per Day (ICD-10-PCS; 2019-08-24)
PROC: 5A1D70Z Performance of Urinary Filtration, Intermittent, Less than 6 Hours Per Day (ICD-10-PCS; 2019-08-25)
PROC: 4A033R1 Measurement of Arterial Saturation, Peripheral, Percutaneous Approach (ICD-10-PCS; principal; 2019-08-27)
PROC: 5A1D70Z Performance of Urinary Filtration, Intermittent, Less than 6 Hours Per Day (ICD-10-PCS; 2019-08-27)
PROC: 5A09357 Assistance with Respiratory Ventilation, Less than 24 Consecutive Hours, Continuous Positive Airway Pressure (ICD-10-PCS; 2019-08-27)
PROC: 5A09357 Assistance with Respiratory Ventilation, Less than 24 Consecutive Hours, Continuous Positive Airway Pressure (ICD-10-PCS; 2019-08-28)
PROC: 5A1D70Z Performance of Urinary Filtration, Intermittent, Less than 6 Hours Per Day (ICD-10-PCS; 2019-08-29)
PROC: 5A09357 Assistance with Respiratory Ventilation, Less than 24 Consecutive Hours, Continuous Positive Airway Pressure (ICD-10-PCS; 2019-08-29)
PROC: 5A1D70Z Performance of Urinary Filtration, Intermittent, Less than 6 Hours Per Day (ICD-10-PCS; 2019-08-31)
PROC: 5A1D70Z Performance of Urinary Filtration, Intermittent, Less than 6 Hours Per Day (ICD-10-PCS; 2019-09-01)
PROC: 5A1D70Z Performance of Urinary Filtration, Intermittent, Less than 6 Hours Per Day (ICD-10-PCS; 2019-09-03)
DX: N17.9 Acute kidney failure, unspecified (principal); G92 Toxic encephalopathy; E43 Unspecified severe protein-calorie malnutrition; J96.01 Acute respiratory failure with hypoxia; M86.10 Other acute osteomyelitis, unspecified site; I12.0 Hypertensive chronic kidney disease with stage 5 chronic kidney disease or end stage renal disease; E87.2 Acidosis; K92.0 Hematemesis; R65.10 Systemic inflammatory response syndrome (SIRS) of non-infectious origin without acute organ dysfunction; N18.6 End stage renal disease; N25.81 Secondary hyperparathyroidism of renal origin; R41.82 Altered mental status, unspecified; E11.22 Type 2 diabetes mellitus with diabetic chronic kidney disease; E11.649 Type 2 diabetes mellitus with hypoglycemia without coma; E87.5 Hyperkalemia; R56.9 Unspecified convulsions; D63.1 Anemia in chronic kidney disease; E83.51 Hypocalcemia; E88.09 Other disorders of plasma-protein metabolism, not elsewhere classified; I73.9 Peripheral vascular disease, unspecified; L97.519 Non-pressure chronic ulcer of other part of right foot with unspecified severity; L97.522 Non-pressure chronic ulcer of other part of left foot with fat layer exposed; E11.43 Type 2 diabetes mellitus with diabetic autonomic (poly)neuropathy; K31.84 Gastroparesis; Z71.3 Dietary counseling and surveillance; Z68.30 Body mass index [BMI] 30.0-30.9, adult; Z99.2 Dependence on renal dialysis; Z79.4 Long term (current) use of insulin
CPT/HCPCS: 36415; 36558; 36600; 70450; 71045; 73721; 74018; 74176; 76937; 77001; 80048; 80053; 80074; 80202; 80307; 81001; 82270; 82436; 82570; 82728; 82803; 82947; 82962; 83036; 83550; 83690; 83735; 83935; 83970; 84165; 84300; 85007; 85025; 85610; 85652; 86140; 87040; 87045; 87086; 93005; 93925; 94660; 94760; G0378; C1750; C9113; J0360; J0500; J0696; J0885; J1200; J1630; J1644; J1815; J2060; J2250; J2405; J2765; J3010; J3370; J7030; J7040; J7042; J7050; P9047

== ENCOUNTER 2019-09-05 11:24 | Inpatient (IN) | payer OTHER ==
--- NOTE | 2019-09-05 11:55 | Event Note ---
ED Screening Note ED Screening Note: to main per RN- not seeing in secondary CN aware last K 4.2 days ago This initial assessment/diagnostic orders/clinical plan/treatment(s) is/are subject to change based on patients health status, clinical progression and re- assessment by fellow clinical providers in the ED. Further treatment and workup at subsequent clinical providers discretion. Patient/guardian urged not to elope from the ED as their condition may be serious if not clinically assessed and managed. Initial orders include:
--- NOTE | 2019-09-05 17:29 | Emergency Department Report ---
ED General Adult HPI - General Chief complaint: Nausea/Vomiting/Diarrhea Stated complaint: VOMIT PUI?: No Time Seen by Provider: 09/05/19 17:24 Source: patient Mode of arrival: Wheelchair Limitations: Language Barrier - History of Present Illness Initial comments: Patient is a 59-year-old male that presents emergency room for missed dialysis and nausea vomiting. Patient states he has not had dialysis for 3 days. Patient states he has not stopped vomiting for 3 weeks. Patient was just seen here on 09/02 for acute on chronic renal failure. Patient denies abdominal pain. Patient denies chest pain or shortness of breath.. Patient denies diarrhea. Patient denies blood in his vomitus. Patient states he is vomiting multiple times per day. Patient states he is feeling weak because of it. Patient denies recent travel. Patient denies recent international travel. Patient denies exposure to the novel coronavirus. Patient denies sick contacts. Patient denies fever and chills. Patient denies cough. Patient denies diarrhea. Patient denies coming in contact with anybody with symptoms of the novel coronavirus. -: Sudden Severity scale (0 -10): 0 Associated Symptoms: loss of appetite, nausea/vomiting, weakness. denies: confu caitlin, chest pain, cough, diaphoresis, fever/chills, headaches, malaise, rash, seizure, shortness of breath, syncope - Related Data Previous Rx's Medication Instructions Recorded Last Taken Type Aspirin EC [Halfprin EC] 81 mg PO QDAY #30 tablet. 09/03/19 Unknown Rx Cholecalciferol (Vitamin D3) 5,000 unit PO DAILY #30 09/03/19 Unknown Rx [Vitamin D3] Metoclopramide HCl [Reglan TAB] 5 mg PO TIDAC #60 tablet 09/03/19 Unknown Rx Pantoprazole [Protonix] 40 mg PO QDAY #30 tablet 09/03/19 Unknown Rx amLODIPine 10 mg PO DAILY #30 09/03/19 Unknown Rx calcitrioL [Rocaltrol] 0.5 mcg PO QDAY #30 capsule 09/03/19 Unknown Rx glipiZIDE [Glucotrol] 5 mg PO QDAY #30 tablet 09/03/19 Unknown Rx Allergies Allergy/AdvReac Type Severity Reaction Status Date / Time No Known Allergies Allergy Unverified 08/21/19 16:42 ED Review of Systems ROS: Stated complaint: VOMIT Other details as noted in HPI Constitutional: weakness. denies: chills, fever Eyes: denies: eye pain, eye discharge, vision change ENT: denies: ear pain, throat pain Respiratory: denies: cough, shortness of breath, wheezing Cardiovascular: denies: chest pain, palpitations Endocrine: no symptoms reported Gastrointestinal: as per HPI, nausea, vomiting. denies: abdominal pain, diarrhea Genitourinary: denies: urgency, dysuria Musculoskeletal: denies: back pain, joint swelling, arthralgia Skin: denies: rash, lesions Neurological: denies: headache, paresthesias Psychiatric: denies: anxiety, depression Hematological/Lymphatic: denies: easy bleeding, easy bruising ED Past Medical Hx - Past Medical History Previous Medical History?: Yes Hx Hypertension: Yes Hx Congestive Heart Failure: No Hx Diabetes: Yes (non insulin dependent) Hx Renal Disease: Yes Hx Asthma: No Hx COPD: No Hx Dementia: Yes - Surgical History Past Surgical History?: No - Family History Family history: no significant - Social History Smoking Status: Never Smoker Substance Use Type: None - Medications Home Medications: Home Medications Medication Instructions Recorded Confirmed Last Taken Type Aspirin EC [Halfprin EC] 81 mg PO QDAY #30 tablet.dr 09/03/19 Unknown Rx Cholecalciferol (Vitamin D3) 5,000 unit PO DAILY #30 09/03/19 Unknown Rx [Vitamin D3] Metoclopramide HCl [Reglan TAB] 5 mg PO TIDAC #60 tablet 09/03/19 Unknown Rx Pantoprazole [Protonix] 40 mg PO QDAY #30 tablet 09/03/19 Unknown Rx amLODIPine 10 mg PO DAILY #30 09/03/19 Unknown Rx calcitrioL [Rocaltrol] 0.5 mcg PO QDAY #30 capsule 09/03/19 Unknown Rx glipiZIDE [Glucotrol] 5 mg PO QDAY #30 tablet 09/03/19 Unknown Rx ED Physical Exam - General Limitations: Language Barrier General appearance: alert, in no apparent distress - Head Head exam: Present: atraumatic, normocephalic - Eye Eye exam: Present: normal appearance - ENT ENT exam: Present: mucous membranes moist - Neck Neck exam: Present: normal inspection - Respiratory Respiratory exam: Present: normal lung sounds bilaterally. Absent: respiratory distress - Cardiovascular Cardiovascular Exam: Present: regular rate, normal rhythm. Absent: systolic murmur, diastolic murmur, rubs, gallop - GI/Abdominal GI/Abdominal exam: Present: soft, normal bowel sounds - Rectal Rectal exam: Present: deferred - Extremities Exam Extremities exam: Present: normal inspection - Back Exam Back exam: Present: normal inspection - Neurological Exam Neurological exam: Present: alert, oriented X3 - Psychiatric Psychiatric exam: Present: normal affect, normal mood - Skin Skin exam: Present: warm, dry, intact, normal color. Absent: rash ED Course Vital Signs 09/05/19 09/05/19 09/05/19 17:30 17:37 17:48 Temperature 97.9 F 97.9 F Pulse Rate 88 78 Respiratory 22 22 22 Rate Blood Pressure 142/88 Blood Pressure 142/88 [Left] O2 Sat by Pulse 99 100 99 Oximetry - Reevaluation(s) Reevaluation #1: Patient still has nausea and vomiting. Patient will give another dose of Zofran. I discussed all results with patient. I discussed plan of care with patient. Patient agrees with plan of care and admission. Patient to be admitted to the hospitalist service. 09/05/19 21:19 - Consultations Consultation #1: Hospitalist consulted for admission. Hospitalist to admit patient. 09/05/19 21:19 Consultation #2: Infectious disease consult placed in the system. 09/05/19 21:20 ED Medical Decision Making - Lab Data Result diagrams: 09/05/19 17:11 09/05/19 21:55 - EKG Data -: EKG Interpreted by Ak EKG shows normal: sinus rhythm, axis, intervals, QRS complexes, ST-T waves Rate: normal - Radiology Data Radiology results: report reviewed CT OF THE ABDOMEN AND PELVIS WITHOUT CONTRAST INDICATION / CLINICAL INFORMATION: Abdominal pain with nausea and vomiting. TECHNIQUE: All CT scans at this location are performed using CT dose reduction for ALARA by means of automated exposure control. COMPARISON: 08/21/2019. FINDINGS: ABDOMEN: There are a couple of small accessory spleens. The liver, gallbladder, bile ducts, pancreas, adrenal glands and kidneys demonstrate no significant abnormality. There is a small sliding hiatal hernia. There is moderate groundglass parenchymal disease and centrilobular nodularity in both lower lung zones with relative peripheral sparing. No pleural effusion. PELVIS: The distal ureters, urinary bladder and prostate gland are normal. A normal appendix is present and there is no evidence of diverticulitis. No abnormal mass or fluid collection is seen. I do not identify a hernia. No acute osseous abnormality is seen. IMPRESSION: 1. No acute intra-abdominal disease is identified. 2. Interval development of moderate parenchymal disease in both lower lung zones, predominantly consisting of groundglass disease and centrilobular nodularity. Atypical causes of infection, including viral pneumonia should be considered. - Medical Decision Making Patient is a 59-year-old male that presents emergency room with complaints weakness and nausea vomiting and missed dialysis. Patient found to have intractable nausea vomiting. Patient given multiple doses of Zofran in the ER. Patient had a CT scan of the abdomen due to the intractable nausea and vomiting. Patient did not have any small or large bowel obstruction however the patient was found to have bilateral pneumonia in the base of the lungs. Due to the patient's symptoms we are concerned for COVID. Patient admitted to the hospital service for further evaluation treatment and intractable nausea and vomiting and rule out COVID. Patient found to have multiple lab abnormalities. - Differential Diagnosis Pneumonia, nausea vomiting, hyperkalemia, missed dialysis, weakness Critical Care Time: Yes Critical care time in (mins) excluding proc time.: 35 Critical care attestation.: If time is entered above; I have spent that time in minutes in the direct care of this critically ill patient, excluding procedure time. Critical Care Time: 35 minutes ED Disposition Clinical Impression: Suspected COVID-19 virus infection, Metabolic acidosis, Weakness, Dehydration Nausea & vomiting Qualifiers: Vomiting type: unspecified Vomiting Intractability: intractable Qualified Code(s): R11.2 - Nausea with vomiting, unspecified Pneumonia Qualifiers: Pneumonia type: due to unspecified organism Laterality: bilateral Lung location: unspecified part of lung Qualified Code(s): J18.9 - Pneumonia, unspecified organism Disposition: 09 OP ADMIT IP TO THIS HOSP Is pt being admited?: Yes Does the pt Need Aspirin: No Condition: Critical Time of Disposition: 21:10
[2019-09-05 18:34] LABS: Hematocrit 33.3 % (35.5-45.6); Hemoglobin 10.8 gm/dl (11.8-15.2); Mean Corpuscular HGB Conc 33 % (32-34); Mean Corpuscular Volume 86 fl (84-94); Platelet Count 454 K/mm3 (140-440); Red Blood Count 3.89 M/mm3 (3.65-5.03); Red Cell Distribution Width 14.7 % (13.2-15.2)
[2019-09-05 19:04] LABS: Albumin 3.9 g/dL (3.9-5); Calcium 9.9 mg/dL (8.4-10.2)
[2019-09-05] MEDS ORDERED: ONDANSETRON 4 MG/2 ML INJ IV ONE ×2 (19:27→21:07)
[2019-09-05] MEDS ORDERED: SODIUM CHLORIDE 0.9% 1000 ML 1,000 ML IV ONE (19:27)
--- NOTE | 2019-09-05 20:40 | Cat Scan Report ---
CT OF THE ABDOMEN AND PELVIS WITHOUT CONTRAST INDICATION / CLINICAL INFORMATION: Abdominal pain with nausea and vomiting. TECHNIQUE: All CT scans at this location are performed using CT dose reduction for ALARA by means of automated e xposure control. COMPARISON: 08/21/2019. FINDINGS: ABDOMEN: There are a couple of small accessory spleens. The liver, gallbladder, bile ducts, pancreas, adrenal glands and kidneys demonstrate no significant abnormality. There is a small sliding hiatal h ernia. There is moderate groundglass parenchymal disease and centrilobular nodularity in both lower l geovanni zones with relative peripheral sparing. No pleural effusion. PELVIS: The distal ureters, urinary bladder and prostate gland are normal. A normal appendix is prese nt and there is no evidence of diverticulitis. No abnormal mass or fluid collection is seen. I do not identify a hernia. No acute osseous abnormality is seen. IMPRESSION: 1. No acute intra-abdominal disease is identified. 2. Interval development of moderate parenchymal disease in both lower lung zones, predominantly consi sting of groundglass disease and centrilobular nodularity. Atypical causes of infection, including vi ral pneumonia should be considered. Signer Name: Giancarlo Martinez MD Signed: 09/05/2019 8:35 PM Workstation Name: [id number]
[2019-09-05] MEDS ORDERED: dexAMETHasone 4 MG/ML VIAL IV ONE (21:07)
[2019-09-05] MEDS ORDERED: AZITHROMYCIN 500 MG in SODIUM CHLORIDE 0.9% 250ML 250 ML IV ONE (21:07)
[2019-09-05] MEDS ORDERED: cefTRIAXone/NS 2 GM/100 ML 2 GM/100 ML BAG IV ONE (21:07)
--- NOTE | 2019-09-05 21:59 | XRay Report ---
CHEST 1 VIEW 9:24 PM INDICATION / CLINICAL INFORMATION: Weakness with nausea and vomiting. Chronic renal failure/dialysis patient. COMPARISON: 08/27/2019. FINDINGS: SUPPORT DEVICES: The position of the right jugular Vas-Cath has not changed. HEART / MEDIASTINUM: The heart size and pulmonary vasculature are normal. LUNGS / PLEURA: Moderate parenchymal disease in both central lung zones has almost completely cleared . There may be minimal residual interstitial edema in the right central lung. No pneumothorax. ADDITIONAL FINDINGS: No significant additional findings. IMPRESSION: Almost complete resolution of pulmonary edema since the prior study. Signer Name: Giancarlo Martinez MD Signed: 09/05/2019 9:55 PM Workstation Name: [id number]
[2019-09-05 22:38] LABS: C-Reactive Protein 5.9 mg/dL (0.00-1.30)
[2019-09-05] MEDS ORDERED: ACETAMINOPHEN 325 MG TAB PO PRN (23:50)
[2019-09-06] MEDS ORDERED: DEXTROSE 50% IN WATER (25GM) 50 ML SYRINGE IV PRN (00:05)
[2019-09-06] MEDS ORDERED: HEPARIN 5,000 UNIT/1 ML VIAL ONE (01:31)
[2019-09-06] MEDS ORDERED: dexAMETHasone 4 MG/ML VIAL ONE (01:31)
[2019-09-06] MEDS ORDERED: PROMETHAZINE 25 MG RECT SUPP PR ONE (01:32)
[2019-09-06] MEDS: dexAMETHasone 4 MG/ML VIAL IV SCH ×2 (01:40→05:53)
[2019-09-06] MEDS: PROMETHAZINE 25 MG RECT SUPP PR PRN ×2 (01:43→22:56)
[2019-09-06] MEDS: HEPARIN 5,000 UNIT/1 ML VIAL SUB-Q SCH ×3 (01:45→21:39)
--- NOTE | 2019-09-06 05:45 | History and Physical Report ---
History of Present Illness Date of examination: 09/05/19 Date of admission: 09/05/19 22:04 Chief complaint: Nausea, Vomiting and weakness History of present illness: 59 year old male presenting to the emergency room with nausea and vomiting after missing dialysis for 3 days. there is no chest pain but patient has dyspnea and no fever or cough. Past History Past Medical History: diabetes, heart failure, hypertension, other (DEMENTIA) Past Surgical History: No surgical history Social history: no significant social history Family history: no significant family history Medications and Allergies Allergies Allergy/AdvReac Type Severity Reaction Status Date / Time No Known Allergies Allergy Unverified 08/21/19 16:42 Home Medications Medication Instructions Recorded Confirmed Last Taken Type Aspirin EC [Halfprin EC] 81 mg PO QDAY #30 tablet. 09/03/19 Unknown Rx Cholecalciferol (Vitamin D3) 5,000 unit PO DAILY #30 09/03/19 Unknown Rx [Vitamin D3] Metoclopramide HCl [Reglan TAB] 5 mg PO TIDAC #60 tablet 09/03/19 Unknown Rx Pantoprazole [Protonix] 40 mg PO QDAY #30 tablet 09/03/19 Unknown Rx amLODIPine 10 mg PO DAILY #30 09/03/19 Unknown Rx calcitrioL [Rocaltrol] 0.5 mcg PO QDAY #30 capsule 09/03/19 Unknown Rx glipiZIDE [Glucotrol] 5 mg PO QDAY #30 tablet 09/03/19 Unknown Rx Active Meds: Active Medications Acetaminophen (Tylenol) 650 mg PO Q4H PRN PRN Reason: Fever >101 Dexamethasone (Decadron) 8 mg IV Q6HR JEN Last Admin: 09/06/19 01:40 Dose: 8 mg Documented by: Dextrose (D50w (25gm) Syringe) 0 ml IV Q30MIN PRN; Protocol PRN Reason: Hypoglycemia Heparin Sodium (Porcine) (Heparin) 5,000 unit SUB-Q Q12HR JEN Last Admin: 09/06/19 01:45 Dose: 5,000 unit Documented by: Azithromycin 500 mg/ Sodium (Chloride) 250 mls @ 250 mls/hr IV Q24HR JEN; Protocol Ceftriaxone Sodium (Rocephin/Ns 2 Gm/100 Ml) 2 gm in 100 mls @ 200 mls/hr IV Q24HR JEN; Protocol Insulin Human Regular (Humulin R) 0 units SUB-Q AC JEN; Protocol Insulin Human Regular (Humulin R) 0 units SUB-Q QHS JEN; Protocol Ondansetron HCl (Zofran) 4 mg IV Q8H PRN PRN Reason: Nausea And Vomiting Promethazine HCl (Phenergan) 25 mg [place] Q6H PRN PRN Reason: Nausea And Vomiting Last Admin: 09/06/19 01:43 Dose: 25 mg Documented by: Review of Systems Constitutional: weakness, no weight loss, no weight gain, no fever, no chills, no sweats, no malaise Eyes: bilateral: other (NO BILATERAL EYE SYMPTOM) Ears, nose, mouth and throat: no ear pain, no ear discharge, no decreased hearing, no nose pain, no nasal congestion, no nasal discharge, no sinus pressure, no bleeding gums, no dental pain, no mouth pain, no dysphagia, no hoarseness, no sore throat, no swelling in mouth Cardiovascular: shortness of breath, no chest pain, no orthopnea, no palpitations, no rapid/irregular heart beat, no edema, no syncope, no lightheadedness, no claudication, no high blood pressure Respiratory: shortness of breath, no cough, no excessive sputum, no congestion Gastrointestinal: nausea, vomiting, no abdominal pain, no diarrhea, no constipation, no change in bowel habits, no loss of appetite, no jaundice Genitourinary Male: flank pain, no hematuria, no discharge, no urinary frequency, no urinary hesitancy, no nocturia Rectal: no pain, no itching Musculoskeletal: no neck stiffness, no neck pain, no shooting arm pain, no arm numbness/tingling Integumentary: no rash, no pruritis, no redness, no sores, no wounds, no jaundice, no growths, no bullae, no lesions, no darkening of skin, no depigmentation, no acne Neurological: no head injury, no transient paralysis, no paralysis, no weakness, no parathesias, no numbness, no tingling, no seizures, no syncope, no tremors, no headaches, no migraines Psychiatric: no anxiety, no insomnia, no hypersomnia, no change in appetite, no change in libido, no suicidal ideation, no disorientation Endocrine: high blood sugars, no cold intolerance, no heat intolerance, no polyphagia, no excessive thirst, no polydipsia, no polyuria, no nocturia Hematologic/Lymphatic: no lymphadenopathy, no lymphedema Allergic/Immunologic: no urticaria Exam - Constitutional Vitals: Temp Pulse Resp BP Pulse Ox 98.4 F 107 H 17 189/114 97 09/06/19 04:51 09/06/19 04:54 09/06/19 04:54 09/06/19 04:54 09/06/19 04:54 General appearance: Present: no acute distress - EENT Eyes: Absent: scleral icterus ENT: hearing intact, clear oral mucosa - Neck Neck: Present: supple, normal ROM. Absent: rigidity, enlarged thyroid, carotid bruits - Respiratory Respiratory effort: normal, pursed lips - Cardiovascular Rhythm: regular Heart Sounds: Present: S1 & S2, gallop. Absent: systolic murmur, diastolic murmur - Extremities Extremities: no ischemia, No edema Peripheral Pulses: within normal limits - Abdominal General gastrointestinal: Present: soft, non-tender, non-distended. Absent: [place], distended, rigid, absent bowel sounds, hepatomegaly, splenomegaly Male genitourinary: Present: deferred - Rectal Rectal Exam: deferred - Integumentary Integumentary: Present: clear, warm, dry - Musculoskeletal Musculoskeletal: strength equal bilaterally - Psychiatric Psychiatric: appropriate mood/affect Results - Labs CBC & Chem 7: 09/05/19 17:11 09/05/19 21:55 Labs: Laboratory Last Values WBC 15.1 K/mm3 (4.5-11.0) H 09/05/19 17:11 RBC 3.89 M/mm3 (3.65-5.03) 09/05/19 17:11 Hgb 10.8 gm/dl (11.8-15.2) L 09/05/19 17:11 Hct 33.3 % (35.5-45.6) L 09/05/19 17:11 MCV 86 fl (84-94) 09/05/19 17:11 MCH 28 pg (28-32) 09/05/19 17:11 MCHC 33 % (32-34) 09/05/19 17:11 RDW 14.7 % (13.2-15.2) 09/05/19 17:11 Plt Count 454 K/mm3 (140-440) H 09/05/19 17:11 D-Dimer 4707.31 ng/mlDDU (0-234) H 09/05/19 21:55 Sodium 140 mmol/L (137-145) 09/05/19 17:11 Potassium 4.8 mmol/L (3.6-5.0) 09/05/19 17:11 Chloride 88.6 mmol/L (98-107) L 09/05/19 17:11 Carbon Dioxide 18 mmol/L (22-30) L 09/05/19 17:11 Anion Gap 38 mmol/L 09/05/19 17:11 BUN 88 mg/dL (9-20) H 09/05/19 17:11 Creatinine 12.9 mg/dL (0.8-1.5) H D 09/05/19 17:11 Estimated GFR 4 ml/min 09/05/19 17:11 BUN/Creatinine Ratio 7 % 09/05/19 17:11 Glucose 245 mg/dL (75-100) H 09/05/19 21:55 Calcium 9.9 mg/dL (8.4-10.2) 09/05/19 17:11 Phosphorus 11.70 mg/dL (2.5-4.5) H 09/05/19 17:11 Ferritin 448.1 ng/mL (13.0-400.0) H 09/05/19 21:55 Total Bilirubin 0.50 mg/dL (0.1-1.2) 09/05/19 17:11 AST 22 units/L (5-40) 09/05/19 17:11 ALT 21 units/L (7-56) 09/05/19 17:11 Alkaline Phosphatase 103 units/L (35-129) 09/05/19 17:11 Lactate Dehydrogenase 481 units/L (91-180) H 09/05/19 21:55 C-Reactive Protein 5.90 mg/dL (0.00-1.30) H 09/05/19 21:55 NT-Pro-B Natriuret Pep 87930 pg/mL (0-900) H 09/05/19 17:11 Total Protein 8.9 g/dL (6.3-8.2) H 09/05/19 17:11 Albumin 3.9 g/dL (3.9-5) 09/05/19 17:11 Albumin/Globulin Ratio 0.8 % 09/05/19 17:11 John/IV: Voiding Method Urinal IV Catheter Type [Right Chest] Peripheral IV Assessment and Plan - Patient Problems (1) Nausea and vomiting Current Visit: Yes Status: Acute Qualifiers: Vomiting type: unspecified Vomiting Intractability: intractable Qualified Code(s): R11.2 - Nausea with vomiting, unspecified Plan to address problem: 1. I.V ZOFRAN PRN NAUSEA AND VOMITING (2) Pneumonia Current Visit: Yes Status: Acute Qualifiers: Pneumonia type: due to unspecified organism Laterality: bilateral Lung location: unspecified part of lung Qualified Code(s): J18.9 - Pneumonia, unspecified organism Plan to address problem: 1. I.V ZITHROMAX 2. I.V ROCEPHIN 3. TYLENOL PO FOR FEVER AND HEADACHES 4. ROBITUSSIN FOR COUGH (3) Suspected COVID-19 virus infection Current Visit: Yes Status: Acute Plan to address problem: 1. COVID -19 TESTING 2. CONTACT AND DROPLET ISOLATION 3. INFECTIOUS DISEASE CONSULT 4. I.V DEXAMETHASONE (4) Acute on chronic renal failure Current Visit: No Status: Acute Plan to address problem: 1. NEPHROLOGY CONSULT FOR POSSIBLE DIALYSIS
[2019-09-06] MEDS: ONDANSETRON 4 MG/2 ML INJ IV PRN ×3 (05:50→21:39)
[2019-09-06] MEDS ORDERED: hydrALAZINE 20 MG/1 ML INJ IV ONE (08:11)
[2019-09-06] MEDS: INSULIN REGULAR, HUMAN 100 UNITS/1 ML SUB-Q SCH ×3 (09:02→17:53)
[2019-09-06] MEDS ORDERED: hydrALAZINE 20 MG/1 ML INJ IV PRN (09:32)
--- NOTE | 2019-09-06 09:45 | Consultation ---
History of Present Illness - Reason for Consult Consult date: 09/06/19 end stage renal disease - History of Present Illness patient with ESRD recently started on HD, presented yesterday to ER for worsening nausea and vomiting, he missed the last few days of HD treatment, CT A/P was negative for acute process but showed possible signs oif atypical infection and he is currently on isilation for possible COVID-19. renal consult was requested for HD management Past History Past Medical History: diabetes, heart failure, hypertension, other (DEMENTIA) Past Surgical History: No surgical history Social history: no significant social history Family history: no significant family history Medications and Allergies Allergies Allergy/AdvReac Type Severity Reaction Status Date / Time No Known Allergies Allergy Unverified 08/21/19 16:42 Home Medications Medication Instructions Recorded Confirmed Last Taken Type Aspirin EC [Halfprin EC] 81 mg PO QDAY #30 tablet. 09/03/19 09/06/19 09/05/19 Rx Cholecalciferol (Vitamin D3) 5,000 unit PO DAILY #30 09/03/19 09/06/19 09/05/19 Rx [Vitamin D3] Metoclopramide HCl [Reglan TAB] 5 mg PO TIDAC #60 tablet 09/03/19 09/06/19 09/05/19 Rx Pantoprazole [Protonix] 40 mg PO QDAY #30 tablet 09/03/19 09/06/19 09/05/19 Rx amLODIPine 10 mg PO DAILY #30 09/03/19 09/06/19 09/05/19 Rx calcitrioL [Rocaltrol] 0.5 mcg PO QDAY #30 capsule 09/03/19 09/06/19 09/05/19 Rx glipiZIDE [Glucotrol] 5 mg PO QDAY #30 tablet 09/03/19 09/06/19 09/05/19 Rx Active Meds: Active Medications Acetaminophen (Tylenol) 650 mg PO Q4H PRN PRN Reason: Fever >101 Amlodipine Besylate (Amlodipine) 10 mg PO DAILY JEN Aspirin (Halfprin Ec) 81 mg PO QDAY JEN Calcitriol (Rocaltrol) 0.5 mcg PO QDAY JEN Carvedilol (Coreg) 6.25 mg PO BID JEN Cholecalciferol (Vitamin D3) 5,000 unit PO DAILY JEN Dexamethasone (Decadron) 6 mg PO Q24HR JEN Dextrose (D50w (25gm) Syringe) 0 ml IV Q30MIN PRN; Protocol PRN Reason: Hypoglycemia Heparin Sodium (Porcine) (Heparin) 5,000 unit SUB-Q Q12HR JEN Last Admin: 09/06/19 01:45 Dose: 5,000 unit Documented by: Hydralazine HCl (Apresoline) 5 mg IV Q30MIN PRN PRN Reason: Hypertension SBP >/=160 Insulin Human Isoph/Insulin Regular (Humulin 70/30) 10 unit SUB-Q BIDDIAB JEN Insulin Human Regular (Humulin R) 0 units SUB-Q AC JEN; Protocol Last Admin: 09/06/19 09:02 Dose: 4 units Documented by: Insulin Human Regular (Humulin R) 0 units SUB-Q QHS [facility]; Protocol Metoclopramide HCl (Reglan) 5 mg PO TIDAC [facility] Ondansetron HCl (Zofran) 4 mg IV Q8H PRN PRN Reason: Nausea And Vomiting Last Admin: 09/06/19 05:50 Dose: 4 mg Documented by: Pantoprazole Sodium (Protonix) 40 mg PO QDAY [facility] Promethazine HCl (Phenergan) 25 mg [place] Q6H PRN PRN Reason: Nausea And Vomiting Last Admin: 09/06/19 01:43 Dose: 25 mg Documented by: Exam - Vital Signs Vital signs: Vital Signs Temp Pulse Resp BP Pulse Ox 97.9 F 88 22 142/88 99 09/05/19 17:30 09/05/19 17:30 09/05/19 17:30 09/05/19 17:30 09/05/19 17:30 Results - Lab Results 09/05/19 17:11 09/05/19 21:55 Most recent lab results Calcium 9.9 mg/dL (8.4-10.2) 09/05/19 17:11 Phosphorus 11.70 mg/dL (2.5-4.5) H 09/05/19 17:11 Assessment and Plan (1) Nausea and vomiting (2) Pneumonia (3) Suspected COVID-19 virus infection (4) ESRD on HD HD ordered tooday for clerance and volume removal via R permcath will assess dialysis needs daily strict I&O daily weight renally dose meds Serge Dolan MD [phone]
[2019-09-06] MEDS ORDERED: AZITHROMYCIN 500 MG in SODIUM CHLORIDE 0.9% 250ML 250 ML IV SCH (10:00)
[2019-09-06] MEDS ORDERED: cefTRIAXone/NS 2 GM/100 ML 2 GM/100 ML BAG IV SCH (10:00)
[2019-09-06] MEDS: METOCLOPRAMIDE 10 MG TAB PO SCH ×2 (13:19→17:51)
[2019-09-06] MEDS: CALCITRIOL 0.5 MCG CAP PO SCH (17:51)
[2019-09-06] MEDS: carvediloL 6.25 MG TAB PO SCH ×2 (17:51→21:39)
[2019-09-06] MEDS: CHOLECALCIFEROL (VIT D3) 5,000 UNIT TAB PO SCH (17:51)
[2019-09-06] MEDS: amLODIPine 10 MG TAB PO SCH (17:52)
[2019-09-06] MEDS: ASPIRIN EC 81 MG TAB PO SCH (17:52)
[2019-09-06] MEDS: INSULIN NPH/REGULAR 70/30 INJ SUB-Q SCH (17:52)
[2019-09-06] MEDS: PANTOPRAZOLE 40 MG TAB PO SCH (17:52)
[2019-09-06] MEDS ORDERED: INSULIN REGULAR, HUMAN 100 UNITS/1 ML SUB-Q SCH (22:00)
--- NOTE | 2019-09-06 23:59 | Progress Note ---
Assessment and Plan Nausea vomiting, likely due to gastroparesis Atypical pneumonia, will treat with zithromax for 5 days Suspected COVID-19 virus infection, ruled out End-stage renal disease requiring hemodialysis, has no outpatient dialysis set up Bilateral lower extremity chronic vascular ulcer, due to peripheral vascular disease, need outpatient wound care and vascular follow-up Anemia of chronic disease SIRS likely due to atypical pneumonia DM type 2, started on insulin - negative for COVID 19. SOB likely form volume overload. - s/p HD today. resume reglan. - will start on insulin for better glycemic control - DVT Px, place on zithromax for atypical PNA - monitor bmp, resume home meds - if clinically stable then plannned to d/c tomorrow after HD Subjective Date of service: 09/06/19 Interval history: Patient seen and examined s/p HD today and also planned for tomorrow negative for COVID 19 Breathing improved Objective - Exam Narrative Exam: General appearance: Present: no distress, well-nourished, - EENT Eyes: Present: PERRL, EOM intact - Neck Neck: Present: supple, normal ROM - Respiratory Respiratory effort: normal Respiratory: bilateral: diminished, rales, negative: rhonchi, wheezing - Cardiovascular Rhythm: regular Heart Sounds: Present: S1 & S2 - Extremities Extremities: no ischemia, No edema - Abdominal General gastrointestinal: soft, non-tender, non-distended, normal bowel sounds - Integumentary Integumentary: Present: clear, warm - Psychiatric Psychiatric: cooperative) - Neurologic Neurologic: moves all extremities, other (communicative) - Constitutional Vitals: Vital Signs - 12hr 09/06/19 09/06/19 09/06/19 12:00 12:15 12:30 Temperature Pulse Rate 98 H 140 H 96 H Respiratory Rate Blood Pressure 130/85 153/85 130/85 O2 Sat by Pulse Oximetry 09/06/19 09/06/19 09/06/19 12:45 13:00 13:15 Temperature Pulse Rate 98 H 104 H 97 H Respiratory Rate Blood Pressure 142/89 102/71 115/78 O2 Sat by Pulse Oximetry 09/06/19 09/06/19 13:30 14:23 Temperature 98.2 F 98.3 F Pulse Rate 98 H 100 H Respiratory 20 18 Rate Blood Pressure 136/78 131/82 O2 Sat by Pulse 96 Oximetry - Labs CBC & Chem 7: 09/07/19 05:07 09/07/19 05:07 Labs: Abnormal lab results 09/06/19 09/06/19 09/06/19 Range/Units 07:54 11:41 16:19 POC Glucose 317 H 274 H 214 H (70-105) 09/06/19 Range/Units 21:57 POC Glucose 156 H (70-105)
[2019-09-07 06:11] LABS: Basophils % (Auto) 0.3 % (0.0-1.8); Eosinophils % (Auto) 0.1 % (0.0-4.3); Hematocrit 28.2 % (35.5-45.6); Hemoglobin 9.4 gm/dl (11.8-15.2); Lymphocytes # (Auto) 1.4 K/mm3 (1.2-5.4); Lymphocytes % (Auto) 10.6 % (13.4-35.0); Mean Corpuscular HGB Conc 33 % (32-34); Mean Corpuscular Volume 84 fl (84-94); Monocytes # (Auto) 0.8 K/mm3 (0.0-0.8); Monocytes % (Auto) 5.8 % (0.0-7.3); Platelet Count 375 K/mm3 (140-440); Red Blood Count 3.34 M/mm3 (3.65-5.03); Red Cell Distribution Width 14.5 % (13.2-15.2)
[2019-09-07] MEDS: ONDANSETRON 4 MG/2 ML INJ IV PRN ×2 (06:36→14:06)
[2019-09-07 06:41] LABS: Calcium 8.8 mg/dL (8.4-10.2)
[2019-09-07] MEDS: METOCLOPRAMIDE 10 MG TAB PO SCH ×3 (08:42→18:15)
[2019-09-07] MEDS: INSULIN REGULAR, HUMAN 100 UNITS/1 ML SUB-Q SCH ×3 (09:17→18:15)
[2019-09-07] MEDS: HEPARIN 5,000 UNIT/1 ML VIAL SUB-Q SCH (09:21)
[2019-09-07] MEDS: PROMETHAZINE 25 MG RECT SUPP PR PRN (09:21)
[2019-09-07] MEDS: INSULIN NPH/REGULAR 70/30 INJ SUB-Q SCH ×2 (09:57→18:15)
[2019-09-07] MEDS: ASPIRIN EC 81 MG TAB PO SCH (09:58)
[2019-09-07] MEDS: CALCITRIOL 0.5 MCG CAP PO SCH (09:58)
[2019-09-07] MEDS: CHOLECALCIFEROL (VIT D3) 5,000 UNIT TAB PO SCH (09:59)
[2019-09-07] MEDS ORDERED: DEXAMETHASONE 2 MG TAB PO SCH (10:00)
[2019-09-07] MEDS: amLODIPine 10 MG TAB PO SCH (10:06)
[2019-09-07] MEDS: PANTOPRAZOLE 40 MG TAB PO SCH (10:06)
[2019-09-07] MEDS: carvediloL 6.25 MG TAB PO SCH (10:07)
--- NOTE | 2019-09-07 13:13 | Progress Note ---
Subjective Date of service: 09/07/19 Principal diagnosis: ESRD Interval history: tolerated HD well yesterday Objective - Vital Signs Vital signs: Vital Signs - 12hr 09/07/19 09/07/19 09/07/19 04:43 09:55 10:06 Temperature 98.2 F Pulse Rate 79 Respiratory 18 Rate Blood Pressure 101/55 133/80 130/80 O2 Sat by Pulse 97 Oximetry 09/07/19 10:07 Temperature Pulse Rate Respiratory Rate Blood Pressure 130/80 O2 Sat by Pulse Oximetry - Lab 09/07/19 05:07 09/07/19 05:07 Most recent lab results Calcium 8.8 mg/dL (8.4-10.2) 09/07/19 05:07 Phosphorus 11.70 mg/dL (2.5-4.5) H 09/05/19 17:11 Medications & Allergies - Medications Allergies/Adverse Reactions: Allergies No Known Allergies Allergy (Unverified 08/21/19 16:42) Home Medications: Home Medications Medication Instructions Recorded Confirmed Last Taken Type Aspirin EC [Halfprin EC] 81 mg PO QDAY #30 tablet. 09/03/19 09/06/19 09/05/19 Rx Cholecalciferol (Vitamin D3) 5,000 unit PO DAILY #30 09/03/19 09/06/19 09/05/19 Rx [Vitamin D3] Metoclopramide HCl [Reglan TAB] 5 mg PO TIDAC #60 tablet 09/03/19 09/06/19 09/05/19 Rx Pantoprazole [Protonix] 40 mg PO QDAY #30 tablet 09/03/19 09/06/19 09/05/19 Rx amLODIPine 10 mg PO DAILY #30 09/03/19 09/06/19 09/05/19 Rx calcitrioL [Rocaltrol] 0.5 mcg PO QDAY #30 capsule 09/03/19 09/06/19 09/05/19 Rx glipiZIDE [Glucotrol] 5 mg PO QDAY #30 tablet 09/03/19 09/06/19 09/05/19 Rx Active Medications: Generic Name Dose Route Start Last Admin Trade Name Freq PRN Reason Stop Dose Admin Acetaminophen 650 mg 09/05/19 23:50 Tylenol PO Q4H PRN Fever >101 Amlodipine Besylate 10 mg 09/06/19 10:00 09/07/19 10:06 Amlodipine PO 10 mg DAILY [facility] Administration Aspirin 81 mg 09/06/19 10:00 09/07/19 09:58 Halfprin Ec PO Not Given QDAY [facility] Calcitriol 0.5 mcg 09/06/19 10:00 09/07/19 09:58 Rocaltrol PO Not Given QDAY [facility] Carvedilol 6.25 mg 09/06/19 10:00 09/07/19 10:07 Coreg PO 6.25 mg BID [facility] Administration Cholecalciferol 5,000 unit 09/06/19 10:00 09/07/19 09:59 Vitamin D3 PO Not Given DAILY [facility] Dextrose 0 ml 09/06/19 00:05 D50w (25gm) Syringe IV Q30MIN PRN Hypoglycemia Protocol Heparin Sodium (Porcine) 5,000 unit 09/05/19 23:45 09/07/19 09:21 Heparin SUB-Q 5,000 unit Q12HR JEN Administration Hydralazine HCl 5 mg 09/06/19 09:32 Apresoline IV Q30MIN PRN Hypertension SBP >/=160 Insulin Human Isoph/Insulin Regular 10 unit 09/06/19 17:00 09/07/19 09:57 Humulin 70/30 SUB-Q Not Given BIDDIAB [facility] Insulin Human Regular 0 units 09/06/19 07:30 09/07/19 13:08 Humulin R SUB-Q Not Given AC [facility] Protocol Insulin Human Regular 0 units 09/06/19 22:00 09/06/19 22:56 Humulin R SUB-Q 1 units QHS JEN Administration Protocol Metoclopramide HCl 5 mg 09/06/19 11:30 09/07/19 13:09 Reglan PO Not Given TIDAC [facility] Ondansetron HCl 4 mg 09/05/19 23:52 09/07/19 06:36 Zofran IV 4 mg Q8H PRN Administration Nausea And Vomiting Pantoprazole Sodium 40 mg 09/06/19 10:00 09/07/19 10:06 Protonix PO 40 mg QDAY [facility] Administration Promethazine HCl 25 mg 09/06/19 00:10 09/07/19 09:21 Phenergan NM 25 mg Q6H PRN Administration Nausea And Vomiting
--- NOTE | 2019-09-07 14:36 | Discharge Summary ---
Providers - Providers Date of Admission: 09/05/19 22:04 Date of discharge: 09/07/19 Attending physician: YESICA DURBIN 09/05/19 21:18 Consult to Physician [CONS] Routine Comment: Consulting Provider: RENEE VEGA Physician Instructions: Reason For Exam: susp covid 09/06/19 05:39 Consult to Physician [CONS] Routine Comment: Consulting Provider: SUSHILA SEXTON Physician Instructions: Reason For Exam: ESRD ON DIALYSIS 09/06/19 09:32 Consult to Physician [CONS] Routine Comment: Consulting Provider: DIONISIO FAULKNER Physician Instructions: Reason For Exam: esrd Primary care physician: [employer] Hospitalization Condition: Critical Pertinent studies: CXR Hospital course: 59-year-old undocumented male with history of ESRD recently started on HD, diabetes mellitus presented to ER for worsening nausea and vomiting, he missed the last few days of HD treatment. In the ER CT Abdomen/Pelvis was negative for acute process but showed possible signs oif atypical infection. Patient was tested negative for COVID-19. Nephrology was consulted to resume dialysis. Because of his undocumented immigration status outpatient dialysis is not an option per case management. Patient was informed about that during his prior admission. His family member also aware of the situation. Following dialysis his symptom improved. Patient was then discharged home in stable condition and was informed to come back to the hospital for his dialysis need. Discharge diagnosis: Nausea vomiting, likely due to gastroparesis Atypical pneumonia, will treat with zithromax for 5 days Suspected COVID-19 virus infection, ruled out End-stage renal disease requiring hemodialysis, has no outpatient dialysis set up Bilateral lower extremity chronic vascular ulcer, due to peripheral vascular disease, need outpatient wound care and vascular follow-up Anemia of chronic disease SIRS likely due to atypical pneumonia DM type 2, recommended SSI as needed Disposition: - TO HOME OR SELFCARE Time spent for discharge: 34 minutes Core Measure Documentation - Palliative Care Palliative Care/ Comfort Measures: Not Applicable - Core Measures Any of the following diagnoses?: none Exam - Physical Exam Narrative exam: General appearance: Present: no distress, well-nourished, - EENT Eyes: Present: PERRL, EOM intact - Neck Neck: Present: supple, normal ROM - Respiratory Respiratory effort: normal Respiratory: bilateral: diminished, rales, negative: rhonchi, wheezing - Cardiovascular Rhythm: regular Heart Sounds: Present: S1 & S2 - Extremities Extremities: no ischemia, No edema - Abdominal General gastrointestinal: soft, non-tender, non-distended, normal bowel sounds - Integumentary Integumentary: Present: clear, warm - Psychiatric Psychiatric: cooperative) - Neurologic Neurologic: moves all extremities, other (communicative) - Constitutional Vitals: Temp Pulse Resp BP Pulse Ox 97.6 F 79 24 130/69 97 09/07/19 11:21 09/07/19 11:21 09/07/19 11:21 09/07/19 11:21 09/07/19 11:21 Plan Activity: fall precautions Weight Bearing Status: Non-Weight Bearing Diet: diabetic Special Instructions: restrict fluid intake to (1.2 L per day), record blood sugar diary Additional Instructions: Please go to nearby hospital ER for your dialysis need Follow up with: PRIMARY CARE, [Primary Care Provider] - 7 Days Prescriptions: Insulin Regular, Human [HumuLIN R] 0 units SUB-Q AC 30 Days units Azithromycin [Zithromax TAB] 500 mg PO QDAY #5 tablet Other Discharge Orders: Glucometer (Amb) Location: None Selected Glucometer supplies[Amb] Location: None Selected
[2019-09-07] MEDS ORDERED: AZITHROMYCIN 250 MG TAB PO SCH (15:00)
[2019-09-07 18:37] VITALS: BP 123/68
== END 2019-09-07 21:00 | disposition home or self-care (01) | DRG 73 ==
LOC: ED 11:24 → 3A 22:04
PROVIDERS: ADMIT Internal Medicine; ATTEND Internal Medicine
PROC: 5A1D70Z Performance of Urinary Filtration, Intermittent, Less than 6 Hours Per Day (ICD-10-PCS; principal; 2019-09-06)
PROC: 5A1D70Z Performance of Urinary Filtration, Intermittent, Less than 6 Hours Per Day (ICD-10-PCS; 2019-09-07)
DX: E11.43 Type 2 diabetes mellitus with diabetic autonomic (poly)neuropathy (principal); J18.9 Pneumonia, unspecified organism; N18.6 End stage renal disease; E87.2 Acidosis; I12.0 Hypertensive chronic kidney disease with stage 5 chronic kidney disease or end stage renal disease; N17.9 Acute kidney failure, unspecified; R65.10 Systemic inflammatory response syndrome (SIRS) of non-infectious origin without acute organ dysfunction; L97.929 Non-pressure chronic ulcer of unspecified part of left lower leg with unspecified severity; L97.919 Non-pressure chronic ulcer of unspecified part of right lower leg with unspecified severity; E11.22 Type 2 diabetes mellitus with diabetic chronic kidney disease; F03.90 Unspecified dementia, unspecified severity, without behavioral disturbance, psychotic disturbance, mood disturbance, and anxiety; K31.84 Gastroparesis; E11.51 Type 2 diabetes mellitus with diabetic peripheral angiopathy without gangrene; D63.1 Anemia in chronic kidney disease; Z99.2 Dependence on renal dialysis; Z79.4 Long term (current) use of insulin; Z03.818 Encounter for observation for suspected exposure to other biological agents ruled out
CPT/HCPCS: 36415; 71045; 74176; 80048; 80053; 82728; 82947; 82962; 83615; 83880; 84100; 84145; 85025; 85027; 85379; 86140; 93005; G0378; J0360; J0456; J0696; J1100; J1644; J1815; J2405; J7030; J7050; U0003-CS

== ENCOUNTER 2019-09-10 11:20 | Inpatient (IN) | payer OTHER, SELFPAY ==
--- NOTE | 2019-09-10 12:37 | Event Note ---
ED Screening Note ED Screening Note: has not had dialysis since 09/06/2019 he moved from [place] a couple of months ago has associated n/v no diarrhea no fever no cough no SOB or CP no abd pain This initial assessment/diagnostic orders/clinical plan/treatment(s) is/are subject to change based on patients health status, clinical progression and re- assessment by fellow clinical providers in the ED. Further treatment and workup at subsequent clinical providers discretion. Patient/guardian urged not to elope from the ED as their condition may be serious if not clinically assessed and managed. Initial orders include: labs
[2019-09-10 14:03] LABS: Hematocrit 31.6 % (35.5-45.6); Mean Corpuscular HGB Conc 35 % (32-34); Mean Corpuscular Volume 84 fl (84-94); Platelet Count 359 K/mm3 (140-440); Red Blood Count 3.75 M/mm3 (3.65-5.03); Red Cell Distribution Width 14.4 % (13.2-15.2)
[2019-09-10 14:17] LABS: Albumin 3.4 g/dL (3.9-5); Calcium 9.1 mg/dL (8.4-10.2)
[2019-09-10 14:42] LABS: Anisocytosis Few; Band Neutrophils # (Manual) 0.4 K/mm3; Basophils % (Manual) 0 % (0.0-1.8); Eosinophils % (Manual) 0 % (0.0-4.3); Macrocytosis Few; Platelet Estimate Consistent w Auto; Total Cells Counted 100
[2019-09-10] MEDS ORDERED: ONDANSETRON 4 MG/2 ML INJ IV ONE (21:53)
--- NOTE | 2019-09-10 22:16 | XRay Report ---
CHEST 1 VIEW 09/10/2019 9:10 PM INDICATION / CLINICAL INFORMATION: sob. COMPARISON: Chest x-ray 09/05/2019 FINDINGS: SUPPORT DEVICES: Right internal jugular dialysis catheter again has tip overlying SVC/right atrial ju nction. HEART / MEDIASTINUM: No significant abnormality. LUNGS / PLEURA: No significant pulmonary or pleural abnormality. No pneumothorax. ADDITIONAL FINDINGS: Left nipple shadow, new since prior study. IMPRESSION: 1. No acute findings. Signer Name: Juvenal Moraes MD Signed: 09/10/2019 10:11 PM Workstation Name: [id number]
--- NOTE | 2019-09-10 22:29 | Emergency Department Report ---
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 09/03/19 09/05/19 Rx Cholecalciferol (Vitamin D3) 5,000 unit PO DAILY #30 09/03/19 09/05/19 Rx [Vitamin D3] Metoclopramide HCl [Reglan TAB] 5 mg PO TIDAC #60 tablet 09/03/19 09/05/19 Rx Pantoprazole [Protonix TAB] 40 mg PO QDAY #30 tablet 09/03/19 09/05/19 Rx amLODIPine 10 mg PO DAILY #30 09/03/19 09/05/19 Rx calcitrioL [Rocaltrol] 0.5 mcg PO QDAY #30 capsule 09/03/19 09/05/19 Rx Azithromycin [Zithromax TAB] 500 mg PO QDAY #5 tablet 09/07/19 Unknown Rx Insulin Regular, Human [HumuLIN R] 0 units SUB-Q AC 30 Days units 09/07/19 Unknown Rx Allergies Allergy/AdvReac Type Severity Reaction Status Date / Time No Known Allergies Allergy Verified 09/10/19 11:55 ED Review of Systems ROS: Stated complaint: N/V/DIALYSIS PATIENT Other details as noted in HPI ED Past Medical Hx - Past Medical History Hx Hypertension: Yes Hx Congestive Heart Failure: No Hx Diabetes: Yes (non insulin dependent) Hx Renal Disease: Yes Hx Asthma: No Hx COPD: No Hx Dementia: Yes - Social History Smoking Status: Never Smoker Substance Use Type: None - Medications Home Medications: Home Medications Medication Instructions Recorded Confirmed Last Taken Type Aspirin EC [Halfprin EC] 81 mg PO QDAY #30 tablet. 09/03/19 09/06/19 09/05/19 Rx Cholecalciferol (Vitamin D3) 5,000 unit PO DAILY #30 09/03/19 09/06/19 09/05/19 Rx [Vitamin D3] Metoclopramide HCl [Reglan TAB] 5 mg PO TIDAC #60 tablet 09/03/19 09/06/1909/04/20 Rx Pantoprazole [Protonix TAB] 40 mg PO QDAY #30 tablet 09/03/19 09/06/19 09/05/19 Rx amLODIPine 10 mg PO DAILY #30 09/03/19 09/06/19 09/05/19 Rx calcitrioL [Rocaltrol] 0.5 mcg PO QDAY #30 capsule 09/03/19 09/06/19 09/05/19 Rx Azithromycin [Zithromax TAB] 500 mg PO QDAY #5 tablet 09/07/19 Unknown Rx Insulin Regular, Human [HumuLIN R] 0 units SUB-Q AC 30 Days units 09/07/19 Unknown Rx ED Physical Exam - General Limitations: Language Barrier ED Course Vital Signs 09/10/19 09/10/19 11:55 20:30 Temperature 97.4 F L 98.3 F Pulse Rate 94 H 87 Respiratory 18 12 Rate Blood Pressure 106/73 Blood Pressure 148/93 [Right] O2 Sat by Pulse 97 99 Oximetry ED Medical Decision Making - Lab Data Result diagrams: 09/10/19 13:39 09/10/19 13:39 Critical care attestation.: If time is entered above; I have spent that time in minutes in the direct care of this critically ill patient, excluding procedure time. ED Disposition Clinical Impression: Person under investigation for COVID-19, Uremia Acute on chronic renal failure Qualifiers: Acute renal failure type: unspecified Chronic kidney disease stage: on chronic dialysis Qualified Code(s): N17.9 - Acute kidney failure, unspecified; N18.9 - Chronic kidney disease, unspecified; Z99.2 - Dependence on renal dialysis Disposition: OP ADMIT IP TO THIS HOSP Is pt being admited?: Yes Does the pt Need Aspirin: No Condition: Stable Referrals: PRIMARY CARE, [Primary Care Provider] - 3-5 Days
[2019-09-10 23:30] LABS: C-Reactive Protein 9.9 mg/dL (0.00-1.30)
--- NOTE | 2019-09-10 23:33 | History and Physical Report ---
History of Present Illness Date of examination: 09/10/19 Date of admission: 09/10/2019 Chief complaint: Nausea and vomiting Generalized body aches and pain End-stage renal disease needing dialysis History of present illness: 59-year-old male with known history of end-stage renal disease on dialysis presenting to the emergency room today complaining of generalized body aches and pain. He has also been having some nausea and vomiting. He denies any diarrhea, denies any abdominal pain, denies any fever or chills. Patient has not been quite compliant with dialysis as she just recently moved to [place] from [place]. Upon arrival in the emergency room patient was found to be lethargic . Work-up in the emergency room today reveals pulmonary edema on the chest x-ray. BUN and creatinine was also 78 and 12 respectively. Past History Past Medical History: diabetes, dialysis, ESRD, GERD, hypertension, hyperlip idemia Past Surgical History: Other (Vas-Cath placement right anterior chest wall) Social history: no significant social history Family history: no significant family history Medications and Allergies Allergies Allergy/AdvReac Type Severity Reaction Status Date / Time No Known Allergies Allergy Verified 09/10/19 11:55 Home Medications Medication Instructions Recorded Confirmed Last Taken Type Aspirin EC [Halfprin EC] 81 mg PO QDAY #30 tablet. 09/03/19 09/06/19 09/05/19 Rx Cholecalciferol (Vitamin D3) 5,000 unit PO DAILY #30 09/03/19 09/06/19 09/05/19 Rx [Vitamin D3] Metoclopramide HCl [Reglan TAB] 5 mg PO TIDAC #60 tablet 09/03/19 09/06/19 09/05/19 Rx Pantoprazole [Protonix TAB] 40 mg PO QDAY #30 tablet 09/03/19 09/06/19 09/05/19 Rx amLODIPine 10 mg PO DAILY #30 09/03/19 09/06/19 09/05/19 Rx calcitrioL [Rocaltrol] 0.5 mcg PO QDAY #30 capsule 09/03/19 09/06/19 09/05/19 Rx Azithromycin [Zithromax TAB] 500 mg PO QDAY #5 tablet 09/07/19 Unknown Rx Insulin Regular, Human [HumuLIN R] 0 units SUB-Q AC 30 Days units 09/07/19 Unknown Rx Review of Systems Constitutional: chills, fatigue, malaise, no fever Ears, nose, mouth and throat: no nasal congestion, no sore throat Cardiovascular: no chest pain, no palpitations Respiratory: no cough, no shortness of breath Gastrointestinal: nausea, vomiting, no abdominal pain, no diarrhea Genitourinary Male: no dysuria, no hematuria, no flank pain Musculoskeletal: no neck pain, no low back pain Integumentary: no rash, no pruritis Neurological: no headaches, no confusion Psychiatric: no anxiety, no depression Exam - Constitutional Vitals: Temp Pulse Resp BP Pulse Ox 98.3 F 87 12 148/93 99 09/10/19 20:30 09/10/19 20:30 09/10/19 20:30 09/10/19 20:30 09/10/19 20:30 General appearance: Present: no acute distress, well-nourished - EENT Eyes: Present: PERRL, EOM intact. Absent: scleral icterus ENT: hearing intact, clear oral mucosa, dentition normal - Neck Neck: Present: supple, normal ROM - Respiratory Respiratory effort: normal Respiratory: bilateral: CTA - Cardiovascular Rhythm: regular Heart Sounds: Present: S1 & S2. Absent: gallop, systolic murmur, diastolic murmur, rub - Extremities Extremities: no ischemia, pulses intact, pulses symmetrical, No edema, Full ROM Peripheral Pulses: within normal limits - Abdominal General gastrointestinal: Present: soft, non-tender, non-distended, normal bowel sounds - Integumentary Integumentary: Present: clear, warm, dry - Musculoskeletal Musculoskeletal: strength equal bilaterally - Psychiatric Psychiatric: appropriate mood/affect, intact judgment & insight, memory intact, cooperative - Neurologic Neurologic: CNII-XII intact, no focal deficits, moves all extremities Results - Labs CBC & Chem 7: 09/11/19 06:22 09/10/19 22:57 Labs: Abnormal lab results 09/10/19 09/10/19 Range/Units 13:39 13:39 WBC 13.3 H (4.5-11.0) K/mm3 Hgb 11.0 L (11.8-15.2) gm/dl Hct 31.6 L (35.5-45.6) % MCHC 35 H (32-34) % Seg Neuts % (Manual) 89.0 H (40.0-70.0) % Lymphocytes % (Manual) 7.0 L (13.4-35.0) % Seg Neutrophils # Man 11.8 H (1.8-7.7) K/mm3 Lymphocytes # (Manual) 0.9 L (1.2-5.4) K/mm3 Chloride 90.1 L (98-107) mmol/L BUN 78 H (9-20) mg/dL Creatinine 12.9 H (0.8-1.5) mg/dL Glucose 224 H (75-100) mg/dL Albumin 3.4 L (3.9-5) g/dL Lipase 116 H (13-60) units/L Assessment and Plan - Patient Problems (1) ESRD (end stage renal disease) on dialysis Current Visit: Yes Status: Acute Plan to address problem: Consult has been placed to felt hat steamer for possible dialysis. (2) Nausea and vomiting Current Visit: No Status: Acute Qualifiers: Vomiting type: unspecified Vomiting Intractability: intractable Qualified Code(s): R11.2 - Nausea with vomiting, unspecified Plan to address problem: Patient has been placed on IV Zofran as needed. (3) Weakness Current Visit: No Status: Acute Plan to address problem: Possibly secondary to the persistent nausea and vomiting. Patient will also be ruled out for COVID-19. He was placed on pulmonary and droplet precautions. Infectious disease will be consulted for further evaluation and recommendation. (4) DVT prophylaxis Current Visit: No Status: Acute Plan to address problem: Patient placed on subcutaneous heparin. (5) Full code status Current Visit: No Status: Acute
[2019-09-10] MEDS ORDERED: MORPHINE 2 MG/1 ML INJ IV PRN (23:38)
[2019-09-10] MEDS ORDERED: MAGNESIUM HYDROXIDE (MOM) ORAL LIQD UDC PO PRN (23:38)
[2019-09-10] MEDS ORDERED: ACETAMINOPHEN 325 MG TAB PO PRN (23:38)
[2019-09-11] MEDS: HEPARIN 5,000 UNIT/1 ML VIAL SUB-Q SCH ×2 (06:31→15:46)
[2019-09-11] MEDS: ONDANSETRON 4 MG/2 ML INJ IV PRN ×2 (06:41→14:50)
[2019-09-11 07:05] LABS: Basophils # (Auto) 0.1 K/mm3 (0.0-0.1); Basophils % (Auto) 0.5 % (0.0-1.8); Eosinophils # (Auto) 0.1 K/mm3 (0.0-0.4); Eosinophils % (Auto) 1.2 % (0.0-4.3); Hematocrit 32.3 % (35.5-45.6); Hemoglobin 10.8 gm/dl (11.8-15.2); Lymphocytes # (Auto) 1.5 K/mm3 (1.2-5.4); Lymphocytes % (Auto) 13.5 % (13.4-35.0); Mean Corpuscular HGB Conc 34 % (32-34); Mean Corpuscular Volume 84 fl (84-94); Monocytes # (Auto) 0.7 K/mm3 (0.0-0.8); Monocytes % (Auto) 6.4 % (0.0-7.3); Platelet Count 325 K/mm3 (140-440); Red Blood Count 3.85 M/mm3 (3.65-5.03); Red Cell Distribution Width 14.4 % (13.2-15.2)
[2019-09-11 07:18] LABS: INR 1.19 (0.87-1.13)
[2019-09-11] MEDS ORDERED: INSULIN LISPRO 100 UNIT/ML SUB-Q SCH (07:30)
[2019-09-11] MEDS ORDERED: DEXTROSE 50% IN WATER (25GM) 50 ML SYRINGE IV PRN (08:00)
[2019-09-11] MEDS ORDERED: SODIUM CHLORIDE 0.9% 100 ML IV PRN (10:30)
[2019-09-11] MEDS ORDERED: ALBUMIN HUMAN 25% (25 GM/100 ML) INJ IV PRN (10:30)
--- NOTE | 2019-09-11 10:55 | Consultation ---
History of Present Illness - Reason for Consult Consult date: 09/11/19 end stage renal disease Requesting physician: GUANACO SCHNEIDER - History of Present Illness 59-year-old male with known history of end-stage renal disease on dialysis presenting to the emergency room today complaining of generalized body aches and pain. He has also been having some nausea and vomiting. He denies any diarrhea, denies any abdominal pain, denies any fever or chills. Patient has not been quite compliant with dialysis as she just recently moved to [place] from [place]. Upon arrival in the emergency room patient was found to be lethargic . Work-up in the emergency room today reveals pulmonary edema on the chest x-ray. BUN and creatinine was also 78 and 12 respectively. Past History Past Medical History: diabetes, dialysis, ESRD, GERD, hypertension, hyperlipidemia Past Surgical History: Other (Vas-Cath placement right anterior chest wall) Social history: no significant social history Family history: no significant family history Medications and Allergies Allergies Allergy/AdvReac Type Severity Reaction Status Date / Time No Known Allergies Allergy Verified 09/10/19 11:55 Home Medications Medication Instructions Recorded Confirmed Last Taken Type Aspirin EC [Halfprin EC] 81 mg PO QDAY #30 tablet. 09/03/19 09/06/19 09/05/19 Rx Cholecalciferol (Vitamin D3) 5,000 unit PO DAILY #30 09/03/19 09/06/19 09/05/19 Rx [Vitamin D3] Metoclopramide HCl [Reglan TAB] 5 mg PO TIDAC #60 tablet 09/03/19 09/06/19 09/05/19 Rx Pantoprazole [Protonix TAB] 40 mg PO QDAY #30 tablet 09/03/19 09/06/19 09/05/19 Rx amLODIPine 10 mg PO DAILY #30 09/03/19 09/06/19 09/05/19 Rx calcitrioL [Rocaltrol] 0.5 mcg PO QDAY #30 capsule 09/03/19 09/06/19 09/05/19 Rx Azithromycin [Zithromax TAB] 500 mg PO QDAY #5 tablet 09/07/19 Unknown Rx Insulin Regular, Human [HumuLIN R] 0 units SUB-Q AC 30 Days units 09/07/19 Unknown Rx Review of Systems Constitutional: chills, fatigue, malaise, no fever Ears, nose, mouth and throat: no nasal congestion, no sore throat Cardiovascular: no chest pain, no palpitations Respiratory: no cough, no shortness of breath Gastrointestinal: nausea, vomiting, no abdominal pain, no diarrhea Genitourinary Male: no dysuria, no hematuria, no flank pain Musculoskeletal: no neck pain, no low back pain Integumentary: no rash, no pruritis Neurological: no headaches, no confusion Psychiatric: no anxiety, no depression Exam - Constitutional Vitals: Temp Pulse Resp BP Pulse Ox 98.3 F 87 12 148/93 99 09/10/19 20:30 09/10/19 20:30 09/10/19 20:30 09/10/19 20:30 09/10/19 20:30 Past History Past Medical History: diabetes, dialysis, ESRD, GERD, hypertension, hyperlipidemia Past Surgical History: Other (Vas-Cath placement right anterior chest wall) Social history: no significant social history Family history: no significant family history Medications and Allergies Allergies Allergy/AdvReac Type Severity Reaction Status Date / Time No Known Allergies Allergy Verified 09/10/19 11:55 Home Medications Medication Instructions Recorded Confirmed Last Taken Type Aspirin EC [Halfprin EC] 81 mg PO QDAY #30 tablet. 09/03/19 09/06/19 09/05/19 Rx Cholecalciferol (Vitamin D3) 5,000 unit PO DAILY #30 09/03/19 09/06/19 09/05/19 Rx [Vitamin D3] Metoclopramide HCl [Reglan TAB] 5 mg PO TIDAC #60 tablet 09/03/19 09/06/19 09/05/19 Rx Pantoprazole [Protonix TAB] 40 mg PO QDAY #30 tablet 09/03/19 09/06/19 09/05/19 Rx amLODIPine 10 mg PO DAILY #30 09/03/19 09/06/19 09/05/19 Rx calcitrioL [Rocaltrol] 0.5 mcg PO QDAY #30 capsule 09/03/19 09/06/19 09/05/19 Rx Azithromycin [Zithromax TAB] 500 mg PO QDAY #5 tablet 09/07/19 Unknown Rx Insulin Regular, Human [HumuLIN R] 0 units SUB-Q AC 30 Days units 09/07/19 Unknown Rx Active Meds: Active Medications Acetaminophen (Tylenol) 650 mg PO Q4H PRN PRN Reason: Pain MILD(1-3)/Fever >100.5/MCKEON Albumin Human (Alburx 25% (Albumin)) 25 gm IV JEN PRN PRN Reason: Hypotension Dextrose (D50w (25gm) Syringe) 50 ml IV Q30MIN PRN; Protocol PRN Reason: Hypoglycemia Epoetin Doug (Procrit) 10,000 unit IV JEN PRN PRN Reason: hemodialysis Heparin Sodium (Porcine) (Heparin) 5,000 unit SUB-Q Q8HR [facility] Last Admin: 09/11/19 06:31 Dose: 5,000 unit Documented by: Sodium Chloride (Nacl 0.9%) 100 mls @ 999 mls/hr IV JEN PRN PRN Reason: Hypotension Insulin Human Lispro (Humalog) 0 unit SUB-Q ACHS [facility]; Protocol Last Admin: 09/11/19 09:00 Dose: Not Given Documented by: Magnesium Hydroxide (Milk Of Magnesia) 30 ml PO Q4H PRN PRN Reason: Constipation Morphine Sulfate (Morphine) 2 mg IV Q4H PRN PRN Reason: Pain, Moderate (4-6) Ondansetron HCl (Zofran) 4 mg IV Q8H PRN PRN Reason: Nausea And Vomiting Last Admin: 09/11/19 06:41 Dose: 4 mg Documented by: Sodium Chloride (Sodium Chloride Flush Syringe 10 Ml) 10 ml IV BID JEN Sodium Chloride (Sodium Chloride Flush Syringe 10 Ml) 10 ml IV PRN PRN PRN Reason: LINE FLUSH Exam - Vital Signs Vital signs: Vital Signs Temp Pulse Resp BP Pulse Ox 97.4 F L 94 H 18 106/73 97 09/10/19 11:55 09/10/19 11:55 09/10/19 11:55 09/10/19 11:55 09/10/19 11:55 - Physical Exam Narrative exam: General appearance: Present: no acute distress, well-nourished - EENT Eyes: Present: PERRL, EOM intact. Absent: scleral icterus ENT: hearing intact, clear oral mucosa, dentition normal - Neck Neck: Present: supple, normal ROM - Respiratory Respiratory effort: normal Respiratory: bilateral: CTA - Cardiovascular Rhythm: regular Heart Sounds: Present: S1 & S2. Absent: gallop, systolic murmur, diastolic murmur, rub - Extremities Extremities: no ischemia, pulses intact, pulses symmetrical, No edema, Full ROM Peripheral Pulses: within normal limits - Abdominal General gastrointestinal: Present: soft, non-tender, non-distended, normal bowel sounds - Integumentary Integumentary: Present: clear, warm, dry - Musculoskeletal Musculoskeletal: strength equal bilaterally - Psychiatric Psychiatric: appropriate mood/affect, intact judgment & insight, memory intact, cooperative - Neurologic Neurologic: CNII-XII intact, no focal deficits, moves all extremities Results - Lab Results 09/11/19 06:22 09/11/19 06:22 Most recent lab results Calcium 9.0 mg/dL (8.4-10.2) 09/11/19 06:22 Assessment and Plan Impression: * esrd * metabolic acidosis * hyperkalemia * HTN * hypoglycemia * Type 2 DM * seizure activity * uremia Plan: * continue HD today and q MWF * strict i/os * daily lytes * dose meds per renal function * unable to achieve HD unit placement due to immigration status * ok to dc when primary team is ready
[2019-09-11] MEDS ORDERED: EPOETIN ALFA 10,000 UNIT/1 ML INJ IV PRN (11:00)
[2019-09-11] MEDS ORDERED: amLODIPine 10 MG TAB PO SCH (11:00)
[2019-09-11] MEDS ORDERED: ASPIRIN EC 81 MG TAB PO SCH (11:00)
[2019-09-11] MEDS: METOCLOPRAMIDE 10 MG TAB PO SCH ×2 (12:20→17:53)
[2019-09-11] MEDS: INSULIN REGULAR, HUMAN 100 UNITS/1 ML SUB-Q SCH ×2 (12:22→17:50)
--- NOTE | 2019-09-11 12:23 | Discharge Summary ---
Providers - Providers Date of Admission: 09/10/19 23:29 Date of discharge: 09/11/19 Attending physician: YESICA DURBIN 09/10/19 23:30 Consult to Physician [CONS] Routine Comment: Dr. Hunter spoke with Dr. Paul @ [id number] Consulting Provider: LEXX PAUL Physician Instructions: CKD Reason For Exam: ESRD NEEDS DIALYSIS 09/11/19 07:14 Consult to Physician [CONS] Routine Comment: Consulting Provider: RENEE VEGA Physician Instructions: Reason For Exam: weakness, nausea and vomiting.R/O COVID 19 Primary care physician: TEACHER ASSISTANT Hospitalization Condition: Stable Hospital course: Is a 59-year-old male with history of end-stage renal disease on dialysis without any outpatient dialysis set up because of his illegal immigration status presented to the hospital complaining of generalized body ache pain, with some associated nausea and vomiting. In the ER chest x-ray showed pulmonary edema, BUN/creatinine was 78 and 12 respectively. Patient was admitted to the hospital, nephrology was consulted and received hemodialysis. His symptom improved and was maintaining oxygen saturation in room air. Patient was also recommended to be compliant with his medications and to continue Reglan before meals. Patient also started on Carafate for his persistent nausea and vomiting. Patient was evaluated by retail services professional during his prior admission and recommended medical management as his nausea vomiting thought to be induced by gastroparesis from uncontrolled diabetes. Patient was then discharged home in stable condition and was instructed to come back for to the hospital for his dialysis need. Discharge diagnosis: End-stage renal disease in need for dialysis Volume overload due to end-stage renal disease Diabetes mellitus type 2, uncontrolled Hyperlipidemia, hypertension Nausea vomiting, due to gastroparesis, due to uncontrolled diabetes Suspected COVID-19, ruled out with a negative test, per note so far patient has 3 -ve tests. Physical exam: GENERAL: well-developed elderly male lying on bed appeared to be in no discomfort. HEENT: Normocephalic. Atraumatic. No conjunctival congestion or icterus. Patient has moist mucous membranes. NECK: Supple. Trachea midline. CHEST/LUNGS: Clear to auscultated bilaterally, breathing nonlabored. No wheezes crackles or rhonchi. HEART/CARDIOVASCULAR: Regular in rate and rhythm. S1 and S2 positive. ABDOMEN: Abdomen is soft, nontender. Patient has normal bowel sounds. SKIN: There is no rash. Warm and dry. NEURO: No focal motor deficit. Follows command. MUSCULOSKELETAL: No joint effusion or tenderness. EXTRIMITY: No edema, no cyanosis or clubbing. PSYCH: Cooperative. Disposition: DC-01 TO HOME OR SELFCARE Time spent for discharge: 34 minutes Core Measure Documentation - Palliative Care Palliative Care/ Comfort Measures: Not Applicable - Core Measures Any of the following diagnoses?: none Exam - Constitutional Vitals: Temp Pulse Resp BP Pulse Ox 98.6 F 92 H 18 112/81 98 09/11/19 11:33 09/11/19 11:33 09/11/19 11:33 09/11/19 11:33 09/11/19 11:33 Plan Activity: advance as tolerated Diet: diabetic, renal Follow up with: PRIMARY CARE, [Primary Care Provider] - 3-5 Days Prescriptions: Sucralfate [Carafate] 1 gm PO ACHS 30 Days #1 oral.liqd
[2019-09-11 13:40] LABS: Hepatitis B Surface Antigen Non-Reactive (Negative); Hepatitis C Virus Antibody Non-Reactive (NonReactive)
--- NOTE | 2019-09-11 15:17 | Event Note ---
Date: 09/11/19 Patient with ESRD admitted due to nausea, vomiting and shortness of breath. Apparently, noncompliant with dialysis. COVID-19 test is pending. Will follow up with patient if COVID-19 test is positive.
[2019-09-11] MEDS ORDERED: SUCRALFATE 1 GM/10 ML ORAL LIQD PO SCH (16:30)
[2019-09-11 21:33] VITALS: BP 108/69
[2019-09-12] MEDS ORDERED: CHOLECALCIFEROL (VIT D3) 5,000 UNIT TAB PO SCH (10:00)
[2019-09-12] MEDS ORDERED: CALCITRIOL 0.5 MCG CAP PO SCH (10:00)
[2019-09-12] MEDS ORDERED: PANTOPRAZOLE 40 MG TAB PO SCH (10:00)
== END 2019-09-11 21:00 | disposition home or self-care (01) | DRG 73 ==
LOC: ED 11:20 → 3A 23:29
PROVIDERS: ADMIT Internal Medicine Geriatric Medicine; ATTEND Internal Medicine
PROC: 5A1D70Z Performance of Urinary Filtration, Intermittent, Less than 6 Hours Per Day (ICD-10-PCS; principal; 2019-09-11)
DX: E11.43 Type 2 diabetes mellitus with diabetic autonomic (poly)neuropathy (principal); N18.6 End stage renal disease; N17.9 Acute kidney failure, unspecified; I12.0 Hypertensive chronic kidney disease with stage 5 chronic kidney disease or end stage renal disease; J81.1 Chronic pulmonary edema; E87.2 Acidosis; E11.22 Type 2 diabetes mellitus with diabetic chronic kidney disease; E78.5 Hyperlipidemia, unspecified; K21.9 Gastro-esophageal reflux disease without esophagitis; E11.649 Type 2 diabetes mellitus with hypoglycemia without coma; K31.84 Gastroparesis; E87.70 Fluid overload, unspecified; E87.5 Hyperkalemia; F03.90 Unspecified dementia, unspecified severity, without behavioral disturbance, psychotic disturbance, mood disturbance, and anxiety; Z99.2 Dependence on renal dialysis; Z91.15 Patient's noncompliance with renal dialysis; Z79.82 Long term (current) use of aspirin; Z79.4 Long term (current) use of insulin; Z03.818 Encounter for observation for suspected exposure to other biological agents ruled out
CPT/HCPCS: 36415; 71045; 80048; 80053; 80074; 82728; 82947; 82962; 83615; 83690; 84145; 85007; 85025; 85379; 85610; 86140; 87040; G0378; J1644; J2405; U0003-CS